=== PATIENT | male | born 1950 | race Caucasian/White ===

== ENCOUNTER → 2017-11-30 | Outpatient (CLI) | payer OTHER | LOC: M RAD 14:20 | DX: K85.90 Acute pancreatitis without necrosis or infection, unspecified (principal) | CPT/HCPCS: 74181 ==

== ENCOUNTER 2018-08-24 11:29 | Day surgery (SDC) | payer OTHER, MEDICARE ==
[~2018-08-24] VITALS: Ht 180.3 cm; Wt 105.7 kg
[~2018-08-24 11:29] MED LIST: AMLO10TA5 PO; AMRI15CA17 PO; ASPI81TA85 PO; ATOR40TA75 PO; COMBAER6 INH; CVS500CA5 PO; FENO145T13 PO; FISH1000 PO; FLOM0.4C39 PO; GNP1000C11 PO; HYDR-3713 PO; LANS15CA PO; LIDOCAINE 2% INJ 100 MG/5 ML SDV (FOR ANES.) As Ordered ONE; LISI40TA PO; MAGO400T2 PO; METO1TAB32 PO; MULTCAP PO; NS 1,000 ML IV ONE; RANI150T PO; SM S160C PO; SYMB80INH INH; VITAD1000T PO
[2018-08-24] MEDS ORDERED: PROPOFOL 200 MG/20 ML VIAL As Ordered ONE ×2 (11:51→12:39)
[2018-08-24] MEDS ORDERED: fentaNYL 100 MCG/2 ML INJECTION (J3010) As Ordered ONE (11:52)
--- NOTE | 2018-08-24 12:44 | ROOR ---
Patient Name: Melissa Cee Procedure Date: 08/24/2018 12:17 PM Date of : 1950 Age: 67 Room: [facility] Gender: Male Note Status: Finalized Procedure: Colonoscopy Indications: High risk colon cancer surveillance: Personal history of colonic polyps Providers: DO Josiane Hinojosa MD: [facility], Admin. Requesting Provider: Medicines: Propofol per Anesthesia Complications: No immediate complications. Procedure: Pre-Anesthesia Assessment: - Prior to the procedure, a History and Physical was performed, and patient medications and allergies were reviewed. The patient is competent. The risks and benefits of the procedure and the sedation options and risks were discussed with the patient. All questions were answered and informed consent was obtained. Patient identification and proposed procedure were verified by the physician, the nurse, the anesthesiologist and the meter/relay technician in the endoscopy suite. Mental Status Examination: alert and oriented. Airway Examination: normal oropharyngeal airway and neck mobility. Respiratory Examination: clear to auscultation. CV Examination: normal. Prophylactic Antibiotics: The patient does not require prophylactic antibiotics. Prior Anticoagulants: The patient has taken no previous anticoagulant or antiplatelet agents. ASA Grade Assessment: II - A patient with mild systemic disease. After reviewing the risks and benefits, the patient was deemed in satisfactory condition to undergo the procedure. The anesthesia plan was to use monitored anesthesia care (MAC). Immediately prior to administration of medications, the patient was re-assessed for adequacy to receive sedatives. The heart rate, respiratory rate, oxygen saturations, blood pressure, adequacy of pulmonary ventilation, and response to care were monitored throughout the procedure. The physical status of the patient was re-assessed after the procedure. The Colonoscope was introduced through the anus and advanced to the cecum, identified by the appendiceal orifice, ileocecal valve and palpation. The colonoscopy was performed without difficulty. The patient tolerated the procedure well. Findings: A single medium-mouthed diverticulum was found in the ascending colon. Three hyperplastic polyps were found in the sigmoid colon and transverse colon. The polyps were 3 to 8 mm in size. These polyps were removed with a hot snare. Resection and retrieval were complete. Estimated blood loss was minimal. The exam was otherwise without abnormality on direct and retroflexion views. Impression: - Diverticulosis in the ascending colon. - Three 3 to 8 mm polyps in the sigmoid colon and in the transverse colon, removed with a hot snare. Resected and retrieved. - The examination was otherwise normal on direct and retroflexion views. Recommendation: - Patient has a contact number available for emergencies. The signs and symptoms of potential delayed complications were discussed with the patient. Return to normal activities tomorrow. Written discharge instructions were provided to the patient. - Repeat colonoscopy in 5-10 years for surveillance based on pathology results. - Return to my office as previously scheduled. Ernie Mao DO 08/24/2018 12:44:42 PM Electronically signed by Ernie Mao DO Number of Addenda: 0 Note Initiated On: 08/24/2018 12:17 PM Estimated Blood Loss: Estimated blood loss was minimal.
[2018-08-24 13:05] VITALS: BP 142/79
== END 2018-08-24 13:15 | disposition home or self-care (01) ==
LOC: M OPP 11:29
PROVIDERS: ATTEND Surgery
DX: Z86.010 Personal history of colon polyps (principal); Z80.0 Family history of malignant neoplasm of digestive organs; D12.5 Benign neoplasm of sigmoid colon; D12.3 Benign neoplasm of transverse colon; K57.30 Diverticulosis of large intestine without perforation or abscess without bleeding
CPT/HCPCS: 45385; 88305; J3010

== ENCOUNTER 2020-03-26 10:49 | Inpatient (IN) | payer OTHER, MEDICARE ==
[~2020-03-26] VITALS: Ht 180.3 cm; Wt 95.0 kg
[~2020-03-26 10:49] MED LIST changes: -ASPI81TA26 PO; -D31000TA2 PO; -DOXY100C PO; -GABA-282 PO; +NICOTINE 21MG/24HR 1 EA TRANSDERMAL TD SCH; -PRED20TA PO; -SAW1CAPS2 PO
--- OUTSIDE RECORDS SUMMARY | 2020-03-26 10:57 | CCD | Continuity of Care Document ---
Author Author [facility] Address [address] [place] [address] Phone Support Name Relationship Address Phone [place] [address] [place] [address] Allergies, Adverse Reactions, Alerts No known allergies. Medications Medication Status Dose Units Route Directions Qty Days Start Date End Date Instructions Flaxseed Active 1000 MG PO 2 Times Per Day August 09, 2018 9:53am Flucelvax Quad [id number] (PF) (flu vac q s 2018(4 yr up)CD(PF)) 60 mcg (15 mcg x Discontinued 0.5 ML IM 1 Time/Once 0.5 February 06, 2019 11:27am February 06, 2019 12:01pm Gabapentin Active 300 MG PO 2 Times Per Day 180 July 28, 2019 12:25pm Acetaminophen-Codeine (Tylenol-Codeine #3) 300-30 mg t ablet Discontinued 1 - 2 TAB PO Four Times a Day 150 July 01, 2010 10:19am July 01, 2010 10:20am Acetaminophen-Codeine (Tylenol-Codeine #3) 300-30 mg t ablet Discontinued 1 - 2 TAB PO Four Times a Day 150 July 01, 2010 10:20am July 28, 011 10:19am Acetaminophen-Codeine (Tylenol-Codeine #3) 300-30 mg t ablet Discontinued 1 - 2 TAB PO Four Times a Day 150 July 28, 2010 10:19am August 27 11 6:52am Acetaminophen-Codeine (Tylenol-Codeine #3) 300-30 mg t ablet Discontinued 1 - 2 TAB PO Four Times a Day 150 August 27, 2010 6:52am September 22 11 3:10pm Cyclobenzaprine (Amrix) 15 mg capsule,extended release 24hr Discontinued 15 MG PO Once Per Day 30 September 18, 2010 5:53pm August 23 2 11:48am Acetaminophen-Codeine (Tylenol-Codeine #3) 300-30 mg t ablet Discontinued 1 - 2 TAB PO Four Times a Day 150 September 22, 2010 3:10pm October 23, 2010 2:28pm Lansoprazole (Prevacid) 15 mg capsule,delayed release( DR/EC) Discontinued 30 MG PO Once Per Day 60 October 13, 2010 4:33pm March 10:15am Acetaminophen-Codeine (Tylenol-Codeine #3) 300-30 mg t ablet Discontinued 1 - 2 TAB PO Four Times a Day 150 October 23, 2010 2:28pm November 202010 12:34pm Acetaminophen-Codeine (Tylenol-Codeine #3) 300-30 mg t ablet Discontinued 1 - 2 TAB PO Four Times a Day 150 November 20, 2010 12:34pm December 18, 2010 11:23am Acetaminophen-Codeine (Tylenol-Codeine #3) 300-30 mg t ablet Discontinued 1 - 2 TAB PO Four Times a Day 150 December 18, 2010 11:23am January 192010 8:39am Acetaminophen-Codeine (Tylenol-Codeine #3) 300-30 mg t ablet Discontinued 1 - 2 TAB PO Four Times a Day 150 January 19, 2011 8:39am February 162010 10:32am Atenolol Discontinued 25 MG PO Once Per Day 0 February 02, 2011 10:12am May 04, 2016 11:09am Vitamin B Complex Discontinued 1 CAP PO Once Per Day 0 February 02, 2011 10:14am May 19, 2016 9:17am Fenofibrate Nanocrystallized (Tricor) 145 mg tablet Active 1 TAB PO Once Per Day 0 February 02, 2011 10:15am Flaxseed Oil Discontinued 1000 MG PO 2 Times Per Day 0 February 02, 2011 10:15am October 06, 2013 9:47am Multivitamin Active 1 TAB PO Once Per Day 0 February 02, 2011 10:16am Lisinopril Discontinued 20 MG PO Once Per Day 0 February 02, 2011 10:16am April 23, 2016 10:38am Garlic Discontinued 1 CAP PO Once Per Day 0 February 02, 2011 10:16am October 06, 2013 9:47am Pravastatin Discontinued 0.5 TAB PO Once Per Day 0 February 02, 2011 10:17am September 21, 2013 7:43am Saw Totz Active 160 MG PO Once Per Day 0 February 02, 2011 10:18am Terazosin Discontinued 2 MG PO Once Per Day 0 February 02, 2011 10:19am December 26, 2015 11:42am CYCLOBENZAPRINE HCL Discontinued 1 TAB PO At Bedtime 0 February 03, 2011 10:38am March 17, 2011 10:03am Acetaminophen-Codeine (Tylenol-Codeine #3) 300-30 mg t ablet Discontinued 1 - 2 TAB PO Four Times a Day 150 February 16, 2011 10:32am March 172011 10:03am Acetaminophen-Codeine (Tylenol-Codeine #3) 300-30 mg t ablet Discontinued 1 - 2 TAB PO Four Times a Day 150 March 17, 2011 10:03am April 142011 10:13am Acetaminophen-Codeine (Tylenol-Codeine #3) 300-30 mg t ablet Discontinued 1 - 2 TAB PO Four Times a Day 150 April 14, 2011 10:13am May 12, 2011 10:34am Lansoprazole (Prevacid) 15 mg capsule,delayed release( DR/EC) Discontinued 30 MG PO Once Per Day 60 April 14, 2011 10:15am September 7:05am Ranitidine Hcl Active 150 MG PO Once Per Day 0 May 12, 2011 10:32am [place] 3-Laj-Vbc-Fish Oil (Fish Oil) 300- 1,000 mg capsule,delayed release(DR/EC) Active 1 CAP PO 2 Times Per Day 0 May 12, 2011 10:33am Acetaminophen-Codeine (Tylenol-Codeine #3) 300-30 mg t ablet Discontinued 1 - 2 TAB PO Four Times a Day 150 May 12, 2011 10:34am May 12, 2011 11:04am Gabapentin Discontinued 600 MG PO At Bedtime 120 May 12, 2011 10:58am September 08, 2011 9:20am Acetaminophen-Codeine (Tylenol-Codeine #3) 300-30 mg t ablet Discontinued 1 - 2 TAB PO Four Times a Day 165 May 12, 2011 11:04am June 072011 8:02am Acetaminophen-Codeine (Tylenol-Codeine #3) 300-30 mg t ablet Discontinued 1 - 2 TAB PO Four Times a Day June 08, 2011 8:02am July 06, 2011 1:39pm Acetaminophen-Codeine (Tylenol-Codeine #3) 300-30 mg t ablet Discontinued 1 - 2 TAB PO Four Times a Day July 06, 2011 1:39pm August 02 11:06am Acetaminophen-Codeine (Tylenol-Codeine #3) 300-30 mg t ablet Discontinued 1 - 2 TAB PO Four Times a Day August 03, 2011 11:06am August 30 2:57pm Cyclobenzaprine (Amrix) 15 mg capsule,extended release 24hr Discontinued 15 MG PO Once Per Day August 24, 2011 11:48am February 4:13pm Acetaminophen-Codeine (Tylenol-Codeine #3) 300-30 mg t ablet Discontinued 1 - 2 TAB PO Four Times a Day August 31, 2011 2:57pm September 27 3:07pm Acetaminophen-Codeine (Tylenol-Codeine #3) 300-30 mg t ablet Discontinued 1 - 2 TAB PO Four Times a Day September 28, 2011 3:07pm October 26, 2011 9:52am Lansoprazole (Prevacid) 15 mg capsule,delayed release( DR/EC) Discontinued 30 MG PO Once Per Day 30 October 08, 2011 7:05am October 07 2:31pm Lansoprazole (Prevacid) 15 mg capsule,delayed release( DR/EC) Discontinued 30 MG PO Once Per Day 60 October 08, 2011 2:31pm September 29 13 9:00am Acetaminophen-Codeine (Tylenol-Codeine #3) 300-30 mg t ablet Discontinued 1 - 2 TAB PO Four Times a Day October 26, 2011 9:52am November 132011 12:16pm Flu Vaccine (4 Yr+)(Pf) (Fluvirin [id number] (Pf)) 45 mcg (15 mcg x 3)/0.5 mL syringe Discontinued 0.5 MILLILITRE IM ONE TIME December 10, 2011 3:34pm December 10, 2011 3:45pm Hydrocodone-Acetaminophen (Jarreau) 5-325 mg tablet Discontinued 1 - 2 TAB PO Q6HRS 165 December 22, 2011 4:19pm January 19, 2012 1:36pm Hydrocodone-Acetaminophen (Jarreau) 5-325 mg tablet Discontinued 1 - 2 TAB PO Q6HRS 165 January 19, 2012 1:36pm February 22, 2012 4:13pm Hydrocodone-Acetaminophen (Jarreau) 5-325 mg tablet Discontinued 1 - 2 TAB PO Q6HRS 165 February 22, 2012 4:13pm March 17, 2012 10:21am Cyclobenzaprine (Amrix) 15 mg capsule,extended release 24hr Discontinued 15 MG PO Once Per Day February 22, 2012 4:13pm August 3:57pm Hydrocodone-Acetaminophen (Jarreau) 5-325 mg tablet Discontinued 1 - 2 TAB PO Q6HRS 165 March 17, 2012 10:21am April 18, 2012 4:52pm Hydrocodone-Acetaminophen (Jarreau) 5-325 mg tablet Discontinued 1 - 2 TAB PO Q6HRS 165 April 18, 2012 4:52pm May 16, 2012 9:34am Hydrocodone-Acetaminophen (Jarreau) 5-325 mg tablet Discontinued 1 - 2 TAB PO Q6HRS 165 May 16, 2012 9:34am June 14, 2012 2:38pm Hydrocodone-Acetaminophen (Jarreau) 5-325 mg tablet Discontinued 1 - 2 TAB PO Q6HRS 165 June 14, 2012 2:38pm July 14, 2012 8:39am Hydrocodone-Acetaminophen (Jarreau) 5-325 mg tablet Discontinued 1 - 2 TAB PO Q6HRS 165 July 14, 2012 8:39am August 11, 2012 10:41am Hydrocodone-Acetaminophen (Jarreau) 5-325 mg tablet Discontinued 1 - 2 TAB PO Q6HRS 165 August 11, 2012 10:41am September 07, 2012 9:06am Cyclobenzaprine (Amrix) 15 mg capsule,extended release 24hr Discontinued 15 MG PO Once Per Day August 22, 2012 3:57pm February 10:42am Hydrocodone-Acetaminophen (Jarreau) 5-325 mg tablet Discontinued 1 - 2 TAB PO Q6HRS 40 September 07, 2012 9:06am September 12, 2012 1:58pm Hydrocodone-Acetaminophen (Jarreau) 5-325 mg tablet Discontinued 1 - 2 TAB PO Q6HRS 165 September 12, 2012 1:58pm October 11, 2012 8:11am Lansoprazole (Prevacid) 15 mg capsule,delayed release( DR/EC) Discontinued 30 MG PO Once Per Day 60 September 29, 2012 9:00am March 31, 2013 2:55pm Hydrocodone-Acetaminophen (Jarreau) 5-325 mg tablet Discontinued 1 - 2 TAB PO Q6HRS 180 October 11, 2012 8:11am November 07, 2012 5:42pm Hydrocodone-Acetaminophen (Jarreau) 5-325 mg tablet Discontinued 1 - 2 TAB PO Q6HRS 180 November 07, 2012 5:42pm December 05, 2012 10:36am Hydrocodone-Acetaminophen (Jarreau) 5-325 mg tablet Discontinued 1 - 2 TAB PO Q6HRS 180 December 05, 2012 10:36am January 03, 2013 11:28am Hydrocodone-Acetaminophen (Jarreau) 5-325 mg tablet Discontinued 1 - 2 TAB PO Q6HRS 180 January 03, 2013 11:28am February 02, 2013 10:09am Testosterone (Androgel) 12.5 mg/ 1.25 gr am (1 %) gel in metered-dose pump Discontinued 2 EACH TP Once Per Day 1 January 03, 2013 11:30am May 9:17am Aspirin Active 81 MG PO Once Per Day 0 January 17, 2013 3:50pm Hydrocodone-Acetaminophen (Jarreau) 5-325 mg tablet Discontinued 1 - 2 TAB PO Q6HRS 180 February 02, 2013 10:09am March 02, 2013 9:26am Cyclobenzaprine (Amrix) 15 mg capsule,extended release 24hr Discontinued 15 MG PO Once Per Day 30 February 23, 2013 10:42am August 8:18am Hydrocodone-Acetaminophen (Jarreau) 5-325 mg tablet Discontinued 1 - 2 TAB PO Q6HRS 180 March 02, 2013 9:26am March 30, 2013 8:18am Hydrocodone-Acetaminophen (Jarreau) 5-325 mg tablet Discontinued 1 - 2 TAB PO Q6HRS 180 March 30, 2013 8:18am April 27, 2013 6:07pm Lansoprazole (Prevacid) 15 mg capsule,delayed release( DR/EC) Discontinued 30 MG PO Once Per Day 60 March 31, 2013 2:55pm September 22, 2013 2:21pm Hydrocodone-Acetaminophen (Jarreau) 5-325 mg tablet Discontinued 1 - 2 TAB PO Q6HRS 180 April 27, 2013 6:07pm May 25, 2013 8:27am Hydrocodone-Acetaminophen (Jarreau 5-325 Tablet) 1 EACH tablet Discontinued 1 - 2 TAB PO Q6HRS 180 May 25, 2013 8:27am June 22, 2013 6:55am REFERENCE #[id number] Hydrocodone-Acetaminophen (Jarreau 5-325 Tablet) 1 EACH tablet Discontinued 1 - 2 TAB PO Q6HRS 180 June 22, 2013 6:55am July 20 1:45pm REFERENCE #[id number] Hydrocodone-Acetaminophen (Jarreau 5-325 Tablet) 1 EACH tablet Discontinued 1 - 2 TAB PO Q6HRS 180 July 20, 2013 1:45pm August 18, 2013 7:42am REFERENCE #[id number] Hydrocodone-Acetaminophen (Jarreau 5-325 Tablet) 1 EACH tablet Discontinued 1 - 2 TAB PO Q6HRS 180 August 18, 2013 7:42am September 14, 2013 9:20am REFERENCE #[id number] Cyclobenzaprine (Amrix) 15 MG capsule,extended release 24hr Discontinued 15 MG PO Once Per Day 30 August 25, 2013 8:18am February 9:31am Hydrocodone-Acetaminophen (Jarreau 5-325 Tablet) 1 EACH tablet Discontinued 1 - 2 TAB PO Q6HRS 180 September 14, 2013 9:20am October 13 6:16am REFERENCE #[id number] Pravastatin Discontinued 0.5 TAB PO Once Per Day 15 September 21, 2013 7:43am May 04, 2016 11:09am Lansoprazole (Prevacid) 15 MG capsule,delayed release( DR/EC) Discontinued 30 MG PO Once Per Day 60 September 22, 2013 2:21pm March 26, 2014 9:27am Garlic Discontinued 1 EACH PO Once Per Day October 06, 2013 9:47am May 19, 2016 9:17am Flaxseed Discontinued 10 00 MG PO 2 Times Per Day October 06, 2013 9:47am August 09, 2018 9:53am Hydrocodone-Acetaminophen (Jarreau 5-325 Tablet) 1 EACH tablet Discontinued 1 - 2 TAB PO Q6HRS 180 October 13, 2013 6:16am November 09, 2013 7:09am REFERENCE #[id number] Hydrocodone-Acetaminophen (Jarreau 5-325 Tablet) 1 EACH tablet Discontinued 1 - 2 TAB PO Q6HRS 180 November 09, 2013 7:09am November 142013 4:26pm REFERENCE #[id number] Hydrocodone-Acetaminophen (Jarreau 5-325 Tablet) 1 EACH tablet Discontinued 1 - 2 TAB PO Q6HRS 180 2013 4:26pm January 01, 2014 4:31pm REFERENCE #[id number] Hydrocodone-Acetaminophen (Jarreau 5-325 Tablet) 1 EACH tablet Discontinued 1 - 2 TAB PO Q6HRS 180 January 01, 2014 4:31pm January 142013 8:08am REFERENCE #[id number] Magnesium Oxide Discontinued 400 MG PO Once Per Day January 08, 2014 10:21am March 02, 2014 9:07am AFLURIA Discontinued 45 MCG IM ONE TIME January 08, 2014 1:55pm January 08, 2014 6:41pm Hydrocodone-Acetaminophen (Jarreau 5-325 Tablet) 1 EACH tablet Discontinued 1 - 2 TAB PO Q6HRS 180 February 02, 2014 8:08am March 02, 2014 2:36pm REFERENCE #[id number] Cyclobenzaprine (Amrix) 15 MG capsule,extended release 24hr Discontinued 15 MG PO Once Per Day February 23, 2014 9:31am August 13, 2014 10:58am Magnesium Oxide Discontinued 400 MG PO Once Per Day March 02, 2014 9:07am August 13, 2014 10:58am Hydrocodone-Acetaminophen (Jarreau 5-325 Tablet) 1 EACH tablet Discontinued 1 - 2 TAB PO Q6HRS 180 March 02, 2014 2:36pm March 152014 8:20am REFERENCE #[id number] Lansoprazole (Prevacid) 15 MG capsule,delayed release( DR/EC) Discontinued 30 MG PO Once Per Day 60 March 26, 2014 9:27am August 13, 2014 10:58am Hydrocodone-Acetaminophen (Jarreau 5-325 Tablet) 1 EACH tablet Discontinued 1 - 2 TAB PO Q6HRS 180 March 30, 2014 8:20am April 152014 8:12am REFERENCE #[id number] Hydrocodone-Acetaminophen (Jarreau 5-325 Tablet) 1 EACH tablet Discontinued 1 - 2 TAB PO Q6HRS 180 April 27, 2014 8:12may 9:06am REFERENCE #[id number] Hydrocodone-Acetaminophen (Jarreau 5-325 Tablet) 1 EACH tablet Discontinued 1 - 2 TAB PO Q6HRS 180 May 25, 2014 9:06am June 19, 2 015 12:24pm REFERENCE #[id number] Hydrocodone-Acetaminophen (Jarreau 5-325 Tablet) 1 EACH tablet Discontinued 1 - 2 TAB PO Q6HRS 60 June 19, 2014 12:24pm June 29, 2014 7:25am REFERENCE #[id number] Hydrocodone-Acetaminophen (Jarreau 5-325 Tablet) 1 EACH tablet Discontinued 1 - 2 TAB PO Q6HRS 180 July 02, 2014 10:00am July 31, 2 015 7:13am REFERENCE #[id number] Hydrocodone-Acetaminophen (Jarreau 5-325 Tablet) 1 EACH tablet Discontinued 1 - 2 TAB PO Q6HRS 180 July 31, 2014 7:13am August 27, 5 4:23pm OLIVE GRADER#[id number] Magnesium Oxide Discontinued 400 MG PO Once Per Day August 13, 2014 10:58am March 19, 2015 10:33am Lansoprazole (Prevacid) 15 MG capsule,delayed release( DR/EC) Discontinued 30 MG PO Once Per Day 60 August 13, 2014 10:58am February 18, 2015 12:26pm Cyclobenzaprine (Amrix) 15 MG capsule,extended release 24hr Discontinued 15 MG PO Once Per Day August 13, 2014 10:58am February 18, 2015 12:26pm Hydrocodone-Acetaminophen (Jarreau 5-325 Tablet) 1 EACH tablet Discontinued 1 - 2 TAB PO Q6HRS 180 August 27, 2014 4:23pm September 25 7:21am OLIVE GRADER #[id number] Hydrocodone-Acetaminophen (Jarreau 5-325 Tablet) 1 EACH tablet Discontinued 1 - 2 TAB PO Q6HRS 180 September 25, 2014 7:21am October 22, 2014 9:08am OLIVE GRADER #[id number] Hydrocodone-Acetaminophen (Jarreau 5-325 Tablet) 1 EACH tablet Discontinued 1 - 2 TAB PO Q6HRS 180 October 22, 2014 9:08am November 202014 8:48am OLIVE GRADER #[id number] Hydrocodone-Acetaminophen (Jarreau 5-325 Tablet) 1 EACH tablet Discontinued 1 - 2 TAB PO Q6HRS 180 November 20, 2014 8:48am December 182014 10:07am OLIVE GRADER #[id number] Hydrocodone-Acetaminophen (Jarreau 5-325 Tablet) 1 EACH tablet Discontinued 1 - 2 TAB PO Q6HRS 180 December 18, 2014 10:07am January 172014 10:10am OLIVE GRADER #[id number] Hydrocodone-Acetaminophen (Jarreau 5-325 Tablet) 1 EACH tablet Discontinued 1 - 2 TAB PO Q6HRS 180 January 17, 2015 10:10am February 18, 2015 10:57am OLIVE GRADER #[id number] Hydrocodone-Acetaminophen (Jarreau 5-325 Tablet) 1 EACH tablet Discontinued 1 - 2 TAB PO Q6HRS 180 February 18, 2015 10:57am March 182015 1:41pm OLIVE GRADER #[id number] Lansoprazole (Prevacid) 15 MG capsule,delayed release( DR/EC) Discontinued 30 MG PO Once Per Day February 18, 2015 12:26pm August 15, 2015 9:43am Cyclobenzaprine (Amrix) 15 MG capsule,extended release 24hr Discontinued 15 MG PO Once Per Day February 18, 2015 12:26pm August 15, 2015 9:43am Hydrocodone-Acetaminophen (Jarreau 5-325 Tablet) 1 EACH tablet Discontinued 1 - 2 TAB PO Q6HRS 180 March 18, 2015 1:41pm April 10:10am OLIVE GRADER # [id number] Magnesium Oxide Discontinued 400 MG PO Once Per Day March 19, 2015 10:33am March 26, 2016 5:49pm Fluocinonide Discontinued 1 SM.AMT TP 2 Times Per Da y March 19, 2015 11 :04am May 19, 2016 9:17am Hydrocodone-Acetaminophen (Jarreau 5-325 Tablet) 1 EACH tablet Discontinued 1 - 2 TAB PO Q6HRS 180 April 15, 2015 10:10am May 13, 2015 10:06am OLIVE GRADER # [id number] Hydrocodone-Acetaminophen (Jarreau 5-325 Tablet) 1 EACH tablet Discontinued 1 - 2 TAB PO Q6HRS 180 May 13, 2015 10:06am June 092015 5:53pm OLIVE GRADER # [id number] Hydrocodone-Acetaminophen (Jarreau 5-325 Tablet) 1 EACH tablet Discontinued 1 - 2 TAB PO Q6HRS 180 June 10, 2015 5:54pm July 09, 2015 11:18am MDD-8 Hydrocodone-Acetaminophen (Jarreau 5-325 Tablet) 1 EACH tablet Discontinued 1 - 2 TAB PO Q6HRS 180 July 09, 2015 11:18am August 05, 016 6:11pm MDD-8 ...OLIVE GRADER #[id number] Hydrocodone-Acetaminophen (Jarreau 5-325 Tablet) 1 EACH tablet Discontinued 1 - 2 TAB PO Q6HRS 180 August 06, 2015 6:12pm September 04 5:49pm OLIVE GRADER #[id number] Lansoprazole (Prevacid) 15 MG capsule,delayed release( DR/EC) Discontinued 30 MG PO Once Per Day August 15, 2015 9:43am February 18, 2016 10:43am Cyclobenzaprine (Amrix) 15 MG capsule,extended release 24hr Discontinued 15 MG PO Once Per Day August 15, 2015 9:43am February 24, 2016 9:54am Hydrocodone-Acetaminophen (Jarreau 5-325 Tablet) 1 EACH tablet Discontinued 1 - 2 TAB PO Q6HRS 180 September 05, 2015 5:50pm October 02 5:35pm OLIVE GRADER #[id number] Hydrocodone-Acetaminophen (Jarreau 5-325 Tablet) 1 EACH tablet Discontinued 1 - 2 TAB PO Q6HRS 180 October 03, 2015 5:35pm November 01, 2015 6:48pm OLIVE GRADER #[id number] Hydrocodone-Acetaminophen (Jarreau 5-325 Tablet) 1 EACH tablet Discontinued 1 - 2 TAB PO Q6HRS 180 November 01, 2015 6:49pm November 132015 12:48pm OLIVE GRADER #[id number] Hydrocodone-Acetaminophen (Jarreau 5-325 Tablet) 1 EACH tablet Discontinued 1 - 2 TAB PO Q6HRS 180 November 28, 2015 12:48pm December 27, 2015 3:19pm OLIVE GRADER #[id number] Flu Vaccine [id number](5yrup)Pf (Afluria [id number] Syringe) 45 MCG/0.5 ML syringe Discontinued 45 MCG IM ONE TIME December 26, 2015 10:43am December 132015 11:52am Tamsulosin (Flomax) 0.4 MG capsule D iscontinued 0.4 MG PO Once Per Day December 26, 2015 11:42am December 24, 2016 2:20pm Hydrocodone-Acetaminophen (Jarreau 5-325 Tablet) 1 EACH tablet Discontinued 1 - 2 TAB PO Q6HRS 180 December 27, 2015 3:21pm January 132015 7:20pm OLIVE GRADER #[id number] Hydrocodone-Acetaminophen (Jarreau 5-325 Tablet) 1 EACH tablet Discontinued 1 - 2 TAB PO Q6HRS 180 January 28, 2016 7:20pm February 28, 2016 9:59am OLIVE GRADER #[id number] Lansoprazole (Prevacid) 15 MG capsule,delayed release( DR/EC) Discontinued 30 MG PO Once Per Day 60 February 18, 2016 10:43am February 19, 2016 6:04pm Lansoprazole (Prevacid) 15 MG capsule,delayed release( DR/EC) Discontinued 30 MG PO Once Per Day 60 February 19, 2016 6:04pm September 11, 2016 1:22pm Cyclobenzaprine (Amrix) 15 MG capsule,extended release 24hr Discontinued 15 MG PO Once Per Day February 24, 2016 9:54am February 24, 2016 6:21pm Cyclobenzaprine (Amrix) 15 MG capsule,extended release 24hr Discontinued 15 MG PO Once Per Day February 24, 2016 6:21pm August 10:57am Hydrocodone-Acetaminophen (Jarreau 5-325 Tablet) 1 EACH tablet Discontinued 1 - 2 TAB PO Q6HRS 45 February 28, 2016 9:59am March 06, 2016 5:09pm OLIVE GRADER #[id number] Hydrocodone-Acetaminophen (Jarreau 5-325 Tablet) 1 EACH tablet Discontinued 1 - 2 TAB PO Q6HRS 180 March 06, 2016 5:10pm March 152016 1:26pm OLIVE GRADER #[id number] Budesonide-Formoterol (Symbicort 80-4.5 Mcg Inhaler) 10.2 GM HFA aerosol inhaler Discontinued 2 PUFFS IH 2 Times Per Day March 26, 2016 11:02am July 25, 2018 9:47am Ipratropium-Albuterol (Combivent Respima t Inhal Pyote*) 4 GM mist Discontinued 1 PUFFS IH Four Times a Day March 26, 2016 11:02am July 25, 2018 9:47am Magnesium Oxide Discontinued 400 MG PO Once Per Day March 26, 2016 5:49pm March 25, 2017 8:46am Hydrocodone-Acetaminophen (Jarreau 5-325 Tablet) 1 EACH tablet Discontinued 1 - 2 TAB PO Q6HRS 180 April 02, 2016 1:27pm April 162016 3:55pm OLIVE GRADER #[id number] Lisinopril Discontinued 40 MG PO Once Per Day April 23, 2016 10:38am May 04, 2016 11:09am Atenolol Discontinued 25 MG PO Once Per Day May 04, 2016 11:09am November 19, 2016 12:18pm Pravastatin Discontinued 20 MG PO Once Per Day May 04, 2016 11:09am July 16, 2016 1:18pm Lisinopril Discontinued 40 MG PO Once Per Day May 04, 2016 11:09am May 24, 2017 12:56pm Hydrocodone-Acetaminophen (Jarreau 5-325 Tablet) 1 EACH tablet Discontinued 1 - 2 TAB PO Q6HRS 180 May 04, 2016 3:55pm May 7:16am Cholecalciferol (Vitamin D3) Discontinued 2000 UNIT PO Once Per Day May 19, 2016 9:17 am July 25, 2018 9:47am Hydrocodone-Acetaminophen (Jarreau 5-325 Tablet) 1 EACH tablet Discontinued 1 - 2 TAB PO Q6HRS June 05, 2016 7:18am June 12, 2016 5:08pm OLIVE GRADER# [id number] Hydrocodone-Acetaminophen (Jarreau 5-325 Tablet) 1 EACH tablet Discontinued 1 - 2 TAB PO Q6HRS 180 June 12, 2016 5:08pm July 10, 2016 5:38pm Hydrocodone-Acetaminophen (Jarreau 5-325 Tablet) 1 EACH tablet Discontinued 1 - 2 TAB PO Q6HRS 180 July 10, 2016 5:39pm August 06 11:57am Amlodipine Discontinued 10 MG PO Once Per Day July 16, 2016 12:13pm July 29, 2017 11:32am Atorvastatin Discontinued 40 MG PO At Bedtime July 16, 2016 1:18pm O ct2016 12:58pm Hydrocodone-Acetaminophen (Jarreau 5-325 Tablet) 1 EACH tablet Discontinued 1 - 2 TAB PO Q6HRS August 06, 2016 11:57am August 17 7 12:22pm OLIVE GRADER [id number] Hydrocodone-Acetaminophen (Jarreau 5-325 Tablet) 1 EACH tablet Discontinued 1 - 2 TAB PO Q6HRS 180 August 17, 2016 12:22pm Sapna 3rd, 201 7 12:45pm OLIVE GRADER [id number] Cyclobenzaprine (Amrix) 15 MG capsule,extended release 24hr Discontinued 15 MG PO Once Per Day September 03, 2016 10:57am February 5:05pm Lansoprazole (Prevacid) 15 MG capsule,delayed release( DR/EC) Discontinued 30 MG PO Once Per Day September 11, 2016 1:22pm March 19, 2017 5:29pm Hydrocodone-Acetaminophen (Jarreau 5-325 Tablet) 1 EACH tablet Discontinued 1 - 2 TAB PO Q6HRS September 14, 2016 12:47pm October 15 11:58am OLIVE GRADER [id number] Hydrocodone-Acetaminophen (Jarreau 5-325 Tablet) 1 EACH tablet Discontinued 1 - 2 TAB PO Q6HRS October 15, 2016 11:58am October 5:28pm OLIVE GRADER [id number] Hydrocodone-Acetaminophen (Jarreau 5-325 Tablet) 1 EACH tablet Discontinued 1 - 2 TAB PO Q6HRS November 12, 2016 5:28pm November 142016 1:21pm OLIVE GRADER [id number] Metoprolol Succinate Discontinued 1 TAB PO Once Per Day November 20, 2016 5:06pm October 25, 2017 2:29pm Hydrocodone-Acetaminophen (Jarreau 5-325 Tablet) 1 EACH tablet Discontinued 1 - 2 TAB PO Q6HRS December 10, 2016 1:22pm January 12, 2017 1:16pm OLIVE GRADER [id number] Tamsulosin (Flomax) 0.4 MG capsule D iscontinued 0.4 MG PO Once Per Day December 24, 2016 2:20pm December 28, 2016 7:01pm Tamsulosin (Flomax) 0.4 MG capsule D iscontinued 0.4 MG PO Once Per Day December 28, 2016 7:01pm March 16, 2018 7:52am Atorvastatin Discontinued 40 MG PO At Bedtime January 12, 2017 12:58pm December 30, 2017 12:12pm Hydrocodone-Acetaminophen (Jarreau 5-325 Tablet) 1 EACH tablet Discontinued 1 - 2 TAB PO Q6HRS January 12, 2017 1:17pm January 142016 6:06pm OLIVE GRADER [id number] Hydrocodone-Acetaminophen (Jarreau 5-325 Tablet) 1 EACH tablet Discontinued 1 - 2 TAB PO Q6HRS 180 February 09, 2017 6:07pm March 12, 2017 8:02am Cyclobenzaprine (Amrix) 15 MG capsule,extended release 24hr Discontinued 15 MG PO Once Per Day February 23, 2017 5:05pm August 3:50pm Hydrocodone-Acetaminophen (Jarreau 5-325 Tablet) 1 EACH tablet Discontinued 1 - 2 TAB PO Q6HRS 180 March 12, 2017 8:03am March 162017 6:30pm Lansoprazole (Prevacid) 15 MG capsule,delayed release( DR/EC) Discontinued 30 MG PO Once Per Day 60 March 19, 2017 5:29pm September 09, 2017 8:21am Magnesium Oxide Discontinued 400 MG PO Once Per Day March 25, 2017 8:46am March 16, 2018 7:52am Hydrocodone-Acetaminophen (Jarreau 5-325 Tablet) 1 EACH tablet Discontinued 1 - 2 TAB PO Q6HRS 180 April 08, 2017 6:30pm April 162017 6:43pm Hydrocodone-Acetaminophen (Jarreau 5-325 Tablet) 1 EACH tablet Discontinued 1 - 2 TAB PO Q6HRS 180 May 10, 2017 6:43pm May 4:47pm Lisinopril Discontinued 40 MG PO Once Per Day May 24, 2017 12:56pm November 19, 2017 5:11pm Hydrocodone-Acetaminophen (Jarreau 5-325 Tablet) 1 EACH tablet Discontinued 1 - 2 TAB PO Q6HRS 180 June 04, 2017 4:48pm July 06, 2017 5:35pm OLIVE GRADER [id number] Cranberry Extract Discontinued 200 MG PO Once Per Day June 14, 2017 1:19 pm July 25, 2018 9:47am Hydrocodone-Acetaminophen (Jarreau 5-325 Tablet) 1 EACH tablet Discontinued 1 - 2 TAB PO Q6HRS 180 July 06, 2017 5:35pm August 05 7:12am Amlodipine Discontinued 10 MG PO Once Per Day July 29, 2017 11:32am July 13, 2018 6:48am Amlodipine Discontinued 10 MG PO Once Per Day July 29, 2017 11:32am July 25, 2018 9:47am Hydrocodone-Acetaminophen (Jarreau 5-325 Tablet) 1 EACH tablet Discontinued 1 - 2 TAB PO Q6HRS 180 August 05, 2017 7:12am September 03 3:46pm [employer] #[id number] Hydrocodone-Acetaminophen (Jarreau 5-325 Tablet) 1 EACH tablet Discontinued 1 - 2 TAB PO Q6HRS 180 September 03, 2017 3:47pm October 04 4:07pm [employer] #[id number] Cyclobenzaprine (Amrix) 15 MG capsule,extended release 24hr Discontinued 15 MG PO Once Per Day 30 September 03, 2017 3:50pm February 8:17am Lansoprazole (Prevacid) 15 MG capsule,delayed release( DR/EC) Discontinued 30 MG PO Once Per Day 60 September 09, 2017 8:21am February 2:11pm Hydrocodone-Acetaminophen (Jarreau 5-325 Tablet) 1 EACH tablet Discontinued 1 - 2 TAB PO Q6HRS 180 October 04, 2017 4:08pm November 01, 2017 9:33am [employer] #[id number] Metoprolol Succinate Discontinued 1 TAB PO Once Per Day October 25, 2017 2 :29pm July 13, 2018 7:25am Metoprolol Succinate Discontinued 1 TAB PO Once Per Day October 25, 2017 2 :29pm July 22, 2018 2:39pm Hydrocodone-Acetaminophen (Jarreau 5-325 Tablet) 1 EACH tablet Discontinued 1 - 2 TAB PO Q6HRS 180 November 01, 2017 9:33am November 142017 12:15pm [employer] #[id number] Lisinopril Discontinued 40 MG PO Once Per Day November 19, 2017 5:11pm May 17, 2018 6:04pm Hydrocodone-Acetaminophen (Jarreau 5-325 Tablet) 1 EACH tablet Discontinued 1 - 2 TAB PO Q6HRS 180 December 02, 2017 12:15pm December 30, 2017 4:26pm [employer] #[id number] Atorvastatin Discontinued 40 MG PO At Bedtime December 30, 2017 12:12pm July 13, 2018 7:59am Atorvastatin Discontinued 40 MG PO At Bedtime December 30, 2017 12:12pm October 21, 2018 5:16pm Hydrocodone-Acetaminophen (Jarreau 5-325 Tablet) 1 EACH tablet Discontinued 1 - 2 TAB PO Q6HRS 180 December 30, 2017 4:26pm January 132017 12:36pm [employer] #[id number] Hydrocodone-Acetaminophen (Jarreau 5-325 Tablet) 1 EACH tablet Discontinued 1 - 2 TAB PO Q6HRS 180 January 27, 2018 12:36pm February 28, 2018 6:25pm [employer] #[id number] Cyclobenzaprine (Amrix) 15 MG capsule,extended release 24hr Discontinued 15 MG PO Once Per Day February 21, 2018 8:17am July 13, 2018 8:32am Cyclobenzaprine (Amrix) 15 MG capsule,extended release 24hr Discontinued 15 MG PO Once Per Day 30 February 21, 2018 8:17am August 5:36am Lansoprazole (Prevacid) 15 MG capsule,delayed release( DR/EC) Discontinued 30 MG PO Once Per Day 60 February 24, 2018 2:11pm July 13, 2018 8:36am Lansoprazole (Prevacid) 15 MG capsule,delayed release( DR/EC) Discontinued 30 MG PO Once Per Day 60 February 24, 2018 2:11pm August 7:32am Hydrocodone/Acetaminophen (Jarreau 5-325 Tablet) 1 EACH tablet Discontinued 1 - 2 TAB PO Q6HRS 180 February 28, 2018 6:25pm March 152018 12:54pm [employer] #[id number] Magnesium Oxide Discontinued 400 MG PO Once Per Day March 16, 2018 7:52am July 13, 2018 8:48am Magnesium Oxide Active 4 00 MG PO Once Per Day March 16, 2018 7:52am Tamsulosin (Flomax) 0.4 MG capsule D iscontinued 0.4 MG PO Once Per Day March 16, 2018 7:52am July 13, 2018 8:48am Tamsulosin (Flomax) 0.4 MG capsule D iscontinued 0.4 MG PO Once Per Day March 16, 2018 7:52am January 17, 2019 8:45am Hydrocodone/Acetaminophen (Jarreau 5-325 Tablet) 1 EACH tablet Discontinued 1 - 2 TAB PO Q6HRS 180 March 28, 2018 12:55pm May 02, 2018 12:54pm [employer] #[id number] Hydrocodone/Acetaminophen (Jarreau 5-325 Tablet) 1 EACH tablet Discontinued 1 - 2 TAB PO Q6HRS 56 May 02, 2018 12:54pm May 09, 2018 1:29pm [employer] #[id number] Hydrocodone/Acetaminophen (Jarreau 5-325 Tablet) 1 EACH tablet Discontinued 1 - 2 TAB PO Q6HRS 180 May 09, 2018 1:30pm May 6:34pm [employer] #[id number] Lisinopril Discontinued 40 MG PO Once Per Day May 17, 2018 6:04pm July 13, 2018 9:59am Lisinopril Discontinued 40 MG PO Once Per Day May 17, 2018 6:04pm November 11, 2018 9:16am Hydrocodone/Acetaminophen (Jarreau 5-325 Tablet) 1 EACH tablet Discontinued 1 - 2 TAB PO Q6HRS 180 June 06, 2018 6:35pm July 05, 2018 3:59pm [employer] #[id number] Hydrocodone/Acetaminophen (Jarreau 5-325 Tablet) 1 EACH tablet Discontinued 1 - 2 TAB PO Q6HRS 180 July 05, 2018 3:59pm August 04 12:02pm [employer] #[id number] Metoprolol Succinate Discontinued 25 MG PO daily July 22, 2018 2:39pm July 25, 2018 9:47am Amlodipine Discontinued 10 MG PO Once Per Day July 25, 2018 9:46am April 14, 2019 8:43am Metoprolol Succinate Discontinued 25 MG PO daily July 25, 2018 9:46am October 21, 2018 5:19pm Ipratropium-Albuterol (Combivent Respima t) 20-100 mcg/actuation mist Active 1 PUFFS IH Four Times a Day July 25, 2018 9:46am Budesonide-Formoterol (Symbicort) 80-4.5 mcg/actuation HFA aerosol inhaler Active 2 PUFFS IH 2 Times Per Day July 25, 2018 9:46am Cholecalciferol (Vitamin D3) Active 2000 UNIT PO Once Per Day July 25, 2018 9:46a m Cranberry Extract Active 200 MG PO Once Per Day July 25, 2018 9:46am Hydrocodone-Acetaminophen Discontinued 1 - 2 TAB PO Q6H 180 August 04, 2018 12: 02pm August 31, 2018 5:00pm [employer] #[id number] Lansoprazole Discontinued 30 MG PO daily 180 August 22, 2018 7:32am July 14, 2019 12:22pm Hydrocodone-Acetaminophen Discontinued 1 - 2 TAB PO Q6H August 31, 2018 4:5 9pm September 08, 2018 5:40pm [employer] #[id number] Cyclobenzaprine (Amrix) 15 mg capsule,extended release 24hr Discontinued 15 MG PO Once Per Day September 06, 2018 5:35am July 27 0 12:25pm Hydrocodone-Acetaminophen Discontinued 1 - 2 TAB PO Q6H 180 September 08, 2018 5: 39pm October 07, 2018 4:39pm [employer] #[id number] Hydrocodone-Acetaminophen Discontinued 1 - 2 TAB PO Q6H 180 October 07, 2018 4: 38pm November 03, 2018 11:13am [employer] #[id number] Atorvastatin Discontinued 40 MG PO At Bedtime October 21, 2018 5:15pm October 21, 2018 5:19pm Lisinopril Discontinued 40 MG PO daily October 21, 2018 5:18pm April 14, 2019 8:43am Metoprolol Succinate Discontinued 25 MG PO daily October 21, 2018 5:18pm October 09, 2019 10:13am Hydrocodone-Acetaminophen Discontinued 1 - 2 TAB PO Q6H 180 November 03, 2018 11:12am November 03, 2018 3:36pm [employer] #[id number] Hydrocodone-Acetaminophen Discontinued 1 - 2 TAB PO Q6H 180 November 03, 2018 3:36pm December 05, 2018 11:36am [employer] #[id number] Hydrocodone-Acetaminophen Discontinued 1 - 2 TAB PO Q6H 180 December 05 11:36am December 05, 2018 3:24pm [employer] #[id number] Hydrocodone-Acetaminophen Discontinued 1 - 2 TAB PO Q6H 180 December 05 3:24pm January 03, 2019 5:51am [employer] #[id number] Hydrocodone-Acetaminophen Discontinued 1 - 2 TAB PO Q6H 180 January 03, 2019 5:51am January 03, 2019 5:39pm [employer] #[id number] Atorvastatin Discontinued 40 MG PO daily January 03, 2019 5:55am October 09, 2019 10:15am Hydrocodone-Acetaminophen Discontinued 1 - 2 TAB PO Q6H 180 January 03, 2019 5:39pm February 02, 2019 6:08pm [employer] #[id number] Tamsulosin Discontinued 0.4 MG PO daily January 17, 2019 8:45am January 02, 2020 12:53pm Hydrocodone-Acetaminophen Discontinued 1 - 2 TAB PO Q6H 180 February 02 9 6:07pm February 02, 2019 6:15pm [employer] #[id number] Hydrocodone-Acetaminophen Discontinued 1 - 2 TAB PO Q6H 180 February 02 9 6:15pm March 02, 2019 12:55pm [employer] #[id number] Hydrocodone-Acetaminophen Discontinued 1 - 2 TAB PO Q6H 180 March 02 9 12:54pm March 06, 2019 10:34am [employer] #[id number] Hydrocodone-Acetaminophen Discontinued 1 - 2 TAB PO Q6H 180 March 06 9 10:33am April 04, 2019 9:03am [employer] #[id number] Hydrocodone-Acetaminophen Discontinued 1 - 2 TAB PO Q6H 180 April 04, 2019 9:02am May 02, 2019 10:53am [employer] #[id number] Lisinopril Active 40 MG PO daily April 14, 2019 8:43am Amlodipine Active 10 MG PO daily April 14, 2019 8:43am Hydrocodone-Acetaminophen Discontinued 1 - 2 TAB PO Q6H 180 May 02 0 10:52am May 02, 2019 4:30pm [employer] #[id number] Hydrocodone-Acetaminophen Discontinued 1 - 2 TAB PO Q6H 180 May 02 0 4:30pm May 02, 2019 4:37pm [employer]ER #[id number] Hydrocodone-Acetaminophen Discontinued 1 - 2 TAB PO Q6H 180 May 02 0 4:37pm May 30, 2019 5:50pm [employer] #[id number] Hydrocodone-Acetaminophen Discontinued 1 - 2 TAB PO Q6H 180 May 30, 2019 5 :49pm June 28, 2019 3:36pm [employer]ER #[id number] Hydrocodone-Acetaminophen Discontinued 1 - 2 TAB PO Q6H 180 June 28, 2019 3 :36pm July 27, 2019 10:55am [employer] #[id number] Lansoprazole Active 30 MG PO daily July 14, 2019 12:22pm Hydrocodone-Acetaminophen Discontinued 1 - 2 TAB PO Q6H 180 July 27, 2019 10: 55am August 28, 2019 3:32pm [employer] #[id number] Hydrocodone-Acetaminophen Discontinued 1 - 2 TAB PO Q6H 180 August 28, 2019 3: 31pm September 26, 2019 2:49pm [employer] #[id number] Hydrocodone-Acetaminophen Discontinued 1 - 2 TAB PO Q6H 180 September 26, 2019 2: 48pm September 26, 2019 5:37pm [employer]ER #[id number] Hydrocodone-Acetaminophen Discontinued 1 - 2 TAB PO Q6H 180 September 26, 2019 5: 37pm October 26, 2019 12:41pm [employer] #[id number] Metoprolol Succinate Discontinued 0 .ROUTE .COMPLEX October 09, 2019 10: 13am October 09, 2019 10:15am TAKE ONE TAB LET BY MOUTH EVERY DAY Atorvastatin Active 40 MG PO daily October 09, 2019 10:14am Metoprolol Succinate Active 0 .ROUTE .COMPLEX October 09, 2019 10:15am TAKE ONE TABLET BY MOUTH EVERY DAY Hydrocodone-Acetaminophen Discontinued 1 - 2 TAB PO Q6H 180 October 26, 2019 12:40pm October 26, 2019 5:52pm [employer] #[id number] Hydrocodone-Acetaminophen Discontinued 1 - 2 TAB PO Q6H 180 October 26, 2019 5:52pm November 23, 2019 8:46am [employer]ER #[id number] Hydrocodone-Acetaminophen Discontinued 1 - 2 TAB PO Q6H 180 November 22 8:45am November 23, 2019 6:46pm [employer]ADER #[id number] Hydrocodone-Acetaminophen Discontinued 1 - 2 TAB PO Q6H 180 November 22 6:46pm December 25, 2019 8:00am [employer] #[id number] Hydrocodone-Acetaminophen Active 1 - 2 TAB PO Q6H 180 December 25, 2019 7:59am [employer]ER #[id number] Tamsulosin Active 0 .ROUTE .COMPLEX January 02, 2020 12:53pm TAKE ONE CAPSULE BY MOUTH EVERY DAY Problems Active Problems Medical Problem Onset Date Status (l) carotid artery stenosis Active Hearing Deficit Active Increased LFT's Active squamous cell carcinoma of skin Active Benign prostatic hyperplasia Active History of acute pancreatitis Active Chronic low back pain Active Essential (primary) hypertension Active Chronic kidney disease, stage III (moderate) Active History of pancreatitis Active Low testosterone Activ e Arthritis Active Depression Active Pure hypercholesterolemia Active Hyperlipidemia Active Peripheral vascular disease Active Prediabetes Active Tobacco use disorder, continuous Active History of CEA (carotid endarterectomy) Active Paroxysmal atrial fibrillation Active Gastroesophageal reflux disease Active Barretts esophagus Act alon Hypertension Active Vitamin D deficiency A ctive Obesity Active Inactive/Resolved Problems Medical Problem Onset Date Status Kidney disease May 21, 2011 Resolved Procedures No procedure information available. Relevant Diagnostic Tests and/or Laboratory Data No known relevant diagnostic tests and/or laboratory data. Health Concerns Health Concerns may be documented in an alternate section. Advance Directives Advance Directive Response Recorded Date/Time Advanced Directive ukn F ebruary 2019 10:38am Does Patient have a DNR? No October 30, 2019 10:55am Healthcare Proxy No Augu 2019 10:55am Living Will No October 292019 10:55am Chief Complaint and Reason for Visit Chief Complaint Workman's Compensati on Flu shot Workman's Compensation Workman's Compensation Workman's Compensation Workman's Compensation Encounters Encounter Location(s) Ar rival/Admit Date Discharge/Depart Date Provider(s) Departed Physician/Provider Office Visit [facility] February 06, 2019 10:18am February 06, 2019 11:02am Cuco Caldwell DO Departed Physician/Provider Office Visit [facility] February 06, 2019 11:27am February 06, 2019 11:28am Cuco Caldwell DO Departed Physician/Provider Office Visit [facility] May 04, 2019 10:38am May 04, 2019 11:56am Cuco Caldwell DO Departed Physician/Provider Office Visit [facility] July 28, 2019 11:44am July 28, 2019 12:40pm Cuco Caldwell DO Registered Referred [facility] July 28, 2019 12:00pm Cuco Caldwell DO Departed Physician/Provider Office Visit [facility] October 30, 2019 10:20am October 30, 2019 11:20am Cuco zapata DO Departed Physician/Provider Office Visit [facility] January 15, 2020 10:33am January 15, 2020 11:02am Cuco temple DO Assessments No Assessments Information Available Family History Relationship Condition A ge at Onset Recorded Date/Time Not Specified Diabetes mellitus Unknown Dementia Unknown Functional Status No Functional Status information available Goals Goals may be documented in an alternate section. Immunizations Immunization Event Date Not Given Reason Dose Number Personnel Representative Lot Number Vaccine Information Statement (VIS) [place]eta [place] influenza vaccine, inactivated Novem 2018 [id number] influenza vaccine, inactivated Octob er 2019 Mental Status No Mental Status Information Available Medical Equipment No Medical Equipment Information available Insurance Providers Guarantor SVITLANA Olivares MONO Address [address] [address] Contact Info. Home Phone: Payer Policy Id Coverage Id Subscriber's Name Subscriber Id Effective Date Expiration Date [employer] [place] ([employer]AY OP [id number] GALE H MONO [id number] [address] [facility] [id number] GALE H MONO [id number] [employer] [id number] GALE H MONO [id number] TRAVELERS [id number] GALE H MONO [id number] TRAVELERS [id number] GALE H MONO [id number] [employer] MEDICARE [id number] GALE H MONO [id number] MEDICARE [id number] GALE H MONO [id number] Self Pay Self N/A WELLCARE [id number] GALE H MONO [id number] Plan of Treatment comp LBP stable. He thinks he would benefit from Gabapentin 300mg BID to TID so I will increase. f/u 3 months. #1 In my opinion, the injury of the patient at the work sight is the direct caus e of the symptoms involved. #2 The patient's complaints are consistent with the injury. #3 The history of the patient's injury is consistent with the objective findings : physical exam, radiological studies. #4 100% impairment. #5 The patient is not working. COMP LBP much improved on Gabapentin. His quality of life much improvd. He is working in workshop now and cleaned all 3 area up. He replaced his front doorway. It took him a fe w weeks due to the pain but he was able to do it. COMP LBP stable. Urine medwatch today. Discontinue Cyclobenzaprine and start G abapentin 300mg BID. F/u 3 months. COMP LBP stable. He has been on Vicodin 5/325, 6 tabs per day for years. He de clined trying to reduce his dose. He states 1 tab at a time just does not work. F/u 3 months. Future Tests Future scheduled test information is unavailable Pending Tests Pending diagnostic test information is unavailable Future Visits Future appointment information is unavailable Referrals to Other Providers Referral information is unavailable Future Procedures Future procedure information is unavailable Future Medications Future medication information is unavailable Patient Instructions Patient instructions are unavailable Social History Smoking Status Status Date of Observation Current every day smoker October 11:55am Observation Status Observation Response Tenzin e of Response Smoking Status Current every day smoker October 30, 2019 10:55am When did patient quit smoking? [id number] August 17, 2016 9:54am Assigned Sex Male Vital Signs Vital Reading Result Ref erence Range Collection Date/Time Height 71 [in_i] February 06, 2019 10:24am Weight 233.50 [lb_av] February 06, 2019 10:24am Body Temperature 97.7 [degF] 97.6-99.5 February 06, 2019 10:24am Heart Rate 78 /min 60-100 February 06, 2019 10:24am Respiratory rate 18 /min 12-24 February 06, 2019 10:24am Oxygen saturation by Pulse oximetry 97 % 95- 100 February 06, 2019 10:24am BP Systolic 122 mm[Hg] February 06, 2019 10:24am BP Diastolic 64 mm[Hg] February 06, 2019 10:24am BMI (Body Mass Index) 32.5 kg/m2 February 06, 2019 10:24am Height 71 [in_i] May 04, 2019 11:01am Weight 234.12 [lb_av] May 04, 2019 11:01am Body Temperature 97.8 [degF] 97.6-99.5 May 04, 2019 11:01am Heart Rate 60 /min 60-100 May 04, 2019 11:01am Respiratory rate 18 /min 12-24 May 04, 2019 11:01am Oxygen saturation by Pulse oximetry 96 % 95- 100 May 04, 2019 11:01am BP Systolic 118 mm[Hg] May 04, 2019 11:01am BP Diastolic 64 mm[Hg] May 04, 2019 11:01am BMI (Body Mass Index) 32.6 kg/m2 May 04, 2019 11:01am Height 71 [in_i] July 28, 2019 12:55pm Weight 231.00 [lb_av] July 28, 2019 12:55pm Body Temperature 98.0 [degF] 97.6-99.5 July 28, 2019 12:55pm Heart Rate 64 /min 60-100 July 28, 2019 12:55pm Respiratory rate 18 /min -July 28, 2019 12:55pm Oxygen saturation by Pulse oximetry 94 % 95- 100 July 28, 2019 12:55pm BP Systolic 108 mm[Hg] July 28, 2019 12:55pm BP Diastolic 56 mm[Hg] July 28, 2019 12:55pm BMI (Body Mass Index) 32.2 kg/m2 July 28, 2019 12:55pm Height 71 [in_i] October 30, 2019 11:53am Weight 217.12 [lb_av] October 30, 2019 11:53am Body Temperature 97.7 [degF] 97.6-99.5 October 30, 2019 11:53am Heart Rate 54 /min 60-100 October 30, 2019 11:53am Respiratory rate 18 /min -October 30, 2019 11:53am Oxygen saturation by Pulse oximetry 96 % 95- 100 October 30, 2019 11:53am BP Systolic 128 mm[Hg] October 30, 2019 11:53am BP Diastolic 62 mm[Hg] October 30, 2019 11:53am BMI (Body Mass Index) 30.2 kg/m2 October 30, 2019 11:53am Height 71 [in_i] January 15, 2020 10:38am Weight 214.25 [lb_av] January 15, 2020 10:38am Body Temperature 97.4 [degF] 97.6-99.5 January 15, 2020 10:38am Heart Rate 63 /min 60-100 January 15, 2020 10:38am Respiratory rate 21 /min -January 15, 2020 10:38am Oxygen saturation by Pulse oximetry 98 % 95- 100 January 15, 2020 10:38am BP Systolic 110 mm[Hg] January 15, 2020 10:38am BP Diastolic 62 mm[Hg] January 15, 2020 10:38am BMI (Body Mass Index) 29.9 kg/m2 January 15, 2020 10:38am
--- OUTSIDE RECORDS SUMMARY | 2020-03-26 10:57 | CCD ---
Author Author [facility] Organization [facility] Address Unknown Phone Unavailable Care Team Providers Care Technical Sales Representatives Name Role Phone Paulette, P Cuco DO Unavailable Unavailable Paulette, P Cuco DO Unavailable Unavailable Paulette, P Cuco DO Unavailable Unavailable Paulette, P Cuco DO Unavailable Unavailable Paulette, P Cuco DO Unavailable Unavailable Paulette, P Cuco DO Unavailable Unavailable Paulette, P Cuco DO Unavailable Unavailable Paulette, P Cuco DO Unavailable Unavailable Paulette, P Cuco DO Unavailable Unavailable Paulette, P Cuco DO Unavailable Unavailable Paulette, P Cuco DO Unavailable Unavailable Paulette, P Cuco DO Unavailable Unavailable Paulette, P Cuco DO Unavailable Unavailable Paulette, P Cuco DO Unavailable Unavailable Paulette, P Cuco DO Unavailable Unavailable Paulette, P Cuco DO Unavailable Unavailable Paulette, P Cuco DO Unavailable Unavailable Paulette, P Cuco DO Unavailable Unavailable Paulette, P Cuco DO Unavailable Unavailable Paulette, P Cuco DO Unavailable Unavailable Paulette, P Cuco DO Unavailable Unavailable Paulette, P Cuco DO Unavailable Unavailable Paulette, P Cuco DO Unavailable Unavailable Paulette, P Cuco DO Unavailable Unavailable Paulette, P Cuco DO Unavailable Unavailable Paulette, P Cuco DO Unavailable Unavailable Paulette, P Cuco DO Unavailable Unavailable Paulette, P Cuco DO Unavailable Unavailable Paulette, P Cuco DO Unavailable Unavailable Paulette, P Cuco DO Unavailable Unavailable Paulette, P Cuco DO Unavailable Unavailable Paulette, P Cuco DO Unavailable Unavailable Paulette, P Cuco DO Unavailable Unavailable Paulette, P Cuco DO Unavailable Unavailable Paulette, P Cuco DO Unavailable Unavailable Paulette, P Cuco DO Unavailable Unavailable Paulette, P Cuco DO Unavailable Unavailable Paulette, P Cuco DO Unavailable Unavailable Paulette, P Cuco DO Unavailable Unavailable Paulette, P Cuco DO Unavailable Unavailable Paulette, P Cuco DO Unavailable Unavailable Paulette, P Cuco DO Unavailable Unavailable Paulette, P Cuco DO Unavailable Unavailable Paulette, P Cuco DO Unavailable Unavailable Paulette, P Cuco DO Unavailable Unavailable Paulette, P Cuco DO Unavailable Unavailable Paulette, P Cuco DO Unavailable Unavailable Paulette, P Cuco DO Unavailable Unavailable Paulette, P Cuco DO Unavailable Unavailable Paulette, P Cuco DO Unavailable Unavailable Paulette, P Cuco DO Unavailable Unavailable Paulette, P Cuco DO Unavailable Unavailable Paulette, P Cuco DO Unavailable Unavailable Paulette, P Cuco DO Unavailable Unavailable Paulette, P Cuco DO Unavailable Unavailable Paulette, P Cuco DO Unavailable Unavailable Paulette, P Cuco DO Unavailable Unavailable Paulette, P Cuco DO Unavailable Unavailable Paulette, P Cuco DO Unavailable Unavailable Paulette, P Cuco DO Unavailable Unavailable Paulette, P Cuco DO Unavailable Unavailable Paulette, P Cuco DO Unavailable Unavailable Paulette, P Cuco DO Unavailable Unavailable Paulette, P Cuco DO Unavailable Unavailable Paulette, P Cuco DO Unavailable Unavailable Paulette, P Cuco DO Unavailable Unavailable Paulette, P Cuco DO Unavailable Unavailable Re-disclosure Warning The records that you are about to access may contain information from federally-assisted alcohol or drug abuse programs. If such information is present, then the following federally mandated warning applies: This information has been disclosed to you from records protected by federal confidentiality rules (42 CFR part 2). The federal rules prohibit you from making any further disclosure of this information unless further disclosure is expressly permitted by the written consent of the person to whom it pertains or as otherwise permitted by 42 CFR part 2. A general authorization for the release of medical or other information is NOT sufficient for this purpose. The Federal rules restrict any use of the information to criminally investigate or prosecute any alcohol or drug abuse patient.The records that you are about to access may contain highly sensitive health information, the redisclosure of which is protected by Article 27-F of the [facility] Public Health law. If you continue you may have access to information: Regarding HIV / AIDS; Provided by facilities licensed or operated by the [facility] Office of Mental Health; or Provided by the [facility] Office for People With Developmental Disabilities. If such information is present, then the following [facility] mandated warning applies: This information has been disclosed to you from confidential records which are protected by state law. State law prohibits you from making any further disclosure of this information without the specific written consent of the person to whom it pertains, or as otherwise permitted by law. Any unauthorized further disclosure in violation of state law may result in a fine or senior care sentence or both. A general authorization for the release of medical or other information is NOT sufficient authorization for further disc losure. Family History Family Member Name Family Member Gender Family Member Status Date o f Status Description Data Source(s) Unknown Condition [facility] Unknown Condition [facility] Unknown Condition [facility] Unknown Condition [facility] Unknown Condition [facility] Unknown Condition [facility] Unknown Condition [facility] Unknown Condition [facility] Unknown Condition [facility] Unknown Condition [facility] Unknown Male Problem [facility] ([facility]) Encounters Encounter Providers Location Date Indications Data Source(s ) Outpatient Attender: Cuco Young: Cuco Caldwell DO 01/15/2020 10:33:00 AM EST - 01/15/2020 11:02:00 AM EST [facility] Outpatient Attender: Cuco Young: Cuco Caldwell [facility] 07/28/2019 01:00:00 PM [facility] Outpatient Attender: Cuco Young: Cuco Caldwell DO [facility] C[facility]o Young: Cuco Caldwell DO 05/04/2019 10:38:00 AM EST - 05/04/2019 11:56:00 AM EST [facility] Outpatient Attender: Cuco Caldwell DO 019 11:27:00 AM EST - 02/06/2019 11:28:00 AM EST [facility] Outpatient Attender: Cuco Caldwell DO 019 10:18:00 AM EST - 02/06/2019 11:02:00 AM EST [facility] Immunizations Vaccine Date Status Description Data Source(s) INFLUENZA VIRUS VACCINE QUADRIVAL SPLIT 2019-21(65 YR UP)/PF 01/11/2020 12:00:00 AM EDT completed [facility] IIV3. This is one of two codes replacing CVX 15, which is being retired. 01/09/2020 12:00:00 AM EDT completed influenza vaccine, inactivated [facility] IIV3. This is one of two codes replacing CVX 15, which is being retired. 02/06/2019 12:00:00 AM EST completed influenza vaccine, inactivated [facility] IIV3. This is one of two codes replacing CVX 15, which is being retired. 02/06/2019 12:00:00 AM EST completed influenza vaccine, inactivated [facility] IIV3. This is one of two codes replacing CVX 15, which is being retired. 02/06/2019 12:00:00 AM EST completed influenza vaccine, inactivated [facility] IIV3. This is one of two codes replacing CVX 15, which is being retired. 02/06/2019 12:00:00 AM EST completed influenza vaccine, inactivated [facility] Medications Medication Brand Name Start Date Product Form Dose Route Admi nistrative Instructions Pharmacy Instructions Status Indications Reaction Description Data Source(s) 5-325 mg 03/23/2020 12:00:00 AM EST tablet 180 TAKE 1-2 TABLETS BY MOUTH EVERY 6 HOURS NEEDED FOR PAIN MAXIMUM DAILY DOSE = 6 TAKE 1-2 TABLETS BY MOUTH EVERY 6 HOURS NEEDED FOR PAIN MAXIMUM DAILY DOSE = 6 SOLD: 03/23/2020 [facility] doxycycline hyclate 100 MG Oral Capsule DOXYCYCLINE HYCLATE 03/22/2020 12:00:00 AM EST capsule 20 TAKE ONE CAPSULE BY MOUTH TW ICE A DAY FOR 10 DAYS TAKE ONE CAPSULE BY MOUTH TWICE A DAY FOR 10 DAYS SOLD: 03/23/2020 [facility] 20 mg 03/22/2020 12:00:00 AM EST tablet 24 TAKE 3 TABLETS BY MOUTH ONCE DAILY FOR 4 DAYS, THEN TAKE 2 TABLETS BY MOUTH FOR 4 DAYS, THEN TAKE 1 TABLET BY MOUTH FOR 4 DAYS, THEN STOP TAKE 3 TABLETS BY MOUTH ONCE DAILY FOR 4 DAYS, THEN TAKE 2 TABLETS BY MOUTH FOR 4 DAYS, THEN TAKE 1 TABLET BY MOUTH FOR 4 DAYS, THEN STOP SOLD: 03/23/2020 [facility] 5-325 mg 02/23/2020 12:00:00 AM EST tablet 180 TAKE 1-2 TABLETS BY MOUTH EVERY 6 HOURS NEEDED FOR PAIN MAXIMUM DAILY DOSE = 6 TAKE 1-2 TABLETS BY MOUTH EVERY 6 HOURS NEEDED FOR PAIN MAXIMUM DAILY DOSE = 6 SOLD: 02/23/2020 [facility] 5-325 mg 01/24/2020 12:00:00 AM EST tablet 180 TAKE 1-2 TABLETS BY MOUTH EVERY 6 HOURS NEEDED FOR PAIN MAXIMUM DAILY DOSE = 6 TAKE 1-2 TABLETS BY MOUTH EVERY 6 HOURS NEEDED FOR PAIN MAXIMUM DAILY DOSE = 6 SOLD: 01/25/2020 [facility] 0.4 mg 01/03/2020 12:00:00 AM EDT capsule 90 TAKE ONE CAPSULE BY MOUTH EVERY DAY TAKE ONE CAPSULE BY MOUTH EVERY DAY SOLD: 01/08/2020 [facility] Tamsulosin hydrochloride 0.4 MG Oral Capsule Tamsulosin 01/02/2020 01:53:35 PM EDT [address] [facility] 5-325 mg 12/26/2019 12:00:00 AM EDT tablet 180 TAKE 1-2 TABLETS BY MOUTH EVERY 6 HOURS NEEDED FOR PAIN MAXIMUM DAILY DOSE = 6 TAKE 1-2 TABLETS BY MOUTH EVERY 6 HOURS NEEDED FOR PAIN MAXIMUM DAILY DOSE = 6 SOLD: 12/26/2019 [facility] Acetaminophen 325 MG / Hydrocodone Aryan trate 5 MG Oral Tablet Hydrocodone-Acetaminophen Hydrocodone-Acetaminophen 12/25/2019 08:59:59 AM EDT TAB active [facility] 5-325 mg 11/26/2019 12:00:00 AM EDT tablet 180 TAKE ONE TO TWO TABLETS BY MOUTH EVERY 6 HOURS NEEDED FOR PAIN MAXIMUM DAILY DOSE = 6 TABLETS TAKE ONE TO TWO TABLETS BY MOUTH EVERY 6 HOURS NEEDED FOR PAIN MAXIMUM DAILY DOSE = 6 TABLETS SOLD: 11/27/2019 [facility] Acetaminophen 325 MG / Hydrocodone Aryan trate 5 MG Oral Tablet Hydrocodone-Acetaminophen Hydrocodone-Acetaminophen 11/23/2019 07:46:14 PM EDT TAB completed [facility] Acetaminophen 325 MG / Hydrocodone Aryan trate 5 MG Oral Tablet Hydrocodone-Acetaminophen Hydrocodone-Acetaminophen 11/23/2019 09:45:47 AM EDT TAB completed [facility] 5-325 mg 10/28/2019 12:00:00 AM EDT tablet 180 TAKE ONE TO TWO TABLETS BY MOUTH EVERY 6 HOURS NEEDED FOR PAIN MAXIMUM DAILY DOSE = 6 TAKE ONE TO TWO TABLETS BY MOUTH EVERY 6 HOURS NEEDED FOR PAIN MAXIMUM DAILY DOSE = 6 SOLD: 10/29/2019 [facility] Acetaminophen 325 MG / Hydrocodone Aryan trate 5 MG Oral Tablet Hydrocodone-Acetaminophen Hydrocodone-Acetaminophen 10/26/2019 06:52:48 PM EDT TAB completed [facility] Acetaminophen 325 MG / Hydrocodone Aryan trate 5 MG Oral Tablet Hydrocodone-Acetaminophen Hydrocodone-Acetaminophen 10/26/2019 06:52:48 PM EDT TAB active [facility] Acetaminophen 325 MG / Hydrocodone Aryan trate 5 MG Oral Tablet Hydrocodone-Acetaminophen Hydrocodone-Acetaminophen 10/26/2019 01:40:22 PM EDT TAB completed [facility] Acetaminophen 325 MG / Hydrocodone Aryan trate 5 MG Oral Tablet Hydrocodone-Acetaminophen Hydrocodone-Acetaminophen 10/26/2019 01:40:22 PM EDT TAB completed [facility] 25 mg 10/10/2019 12:00:00 AM EDT tablet extended release 24 hr 90 TAKE ONE TABLET BY MOUTH EVERY DAY TAKE ONE TABLET BY MOUTH EVERY DAY SOLD: 01/08/2020 [facility] 25 mg 10/10/2019 12:00:00 AM EDT tablet extended release 24 hr 90 TAKE ONE TABLET BY MOUTH EVERY DAY TAKE ONE TABLET BY MOUTH EVERY DAY SOLD: 10/12/2019 [facility] 24 HR metoprolol succinate 25 MG Extende d Release Oral Tablet Metoprolol Succinate Metoprolol Succinate 10/09/2019 11:15:00 AM EDT [address] [facility] 24 HR metoprolol succinate 25 MG Extende d Release Oral Tablet Metoprolol Succinate Metoprolol Succinate 10/09/2019 11:15:00 AM EDT [address] [facility] atorvastatin 40 MG Oral Tablet Atorvastatin Atorvastatin 10/09/2019 11:14:47 AM EDT 40 MG active [facility] atorvastatin 40 MG Oral Tablet Atorvastatin Atorvastatin 10/09/2019 11:14:47 AM EDT 40 MG active [facility] 24 HR metoprolol succinate 25 MG Extende d Release Oral Tablet Metoprolol Succinate Metoprolol Succinate 10/09/2019 11:13:24 AM EDT 0 completed [facility] 24 HR metoprolol succinate 25 MG Extende d Release Oral Tablet Metoprolol Succinate Metoprolol Succinate 10/09/2019 11:13:24 AM EDT 0 completed [facility] 40 mg 10/09/2019 12:00:00 AM EDT tablet 90 TAKE ONE TABLET BY MOUTH EVERY DAY TAKE ONE TABLET BY MOUTH EVERY DAY SOLD: 10/12/2019 [facility] atorvastatin 40 MG Oral Tablet ATORVASTATIN CALCIUM 10/09/2019 1 2:00:00 AM EDT tablet 90 TAKE ONE TABLET BY MOUTH EVERY D AY TAKE ONE TABLET BY MOUTH EVERY DAY SOLD: 01/08/2020 [facility] 5-325 mg 09/29/2019 12:00:00 AM EDT tablet 180 TAKE ONE TO TWO TABLETS BY MOUTH EVERY 6 HOURS NEEDED FOR PAIN, MAXIMUM DAILY DOSE = SIX TABLETS TAKE ONE TO TWO TABLETS BY MOUTH EVERY 6 HOURS NEEDED FOR PAIN, MAXIMUM DAILY DOSE = SIX TABLETS SOLD: 09/29/2019 [facility] Acetaminophen 325 MG / Hydrocodone Aryan trate 5 MG Oral Tablet Hydrocodone-Acetaminophen Hydrocodone-Acetaminophen 09/26/2019 06:37:12 PM EDT TAB completed [facility] Acetaminophen 325 MG / Hydrocodone Aryan trate 5 MG Oral Tablet Hydrocodone-Acetaminophen Hydrocodone-Acetaminophen 09/26/2019 06:37:12 PM EDT TAB completed [facility] Acetaminophen 325 MG / Hydrocodone Aryan trate 5 MG Oral Tablet Hydrocodone-Acetaminophen Hydrocodone-Acetaminophen 09/26/2019 03:48:47 PM EDT TAB completed [facility] Acetaminophen 325 MG / Hydrocodone Aryan trate 5 MG Oral Tablet Hydrocodone-Acetaminophen Hydrocodone-Acetaminophen 09/26/2019 03:48:47 PM EDT TAB completed [facility] 5-325 mg 08/30/2019 12:00:00 AM EDT tablet 180 TAKE ONE TO TWO TABLETS BY MOUTH EVERY 8 HOURS NEEDED FOR PAIN MAXIMUM DAILY DOSE = 6 TABLETS TAKE ONE TO TWO TABLETS BY MOUTH EVERY 8 HOURS NEEDED FOR PAIN MAXIMUM DAILY DOSE = 6 TABLETS SOLD: 08/30/2019 [facility] Acetaminophen 325 MG / Hydrocodone Aryan trate 5 MG Oral Tablet Hydrocodone-Acetaminophen Hydrocodone-Acetaminophen 08/28/2019 04:31:54 PM EDT TAB completed [facility] Acetaminophen 325 MG / Hydrocodone Aryan trate 5 MG Oral Tablet Hydrocodone-Acetaminophen Hydrocodone-Acetaminophen 08/28/2019 04:31:54 PM EDT TAB completed [facility] 5-325 mg 07/31/2019 12:00:00 AM EDT tablet 180 TAKE ONE TO TWO TABLETS BY MOUTH EVERY 6 HOURS NEEDED FOR PAIN, MAXIMUM DAILY DOSE = 6 TAKE ONE TO TWO TABLETS BY MOUTH EVERY 6 HOURS NEEDED FOR PAIN, MAXIMUM DAILY DOSE = 6 SOLD: 07/31/2019 [facility] 300 mg 07/30/2019 12:00:00 AM EDT capsule 180 TAKE ONE CAPSULE BY MOUTH TWICE A DAY TAKE ONE CAPSULE BY MOUTH TWICE A DAY SOLD: 07/31/2019 [facility] 300 mg 07/30/2019 12:00:00 AM EDT capsule 180 TAKE ONE CAPSULE BY MOUTH TWICE A DAY TAKE ONE CAPSULE BY MOUTH TWICE A DAY SOLD: 01/15/2020 [facility] 300 mg 07/30/2019 12:00:00 AM EDT capsule 180 TAKE ONE CAPSULE BY MOUTH TWICE A DAY TAKE ONE CAPSULE BY MOUTH TWICE A DAY SOLD: 10/18/2019 [facility] gabapentin 300 MG Oral Capsule Gabapentin Gabapentin 2019 01:25:25 PM EDT 300 MG active [facility] gabapentin 300 MG Oral Capsule Gabapentin Gabapentin 2019 01:25:25 PM EDT 300 MG active [facility] gabapentin 300 MG Oral Capsule Gabapentin Gabapentin 2019 01:25:25 PM EDT 300 MG active [facility] Acetaminophen 325 MG / Hydrocodone Aryan trate 5 MG Oral Tablet Hydrocodone-Acetaminophen Hydrocodone-Acetaminophen 07/27/2019 11:55:01 AM EDT TAB completed [facility] Acetaminophen 325 MG / Hydrocodone Aryan trate 5 MG Oral Tablet Hydrocodone-Acetaminophen Hydrocodone-Acetaminophen 07/27/2019 11:55:01 AM EDT TAB [facility] Acetaminophen 325 MG / Hydrocodone Aryan trate 5 MG Oral Tablet Hydrocodone-Acetaminophen Hydrocodone-Acetaminophen 07/27/2019 11:55:01 AM EDT TAB completed [facility] 15 mg 07/16/2019 12:00:00 AM EDT capsule,delayed release (DR/EC) 180 TAKE TWO CAPSULES BY MOUTH EVERY DAY TAKE TWO CAPSULES BY MOUTH EVERY DAY SOLD: 10/12/2019 [facility] 15 mg 07/16/2019 12:00:00 AM EDT capsule,delayed release (DR/EC) 180 TAKE TWO CAPSULES BY MOUTH EVERY DAY TAKE TWO CAPSULES BY MOUTH EVERY DAY SOLD: 07/17/2019 [facility] 15 mg 07/16/2019 12:00:00 AM EDT capsule,delayed release (DR/EC) 180 TAKE TWO CAPSULES BY MOUTH EVERY DAY TAKE TWO CAPSULES BY MOUTH EVERY DAY SOLD: 01/10/2020 [facility] lansoprazole 15 MG Delayed Release Oral Capsule Lansoprazole Lansoprazole 07/14/2019 01:22:40 PM EDT [address] [facility] lansoprazole 15 MG Delayed Release Oral Capsule Lansoprazole Lansoprazole 07/14/2019 01:22:40 PM EDT [address] [facility] lansoprazole 15 MG Delayed Release Oral Capsule Lansoprazole Lansoprazole 07/14/2019 01:22:40 PM EDT [address] [facility] 5-325 mg 07/01/2019 12:00:00 AM EDT tablet 180 TAKE ONE TO TWO TABLETS BY MOUTH EVERY 6 HOURS NEEDED FOR PAIN MAXIMUM DAILY DOSE = 6 TAKE ONE TO TWO TABLETS BY MOUTH EVERY 6 HOURS NEEDED FOR PAIN MAXIMUM DAILY DOSE = 6 SOLD: 07/02/2019 [facility] Acetaminophen 325 MG / Hydrocodone Aryan trate 5 MG Oral Tablet Hydrocodone-Acetaminophen Hydrocodone-Acetaminophen 06/28/2019 04:36:14 PM EDT TAB completed [facility] Acetaminophen 325 MG / Hydrocodone Aryan trate 5 MG Oral Tablet Hydrocodone-Acetaminophen Hydrocodone-Acetaminophen 06/28/2019 04:36:14 PM EDT TAB completed [facility] Acetaminophen 325 MG / Hydrocodone Aryan trate 5 MG Oral Tablet Hydrocodone-Acetaminophen Hydrocodone-Acetaminophen 06/28/2019 04:36:14 PM EDT TAB completed [facility] 5-325 mg 06/02/2019 12:00:00 AM EDT tablet 180 TAKE 1-2 TABLETS BY MOUTH EVERY 6 HOURS NEEDED FOR PAIN MAXIMUM DAILY DOSE = 6 TAKE 1-2 TABLETS BY MOUTH EVERY 6 HOURS NEEDED FOR PAIN MAXIMUM DAILY DOSE = 6 SOLD: 06/02/2019 [facility] Acetaminophen 325 MG / Hydrocodone Aryan trate 5 MG Oral Tablet Hydrocodone-Acetaminophen Hydrocodone-Acetaminophen 05/30/2019 06:49:54 PM EDT TAB completed [facility] Acetaminophen 325 MG / Hydrocodone Aryan trate 5 MG Oral Tablet Hydrocodone-Acetaminophen Hydrocodone-Acetaminophen 05/30/2019 06:49:54 PM EDT TAB completed [facility] Acetaminophen 325 MG / Hydrocodone Aryan trate 5 MG Oral Tablet Hydrocodone-Acetaminophen Hydrocodone-Acetaminophen 05/30/2019 06:49:54 PM EDT TAB completed [facility] 5-325 mg 05/04/2019 12:00:00 AM EST tablet 180 TAKE ONE TO TWO TABLETS BY MOUTH EVERY 6 HOURS NEEDED FOR PAIN - MAXIMUM DAILY DOSE = 6 TAKE ONE TO TWO TABLETS BY MOUTH EVERY 6 HOURS NEEDED FOR PAIN - MAXIMUM DAILY DOSE = 6 SOLD: 05/04/2019 [facility] Acetaminophen 325 MG / Hydrocodone Aryan trate 5 MG Oral Tablet Hydrocodone-Acetaminophen Hydrocodone-Acetaminophen 05/02/2019 04:37:20 PM EST TAB completed [facility] Acetaminophen 325 MG / Hydrocodone Aryan trate 5 MG Oral Tablet Hydrocodone-Acetaminophen Hydrocodone-Acetaminophen 05/02/2019 04:37:20 PM EST TAB completed [facility] Acetaminophen 325 MG / Hydrocodone Aryan trate 5 MG Oral Tablet Hydrocodone-Acetaminophen Hydrocodone-Acetaminophen 05/02/2019 04:37:20 PM EST TAB completed [facility] Acetaminophen 325 MG / Hydrocodone Aryan trate 5 MG Oral Tablet Hydrocodone-Acetaminophen Hydrocodone-Acetaminophen 05/02/2019 04:37:20 PM EST TAB active [facility] Acetaminophen 325 MG / Hydrocodone Aryan trate 5 MG Oral Tablet Hydrocodone-Acetaminophen Hydrocodone-Acetaminophen 05/02/2019 04:30:08 PM EST TAB completed [facility] Acetaminophen 325 MG / Hydrocodone Aryan trate 5 MG Oral Tablet Hydrocodone-Acetaminophen Hydrocodone-Acetaminophen 05/02/2019 04:30:08 PM EST TAB completed [facility] Acetaminophen 325 MG / Hydrocodone Aryan trate 5 MG Oral Tablet Hydrocodone-Acetaminophen Hydrocodone-Acetaminophen 05/02/2019 04:30:08 PM EST TAB completed [facility] Acetaminophen 325 MG / Hydrocodone Aryan trate 5 MG Oral Tablet Hydrocodone-Acetaminophen Hydrocodone-Acetaminophen 05/02/2019 04:30:08 PM EST TAB completed [facility] Acetaminophen 325 MG / Hydrocodone Aryan trate 5 MG Oral Tablet Hydrocodone-Acetaminophen Hydrocodone-Acetaminophen 05/02/2019 10:52:59 AM EST TAB completed [facility] Acetaminophen 325 MG / Hydrocodone Aryan trate 5 MG Oral Tablet Hydrocodone-Acetaminophen Hydrocodone-Acetaminophen 05/02/2019 10:52:59 AM EST TAB completed [facility] Acetaminophen 325 MG / Hydrocodone Aryan trate 5 MG Oral Tablet Hydrocodone-Acetaminophen Hydrocodone-Acetaminophen 05/02/2019 10:52:59 AM EST TAB completed [facility] Acetaminophen 325 MG / Hydrocodone Aryan trate 5 MG Oral Tablet Hydrocodone-Acetaminophen Hydrocodone-Acetaminophen 05/02/2019 10:52:59 AM EST TAB completed [facility] Amlodipine 10 MG Oral Tablet Amlodipine 04/14/2019 08:43:39 AM EST 10 MG active [facility] Amlodipine 10 MG Oral Tablet Amlodipine 04/14/2019 08:43:39 AM EST 10 MG active [facility] Amlodipine 10 MG Oral Tablet Amlodipine 04/14/2019 08:43:39 AM EST 10 MG active [facility] Amlodipine 10 MG Oral Tablet Amlodipine 04/14/2019 08:43:39 AM EST 10 MG active [facility] Lisinopril 40 MG Oral Tablet Lisinopril 04/14/2019 08:43:09 AM EST 40 MG active [facility] Lisinopril 40 MG Oral Tablet Lisinopril 04/14/2019 08:43:09 AM EST 40 MG active [facility] Lisinopril 40 MG Oral Tablet Lisinopril 04/14/2019 08:43:09 AM EST 40 MG active [facility] Lisinopril 40 MG Oral Tablet Lisinopril 04/14/2019 08:43:09 AM EST 40 MG active [facility] 10 mg 04/14/2019 12:00:00 AM EST tablet 90 TAKE ONE TABLET BY MOUTH EVERY DAY TAKE ONE TABLET BY MOUTH EVERY DAY SOLD: 01/08/2020 [facility] 40 mg 04/14/2019 12:00:00 AM EST tablet 90 TAKE ONE TABLET BY MOUTH EVERY DAY TAKE ONE TABLET BY MOUTH EVERY DAY SOLD: 01/08/2020 [facility] 10 mg 04/14/2019 12:00:00 AM EST tablet 90 TAKE ONE TABLET BY MOUTH EVERY DAY TAKE ONE TABLET BY MOUTH EVERY DAY SOLD: 07/17/2019 [facility] 10 mg 04/14/2019 12:00:00 AM EST tablet 90 TAKE ONE TABLET BY MOUTH EVERY DAY TAKE ONE TABLET BY MOUTH EVERY DAY SOLD: 04/21/2019 [facility] 40 mg 04/14/2019 12:00:00 AM EST tablet 90 TAKE ONE TABLET BY MOUTH EVERY DAY TAKE ONE TABLET BY MOUTH EVERY DAY SOLD: 10/12/2019 [facility] 40 mg 04/14/2019 12:00:00 AM EST tablet 90 TAKE ONE TABLET BY MOUTH EVERY DAY TAKE ONE TABLET BY MOUTH EVERY DAY SOLD: 04/21/2019 [facility] 10 mg 04/14/2019 12:00:00 AM EST tablet 90 TAKE ONE TABLET BY MOUTH EVERY DAY TAKE ONE TABLET BY MOUTH EVERY DAY SOLD: 10/12/2019 [facility] 40 mg 04/14/2019 12:00:00 AM EST tablet 90 TAKE ONE TABLET BY MOUTH EVERY DAY TAKE ONE TABLET BY MOUTH EVERY DAY SOLD: 07/17/2019 [facility] Acetaminophen 325 MG / Hydrocodone Aryan trate 5 MG Oral Tablet Hydrocodone-Acetaminophen Hydrocodone-Acetaminophen 04/04/2019 09:02:51 AM EST TAB completed [facility] Acetaminophen 325 MG / Hydrocodone Aryan trate 5 MG Oral Tablet Hydrocodone-Acetaminophen Hydrocodone-Acetaminophen 04/04/2019 09:02:51 AM EST TAB completed [facility] Acetaminophen 325 MG / Hydrocodone Aryan trate 5 MG Oral Tablet Hydrocodone-Acetaminophen Hydrocodone-Acetaminophen 04/04/2019 09:02:51 AM EST TAB completed [facility] Acetaminophen 325 MG / Hydrocodone Aryan trate 5 MG Oral Tablet Hydrocodone-Acetaminophen Hydrocodone-Acetaminophen 04/04/2019 09:02:51 AM EST TAB completed [facility] 5-325 mg 04/04/2019 12:00:00 AM EST tablet 180 TAKE ONE TO TWO TABLETS BY MOUTH EVERY 6 HOURS NEEDED FOR PAIN, MAXIMUM DAILY DOSE = 6 TAKE ONE TO TWO TABLETS BY MOUTH EVERY 6 HOURS NEEDED FOR PAIN, MAXIMUM DAILY DOSE = 6 SOLD: 04/05/2019 [facility] Acetaminophen 325 MG / Hydrocodone Aryan trate 5 MG Oral Tablet Hydrocodone-Acetaminophen Hydrocodone-Acetaminophen 03/06/2019 10:33:54 AM EST TAB completed [facility] Acetaminophen 325 MG / Hydrocodone Aryan trate 5 MG Oral Tablet Hydrocodone-Acetaminophen Hydrocodone-Acetaminophen 03/06/2019 10:33:54 AM EST TAB completed [facility] Acetaminophen 325 MG / Hydrocodone Aryan trate 5 MG Oral Tablet Hydrocodone-Acetaminophen Hydrocodone-Acetaminophen 03/06/2019 10:33:54 AM EST TAB completed [facility] Acetaminophen 325 MG / Hydrocodone Aryan trate 5 MG Oral Tablet Hydrocodone-Acetaminophen Hydrocodone-Acetaminophen 03/06/2019 10:33:54 AM EST TAB completed [facility] 5-325 mg 03/06/2019 12:00:00 AM EST tablet 180 TAKE 1-2 TABLETS BY MOUTH EVERY 6 HOURS NEEDED FOR PAIN MAXIMUM DAILY DOSE = 6 TAKE 1-2 TABLETS BY MOUTH EVERY 6 HOURS NEEDED FOR PAIN MAXIMUM DAILY DOSE = 6 SOLD: 03/06/2019 [facility] Acetaminophen 325 MG / Hydrocodone Aryan trate 5 MG Oral Tablet Hydrocodone-Acetaminophen Hydrocodone-Acetaminophen 03/02/2019 12:54:58 PM EST TAB completed [facility] Acetaminophen 325 MG / Hydrocodone Aryan trate 5 MG Oral Tablet Hydrocodone-Acetaminophen Hydrocodone-Acetaminophen 03/02/2019 12:54:58 PM EST TAB completed [facility] Acetaminophen 325 MG / Hydrocodone Aryan trate 5 MG Oral Tablet Hydrocodone-Acetaminophen Hydrocodone-Acetaminophen 03/02/2019 12:54:58 PM EST TAB completed [facility] Acetaminophen 325 MG / Hydrocodone Aryan trate 5 MG Oral Tablet Hydrocodone-Acetaminophen Hydrocodone-Acetaminophen 03/02/2019 12:54:58 PM EST TAB completed [facility] [id number] 02/06/2019 11:27:25 AM EST 0.[address] [facility] [id number] 02/06/2019 11:27:25 AM EST 0.[address] [facility] [id number] 02/06/2019 11:27:25 AM EST 0.[address] [facility] Flucelvax Quad [id number] (PF) (flu vac qs 2018(4 yr up )CD(PF)) 60 mcg (15 mcg x 02/06/2019 11:27:25 AM EST 0.[address] [facility] 5-325 mg 02/03/2019 12:00:00 AM EST tablet 180 TAKE ONE TO TWO TABLETS BY MOUTH EVERY 6 HOURS NEEDED FOR PAIN, MAXIMUM DAILY DOSE = 6 TABLETS TAKE ONE TO TWO TABLETS BY MOUTH EVERY 6 HOURS NEEDED FOR PAIN, MAXIMUM DAILY DOSE = 6 TABLETS SOLD: 02/03/2019 [facility] Acetaminophen 325 MG / Hydrocodone Aryan trate 5 MG Oral Tablet Hydrocodone-Acetaminophen Hydrocodone-Acetaminophen 02/02/2019 06:15:37 PM EST TAB completed [facility] Acetaminophen 325 MG / Hydrocodone Aryan trate 5 MG Oral Tablet Hydrocodone-Acetaminophen Hydrocodone-Acetaminophen 02/02/2019 06:15:37 PM EST TAB completed [facility] Acetaminophen 325 MG / Hydrocodone Aryan trate 5 MG Oral Tablet Hydrocodone-Acetaminophen Hydrocodone-Acetaminophen 02/02/2019 06:15:37 PM EST TAB completed [facility] Acetaminophen 325 MG / Hydrocodone Aryan trate 5 MG Oral Tablet Hydrocodone-Acetaminophen Hydrocodone-Acetaminophen 02/02/2019 06:15:37 PM EST TAB completed [facility] Acetaminophen 325 MG / Hydrocodone Aryan trate 5 MG Oral Tablet Hydrocodone-Acetaminophen Hydrocodone-Acetaminophen 02/02/2019 06:07:46 PM EST TAB completed [facility] Acetaminophen 325 MG / Hydrocodone Aryan trate 5 MG Oral Tablet Hydrocodone-Acetaminophen Hydrocodone-Acetaminophen 02/02/2019 06:07:46 PM EST TAB completed [facility] Acetaminophen 325 MG / Hydrocodone Aryan trate 5 MG Oral Tablet Hydrocodone-Acetaminophen Hydrocodone-Acetaminophen 02/02/2019 06:07:46 PM EST TAB completed [facility] Acetaminophen 325 MG / Hydrocodone Aryan trate 5 MG Oral Tablet Hydrocodone-Acetaminophen Hydrocodone-Acetaminophen 02/02/2019 06:07:46 PM EST TAB completed [facility] Tamsulosin hydrochloride 0.4 MG Oral Capsule Tamsulosin 01/17/2019 08:45:27 AM EST 0.4 MG completed [facility] 0.4 mg 01/17/2019 12:00:00 AM EST capsule 90 TAKE ONE CAPSULE BY MOUTH EVERY DAY TAKE ONE CAPSULE BY MOUTH EVERY DAY SOLD: 07/17/2019 [facility] 0.4 mg 01/17/2019 12:00:00 AM EST capsule 90 TAKE ONE CAPSULE BY MOUTH EVERY DAY TAKE ONE CAPSULE BY MOUTH EVERY DAY SOLD: 04/21/2019 [facility] 0.4 mg 01/17/2019 12:00:00 AM EST capsule 90 TAKE ONE CAPSULE BY MOUTH EVERY DAY TAKE ONE CAPSULE BY MOUTH EVERY DAY SOLD: 10/12/2019 [facility] Acetaminophen 325 MG / Hydrocodone Aryan trate 5 MG Oral Tablet Hydrocodone-Acetaminophen Hydrocodone-Acetaminophen 01/03/2019 06:39:33 PM EDT TAB completed [facility] Acetaminophen 325 MG / Hydrocodone Aryan trate 5 MG Oral Tablet Hydrocodone-Acetaminophen Hydrocodone-Acetaminophen 01/03/2019 06:39:33 PM EDT TAB completed [facility] Acetaminophen 325 MG / Hydrocodone Aryan trate 5 MG Oral Tablet Hydrocodone-Acetaminophen Hydrocodone-Acetaminophen 01/03/2019 06:39:33 PM EDT TAB completed [facility] Acetaminophen 325 MG / Hydrocodone Aryan trate 5 MG Oral Tablet Hydrocodone-Acetaminophen Hydrocodone-Acetaminophen 01/03/2019 06:39:33 PM EDT TAB completed [facility] atorvastatin 40 MG Oral Tablet Atorvastatin Atorvastatin 01/03/2019 06:55:42 AM EDT 40 MG completed [facility] atorvastatin 40 MG Oral Tablet Atorvastatin Atorvastatin 01/03/2019 06:55:42 AM EDT 40 MG completed [facility] 40 mg 01/03/2019 12:00:00 AM EDT tablet 12 TAKE ONE TABLET BY MOUTH EVERY DAY TAKE ONE TABLET BY MOUTH EVERY DAY SOLD: 07/03/2019 [facility] 40 mg 01/03/2019 12:00:00 AM EDT tablet 90 TAKE ONE TABLET BY MOUTH EVERY DAY TAKE ONE TABLET BY MOUTH EVERY DAY SOLD: 04/05/2019 [facility] 40 mg 01/03/2019 12:00:00 AM EDT tablet 90 TAKE ONE TABLET BY MOUTH EVERY DAY TAKE ONE TABLET BY MOUTH EVERY DAY SOLD: 07/17/2019 [facility] 25 mg 10/23/2018 12:00:00 AM EDT tablet extended release 24 hr 90 TAKE ONE TABLET BY MOUTH EVERY DAY TAKE ONE TABLET BY MOUTH EVERY DAY SOLD: 07/17/2019 [facility] 25 mg 10/23/2018 12:00:00 AM EDT tablet extended release 24 hr 90 TAKE ONE TABLET BY MOUTH EVERY DAY TAKE ONE TABLET BY MOUTH EVERY DAY SOLD: 04/21/2019 [facility] 24 HR metoprolol succinate 25 MG Extende d Release Oral Tablet Metoprolol Succinate Metoprolol Succinate 10/21/2018 06:18:40 PM EDT 25 MG completed [facility] 24 HR metoprolol succinate 25 MG Extende d Release Oral Tablet Metoprolol Succinate Metoprolol Succinate 10/21/2018 06:18:40 PM EDT 25 MG completed [facility] Lisinopril 40 MG Oral Tablet Lisinopril 10/21/2018 06:18:14 PM EDT 40 MG completed [facility] Lisinopril 40 MG Oral Tablet Lisinopril 10/21/2018 06:18:14 PM EDT 40 MG completed [facility] Lisinopril 40 MG Oral Tablet Lisinopril 10/21/2018 06:18:14 PM EDT 40 MG completed [facility] Lisinopril 40 MG Oral Tablet Lisinopril 10/21/2018 06:18:14 PM EDT 40 MG [facility] 15 mg 09/07/2018 12:00:00 AM EDT capsule,extended releas e 24hr 90 TAKE ONE CAPSULE BY MOUTH EVERY DAY TAKE ONE CAPSULE BY MOUTH EVERY DAY SOLD: 03/10/2019 [facility] 15 mg 09/07/2018 12:00:00 AM EDT capsule,extended releas e 24hr 90 TAKE ONE CAPSULE BY MOUTH EVERY DAY TAKE ONE CAPSULE BY MOUTH EVERY DAY SOLD: 06/02/2019 [facility] Cyclobenzaprine (Amrix) 15 mg capsule,extended release 24hr 09/06/2018 06:35:58 AM EDT 15 MG [facility] Cyclobenzaprine (Amrix) 15 mg capsule,extended release 24hr 09/06/2018 06:35:58 AM EDT 15 MG [facility] Cyclobenzaprine 09/06/2018 06:35:58 AM EDT [address] [facility] lansoprazole 15 MG Delayed Release Oral Capsule Lansoprazole Lansoprazole 08/22/2018 08:32:03 AM EDT [address] [facility] lansoprazole 15 MG Delayed Release Oral Capsule Lansoprazole Lansoprazole 08/22/2018 08:32:03 AM EDT 30 MG [facility] lansoprazole 15 MG Delayed Release Oral Capsule Lansoprazole Lansoprazole 08/22/2018 08:32:03 AM EDT [address] [facility] 15 mg 08/22/2018 12:00:00 AM EDT capsule,delayed release (DR/EC) 180 TAKE TWO CAPSULES BY MOUTH EVERY DAY TAKE TWO CAPSULES BY MOUTH EVERY DAY SOLD: 04/21/2019 [facility] Amlodipine 10 MG Oral Tablet Amlodipine 07/25/2018 10:46:03 AM EDT 10 MG completed [facility] Amlodipine 10 MG Oral Tablet Amlodipine 07/25/2018 10:46:03 AM EDT 10 MG completed [facility] Amlodipine 10 MG Oral Tablet Amlodipine 07/25/2018 10:46:03 AM EDT 10 MG completed [facility] Amlodipine 10 MG Oral Tablet Amlodipine 07/25/2018 10:46:03 AM EDT 10 MG [facility] Insurance Providers Payer name Policy type / Coverage type Policy ID Covered constitution party ID Covered constitution party's relationship to bang Policy Bang Plan Information [employer] [id number] SP [id number] 'S ADMINISTRATION [id number] SP [id number] TODAYS OPTIONS [id number] SP [id number] TODAYS OPTIONS [id number] SP [id number] 'S ADMINISTRATION [id number] SP [id number] Medicare [place] Medicare Primary [id number] Self [id number] Excell[employer] BS Medicare Medigap Part B [id number] Self [id number] [facility] Commercial [id number] Self [id number] [facility] MEDICARE -O/P [id number] 18 [id number] [employer] MEDICARE CHOICE [id number] PT [id number] [employer] MEDICARE CHOICE [id number] PT [id number] [employer] MEDICARE CHOICE [id number] PT [id number] [employer] MEDICARE CHOICE [id number] PT [id number] Results ID Date Data Source [id number] 01/15/2020 10:35:00 AM [facility] Patient Name: SVITLANA BURNHAM : 0 1950 Sex: M Pt Unit #: [id number] Location:[facility] Provider: Visit Date/Time: 01/15/20 Primary Insurance: [employer] MEDICARE Secondary Insurance: Self Pay Intake Vital Signs 01/15/20 10:38 Current Height 5 ft 11 in Current Weight 214 lb 4 oz Weight Measurement Method Standing Scale BMI 29.9 BP 110/62 Blood Pressure Location Lt brachial Position Sitting Respiration 21 Pulse 63 Pulse Strength Normal Pulse Source Pulse Oximeter Temp 97.4 F L Temp Source Tympanic Pulse Oximetry (%) 98 Oxygen Delivery Method room air Intake Visit Reasons: Workman's Compensation Nurse Note: 69 year old male presents today for a workers compensation follow up visit. Patient offers no concerns today. Nursing Informatics Specialist Required: No Accompanied by: self Is patient in pain?: Yes (Lower Back, Right leg pain) Pain scale (1-10): 6 Allergies No Known Drug Allergies Allergy (Unverified 07/04/13 11:03) Medications amlodipine 10 mg PO QDAY aspirin 81 mg PO DAILY atorvastatin 40 mg PO QDAY budesonide-formoterol 80-4.5 mcg/actuation (Symbicort) 2 puffs inha lation BID cholecalciferol (vitamin D3) 2,000 units PO DAILY cranberry extract 200 mg PO DAILY fenofibrate nanocrystallized (Tricor) 1 tab PO DAILY flaxseed 1,000 mg PO BID gabapentin 300 mg PO BID hydrocodone-acetaminophen 5-325 mg 1 - 2 tabs PO Q6H PRN MDD 6 ipratropium-albuterol 20-100 mcg/actuation (Combivent Respimat) 1 puff inhalation QID lansoprazole 30 mg (2 x 15 mg) PO QDAY lisinopril 40 mg PO QDAY magnesium oxide 400 mg PO DAILY metoprolol succinate ER TAKE ONE TABLET BY MOUTH EVERY DAY multivitamin 1 tab PO DAILY omega [id number]-fish oil 300-1,000 mg (Fish Oil) 1 cap PO BID ranitidine HCl 150 mg PO DAILY saw palmetto 160 mg PO DAILY tamsulosin TAKE ONE CAPSULE BY MOUTH EVERY DAY Fall Risk History of falls: No Ambulatory Aid:: None Medications:: Sedatives and Antihypertensives HIV Testing Offer - ages 13-64 HIV testing Offer: No Requirement for HIV testing offer been met?: Not in age range Hep C Testing Offered: Yes Hep C Requirement met: Refuses today SBIRT Annual Questionnaire Are you currently in recovery for alcohol or substance use?: No How many times in the past year have you had 5 or more drinks in a day?: None How many times in the past year have you used a recreational drug or used a prescription medication for nonmedical reasons?: None Do you need a note to return Do you need a note to return to daycare/school/sports/work: No Coronavirus Screening Screening Have you traveled outside of [facility] or [facility] in the last 14 days.: No Has patient experienced coronavirus symptoms: No PFSH Surgical History Angioplasty of vein Carotid endarterectomy (01/10/13) History of - surgery History of - surgery Family History Mother Diabetes Dementia Father No problems noted. Social History (Updated 10/30/19 @ 11:55 by Diane De Dios) Does the Patient have a Healthcare Proxy: No Does Patient have a DNR?: No Does Patient have a Living Will?: No alcohol intake: current alcohol intake frequency: holidays/special occasions only substance use type: painkillers HPI Additional HPI HPI Details: 69 YO male with PMH listed is here for comp LBP. Last seen 10/30/19 and much improved functionality on Gabapentin. Review of Systems Const Denies weight gain and Denies weight loss Card Denies chest pain, Denies irregular heart rhythm and Denies dyspnea on exertion Resp Denies cough and Denies dyspnea on exertion Exam Const General: cooperative, healthy appearing and comfortable Neck Thyroid: abnormal thyroid Carotids: no bruits Lymphatic: lymphadenopathy noted Chest Chest: normal inspection of the chest Resp Auscultation: clear to auscultation bilaterally, no rales, no rhonchi and no wheezes Cardio Rhythm: regular rhythm Heart Sounds: S1 normal, S2 normal, no gallops, no murmurs and no rubs Extrem General: normal to inspection and no edema Assessment Plan Assessment Plan (1) Work related injury: Code(s): Y99.0 - Civilian activity done for income or pay Plan - Cuco Caldwell, DO: comp LBP stable. He thinks he would benefit from Gabapentin 300mg BID to TID so I will increase. f/u 3 months. #1 In my opinion, the injury of the patient at the work sight is the direct cause of the symptoms involved. #2 The patient's complaints are consistent with the injury. #3 The history of the patient's injury is consistent with the objective findings: physical exam, radiological studies. #4 100% impairment. #5 The patient is not working. <Electronically signed by Cuco Caldwell DO> 01/15/20 1101 Name Value Range Interpretation Code Description Data Mirna rce(s) Supporting Document(s) ID Date Data Source [id number] 10/30/2019 11:53:[address] [facility] Patient Name: SVITLANA BURNHAM : 1950 Sex: M Pt Unit #: [id number] Location:[facility] Provider: Visit Date/Time: 10/30/19 Primary Insurance: [employer] MEDICARE Secondary Insurance: Self Pay Intake Vital Signs 10/30/19 11:53 Current Height 5 ft 11 in Current Weight 217 lb 2 oz Weight Measurement Method Standing Scale BMI 30.2 BP 128/62 Position Sitting Respiration 18 Pulse 54 L Temp 97.7 F Temp Source Oral Pulse Oximetry (%) 96 Oxygen Delivery Method room air Intake Visit Reasons: Workman's Compensation Is patient in pain?: Yes (back) Pain scale (1-10): 6 Allergies No Known Drug Allergies Allergy (Unverified 07/04/13 11:03) HIV Testing Offer - ages 13-64 Requirement for HIV testing offer been met?: Not in age range Coronavirus Screening Screening Have you traveled outside of [facility] or [facility] in the last 14 days.: No Has patient experienced coronavirus symptoms: No [facility] Surgical History Angioplasty of vein Carotid endarterectomy (01/10/13) History of - surgery History of - surgery Family History Mother Diabetes Dementia Father No problems noted. Social History (Updated 10/30/19 @ 11:55 by Diane De Dios) Does the Patient have a Healthcare Proxy: No Does Patient have a DNR?: No Does Patient have a Living Will?: No Smoking Status: Current every day smoker tobacco type: cigarettes Smoking packs per day: 1.5 alcohol intake: current alcohol intake frequency: holidays/special occasions only substance use type: painkillers HPI Additional HPI HPI Details: 68 YO male is here for f/u COMP LBP. Last visit 07/28/19 cyclobenzaprine was discontinued and he was started on Gabapentin 300mg BID to compliment his hydrocodone. Last visit 231lbs and [id number]. He states the Gabapentin did help. It helped his shooting pains. He can do more. Avg pain 5/10, worst since the Gabapentin 7.5/10, 4/10 is the best. He is using 2 tabs hydrocodone TID. Exam Resp Auscultation: clear to auscultation bilaterally, no rales, no rhonchi and no wheezes Cardio Rate: regular rate Rhythm: regular rhythm Heart Sounds: S1 normal, S2 normal, no gallops, no murmurs and no rubs Assessment Plan Assessment Plan (1) Work related injury: Code(s): Y99.0 - Civilian activity done for income or pay Plan - Cuco Caldwell, DO: COMP LBP much improved on Gabapentin. His quality of life much improvd. He is working in workshop now and cleaned all 3 area up. He replaced his front doorway. It took him a few weeks due to the pain but he was able to do it. Electronically Signed By: <Electronically signed by Cuco Caldwell DO> Date/Time Signed: 10/30/19 1218 Name Value Range Interpretation Code Description Data Mirna rce(s) Supporting Document(s) ID Date Data Source [id number] 07/28/2019 12:54:[address] [facility] Patient Name: SVITLANA BURNHAM : 1950 Sex: M Pt Unit #: [id number] Location:[facility] Provider: Visit Date/Time: 07/28/19 Primary Insurance: [email or web address] MEDIC[employer] Secondary Insurance: Self Pay Intake Vital Signs 07/28/19 12:55 Current Height 5 ft 11 in Current Weight 231 lb Weight Measurement Method Standing Scale BMI 32.2 BP 108/56 Blood Pressure Location Lt brachial Position Sitting Respiration 18 Pulse 64 Temp 98.0 F Temp Source Oral Pulse Oximetry (%) 94 L Oxygen Delivery Method room air Intake Visit Reasons: Workman's Compensation Is patient in pain?: Yes (lower back) Pain scale (1-10): 7 Allergies No Known Drug Allergies Allergy (Unverified 07/04/13 11:03) HIV Testing Offer - ages 13-64 Requirement for HIV testing offer been met?: Not in age range Coronavirus Scr eening Screening Have you traveled outside of [facility] or [facility] in the last 14 days.: No Has patient experienced coronavirus symptoms: No PFSH Social History (Updated 07/28/19 @ 12:56 by Diane De Dios) Does the Patient have a Healthcare Proxy: No Does Patient have a DNR?: No Does Patient have a Living Will?: No alcohol intake: current alcohol intake frequency: holidays/special occasions only substance use type: painkillers HPI Additional HPI HPI Details: 68 YO male with PMH listed ishere for COMP LBP. He uses six 5/325 Vicodin per day for LBP. Last seen 05/04/19. He [facility] his labs at the [facility]. Exam Const General: cooperative, healthy appearing, comfortable and no acute distress Resp Effort Inspection: normal respiratory effort Auscultation: clear to auscultation bilaterally, no rales, no rhonchi and no wheezes Cardio Rate: regular rate Rhythm: regular rhythm Heart Sounds: S1 normal, S2 normal, no gallops, no murmurs and no rubs Assessment Plan Assessment Plan (1) Work related injury: Code(s): Y99.0 - Civilian activity done for income or pay Plan - Cuco Caldwell, DO: COMP LBP stable. Urine medwatch today. Discontinue Cyclobenzaprine and start Gabapentin 300mg BID. F/u 3 months. Orders Other Orders: Orders: 2 [facility] - Drug Compliance pnl Today F11.90 Electronically Signed By: <Electronically signed by Cuco Caldwell DO> Date/Time Signed: 07/28/19 1325 Name Value Range Interpretation Code Description Data Mirna rce(s) Supporting Document(s) ID Date Data Source [id number] 05/04/2019 11:00:00 AM [facility] Patient Name: SVITLANA BURNHAM : 1950 Sex: M Pt Unit #: [id number] Location:[facility] Provider: Visit Date/Time: 05/04/19 Primary Insurance: [employer] MEDICARE Secondary Insurance: Self Pay Intake Vital Signs 05/04/19 11:01 Current Height 5 ft 11 in Current Weight 234 lb 2 oz Weight Measurement Method Standing Scale BMI 32.6 BP 118/64 Blood Pressure Location Lt brachial Position Sitting Respiration 18 Pulse 60 Pulse Source Pulse Oximeter Temp 97.8 F Temp Source Oral Pulse Oximetry (%) 96 Oxygen Delivery Method room air Intake Visit Reasons: Workman's Compensation Is patient in pain?: Yes (lower back,(R) leg) Pain scale (1-10): 5 Allergies No Known Drug Allergies Allergy (Unverified 07/04/13 11:03) HIV Testing Offer - ages 13-64 Requirement for HIV testing offer been met?: Not in age range [facility] Social History (Updated 05/04/19 @ 11:03 by Diane De Dios) Does the Patient have a Healthcare Proxy: No Does Patient have a DNR?: No Does Patient have a Living Will?: No alcohol intake: current alcohol intake frequency: holidays/special occasions only substance use type: painkillers HPI Additional HPI HPI Details: 68 YO male is here for COMP LBP. He has been using 6 tabs Vicodin 5/325 for years. Average Pain 5-6/10, worst pain 7-8/10, best pain 4-5/10. He is not interested in decreasing pain meds. He has tried in the past. Review of Systems Const Denies weight gain and Denies weight loss Card Denies chest pain, Denies irregular heart rhythm and Denies dyspnea on exertion Resp Denies cough and Denies dyspnea on exertion Exam Const General: cooperative, healthy appearing and comfortable Neck Thyroid: abnormal thyroid Carotids: no bruits Lymphatic: lymphadenopathy noted Chest Chest: normal inspection of the chest Resp Auscultation: clear to auscultation bilaterally, no rales, no rhonchi and no wheezes Cardio Rhythm: regular rhythm Heart Sounds: S1 normal, S2 normal, no gallops, no murmurs and no rubs Extrem General: normal to inspection and no edema Assessment Plan Assessment Plan (1) Work related injury: Code(s): Y99.0 - Civilian activity done for income or pay Additional Comments Additional Comments: COMP LBP stable. F/u 3 months. Electronically Signed By: <Electronically signed by Cuco Caldwell DO> Date/Time Signed: 05/04/19 1157 Name Value Range Interpretation Code Description Data Mirna rce(s) Supporting Document(s) ID Date Data Source [id number] 02/06/2019 12:00:00 PM [facility] Patient Name: SVITLANA BURNHAM : 1950 Sex: M Pt Unit #: [id number] Location:[facility] Provider: Visit Date/Time: 02/06/19 Primary Insurance: [employer]ICARE Secondary Insurance: Self Pay Documented by User: Diane De Dios 02/06/19 12:01 Intake Nurse Note Intake Visit Reasons: Flu shot Nurse Note: Here for Flu injection Immunizations Flucelvax Quad (PF) Performing Provider: Cuco Caldwell DO Administered by: Diane De Dios on 02/06/19 12:01 Dose Route Admin Location Lot Number Expiration Date NDC Manufactu rer 0.5 mL IM Right deltoid [id number] 09/12/19 97497-619-62 Seqirus VIS Given Date VIS Provided VIS Publication Date 02/06/19 Single Vaccine 18 Eligibility Eligibility Date Funding Source Not VFC Eligible 02/06/19 Private Assessment Plan Orders Other Orders: Orders: INJ - Influenza Vaccine 02/06/19 Z23 Documented by User: Cuco Caldwell DO 02/07/19 17:24 Intake Nurse Note Intake Visit Reasons: Flu shot Immunizations Flucelvax Quad (PF) Performing Provider: Cuco Caldwell DO Administered by: Diane De Dios on 02/06/19 12:01 Dose Route Admin Location Lot Number Expiration Date NDC Manufactu rer 0.5 mL IM Right deltoid [id number] 09/12/19 62377-335-30 Seqirus VIS Given Date VIS Provided VIS Publication Date 02/06/19 Single Vaccine 18 Eligibility Eligibility Date Funding Source Not VFC Eligible 02/06/19 Private Assessment Plan Orders Other Orders: Orders: INJ - Influenza Vaccine 02/06/19 Z23 Electronically Signed By: <Electronically signed by Cuco Caldwell DO> Date/Time Signed: 02/07/19 172 Name Value Range Interpretation Code Description Data Mirna rce(s) Supporting Document(s) ID Date Data Source [id number] 02/06/2019 10:24:00 AM [facility] Patient Name: SVITLANA BURNHAM : 1950 Sex: M Pt Unit #: [id number] Location:[facility] Provider: Visit Date/Time: 02/06/19 Primary Insurance: [employer] Secondary Insurance: Self Pay Intake Vital Signs 02/06/19 10:24 Current Height 5 ft 11 in Current Weight 233 lb 8 oz BMI 32.5 BP 122/64 Blood Pressure Location Lt brachial Position Sitting Respiration 18 Pulse 78 Pulse Source Pulse Oximeter Temp 97.7 F Temp Source Oral Pulse Oximetry (%) 97 Oxygen Delivery Method room air Intake Visit Reasons: Workman's Compensation Is patient in pain?: Yes (back) Pain scale (1-10): 6 Allergies No Known Drug Allergies Allergy (Unverified 07/04/13 11:03) HIV Testing Offer - ages 13-64 Requirement for HIV testing offer been met?: Not in age range [facility] Social History (Updated 02/06/19 @ 10:25 by Diane De Dios) Smoking Status: Current every day smoker tobacco type: cigarettes Smoking packs per day: 1.5 alcohol intake: current alcohol intake frequency: holidays/special occasions only substance use type: painkillers HPI Additional HPI HPI Details: 68 YO male with PMH listed is here for f/u COMP LBP. Review of Systems Const Denies weight gain and Denies weight loss Card Denies chest pain, Denies irregular heart rhythm and Denies dyspnea on exertion Resp Denies cough and Denies dyspnea on exertion Exam Const General: cooperative, healthy appearing and comfortable Neck Thyroid: abnormal thyroid Carotids: no bruits Lymphatic: lymphadenopathy noted Chest Chest: normal inspection of the chest Resp Auscultation: clear to auscultation bilaterally, no rales, no rhonchi and no wheezes Cardio Rhythm: regular rhythm Heart Sounds: S1 normal, S2 normal, no gallops, no murmurs and no rubs Musc Other: scars lower spine Extrem General: normal to inspection and no edema Assessment Plan Assessment Plan (1) Work related injury: Code(s): Y99.0 - Civilian activity done for income or pay Plan - Cuco Caldwell, DO: COMP LBP stable. He has been on Vicodin 5/325, 6 tabs per day for years. He declined trying to reduce his dose. He states 1 tab at a time just does not work. F/u 3 months. Electronically Signed By: <Electronically signed by Cuco Caldwell DO> Date/Time Signed: 02/06/19 1107 Name Value Range Interpretation Code Description Data Mirna rce(s) Supporting Document(s) Procedure Social History Code Duration Value Status Description Data Source(s ) Smoking 10/30/2019 12:55:00 PM EDT Current every day smoker co mpleted Current every day smoker [facility] 10/30/2019 11:55:24 AM EDT Current every day smoker co mpleted Current every day smoker [facility] 10/30/2019 11:55:24 AM EDT Current every day smoker co mpleted Current every day smoker [facility] Smoking 10/30/2019 11:55:00 AM EDT Current every day smoker co mpleted Current every day smoker [facility] 07/28/2019 12:56:21 PM EDT Current every day smoker co mpleted Current every day smoker [facility] 07/28/2019 12:56:21 PM EDT Current every day smoker co mpleted Current every day smoker [facility] Smoking 07/28/2019 12:56:00 PM EDT Current every day smoker co mpleted Current every day smoker [facility] 05/04/2019 11:03:01 AM EST Current every day smoker co mpleted Current every day smoker [facility] 05/04/2019 11:03:01 AM EST Current every day smoker co mpleted Current every day smoker [facility] 05/04/2019 11:03:01 AM EST Current every day smoker co mpleted Current every day smoker [facility] Smoking 05/04/2019 11:03:00 AM EST Current every day smoker co mpleted Current every day smoker [facility] 02/06/2019 10:25:13 AM EST Current every day smoker co mpleted Current every day smoker [facility] 02/06/2019 10:25:13 AM EST Current every day smoker co mpleted Current every day smoker [facility] 02/06/2019 10:25:13 AM EST Current every day smoker co mpleted Current every day smoker [facility] 02/06/2019 10:25:00 AM EST Current every day smoker co mpleted Current every day smoker [facility] Smoking 02/06/2019 10:25:00 AM EST Current every day smoker co mpleted Current every day smoker [facility]
[2020-03-26] MEDS ORDERED: DOXY100C PO (11:33)
[2020-03-26] MEDS ORDERED: PRED20TA PO (11:33)
[2020-03-26] MEDS ORDERED: NICOTINE 21MG/24HR 1 EA TRANSDERMAL TD ONE (11:45)
[2020-03-26] MEDS ORDERED: MIDAZOLAM INJ 2MG/2ML VIAL (J2250 PER 1MG) As Ordered ONE ×2 (11:54→11:55)
[2020-03-26] MEDS ORDERED: LIDOCAINE 1% MDV 20ML VIAL As Ordered ONE (11:54)
[2020-03-26 12:01] LABS: BASO % 0.1 % (0.0-1.0); HEMATOCRIT 37.9 % (42.0-52.0); HEMOGLOBIN 12.9 g/dl (13.5-17.5); LYMPH # 0.9 10^3/uL (1.5-5.0); LYMPH % 7.4 % (24.0-44.0); MEAN CORPUSCULAR HEMOGLOBIN 29.3 pg (27.0-33.0); MEAN CORPUSCULAR VOLUME 85.9 fl (80.0-96.0); MONO # 0.1 10^3/uL (0.0-0.8); MONO % 0.8 % (0.0-5.0); NEUTROPHILS # 10.8 10^3/uL (1.5-8.5); NEUTROPHILS % 91.4 % (36.0-66.0); PLATELET COUNT, AUTOMATED 336 10^3/uL (150-450); RED BLOOD COUNT 4.41 10^6/uL (4.30-6.10); WHITE BLOOD COUNT 11.8 10^3/uL (4.0-10.0)
[2020-03-26 12:21] LABS: INR 1.05; PROTHROMBIN TIME 13.9 SECONDS (12.5-14.3)
[2020-03-26 12:22] LABS: PARTIAL THROMBOPLASTIN TIME 28.8 SECONDS (24.2-38.5)
[2020-03-26] MEDS ORDERED: KCL 20MEQ IN D5/NS 1000ML 1,000 ML IV SCH (12:27)
[2020-03-26] MEDS ORDERED: ACETAMINOPHEN TAB 650MG DOSE (2X325MG) PO PRN (12:30)
[2020-03-26] MEDS ORDERED: ONDANSETRON 4MG/2ML VIAL IV PRN (12:30)
[2020-03-26] MEDS ORDERED: PERCOCET 5MG/325MG TAB PO PRN ×2 (12:30)
[2020-03-26] MEDS ORDERED: KETOROLAC 30 MG/ML 1ML VIAL IV SCH (12:30)
[2020-03-26] MEDS ORDERED: NORCO, ANEXSIA 5/325MG TABLET (HYDROcodone/ACETAMINOPHEN) PO PRN (12:30)
[2020-03-26] MEDS ORDERED: BISACODYL 10 MG SUPP PR PRN (12:30)
[2020-03-26] MEDS ORDERED: LEVALBUTEROL 1.25 MG/0.5 ML CONCENTRATE NEB NEB PRN (12:30)
--- NOTE | 2020-03-26 12:30 | REP ---
INDICATION: pneumothorax. COMPARISON: Chest radiograph 03/26/2020. TECHNIQUE: SINGLE PORTABLE AP VIEW OF THE CHEST WAS PERFORMED. FINDINGS: There has been placement of right chest tube. The previously noted right pneumothorax has resolved. There are diffuse interstitial fibrotic changes symmetrically bilaterally. Superimposed infiltrate or atelectasis in the lung bases would be difficult to exclude. The heart does not appear to be significantly enlarged. There is mild calcification of the thoracic aorta. The mediastinal silhouette is unchanged. IMPRESSION: Placement of right chest tube. Right pneumothorax has resolved. <Electronically signed by Ernie Cai > 03/26/20 9306
[2020-03-26] MEDS ORDERED: MIDAZOLAM INJ 2MG/2ML VIAL (J2250 PER 1MG) IV STA (12:31)
[2020-03-26] MEDS ORDERED: GABA-282 PO ×2 (12:34)
[2020-03-26] MEDS ORDERED: SAW1CAPS2 PO (12:34)
[2020-03-26] MEDS ORDERED: D31000TA2 PO (12:34)
[2020-03-26] MEDS ORDERED: ASPI81TA26 PO (12:34)
[2020-03-26] MEDS ORDERED: LIDOCAINE 1% SDV 30ML VIAL SC SCH (12:45)
--- OUTSIDE RECORDS SUMMARY | 2020-03-26 12:48 | CCD ---
Author Author [facility] Organization [facility] Address Unknown Phone Unavailable Care Team Providers Care Iso Coordinator Name Role Phone Paulette, P Cuco DO [...] P Cuco DO Unavailable Unavailable Paulette, P Cuoc DO Unavailable Unavailable Paulette, P Cuco DO [...] is protected by Article 27-F of the [facility] Public Health law. If you continue you may have access to information: Regarding HIV / AIDS; Provided by facilities licensed or operated by the [facility] Office of Mental Health; or Provided by the [facility] Office for People With Developmental Disabilities. If such information is present, then the following [facility] mandated warning applies: This information has been [...] law may result in a fine or long-term sentence or both. A general authorization for the release of medical or other information is NOT sufficient authorization for further disc losure. Family History Family Member Name Family Member Gender Family Member Status Date o f Status Description Data Source(s) Unknown Condition [facility] Unknown Condition [facility] Unknown Condition [facility] Unknown Condition [facility] Unknown Condition [facility] Unknown Condition [facility] Unknown Condition [facility] Unknown Condition [facility] Unknown Condition [facility] Unknown Condition [facility] Unknown Male Problem [facility] ([facility]) Encounters Encounter Providers Location Date Indications Data Source(s ) Outpatient Attender: Cuco Young: Cuco Caldwell DO 01/15/2020 10:33:00 AM EST - 01/15/2020 11:02:00 AM EST [facility] Outpatient Attender: Cuco Young: Cuco Caldwell DO [facility] [place] [facility]: Cuco Caldwell DO 07/28/2019 01:00:00 PM [facility] Outpatient Attender: Cuco Young: Cuco Caldwell DO 07/28/2019 [facility] [place] [facility]: Cuco Young: Cuco Caldwell DO 05/04/2019 10:38:00 AM EST - 05/04/2019 11:56:00 AM EST [facility] Outpatient Attender: Cuco Caldwell DO 019 11:27:00 AM EST - 02/06/2019 11:28:00 AM EST [facility] Outpatient Attender: Cuco Caldwell DO 019 10:18:00 AM EST - 02/06/2019 11:02:00 AM EST [facility] Immunizations Vaccine Date Status Description Data Source(s) INFLUENZA VIRUS VACCINE QUADRIVAL SPLIT 2019-21(65 YR UP)/PF 01/11/2020 12:00:00 AM EDT completed [facility] IIV3. This is one of two codes replacing CVX 15, which is being retired. 01/09/2020 12:00:00 AM EDT completed influenza vaccine, inactivated [facility] IIV3. This is one of two codes replacing CVX 15, which is being retired. 02/06/2019 12:00:00 AM EST completed influenza vaccine, inactivated [facility] IIV3. This is one of two codes replacing CVX 15, which is being retired. 02/06/2019 12:00:00 AM EST completed influenza vaccine, inactivated [facility] IIV3. This is one of two codes replacing CVX 15, which is being retired. 02/06/2019 12:00:00 AM EST completed influenza vaccine, inactivated [facility] IIV3. This is one of two codes replacing CVX 15, which is being retired. 02/06/2019 12:00:00 AM EST completed influenza vaccine, inactivated [facility] Medications Medication Brand Name Start Date [...] 01/02/2020 01:53:35 PM EDT 0 active [facility] 5-325 mg 12/26/2019 12:00:00 AM EDT tablet [...] 12/25/2019 08:59:59 AM EDT TAB active [facility] 5-325 mg 11/26/2019 12:00:00 AM EDT [...] Hydrocodone-Acetaminophen 11/23/2019 07:46:14 PM EDT TAB completed [facility] Acetaminophen 325 MG / Hydrocodone Aryan trate 5 MG Oral Tablet Hydrocodone-Acetaminophen Hydrocodone-Acetaminophen 11/23/2019 09:45:47 AM EDT TAB completed [facility] 5-325 mg 10/28/2019 12:00:00 AM EDT tablet 180 TAKE ONE TO TWO TABLETS BY MOUTH EVERY 6 HOURS NEEDED FOR PAIN MAXIMUM DAILY DOSE = 6 TAKE ONE TO TWO TABLETS BY MOUTH EVERY 6 HOURS NEEDED FOR PAIN MAXIMUM DAILY DOSE = 6 SOLD: 10/29/2019 [facility] Acetaminophen 325 MG / Hydrocodone Aryan trate 5 MG Oral Tablet Hydrocodone-Acetaminophen Hydrocodone-Acetaminophen 10/26/2019 06:52:48 PM EDT TAB completed [facility] Acetaminophen 325 MG / Hydrocodone Aryan trate 5 MG Oral Tablet Hydrocodone-Acetaminophen Hydrocodone-Acetaminophen 10/26/2019 06:52:48 PM EDT TAB active [facility] Acetaminophen 325 MG / Hydrocodone Aryan trate 5 MG Oral Tablet Hydrocodone-Acetaminophen Hydrocodone-Acetaminophen 10/26/2019 01:40:22 PM EDT TAB completed [facility] Acetaminophen 325 MG / Hydrocodone Aryan trate 5 MG Oral Tablet Hydrocodone-Acetaminophen Hydrocodone-Acetaminophen 10/26/2019 01:40:22 PM EDT TAB completed [facility] 25 mg 10/10/2019 12:00:00 AM EDT tablet [...] Succinate 10/09/2019 11:15:00 AM EDT 0 active [facility] 24 HR metoprolol succinate 25 MG Extende d Release Oral Tablet Metoprolol Succinate Metoprolol Succinate 10/09/2019 11:15:00 AM EDT 0 active [facility] atorvastatin 40 MG Oral Tablet Atorvastatin Atorvastatin 10/09/2019 11:14:47 AM EDT 40 MG active [facility] atorvastatin 40 MG Oral Tablet Atorvastatin Atorvastatin 10/09/2019 11:14:47 AM EDT 40 MG active [facility] 24 HR metoprolol succinate 25 MG Extende d Release Oral Tablet Metoprolol Succinate Metoprolol Succinate 10/09/2019 11:13:24 AM EDT 0 completed [facility] 24 HR metoprolol succinate 25 MG Extende d Release Oral Tablet Metoprolol Succinate Metoprolol Succinate 10/09/2019 11:13:24 AM EDT 0 completed [facility] 40 mg 10/09/2019 12:00:00 AM EDT [...] Hydrocodone-Acetaminophen 09/26/2019 06:37:12 PM EDT TAB completed [facility] Acetaminophen 325 MG / Hydrocodone Aryan trate 5 MG Oral Tablet Hydrocodone-Acetaminophen Hydrocodone-Acetaminophen 09/26/2019 06:37:12 PM EDT TAB completed [facility] Acetaminophen 325 MG / Hydrocodone Aryan trate 5 MG Oral Tablet Hydrocodone-Acetaminophen Hydrocodone-Acetaminophen 09/26/2019 03:48:47 PM EDT TAB completed [facility] Acetaminophen 325 MG / Hydrocodone Aryan trate 5 MG Oral Tablet Hydrocodone-Acetaminophen Hydrocodone-Acetaminophen 09/26/2019 03:48:47 PM EDT TAB completed [facility] 5-325 mg 08/30/2019 12:00:00 AM EDT tablet [...] Hydrocodone-Acetaminophen 08/28/2019 04:31:54 PM EDT TAB completed [facility] Acetaminophen 325 MG / Hydrocodone Aryan trate 5 MG Oral Tablet Hydrocodone-Acetaminophen Hydrocodone-Acetaminophen 08/28/2019 04:31:54 PM EDT TAB completed [facility] 5-325 mg 07/31/2019 12:00:00 AM EDT tablet [...] 2019 01:25:25 PM EDT 300 MG active [facility] gabapentin 300 MG Oral Capsule Gabapentin Gabapentin 2019 01:25:25 PM EDT 300 MG active [facility] gabapentin 300 MG Oral Capsule Gabapentin Gabapentin 2019 01:25:25 PM EDT 300 MG active [facility] Acetaminophen 325 MG / Hydrocodone Aryan trate 5 MG Oral Tablet Hydrocodone-Acetaminophen Hydrocodone-Acetaminophen 07/27/2019 11:55:01 AM EDT TAB completed [facility] Acetaminophen 325 MG / Hydrocodone Aryan trate 5 MG Oral Tablet Hydrocodone-Acetaminophen Hydrocodone-Acetaminophen 07/27/2019 11:55:01 AM EDT TAB [facility] Acetaminophen 325 MG / Hydrocodone Aryan trate 5 MG Oral Tablet Hydrocodone-Acetaminophen Hydrocodone-Acetaminophen 07/27/2019 11:55:01 AM EDT TAB completed [facility] 15 mg 07/16/2019 12:00:00 AM EDT capsule,delayed [...] 07/14/2019 01:22:40 PM EDT 30 MG active [facility] lansoprazole 15 MG Delayed Release Oral Capsule Lansoprazole Lansoprazole 07/14/2019 01:22:40 PM EDT 30 MG active [facility] lansoprazole 15 MG Delayed Release Oral Capsule Lansoprazole Lansoprazole 07/14/2019 01:22:40 PM EDT 30 MG active [facility] 5-325 mg 07/01/2019 12:00:00 AM EDT tablet 180 TAKE ONE TO TWO TABLETS BY MOUTH EVERY 6 HOURS NEEDED FOR PAIN MAXIMUM DAILY DOSE = 6 TAKE ONE TO TWO TABLETS BY MOUTH EVERY 6 HOURS NEEDED FOR PAIN MAXIMUM DAILY DOSE = 6 SOLD: 07/02/2019 [facility] Acetaminophen 325 MG / Hydrocodone Aryan trate 5 MG Oral Tablet Hydrocodone-Acetaminophen Hydrocodone-Acetaminophen 06/28/2019 04:36:14 PM EDT TAB completed [facility] Acetaminophen 325 MG / Hydrocodone Aryan trate 5 MG Oral Tablet Hydrocodone-Acetaminophen Hydrocodone-Acetaminophen 06/28/2019 04:36:14 PM EDT TAB completed [facility] Acetaminophen 325 MG / Hydrocodone Aryan trate 5 MG Oral Tablet Hydrocodone-Acetaminophen Hydrocodone-Acetaminophen 06/28/2019 04:36:14 PM EDT TAB completed [facility] 5-325 mg 06/02/2019 12:00:00 AM EDT tablet 180 TAKE 1-2 TABLETS BY MOUTH EVERY 6 HOURS NEEDED FOR PAIN MAXIMUM DAILY DOSE = 6 TAKE 1-2 TABLETS BY MOUTH EVERY 6 HOURS NEEDED FOR PAIN MAXIMUM DAILY DOSE = 6 SOLD: 06/02/2019 [facility] Acetaminophen 325 MG / Hydrocodone Aryan trate 5 MG Oral Tablet Hydrocodone-Acetaminophen Hydrocodone-Acetaminophen 05/30/2019 06:49:54 PM EDT TAB completed [facility] Acetaminophen 325 MG / Hydrocodone Aryan trate 5 MG Oral Tablet Hydrocodone-Acetaminophen Hydrocodone-Acetaminophen 05/30/2019 06:49:54 PM EDT TAB completed [facility] Acetaminophen 325 MG / Hydrocodone Aryan trate 5 MG Oral Tablet Hydrocodone-Acetaminophen Hydrocodone-Acetaminophen 05/30/2019 06:49:54 PM EDT TAB completed [facility] 5-325 mg 05/04/2019 12:00:00 AM EST tablet 180 TAKE ONE TO TWO TABLETS BY MOUTH EVERY 6 HOURS NEEDED FOR PAIN - MAXIMUM DAILY DOSE = 6 TAKE ONE TO TWO TABLETS BY MOUTH EVERY 6 HOURS NEEDED FOR PAIN - MAXIMUM DAILY DOSE = 6 SOLD: 05/04/2019 [facility] Acetaminophen 325 MG / Hydrocodone Aryan trate 5 MG Oral Tablet Hydrocodone-Acetaminophen Hydrocodone-Acetaminophen 05/02/2019 04:37:20 PM EST TAB completed [facility] Acetaminophen 325 MG / Hydrocodone Aryan trate 5 MG Oral Tablet Hydrocodone-Acetaminophen Hydrocodone-Acetaminophen 05/02/2019 04:37:20 PM EST TAB completed [facility] Acetaminophen 325 MG / Hydrocodone Aryan trate 5 MG Oral Tablet Hydrocodone-Acetaminophen Hydrocodone-Acetaminophen 05/02/2019 04:37:20 PM EST TAB completed [facility] Acetaminophen 325 MG / Hydrocodone Aryan trate 5 MG Oral Tablet Hydrocodone-Acetaminophen Hydrocodone-Acetaminophen 05/02/2019 04:37:20 PM EST TAB active [facility] Acetaminophen 325 MG / Hydrocodone Aryan trate 5 MG Oral Tablet Hydrocodone-Acetaminophen Hydrocodone-Acetaminophen 05/02/2019 04:30:08 PM EST TAB completed [facility] Acetaminophen 325 MG / Hydrocodone Aryan trate 5 MG Oral Tablet Hydrocodone-Acetaminophen Hydrocodone-Acetaminophen 05/02/2019 04:30:08 PM EST TAB completed [facility] Acetaminophen 325 MG / Hydrocodone Aryan trate 5 MG Oral Tablet Hydrocodone-Acetaminophen Hydrocodone-Acetaminophen 05/02/2019 04:30:08 PM EST TAB completed [facility] Acetaminophen 325 MG / Hydrocodone Aryan trate 5 MG Oral Tablet Hydrocodone-Acetaminophen Hydrocodone-Acetaminophen 05/02/2019 04:30:08 PM EST TAB completed [facility] Acetaminophen 325 MG / Hydrocodone Aryan trate 5 MG Oral Tablet Hydrocodone-Acetaminophen Hydrocodone-Acetaminophen 05/02/2019 10:52:59 AM EST TAB completed [facility] Acetaminophen 325 MG / Hydrocodone Aryan trate 5 MG Oral Tablet Hydrocodone-Acetaminophen Hydrocodone-Acetaminophen 05/02/2019 10:52:59 AM EST TAB completed [facility] Acetaminophen 325 MG / Hydrocodone Aryan trate 5 MG Oral Tablet Hydrocodone-Acetaminophen Hydrocodone-Acetaminophen 05/02/2019 10:52:59 AM EST TAB completed [facility] Acetaminophen 325 MG / Hydrocodone Aryan trate 5 MG Oral Tablet Hydrocodone-Acetaminophen Hydrocodone-Acetaminophen 05/02/2019 10:52:59 AM EST TAB completed [facility] Amlodipine 10 MG Oral Tablet Amlodipine 04/14/2019 08:43:39 AM EST 10 MG active [facility] Amlodipine 10 MG Oral Tablet Amlodipine 04/14/2019 08:43:39 AM EST 10 MG active [facility] Amlodipine 10 MG Oral Tablet Amlodipine 04/14/2019 08:43:39 AM EST 10 MG active [facility] Amlodipine 10 MG Oral Tablet Amlodipine 04/14/2019 08:43:39 AM EST 10 MG active [facility] Lisinopril 40 MG Oral Tablet Lisinopril 04/14/2019 08:43:09 AM EST 40 MG active [facility] Lisinopril 40 MG Oral Tablet Lisinopril 04/14/2019 08:43:09 AM EST 40 MG active [facility] Lisinopril 40 MG Oral Tablet Lisinopril 04/14/2019 08:43:09 AM EST 40 MG active [facility] Lisinopril 40 MG Oral Tablet Lisinopril 04/14/2019 08:43:09 AM EST 40 MG active [facility] 10 mg 04/14/2019 12:00:00 AM EST [...] Hydrocodone-Acetaminophen 04/04/2019 09:02:51 AM EST TAB completed [facility] Acetaminophen 325 MG / Hydrocodone Aryan trate 5 MG Oral Tablet Hydrocodone-Acetaminophen Hydrocodone-Acetaminophen 04/04/2019 09:02:51 AM EST TAB completed [facility] Acetaminophen 325 MG / Hydrocodone Aryan trate 5 MG Oral Tablet Hydrocodone-Acetaminophen Hydrocodone-Acetaminophen 04/04/2019 09:02:51 AM EST TAB completed [facility] Acetaminophen 325 MG / Hydrocodone Aryan trate 5 MG Oral Tablet Hydrocodone-Acetaminophen Hydrocodone-Acetaminophen 04/04/2019 09:02:51 AM EST TAB completed [facility] 5-325 mg 04/04/2019 12:00:00 AM EST tablet [...] Hydrocodone-Acetaminophen 03/06/2019 10:33:54 AM EST TAB completed [facility] Acetaminophen 325 MG / Hydrocodone Aryan trate 5 MG Oral Tablet Hydrocodone-Acetaminophen Hydrocodone-Acetaminophen 03/06/2019 10:33:54 AM EST TAB completed [facility] Acetaminophen 325 MG / Hydrocodone Aryan trate 5 MG Oral Tablet Hydrocodone-Acetaminophen Hydrocodone-Acetaminophen 03/06/2019 10:33:54 AM EST TAB completed [facility] Acetaminophen 325 MG / Hydrocodone Aryan trate 5 MG Oral Tablet Hydrocodone-Acetaminophen Hydrocodone-Acetaminophen 03/06/2019 10:33:54 AM EST TAB completed [facility] 5-325 mg 03/06/2019 12:00:00 AM EST tablet 180 TAKE 1-2 TABLETS BY MOUTH EVERY 6 HOURS NEEDED FOR PAIN MAXIMUM DAILY DOSE = 6 TAKE 1-2 TABLETS BY MOUTH EVERY 6 HOURS NEEDED FOR PAIN MAXIMUM DAILY DOSE = 6 SOLD: 03/06/2019 [facility] Acetaminophen 325 MG / Hydrocodone Aryan trate 5 MG Oral Tablet Hydrocodone-Acetaminophen Hydrocodone-Acetaminophen 03/02/2019 12:54:58 PM EST TAB completed [facility] Acetaminophen 325 MG / Hydrocodone Aryan trate 5 MG Oral Tablet Hydrocodone-Acetaminophen Hydrocodone-Acetaminophen 03/02/2019 12:54:58 PM EST TAB completed [facility] Acetaminophen 325 MG / Hydrocodone Aryan trate 5 MG Oral Tablet Hydrocodone-Acetaminophen Hydrocodone-Acetaminophen 03/02/2019 12:54:58 PM EST TAB completed [facility] Acetaminophen 325 MG / Hydrocodone Aryan trate 5 MG Oral Tablet Hydrocodone-Acetaminophen Hydrocodone-Acetaminophen 03/02/2019 12:54:58 PM EST TAB completed [facility] [id number] 02/06/2019 11:27:25 AM EST 0.5 ML complete d [facility] [id number] 02/06/2019 11:27:25 AM EST 0.5 ML complete d [facility] [id number] 02/06/2019 11:27:25 AM EST 0.5 ML complete d [facility] Flucelvax Quad [id number] (PF) (flu vac qs 2018(4 yr up )CD(PF)) 60 mcg (15 mcg x 02/06/2019 11:27:25 AM EST 0.5 ML completed [facility] 5-325 mg 02/03/2019 12:00:00 AM EST tablet [...] Hydrocodone-Acetaminophen 02/02/2019 06:15:37 PM EST TAB completed [facility] Acetaminophen 325 MG / Hydrocodone Aryan trate 5 MG Oral Tablet Hydrocodone-Acetaminophen Hydrocodone-Acetaminophen 02/02/2019 06:15:37 PM EST TAB completed [facility] Acetaminophen 325 MG / Hydrocodone Aryan trate 5 MG Oral Tablet Hydrocodone-Acetaminophen Hydrocodone-Acetaminophen 02/02/2019 06:15:37 PM EST TAB completed [facility] Acetaminophen 325 MG / Hydrocodone Aryan trate 5 MG Oral Tablet Hydrocodone-Acetaminophen Hydrocodone-Acetaminophen 02/02/2019 06:15:37 PM EST TAB completed [facility] Acetaminophen 325 MG / Hydrocodone Aryan trate 5 MG Oral Tablet Hydrocodone-Acetaminophen Hydrocodone-Acetaminophen 02/02/2019 06:07:46 PM EST TAB completed [facility] Acetaminophen 325 MG / Hydrocodone Aryan trate 5 MG Oral Tablet Hydrocodone-Acetaminophen Hydrocodone-Acetaminophen 02/02/2019 06:07:46 PM EST TAB completed [facility] Acetaminophen 325 MG / Hydrocodone Aryan trate 5 MG Oral Tablet Hydrocodone-Acetaminophen Hydrocodone-Acetaminophen 02/02/2019 06:07:46 PM EST TAB completed [facility] Acetaminophen 325 MG / Hydrocodone Aryan trate 5 MG Oral Tablet Hydrocodone-Acetaminophen Hydrocodone-Acetaminophen 02/02/2019 06:07:46 PM EST TAB completed [facility] Tamsulosin hydrochloride 0.4 MG Oral Capsule Tamsulosin 01/17/2019 08:45:27 AM EST 0.4 MG completed [facility] 0.4 mg 01/17/2019 12:00:00 AM EST [...] Hydrocodone-Acetaminophen 01/03/2019 06:39:33 PM EDT TAB completed [facility] Acetaminophen 325 MG / Hydrocodone Aryan trate 5 MG Oral Tablet Hydrocodone-Acetaminophen Hydrocodone-Acetaminophen 01/03/2019 06:39:33 PM EDT TAB completed [facility] Acetaminophen 325 MG / Hydrocodone Aryan trate 5 MG Oral Tablet Hydrocodone-Acetaminophen Hydrocodone-Acetaminophen 01/03/2019 06:39:33 PM EDT TAB completed [facility] Acetaminophen 325 MG / Hydrocodone Aryan trate 5 MG Oral Tablet Hydrocodone-Acetaminophen Hydrocodone-Acetaminophen 01/03/2019 06:39:33 PM EDT TAB completed [facility] atorvastatin 40 MG Oral Tablet Atorvastatin Atorvastatin 01/03/2019 06:55:42 AM EDT 40 MG completed [facility] atorvastatin 40 MG Oral Tablet Atorvastatin Atorvastatin 01/03/2019 06:55:42 AM EDT 40 MG completed [facility] 40 mg 01/03/2019 12:00:00 AM EDT [...] 10/21/2018 06:18:40 PM EDT 25 MG completed [facility] 24 HR metoprolol succinate 25 MG Extende d Release Oral Tablet Metoprolol Succinate Metoprolol Succinate 10/21/2018 06:18:40 PM EDT 25 MG completed [facility] Lisinopril 40 MG Oral Tablet Lisinopril 10/21/2018 06:18:14 PM EDT 40 MG completed [facility] Lisinopril 40 MG Oral Tablet Lisinopril 10/21/2018 06:18:14 PM EDT 40 MG completed [facility] Lisinopril 40 MG Oral Tablet Lisinopril 10/21/2018 06:18:14 PM EDT 40 MG completed [facility] Lisinopril 40 MG Oral Tablet Lisinopril 10/21/2018 06:18:14 PM EDT 40 MG [facility] 15 mg 09/07/2018 12:00:00 AM EDT capsule,extended [...] 24hr 09/06/2018 06:35:58 AM EDT 15 MG [facility] Cyclobenzaprine (Amrix) 15 mg capsule,extended release 24hr 09/06/2018 06:35:58 AM EDT 15 MG [facility] Cyclobenzaprine 09/06/2018 06:35:58 AM EDT 15 MG c ompleted [facility] lansoprazole 15 MG Delayed Release Oral Capsule Lansoprazole Lansoprazole 08/22/2018 08:32:03 AM EDT 30 MG completed [facility] lansoprazole 15 MG Delayed Release Oral Capsule Lansoprazole Lansoprazole 08/22/2018 08:32:03 AM EDT 30 MG [facility] lansoprazole 15 MG Delayed Release Oral Capsule Lansoprazole Lansoprazole 08/22/2018 08:32:03 AM EDT 30 MG completed [facility] 15 mg 08/22/2018 12:00:00 AM EDT capsule,delayed release (DR/EC) 180 TAKE TWO CAPSULES BY MOUTH EVERY DAY TAKE TWO CAPSULES BY MOUTH EVERY DAY SOLD: 04/21/2019 [facility] Amlodipine 10 MG Oral Tablet Amlodipine 07/25/2018 10:46:03 AM EDT 10 MG completed [facility] Amlodipine 10 MG Oral Tablet Amlodipine 07/25/2018 10:46:03 AM EDT 10 MG completed [facility] Amlodipine 10 MG Oral Tablet Amlodipine 07/25/2018 10:46:03 AM EDT 10 MG completed [facility] Amlodipine 10 MG Oral Tablet Amlodipine 07/25/2018 10:46:03 AM EDT 10 MG [facility] Insurance Providers Payer name Policy type / Coverage type Policy ID Covered democrat ID Covered democrat's relationship to bang Policy Bang Plan Information [employer]LL[employer] [id number] SP [id number] 'S ADMINISTRATION [id number] SP [id number] TODAYS OPTIONS [id number] SP [id number] TODAYS OPTIONS [id number] SP [id number] 'S ADMINISTRATION [id number] SP [id number] [place] Primary [id number] Self [id number] Excell[employer] BS Medicare Medigap Part B [id number] Self [id number] [facility] [id number] Self [id number] [facility] MEDIC[facility] -O/P [id number] 18 [id number] [employer] MEDICARE CHOICE [id number] PT [id number] [employer] MEDICARE CHOICE [id number] PT [id number] [employer] MEDICARE CHOICE [id number] PT [id number] [employer] MEDICARE CHOICE [id number] PT [id number] Results ID Date Data Source [id number] 01/15/2020 10:35:00 AM [facility] Patient Name: SVITLANA BURNHAM : 0 1950 Sex: M Pt Unit #: [id number] Location:[facility] Provider: Visit Date/Time: 01/15/20 Primary Insurance: WELLCARE [...] up visit. Patient offers no concerns today. 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 Accompanied by: self Is patient [...] DAY multivitamin 1 tab PO DAILY omega 3-cee-shw-fish oil 300-1,000 mg (Fish Oil) 1 cap [...] Screening Screening Have you traveled outside of [facility] or [facility] in the last 14 days.: No Has [...] rce(s) Supporting Document(s) ID Date Data Source [id number] 10/30/2019 11:53:00 AM EDT [facility] Patient Name: SVITLANA BURNHAM : 1950 Sex: M Pt Unit #: [id number] Location:[facility] Provider: Visit Date/Time: 10/30/19 Primary Insurance: WELLCARE [...] Screening Screening Have you traveled outside of [facility] or [facility] in the last 14 days.: No Has patient experienced coronavirus symptoms: No [facility] Surgical History Angioplasty of vein Carotid endarterectomy [...] compliment his hydrocodone. Last visit [id number]. He states the Gabapentin did help. It [...] rce(s) Supporting Document(s) ID Date Data Source [id number] 07/28/2019 12:54:00 PM EDT [facility] Patient Name: SVITLANA BURNHAM : 1950 Sex: M Pt Unit #: [id number] Location:[facility] Provider: Visit Date/Time: 07/28/19 Primary Insurance: [employer] MEDICARE Secondary Insurance: Self Pay Intake Vital [...] eening Screening Have you traveled outside of [facility] or [facility] in the last 14 days.: No Has [...] 05/04/19. [facility] the [place]. Exam Const General: cooperative, healthy appearing, comfortable [...] rce(s) Supporting Document(s) ID Date Data Source [id number] 05/04/2019 11:00:00 AM [facility] Patient Name: SVITLANA BURNHAM : 1950 Sex: M Pt Unit #: [id number] Location:[facility] Provider: Visit Date/Time: 05/04/19 Primary Insurance: [employer] [...] offer been met?: Not in age range [facility] Social History (Updated 05/04/19 @ 11:03 by [...] rce(s) Supporting Document(s) ID Date Data Source [id number] 02/06/2019 12:00:00 PM [facility] Patient Name: SVITLANA BURNHAM : 1950 Sex: M Pt Unit #: [id number] Location:[facility] Provider: Visit Date/Time: 02/06/19 Primary Insurance: WELLCARE [...] Manufactu rer 0.5 mL IM Right deltoid [id number] 09/12/19 08810-723-85 [employer] VIS Given Date VIS Provided VIS [...] Manufactu rer 0.5 mL IM Right deltoid [id number] 09/12/19 00096-112-81 [employer] VIS Given Date VIS Provided VIS Publication Date 02/06/19 Single Vaccine 18 Eligibility Eligibility Date Funding Source Not VFC Eligible 02/06/19 Private Assessment Plan Orders Other Orders: Orders: INJ - Influenza Vaccine 02/06/19 Z23 Electronically Signed By: <Electronically signed by Cuco Caldwell DO> Date/Time Signed: 02/07/19 172 Name Value Range Interpretation Code Description Data Mirna rce(s) Supporting Document(s) ID Date Data Source [id number] 02/06/2019 10:24:00 AM [facility] Patient Name: SVITLANA BURNHAM : 1950 Sex: M Pt Unit #: [id number] Location:[facility] Provider: Visit Date/Time: 02/06/19 Primary Insurance: WELLCARE [...] offer been met?: Not in age range [facility] Social History (Updated 02/06/19 @ 10:25 by [...] months. Electronically Signed By: <Electronically signed by Ccuo Caldwell DO> Date/Time Signed: 02/06/19 1109 Name Value Range Interpretation Code Description Data Mirna rce(s) Supporting Document(s) Procedure Social History Code Duration Value Status Description Data Source(s ) Smoking 10/30/2019 12:55:00 PM EDT Current every day smoker co mpleted Current every day smoker [facility] 10/30/2019 11:55:24 AM EDT Current every day smoker co mpleted Current every day smoker [facility] 10/30/2019 11:55:24 AM EDT Current every day smoker co mpleted Current every day smoker [facility] Smoking 10/30/2019 11:55:00 AM EDT Current every day smoker co mpleted Current every day smoker [facility] 07/28/2019 12:56:21 PM EDT Current every day smoker co mpleted Current every day smoker [facility] 07/28/2019 12:56:21 PM EDT Current every day smoker co mpleted Current every day smoker [facility] Smoking 07/28/2019 12:56:00 PM EDT Current every day smoker co mpleted Current every day smoker [facility] 05/04/2019 11:03:01 AM EST Current every day smoker co mpleted Current every day smoker [facility] 05/04/2019 11:03:01 AM EST Current every day smoker co mpleted Current every day smoker [facility] 05/04/2019 11:03:01 AM EST Current every day smoker co mpleted Current every day smoker [facility] Smoking 05/04/2019 11:03:00 AM EST Current every day smoker co mpleted Current every day smoker [facility] 02/06/2019 10:25:13 AM EST Current every day smoker co mpleted Current every day smoker [facility] 02/06/2019 10:25:13 AM EST Current every day smoker co mpleted Current every day smoker [facility] 02/06/2019 10:25:13 AM EST Current every day smoker co mpleted Current every day smoker [facility] 02/06/2019 10:25:00 AM EST Current every day smoker co mpleted Current every day smoker [facility] Smoking 02/06/2019 10:25:00 AM EST Current every day smoker co mpleted Current every day smoker [facility]
--- OUTSIDE RECORDS SUMMARY | 2020-03-26 12:50 | CCD ---
Author Author [facility] Organization [facility] Address Unknown Phone Unavailable Care Team Providers Care Inside Upholsterer Name Role Phone Paulette, P Cuco DO [...] is protected by Article 27-F of the [facility] Public Health law. If you continue you may have access to information: Regarding HIV / AIDS; Provided by facilities licensed or operated by the [facility] Office of Mental Health; or Provided by the [facility] Office for People With Developmental Disabilities. If such information is present, then the following [facility] mandated warning applies: This information has [...] law may result in a fine or longterm sentence or both. A general authorization for the release of medical or other information is NOT sufficient authorization for further disc losure. Family History Family Member Name Family Member Gender Family Member Status Date o f Status Description Data Source(s) Unknown Condition [facility] Unknown Condition [facility] Unknown Condition [facility] Unknown Male Problem [facility] ([facility]) Encounters Encounter Providers Location Date Indications Data Source(s ) Outpatient Attender: Cuco Young: Cuco Caldwell DO 01/15/2020 10:33:00 AM EST - 01/15/2020 11:02:00 AM EST [facility] Outpatient Attender: Cuco Young: Cuco Caldwell DO [facility]: Cuco Caldwell DO 07/28/2019 01:00:00 PM [facility] Outpatient Attender: Cuco Young: Cuco Calwdell DO [facility] Cuco Young: Cuco Caldwell DO 05/04/2019 10:38:00 AM EST - 05/04/2019 11:56:00 AM EST [facility] Outpatient Attender: Cuco Caldwell DO 019 11:27:00 AM EST - 02/06/2019 11:28:00 AM EST [facility] Outpatient Attender: Cuco Caldwell DO 019 10:18:00 AM EST - 02/06/2019 11:02:00 AM EST [facility] Immunizations Vaccine Date Status Description Data Source(s) INFLUENZA VIRUS VACCINE QUADRIVAL SPLIT 2019-21(65 YR UP)/PF 01/11/2020 12:00:00 AM EDT completed [facility] IIV3. This is one of two codes replacing CVX 15, which is being retired. 01/09/2020 12:00:00 AM EDT completed influenza vaccine, inactivated [facility] IIV3. This is one of two codes replacing CVX 15, which is being retired. 02/06/2019 12:00:00 AM EST completed influenza vaccine, inactivated [facility] IIV3. This is one of two codes replacing CVX 15, which is being retired. 02/06/2019 12:00:00 AM EST completed influenza vaccine, inactivated [facility] IIV3. This is one of two codes replacing CVX 15, which is being retired. 02/06/2019 12:00:00 AM EST completed influenza vaccine, inactivated [facility] IIV3. This is one of two codes replacing CVX 15, which is being retired. 02/06/2019 12:00:00 AM EST completed influenza vaccine, inactivated [facility] Medications Medication Brand Name Start Date Product [...] 01/02/2020 01:53:35 PM EDT 0 active [facility] 5-325 mg 12/26/2019 12:00:00 AM EDT [...] 12/25/2019 08:59:59 AM EDT TAB active [facility] 5-325 mg 11/26/2019 12:00:00 AM EDT [...] Hydrocodone-Acetaminophen 11/23/2019 07:46:14 PM EDT TAB completed [facility] Acetaminophen 325 MG / Hydrocodone Aryan trate 5 MG Oral Tablet Hydrocodone-Acetaminophen Hydrocodone-Acetaminophen 11/23/2019 09:45:47 AM EDT TAB completed [facility] 5-325 mg 10/28/2019 12:00:00 AM EDT tablet 180 TAKE ONE TO TWO TABLETS BY MOUTH EVERY 6 HOURS NEEDED FOR PAIN MAXIMUM DAILY DOSE = 6 TAKE ONE TO TWO TABLETS BY MOUTH EVERY 6 HOURS NEEDED FOR PAIN MAXIMUM DAILY DOSE = 6 SOLD: 10/29/2019 [facility] Acetaminophen 325 MG / Hydrocodone Aryan trate 5 MG Oral Tablet Hydrocodone-Acetaminophen Hydrocodone-Acetaminophen 10/26/2019 06:52:48 PM EDT TAB completed [facility] Acetaminophen 325 MG / Hydrocodone Aryan trate 5 MG Oral Tablet Hydrocodone-Acetaminophen Hydrocodone-Acetaminophen 10/26/2019 06:52:48 PM EDT TAB active [facility] Acetaminophen 325 MG / Hydrocodone Aryan trate 5 MG Oral Tablet Hydrocodone-Acetaminophen Hydrocodone-Acetaminophen 10/26/2019 01:40:22 PM EDT TAB completed [facility] Acetaminophen 325 MG / Hydrocodone Aryan trate 5 MG Oral Tablet Hydrocodone-Acetaminophen Hydrocodone-Acetaminophen 10/26/2019 01:40:22 PM EDT TAB completed [facility] 25 mg 10/10/2019 12:00:00 AM EDT [...] Succinate 10/09/2019 11:15:00 AM EDT 0 active [facility] 24 HR metoprolol succinate 25 MG Extende d Release Oral Tablet Metoprolol Succinate Metoprolol Succinate 10/09/2019 11:15:00 AM EDT 0 active [facility] atorvastatin 40 MG Oral Tablet Atorvastatin Atorvastatin 10/09/2019 11:14:47 AM EDT 40 MG active [facility] atorvastatin 40 MG Oral Tablet Atorvastatin Atorvastatin 10/09/2019 11:14:47 AM EDT 40 MG active [facility] 24 HR metoprolol succinate 25 MG Extende d Release Oral Tablet Metoprolol Succinate Metoprolol Succinate 10/09/2019 11:13:24 AM EDT 0 completed [facility] 24 HR metoprolol succinate 25 MG Extende d Release Oral Tablet Metoprolol Succinate Metoprolol Succinate 10/09/2019 11:13:24 AM EDT 0 completed [facility] 40 mg 10/09/2019 12:00:00 AM EDT [...] Hydrocodone-Acetaminophen 09/26/2019 06:37:12 PM EDT TAB completed [facility] Acetaminophen 325 MG / Hydrocodone Aryan trate 5 MG Oral Tablet Hydrocodone-Acetaminophen Hydrocodone-Acetaminophen 09/26/2019 06:37:12 PM EDT TAB completed [facility] Acetaminophen 325 MG / Hydrocodone Aryan trate 5 MG Oral Tablet Hydrocodone-Acetaminophen Hydrocodone-Acetaminophen 09/26/2019 03:48:47 PM EDT TAB completed [facility] Acetaminophen 325 MG / Hydrocodone Aryan trate 5 MG Oral Tablet Hydrocodone-Acetaminophen Hydrocodone-Acetaminophen 09/26/2019 03:48:47 PM EDT TAB completed [facility] 5-325 mg 08/30/2019 12:00:00 AM EDT [...] Hydrocodone-Acetaminophen 08/28/2019 04:31:54 PM EDT TAB completed [facility] Acetaminophen 325 MG / Hydrocodone Aryan trate 5 MG Oral Tablet Hydrocodone-Acetaminophen Hydrocodone-Acetaminophen 08/28/2019 04:31:54 PM EDT TAB completed [facility] 5-325 mg 07/31/2019 12:00:00 AM EDT [...] 2019 01:25:25 PM EDT 300 MG active [facility] gabapentin 300 MG Oral Capsule Gabapentin Gabapentin 2019 01:25:25 PM EDT 300 MG active [facility] gabapentin 300 MG Oral Capsule Gabapentin Gabapentin 2019 01:25:25 PM EDT 300 MG active [facility] Acetaminophen 325 MG / Hydrocodone Aryan trate 5 MG Oral Tablet Hydrocodone-Acetaminophen Hydrocodone-Acetaminophen 07/27/2019 11:55:01 AM EDT TAB completed [facility] Acetaminophen 325 MG / Hydrocodone Aryan trate 5 MG Oral Tablet Hydrocodone-Acetaminophen Hydrocodone-Acetaminophen 07/27/2019 11:55:01 AM EDT TAB [facility] Acetaminophen 325 MG / Hydrocodone Aryan trate 5 MG Oral Tablet Hydrocodone-Acetaminophen Hydrocodone-Acetaminophen 07/27/2019 11:55:01 AM EDT TAB completed [facility] 15 mg 07/16/2019 12:00:00 AM EDT [...] 07/14/2019 01:22:40 PM EDT 30 MG active [facility] lansoprazole 15 MG Delayed Release Oral Capsule Lansoprazole Lansoprazole 07/14/2019 01:22:40 PM EDT 30 MG active [facility] lansoprazole 15 MG Delayed Release Oral Capsule Lansoprazole Lansoprazole 07/14/2019 01:22:40 PM EDT 30 MG active [facility] 5-325 mg 07/01/2019 12:00:00 AM EDT tablet 180 TAKE ONE TO TWO TABLETS BY MOUTH EVERY 6 HOURS NEEDED FOR PAIN MAXIMUM DAILY DOSE = 6 TAKE ONE TO TWO TABLETS BY MOUTH EVERY 6 HOURS NEEDED FOR PAIN MAXIMUM DAILY DOSE = 6 SOLD: 07/02/2019 [facility] Acetaminophen 325 MG / Hydrocodone Aryan trate 5 MG Oral Tablet Hydrocodone-Acetaminophen Hydrocodone-Acetaminophen 06/28/2019 04:36:14 PM EDT TAB completed [facility] Acetaminophen 325 MG / Hydrocodone Aryan trate 5 MG Oral Tablet Hydrocodone-Acetaminophen Hydrocodone-Acetaminophen 06/28/2019 04:36:14 PM EDT TAB completed [facility] Acetaminophen 325 MG / Hydrocodone Aryan trate 5 MG Oral Tablet Hydrocodone-Acetaminophen Hydrocodone-Acetaminophen 06/28/2019 04:36:14 PM EDT TAB completed [facility] 5-325 mg 06/02/2019 12:00:00 AM EDT tablet 180 TAKE 1-2 TABLETS BY MOUTH EVERY 6 HOURS NEEDED FOR PAIN MAXIMUM DAILY DOSE = 6 TAKE 1-2 TABLETS BY MOUTH EVERY 6 HOURS NEEDED FOR PAIN MAXIMUM DAILY DOSE = 6 SOLD: 06/02/2019 [facility] Acetaminophen 325 MG / Hydrocodone Aryan trate 5 MG Oral Tablet Hydrocodone-Acetaminophen Hydrocodone-Acetaminophen 05/30/2019 06:49:54 PM EDT TAB completed [facility] Acetaminophen 325 MG / Hydrocodone Aryan trate 5 MG Oral Tablet Hydrocodone-Acetaminophen Hydrocodone-Acetaminophen 05/30/2019 06:49:54 PM EDT TAB completed [facility] Acetaminophen 325 MG / Hydrocodone Aryan trate 5 MG Oral Tablet Hydrocodone-Acetaminophen Hydrocodone-Acetaminophen 05/30/2019 06:49:54 PM EDT TAB completed [facility] 5-325 mg 05/04/2019 12:00:00 AM EST tablet 180 TAKE ONE TO TWO TABLETS BY MOUTH EVERY 6 HOURS NEEDED FOR PAIN - MAXIMUM DAILY DOSE = 6 TAKE ONE TO TWO TABLETS BY MOUTH EVERY 6 HOURS NEEDED FOR PAIN - MAXIMUM DAILY DOSE = 6 SOLD: 05/04/2019 [facility] Acetaminophen 325 MG / Hydrocodone Aryan trate 5 MG Oral Tablet Hydrocodone-Acetaminophen Hydrocodone-Acetaminophen 05/02/2019 04:37:20 PM EST TAB completed [facility] Acetaminophen 325 MG / Hydrocodone Aryan trate 5 MG Oral Tablet Hydrocodone-Acetaminophen Hydrocodone-Acetaminophen 05/02/2019 04:37:20 PM EST TAB completed [facility] Acetaminophen 325 MG / Hydrocodone Aryan trate 5 MG Oral Tablet Hydrocodone-Acetaminophen Hydrocodone-Acetaminophen 05/02/2019 04:37:20 PM EST TAB completed [facility] Acetaminophen 325 MG / Hydrocodone Aryan trate 5 MG Oral Tablet Hydrocodone-Acetaminophen Hydrocodone-Acetaminophen 05/02/2019 04:37:20 PM EST TAB active [facility] Acetaminophen 325 MG / Hydrocodone Aryan trate 5 MG Oral Tablet Hydrocodone-Acetaminophen Hydrocodone-Acetaminophen 05/02/2019 04:30:08 PM EST TAB completed [facility] Acetaminophen 325 MG / Hydrocodone Aryan trate 5 MG Oral Tablet Hydrocodone-Acetaminophen Hydrocodone-Acetaminophen 05/02/2019 04:30:08 PM EST TAB completed [facility] Acetaminophen 325 MG / Hydrocodone Aryan trate 5 MG Oral Tablet Hydrocodone-Acetaminophen Hydrocodone-Acetaminophen 05/02/2019 04:30:08 PM EST TAB completed [facility] Acetaminophen 325 MG / Hydrocodone Aryan trate 5 MG Oral Tablet Hydrocodone-Acetaminophen Hydrocodone-Acetaminophen 05/02/2019 04:30:08 PM EST TAB completed [facility] Acetaminophen 325 MG / Hydrocodone Aryan trate 5 MG Oral Tablet Hydrocodone-Acetaminophen Hydrocodone-Acetaminophen 05/02/2019 10:52:59 AM EST TAB completed [facility] Acetaminophen 325 MG / Hydrocodone Aryan trate 5 MG Oral Tablet Hydrocodone-Acetaminophen Hydrocodone-Acetaminophen 05/02/2019 10:52:59 AM EST TAB completed [facility] Acetaminophen 325 MG / Hydrocodone Aryan trate 5 MG Oral Tablet Hydrocodone-Acetaminophen Hydrocodone-Acetaminophen 05/02/2019 10:52:59 AM EST TAB completed [facility] Acetaminophen 325 MG / Hydrocodone Aryan trate 5 MG Oral Tablet Hydrocodone-Acetaminophen Hydrocodone-Acetaminophen 05/02/2019 10:52:59 AM EST TAB completed [facility] Amlodipine 10 MG Oral Tablet Amlodipine 04/14/2019 08:43:39 AM EST 10 MG active [facility] Amlodipine 10 MG Oral Tablet Amlodipine 04/14/2019 08:43:39 AM EST 10 MG active [facility] Amlodipine 10 MG Oral Tablet Amlodipine 04/14/2019 08:43:39 AM EST 10 MG active [facility] Amlodipine 10 MG Oral Tablet Amlodipine 04/14/2019 08:43:39 AM EST 10 MG active [facility] Lisinopril 40 MG Oral Tablet Lisinopril 04/14/2019 08:43:09 AM EST 40 MG active [facility] Lisinopril 40 MG Oral Tablet Lisinopril 04/14/2019 08:43:09 AM EST 40 MG active [facility] Lisinopril 40 MG Oral Tablet Lisinopril 04/14/2019 08:43:09 AM EST 40 MG active [facility] Lisinopril 40 MG Oral Tablet Lisinopril 04/14/2019 08:43:09 AM EST 40 MG active [facility] 10 mg 04/14/2019 12:00:00 AM EST tablet [...] Hydrocodone-Acetaminophen 04/04/2019 09:02:51 AM EST TAB completed [facility] Acetaminophen 325 MG / Hydrocodone Aryan trate 5 MG Oral Tablet Hydrocodone-Acetaminophen Hydrocodone-Acetaminophen 04/04/2019 09:02:51 AM EST TAB completed [facility] Acetaminophen 325 MG / Hydrocodone Aryan trate 5 MG Oral Tablet Hydrocodone-Acetaminophen Hydrocodone-Acetaminophen 04/04/2019 09:02:51 AM EST TAB completed [facility] Acetaminophen 325 MG / Hydrocodone Aryan trate 5 MG Oral Tablet Hydrocodone-Acetaminophen Hydrocodone-Acetaminophen 04/04/2019 09:02:51 AM EST TAB completed [facility] 5-325 mg 04/04/2019 12:00:00 AM EST [...] Hydrocodone-Acetaminophen 03/06/2019 10:33:54 AM EST TAB completed [facility] Acetaminophen 325 MG / Hydrocodone Aryan trate 5 MG Oral Tablet Hydrocodone-Acetaminophen Hydrocodone-Acetaminophen 03/06/2019 10:33:54 AM EST TAB completed [facility] Acetaminophen 325 MG / Hydrocodone Aryan trate 5 MG Oral Tablet Hydrocodone-Acetaminophen Hydrocodone-Acetaminophen 03/06/2019 10:33:54 AM EST TAB completed [facility] Acetaminophen 325 MG / Hydrocodone Aryan trate 5 MG Oral Tablet Hydrocodone-Acetaminophen Hydrocodone-Acetaminophen 03/06/2019 10:33:54 AM EST TAB completed [facility] 5-325 mg 03/06/2019 12:00:00 AM EST [...] Hydrocodone-Acetaminophen 03/02/2019 12:54:58 PM EST TAB completed [facility] Acetaminophen 325 MG / Hydrocodone Aryan trate 5 MG Oral Tablet Hydrocodone-Acetaminophen Hydrocodone-Acetaminophen 03/02/2019 12:54:58 PM EST TAB completed [facility] Acetaminophen 325 MG / Hydrocodone Aryan trate 5 MG Oral Tablet Hydrocodone-Acetaminophen Hydrocodone-Acetaminophen 03/02/2019 12:54:58 PM EST TAB completed [facility] Acetaminophen 325 MG / Hydrocodone Aryan trate 5 MG Oral Tablet Hydrocodone-Acetaminophen Hydrocodone-Acetaminophen 03/02/2019 12:54:58 PM EST TAB completed [facility] [id number] 02/06/2019 11:27:25 AM EST 0.5 ML complete d [facility] [id number] 02/06/2019 11:27:25 AM EST 0.5 ML complete d [facility] [id number] 02/06/2019 11:27:25 AM EST 0.5 ML complete d [facility] Flucelvax Quad [id number] (PF) (flu vac qs 2018(4 yr up )CD(PF)) 60 mcg (15 mcg x 02/06/2019 11:27:25 AM EST 0.5 ML completed [facility] 5-325 mg 02/03/2019 12:00:00 AM EST [...] Hydrocodone-Acetaminophen 02/02/2019 06:15:37 PM EST TAB completed [facility] Acetaminophen 325 MG / Hydrocodone Aryan trate 5 MG Oral Tablet Hydrocodone-Acetaminophen Hydrocodone-Acetaminophen 02/02/2019 06:15:37 PM EST TAB completed [facility] Acetaminophen 325 MG / Hydrocodone Aryan trate 5 MG Oral Tablet Hydrocodone-Acetaminophen Hydrocodone-Acetaminophen 02/02/2019 06:15:37 PM EST TAB completed [facility] Acetaminophen 325 MG / Hydrocodone Aryan trate 5 MG Oral Tablet Hydrocodone-Acetaminophen Hydrocodone-Acetaminophen 02/02/2019 06:15:37 PM EST TAB completed [facility] Acetaminophen 325 MG / Hydrocodone Aryan trate 5 MG Oral Tablet Hydrocodone-Acetaminophen Hydrocodone-Acetaminophen 02/02/2019 06:07:46 PM EST TAB completed [facility] Acetaminophen 325 MG / Hydrocodone Aryan trate 5 MG Oral Tablet Hydrocodone-Acetaminophen Hydrocodone-Acetaminophen 02/02/2019 06:07:46 PM EST TAB completed [facility] Acetaminophen 325 MG / Hydrocodone Aryan trate 5 MG Oral Tablet Hydrocodone-Acetaminophen Hydrocodone-Acetaminophen 02/02/2019 06:07:46 PM EST TAB completed [facility] Acetaminophen 325 MG / Hydrocodone Aryan trate 5 MG Oral Tablet Hydrocodone-Acetaminophen Hydrocodone-Acetaminophen 02/02/2019 06:07:46 PM EST TAB completed [facility] Tamsulosin hydrochloride 0.4 MG Oral Capsule Tamsulosin 01/17/2019 08:45:27 AM EST 0.4 MG completed [facility] 0.4 mg 01/17/2019 12:00:00 AM EST capsule [...] Hydrocodone-Acetaminophen 01/03/2019 06:39:33 PM EDT TAB completed [facility] Acetaminophen 325 MG / Hydrocodone Aryan trate 5 MG Oral Tablet Hydrocodone-Acetaminophen Hydrocodone-Acetaminophen 01/03/2019 06:39:33 PM EDT TAB completed [facility] Acetaminophen 325 MG / Hydrocodone Aryan trate 5 MG Oral Tablet Hydrocodone-Acetaminophen Hydrocodone-Acetaminophen 01/03/2019 06:39:33 PM EDT TAB completed [facility] Acetaminophen 325 MG / Hydrocodone Aryan trate 5 MG Oral Tablet Hydrocodone-Acetaminophen Hydrocodone-Acetaminophen 01/03/2019 06:39:33 PM EDT TAB completed [facility] atorvastatin 40 MG Oral Tablet Atorvastatin Atorvastatin 01/03/2019 06:55:42 AM EDT 40 MG completed [facility] atorvastatin 40 MG Oral Tablet Atorvastatin Atorvastatin 01/03/2019 06:55:42 AM EDT 40 MG completed [facility] 40 mg 01/03/2019 12:00:00 AM EDT tablet [...] 10/21/2018 06:18:40 PM EDT 25 MG completed [facility] 24 HR metoprolol succinate 25 MG Extende d Release Oral Tablet Metoprolol Succinate Metoprolol Succinate 10/21/2018 06:18:40 PM EDT 25 MG completed [facility] Lisinopril 40 MG Oral Tablet Lisinopril 10/21/2018 06:18:14 PM EDT 40 MG completed [facility] Lisinopril 40 MG Oral Tablet Lisinopril 10/21/2018 06:18:14 PM EDT 40 MG completed [facility] Lisinopril 40 MG Oral Tablet Lisinopril 10/21/2018 06:18:14 PM EDT 40 MG completed [facility] Lisinopril 40 MG Oral Tablet Lisinopril 10/21/2018 06:18:14 PM EDT [address] [facility] 15 mg 09/07/2018 12:00:00 AM EDT capsule,extended [...] 24hr 09/06/2018 06:35:58 AM EDT 15 MG [facility] Cyclobenzaprine (Amrix) 15 mg capsule,extended release 24hr 09/06/2018 06:35:58 AM EDT 15 MG [facility] Cyclobenzaprine 09/06/2018 06:35:58 AM EDT 15 MG c ompleted [facility] lansoprazole 15 MG Delayed Release Oral Capsule Lansoprazole Lansoprazole 08/22/2018 08:32:03 AM EDT 30 MG completed [facility] lansoprazole 15 MG Delayed Release Oral Capsule Lansoprazole Lansoprazole 08/22/2018 08:32:03 AM EDT 30 MG [facility] lansoprazole 15 MG Delayed Release Oral Capsule Lansoprazole Lansoprazole 08/22/2018 08:32:03 AM EDT 30 MG completed [facility] 15 mg 08/22/2018 12:00:00 AM EDT capsule,delayed release (DR/EC) 180 TAKE TWO CAPSULES BY MOUTH EVERY DAY TAKE TWO CAPSULES BY MOUTH EVERY DAY SOLD: 04/21/2019 [facility] Amlodipine 10 MG Oral Tablet Amlodipine 07/25/2018 10:46:03 AM EDT 10 MG completed [facility] Amlodipine 10 MG Oral Tablet Amlodipine 07/25/2018 10:46:03 AM EDT 10 MG completed [facility] Amlodipine 10 MG Oral Tablet Amlodipine 07/25/2018 10:46:03 AM EDT 10 MG completed [facility] Amlodipine 10 MG Oral Tablet Amlodipine 07/25/2018 10:46:03 AM EDT [address] [facility] Insurance Providers Payer name Policy type / Coverage type Policy ID Covered republican ID Covered republican's relationship to bang Policy Bang Plan Information [employer] [id number] SP [id number] 'S ADMINISTRATION [id number] SP [id number] TODAYS OPTIONS [id number] SP [id number] TODAYS OPTIONS [id number] SP [id number] 'S ADMINISTRATION [id number] SP [id number] [place] [id number] Self [id number] Excell[employer] BS Medicare Medigap Part B [id number] Self [id number] [facility] [id number] Self [id number] [facility] MEDICARE -O/P [id number] 18 [id number] [employer] MEDICARE CHOICE [id number] PT [id number] [employer] MEDICARE CHOICE [id number] PT [id number] [employer] MEDICARE CHOICE [id number] PT [id number] [employer] CHOICE [id number] PT [id number] Results ID Date Data Source [id number] 01/15/2020 10:35:00 AM [facility] Patient Name: SVITLANA BURNHAM : 0 1950 Sex: M Pt Unit #: [id number] Location:[facility] Provider: Visit Date/Time: 01/15/20 Primary Insurance: WELLCARE [...] up visit. Patient offers no concerns today. 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 Accompanied by: self Is patient [...] DAY multivitamin 1 tab PO DAILY omega [id number] oil 300-1,000 mg (Fish Oil) 1 cap [...] Screening Screening Have you traveled outside of [facility] or [facility] in the last 14 days.: No [...] rce(s) Supporting Document(s) ID Date Data Source [id number] 10/30/2019 11:53:00 AM EDT [facility] Patient Name: SVITLANA BURNHAM : 1950 Sex: M Pt Unit #: [id number] Location:[facility] Provider: Visit Date/Time: 10/30/19 Primary Insurance: WELLCARE [...] Screening Screening Have you traveled outside of [facility] or [facility] in the last 14 days.: No Has patient experienced coronavirus symptoms: No [facility] Surgical History Angioplasty of vein Carotid endarterectomy [...] compliment his hydrocodone. Last visit [id number]. He states the Gabapentin did help. It [...] rce(s) Supporting Document(s) ID Date Data Source [id number] 07/28/2019 12:54:00 PM EDT [facility] Patient Name: SVITLANA BURNHAM : 1950 Sex: M Pt Unit #: [id number] Location:[facility] Provider: Visit Date/Time: 07/28/19 Primary Insurance: [employer] MEDICARE Secondary Insurance: Self Pay Intake Vital [...] eening Screening Have you traveled outside of [facility] or [facility] in the last 14 days.: No [...] 05/04/19. He does his labs at the ID. Exam Const General: cooperative, healthy appearing, comfortable [...] rce(s) Supporting Document(s) ID Date Data Source [id number] 05/04/2019 11:00:00 AM [facility] Patient Name: SVITLANA BURNHAM : 1950 Sex: M Pt Unit #: [id number] Location:[facility] Provider: Visit Date/Time: 05/04/19 Primary Insurance: WELLCARE [...] offer been met?: Not in age range [facility] Social History (Updated 05/04/19 @ 11:03 by [...] rce(s) Supporting Document(s) ID Date Data Source [id number] 02/06/2019 12:00:00 PM [facility] Patient Name: SVITLANA BURNHAM : 1950 Sex: M Pt Unit #: [id number] Location:[facility] Provider: Visit Date/Time: 02/06/19 Primary Insurance: WELLCARE [...] Manufactu rer 0.5 mL IM Right deltoid [id number] 09/12/19 [id number] [employer] VIS Given Date VIS Provided VIS [...] Manufactu rer 0.5 mL IM Right deltoid [id number] 09/12/19 [id number] [employer] VIS Given Date VIS Provided VIS Publication Date 02/06/19 Single Vaccine 18 Eligibility Eligibility Date Funding Source Not VFC Eligible 02/06/19 Private Assessment Plan Orders Other Orders: Orders: INJ - Influenza Vaccine 02/06/19 Z23 Electronically Signed By: <Electronically signed by Cuco Caldwell DO> Date/Time Signed: 02/07/19 172 Name Value Range Interpretation Code Description Data Mirna rce(s) Supporting Document(s) ID Date Data Source [id number] 02/06/2019 10:24:00 AM [facility] Patient Name: SVITLANA BURNHAM : 1950 Sex: M Pt Unit #: [id number] Location:[facility] Provider: Visit Date/Time: 02/06/19 Primary Insurance: [employer]LL[employer] [...] offer been met?: Not in age range [facility] Social History (Updated 02/06/19 @ 10:25 by [...] by Cuco Caldwell DO> Date/Time Signed: 02/06/19 1108 Name Value Range Interpretation Code Description Data Mirna rce(s) Supporting Document(s) Procedure Social History Code Duration Value Status Description Data Source(s ) Smoking 10/30/2019 12:55:00 PM EDT Current every day smoker co mpleted Current every day smoker [facility] 10/30/2019 11:55:24 AM EDT Current every day smoker co mpleted Current every day smoker [facility] 10/30/2019 11:55:24 AM EDT Current every day smoker co mpleted Current every day smoker [facility] Smoking 10/30/2019 11:55:00 AM EDT Current every day smoker co mpleted Current every day smoker [facility] 07/28/2019 12:56:21 PM EDT Current every day smoker co mpleted Current every day smoker [facility] 07/28/2019 12:56:21 PM EDT Current every day smoker co mpleted Current every day smoker [facility] Smoking 07/28/2019 12:56:00 PM EDT Current every day smoker co mpleted Current every day smoker [facility] 05/04/2019 11:03:01 AM EST Current every day smoker co mpleted Current every day smoker [facility] 05/04/2019 11:03:01 AM EST Current every day smoker co mpleted Current every day smoker [facility] 05/04/2019 11:03:01 AM EST Current every day smoker co mpleted Current every day smoker [facility] Smoking 05/04/2019 11:03:00 AM EST Current every day smoker co mpleted Current every day smoker [facility] 02/06/2019 10:25:13 AM EST Current every day smoker co mpleted Current every day smoker [facility] 02/06/2019 10:25:13 AM EST Current every day smoker co mpleted Current every day smoker [facility] 02/06/2019 10:25:13 AM EST Current every day smoker co mpleted Current every day smoker [facility] 02/06/2019 10:25:00 AM EST Current every day smoker co mpleted Current every day smoker [facility] Smoking 02/06/2019 10:25:00 AM EST Current every day smoker co mpleted Current every day smoker [facility]
[2020-03-26 12:55] LABS: BLOOD UREA NITROGEN 27 MG/DL (7-18); CALCIUM LEVEL 8.9 MG/DL (8.8-10.2); CARBON DIOXIDE LEVEL 25 mmol/L (20-29); CHLORIDE LEVEL 102 MEQ/L (98-107); CREATININE FOR GFR 1.65 MG/DL (0.70-1.30); GLOMERULAR FILTRATION RATE 44.3 (>49); GLUCOSE, FASTING 129 MG/DL (70-100); POTASSIUM SERUM 4.6 MEQ/L (3.5-5.1); SODIUM LEVEL 134 MEQ/L (136-145)
[2020-03-26 12:56] LABS: ALT/SGPT 18 IU/L (0-32); BILIRUBIN,DIRECT 0.1 MG/DL (0.0-0.2); BILIRUBIN,TOTAL 0.4 MG/DL (0.2-1.0); CK-MB VALUE MASS 1.7 NG/ML (<3.6); CPK CREATINE PHOSPHOKINASE 66 U/L (39-308); MB/CK RELATIVE INDEX 2.57 (< OR =4); NT-PRO BNP 487 PG/ML (<125); THYROID STIMULATING HORMONE 0.963 uIU/ML (0.358-3.740); TOTAL PROTEIN 7.3 GM/DL (6.4-8.2); TROPONIN I < 0.02 NG/ML (< 0.10)
[2020-03-26] MEDS ORDERED: GABAPENTIN 300 MG CAP PO PRN (13:00)
[2020-03-26] MEDS ORDERED: COMBIVENT RESPIMAT 100-20MCG INHALER 4GM INH SCH (13:00)
--- NOTE | 2020-03-26 13:44 | HPEPDOC ---
[facility] Medical History & Physical Date of Admission Mar 26, 2020 Date of Service: Mar 26, 2020 Attending Physician: Lillian Sands MD History and Physical CHIEF COMPLAINT: Increased SOB HISTORY OF PRESENT ILLNESS: And is a 69-year-old male with past medical history of hypertension, hyperlipidemia, tobacco use, recent diagnosis of small cell lung cancer, COPD, chronic back pain who presented to [facility] emergency room after being told to come when a moderate right-sided pneumothoraxes, chest x-ray 03/26/2020. The patient states 03/18/2020 he had a right upper lung biopsy done at the [facility]. After the procedure he had hypoxia and was later found to have a right upper lobe pneumothorax and chest tube was placed there. He was kept overnight for observation and later sent home on 03/19/2020. The patient was sent home to follow-up with his primary care provider at a later date. Biopsy results return in 03/20/20 and the patient states he was told it was "cancer", small cell lung cancer. He will set up with an appointment at the [facility]. His first appointment was 03/25/2020 and based off the exam there a chest x-ray was ordered by the traffic control operator/oncologist. He was called today stating he needed to come to the emergency room immediately. Chest x-ray showed moderate right-sided pneumothorax with fibrosis. The patient states he's had some increased soreness of breath particularly worse with exertion, chronic cough with phlegm which is not unusual for him. He also had some lightheadedness over this past week. He denies chest pain, dizziness, fevers, chills, nausea, vomiting, diarrhea, recent sick contacts. In the emergency room vital signs initially showed many 2% on room air. CT surgery was consult it and a right upper lobe chest tube was placed, post procedure he was a 98% on 45 liters nasal cannula. WBC mildly elevated 11.8, Cr 1.65 (unknown baseline). Repeat chest x-ray after right side chest tube placed showed improved right-sided pneumothorax. Patient was admitted for continued treatment. REVIEW OF SYSTEMS: Neg except mentioned above PAST MEDICAL HISTORY: COPD HTN HLD Recent dx of small cell lung cancer RUL nodule with recent lung biopsy Chronic back pain PAST SURGICAL HISTORY: Lung biopsy 03/18/20 Back surgery 1992, 1993, 1994 Neck surgery Left carotid endarterectomy Ear drum reconstruction FAMILY HISTORY: Father: Colon cancer. at 76 y/o Mother: DM type II. 82 y/o SOCIAL HISTORY: Smoker for 50 years, 1-2 PPD, cutting down but still actively smoking 15 cigarettes a day. Denies alcohol or drug use. Follows with [facility] and [facility]. Lives with . Full Code. Heme/onc- Dr. Mcnamara. Uses walker with ambulation. ALLERGIES: Please see below. HOME MEDICATIONS: Please see below. PHYSICAL EXAMINATION: VS: Please see below CONSTITUTIONAL: No acute distress, resting comfortably, AAO x 3 EYES: PERRLA, EOM intact HENT, MOUTH: Normocephalic, atraumatic, moist mucous membranes, NECK: SUPPLE, no JVD, no lymphadenopathy, no carotid bruit CV: Regular rate and rhythm, S1S2 normal, no murmurs/rubs/gallops CHEST: RUL chest tube in place RESPIRATORY: Clear to auscultation bilaterally, no rales/rhonchi/wheezes GI: BS positive in 4 quadrants, soft, nontender, nondistended, no rebound or guarding, no organomegaly : Deferred MUSCULOSKELETAL: Normal ROM. No cyanosis, clubbing, swelling, joint deformity, +1 extremity edema b/l lower INTEGUMENTARY: Intact, no rashes, no lesions, no erythema NEUROLOGIC: Cranial Nerves II-XII are intact, no focal deficits PSYCHIATRIC: Mood and affect are normal LABORATORY DATA: Please see below IMAGING: CXR 03/26/20: mod Right pneumothorax CXR 03/26/20 repeated after chest tube placement: improved ASSESSMENT: 69-year-old male with past medical history of hypertension, hyperlipidemia, tobacco use, right upper lobe nodule recently found to be lung cancer, COPD, chronic back pain admitted for SOB 2/2 to right lung pneumothorax s/p chest tube placement PLAN: SOB likely 2/2 to moderate sized pneumothorax likely 2/2 to lung bx 03/18/20 -S/p bx and chest tube placement at [facility] in [place] on 03/18/20, chest tube removed 03/19/20 and discharged home -Continued to have incr SOB with exertion, cough -See CXR today above with current chest tube secured in place -Saturating well on 4-5 L NC -C/w nebulizer treatment, chest tube management -Dr. Presley (CT surgery) consulted and following DANIELLA vs. CKD -Unknown baseline Cr -Today currently 1.65 -Hold nephrotoxic meds -[facility] -[facility] labs Small cell lung carcinoma, staging not yet done -new diagnosis, requesting records per heme/onc (first appointment 03/25/20) -Previously on doxycycline and prednisone (? concern for PNA on [facility]), c/w home meds -F/u heme/onc treatment plan, workup COPD 2/2 to tobacco use -Not currently in exacerbation -C/w nebulizer ATC and PRN, home inhalers. Tobacco use -Nicotine patch Chronic back pain -C/w pain medication here, gabapentin HTN -C/w home meds but holding ACI due to renal issues above BPH -C/w flomax HLD -C/w statin, fenofibrate GERD -PPI DVT px - Heparin SC DISPOSITION: Currently admitted as acute inpatient. Dr. Presley (CT surgery) consulted. [facility]. Plan is home when medically improved. Vital Signs Vital Signs Date Time Temp Pulse Resp B/P (MAP) Pulse Ox O2 Delivery O2 Flow Rate FiO2 03/26/20 12:05 Nasal Cannula 4.0 03/26/20 11:25 76 22 99 03/26/20 11:23 03/26/20 10:50 98.2 Laboratory Data Labs 24H Laboratory Tests 2 03/26/20 11:42: Immature Granulocyte % (Auto) 0.3, Neutrophils (%) (Auto) 91.4H, Lymphocytes (%) (Auto) 7.4L, Monocytes (%) (Auto) 0.8, Eosinophils (%) (Auto) 0.0, Basophils (%) (Auto) 0.1, Neutrophils # (Auto) 10.8H, Lymphocytes # (Auto) 0.9L, Monocytes # (Auto) 0.1, Eosinophils # (Auto) 0.0, Basophils # (Auto) 0.0, Nucleated Red Blood Cells % (auto) 0.0, Prothrombin Time 13.9, Prothromb Time International Ratio 1.05, Activated Partial Thromboplast Time 28.8, Anion Gap 7L, Glomerular Filtration Rate 44.3L, Calcium Level 8.9, Total Bilirubin 0.4, Direct Bilirubin 0.1, Aspartate Amino Transf (AST/SGOT) 13, Alanine Aminotransferase (ALT/SGPT) 18, Alkaline Phosphatase 49, Total Creatine Kinase 66, Creatine Kinase MB 1.7, Creatine Kinase MB Relative Index 2.57, Troponin I < 0.02, BP-Zby-Z-Type Natriuretic Peptide 487H, Total Protein 7.3, Albumin 4.0, Albumin/Globulin Ratio 1.2, Thyroid Stimulating Hormone (TSH) 0.963 03/26/20 12:50: CBC/BMP Laboratory Tests 03/26/20 11:42 Home Medications Scheduled Amlodipine Besylate (Amlodipine Besylate) 10 Mg Tablet, 10 MG PO DAILY Aspirin (Aspirin EC) 81 Mg Tablet.dr, 81 MG PO DAILY Atorvastatin Calcium (Atorvastatin Calcium) 40 Mg Tablet, 40 MG PO DAILY Budesonide/Formoterol (Symbicort 80-4.5 Mcg Inhaler) 6.9 Gm Hfa.aer.ad, 2 PUFF INH BID Cholecalciferol (Vitamin D3) (Vitamin D3) 1,000 Unit Tablet, 1,000 UNITS PO QHS Cranberry Fruit Extract (Cranberry) 500 Mg Capsule, 500 MG PO QHS Doxycycline Hyclate (Doxycycline Hyclate) 100 Mg Capsule, 100 MG PO BID STARTED 03/22/19 FOR 10 DAYS Fenofibrate Nanocrystallized (Fenofibrate) 145 Mg Tablet, 145 MG PO DAILY Gabapentin (Gabapentin) 300 Mg Capsule, 300 MG PO BID Ipratropium/Albuterol Sulfate (Combivent Respimat 20-100 Mcg) 4 Gm Mist.inhal, 1 PUFF INH QID Lansoprazole (Lansoprazole) 15 Mg Capsule.dr, 30 MG PO DAILY Lisinopril (Lisinopril) 40 Mg Tablet, 40 MG PO DAILY Magnesium Oxide (Magox 400) 400 Mg Tablet, 400 MG PO QHS Metoprolol Succinate (Metoprolol Succinate) 25 Mg Tab.er.24h, 25 MG PO DAILY Multivitamin (Multivitamin) 1 Each Tablet, 1 TAB PO DAILY [place]-3 Fatty Acids/Fish Oil (Fish Oil 1,000 mg Capsule) 1 Each Capsule, 1,000 MG PO QHS Prednisone (Prednisone) 20 Mg Tablet, 20 MG PO ASDIRECTED TAPER DOSE FILLED 03/22/20, 60MG DAILY X 4 DAYS, 40MG DAILY X 4 DAYS, 20MG DAILY X 4 DAYS - DUE TO BEING 40MG ON 03/27/20 Saw [place] Fruit/Zinc Picoli (Saw Oxly 450 mg Capsule) 1 Each Capsule, 450 MG PO DAILY Tamsulosin HCl (Flomax) 0.4 Mg Capsule, 0.4 MG PO DAILY Scheduled PRN Gabapentin (Gabapentin) 300 Mg Capsule, 300 MG PO DAILY PRN for PAIN Hydrocodone/Acetaminophen (Hydrocodone-Acetamin 5-325 mg) 1 Each Tablet, 1 TAB PO Q6H PRN for PAIN MDD 4 Allergies Coded Allergies: No Known Allergies (Unverified , 08/15/18) A-FIB/CHADSVASC A-FIB History Current/History of A-Fib/PAF?: No Current PO Anticoag Therapy: No Age/Risk Factor Scoring CHADSVASC: CHADSVASC Response (Comments) Value Age Risk Factor Age 65-74 years old 1 Hx of CHF No 0 Hx of HTN Yes 1 Hx of Stroke/TIA/or VTE No 0 Hx of Diabetes No 0 Hx of Vascular Disease No 0 Total 2 Treatment Treatment ordered: Other Other anticoagulant ordered: other Lillian Sands MD Mar 26, 2020 13:44
[2020-03-26 13:46] LABS: RSV AMPLIFICATION NEGATIVE (NEGATIVE)
[2020-03-26] MEDS ORDERED: LEVALBUTEROL 1.25 MG/0.5 ML CONCENTRATE NEB NEB SCH (14:00)
[2020-03-26 14:52] LABS: ABG BASE EXCESS 0.7 (-2.0-2.0); ABG HCO3 24.6 MEQ/L (22.0-26.0); ABG O2 SATURATION 92.1 % (95.0-99.0); ABG PARTIAL PRESSURE CO2 37.1 mmHg (35.0-45.0); ABG PARTIAL PRESSURE O2 60.8 mmHg (75.0-100.0); ABG STANDARD HCO3 24.9 MEQ/L (22.0-26.0); ABG TOTAL CO2 25.7 MEQ/L (23.0-31.0); ABG pH (ARTERIAL) 7.439 UNITS (7.350-7.450)
--- NOTE | 2020-03-26 15:46 | RO ---
OPERATIVE NOTE DATE OF OPERATION: 03/26/2020 PREOPERATIVE DIAGNOSIS: Right pneumothorax after lung biopsy at [facility] in [place]. POSTOPERATIVE DIAGNOSIS: Right pneumothorax after lung biopsy at [facility] in [place]. SURGEON: Larry Preslye M.D. PROCEDURE: Insertion of anterior-superior chest tube with moderate sedation. DESCRIPTION OF PROCEDURE: After satisfactory moderate sedation that was eventually achieved with 4 mg of Versed, the patient was prepped and draped in the usual sterile fashion. Incision was made over the second rib and a tunnel was created at the first intercostal space. A #20 chest tube was placed without difficulty and secured to the chest wall with #2 Tevdek suture and connected to the Pleur-Evac. No specimens were collected as it was just air. The patient tolerated the procedure well and a chest x-ray is pending.
[2020-03-26 16:05] VITALS: BP 138/89
--- NOTE | 2020-03-26 17:24 | ECGEPIP ---
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
--- NOTE | 2020-03-26 17:45 | REP ---
INDICATION: post chest tube removal. COMPARISON: Portable exam of 03/26/2020 and two view exam obtained earlier that same day TECHNIQUE: PA and lateral FINDINGS: There is evidence of interstitial fibrotic change status quo. The previously present right-sided thoracotomy tube has been removed. There is no evidence of a pneumothorax. There are no acute patchy parenchymal opacities. There is no evidence of a pleural effusion. The heart is not enlarged. There is pulmonary arterial enlargement which appears stable. IMPRESSION: There is no acute cardiopulmonary disease. Chronic changes and other findings as described above. <Electronically signed by Marlon Thompson > 03/26/20 9098
--- NOTE | 2020-03-26 18:46 | DS.PDOC ---
Discharge Summary General Date of Admission Mar 26, 2020 at 12:27 Date of Discharge 03/26/20 Attending Physician: Lillian Sands MD Discharge Summary HISTORY OF PRESENT ILLNESS: And is a 69-year-old male with past medical history of hypertension, hyperlipidemia, tobacco use, recent diagnosis of small cell lung cancer, COPD, chronic back pain who presented to [facility] emergency room after being told to come when a moderate right-sided pneumothoraxes, chest x-ray 03/26/2020. The patient states 03/18/2020 he had a right upper lung biopsy done at the [facility]. After the procedure he had hypoxia and was later found to have a right upper lobe pneumothorax and chest tube was placed there. He was kept overnight for observation and later sent home on 03/19/2020. The patient was sent home to follow-up with his primary care provider at a later date. Biopsy results return in 03/20/20 and the patient states he was told it was "cancer", small cell lung cancer. He will set up with an appointment at the [facility]. His first appointment was 03/25/2020 and based off the exam there a chest x-ray was ordered by the provider network mgr/oncologist. He was called today stating he needed to come to the emergency room immediately. Chest x-ray showed moderate right-sided pneumothorax with fibrosis. The patient states he's had some increased soreness of breath particularly worse with exertion, chronic cough with phlegm which is not unusual for him. He also had some lightheadedness over this past week. He denies chest pain, dizziness, fevers, chills, nausea, vomiting, diarrhea, recent sick contacts. In the emergency room vital signs initially showed many 2% on room air. AUDI cole was consult it and a right upper lobe chest tube was placed, post procedure he was a 98% on 45 liters nasal cannula. WBC mildly elevated 11.8, Cr 1.65 (unknown baseline). Repeat chest x-ray after right side chest tube placed showed improved right-sided pneumothorax. Patient was admitted for continued treatment. HOSPITAL COURSE: Patient's condition improved to RA. He insisted on leaving AMA. The ER attending, myself, nursing all tried to discuss with patient the risks of leaving with taking the chest tube out early- , increased SOB,etc. He understood the risk but wanted to leave anyway. He left AMA from the ER after having chest tube taken out by Dr. Presley. Repeat CXR done but is pending report. PAST MEDICAL HISTORY: COPD HTN HLD Recent dx of small cell lung cancer RUL nodule with recent lung biopsy Chronic back pain PAST SURGICAL HISTORY: Lung biopsy 03/18/20 Back surgery 1992, 1993, 1994 Neck surgery Left carotid endarterectomy Ear drum reconstruction FAMILY HISTORY: Father: Colon cancer. at 76 y/o Mother: DM type II. 82 y/o SOCIAL HISTORY: Smoker for 50 years, 1-2 PPD, cutting down but still actively smoking 15 cigarettes a day. Denies alcohol or drug use. Follows with [facility] and [facility]. Lives with . Full Code. Heme/onc- Dr. Mcnamara. Uses walker with ambulation. ALLERGIES: Please see below. HOME MEDICATIONS: Please see below. PHYSICAL EXAMINATION: VS: Please see below CONSTITUTIONAL: No acute distress, resting comfortably, AAO x 3 EYES: PERRLA, EOM intact HENT, MOUTH: Normocephalic, atraumatic, moist mucous membranes, NECK: SUPPLE, no JVD, no lymphadenopathy, no carotid bruit CV: Regular rate and rhythm, S1S2 normal, no murmurs/rubs/gallops CHEST: RUL chest tube in place RESPIRATORY: Clear to auscultation bilaterally, no rales/rhonchi/wheezes GI: BS positive in 4 quadrants, soft, nontender, nondistended, no rebound or guarding, no organomegaly : Deferred MUSCULOSKELETAL: Normal ROM. No cyanosis, clubbing, swelling, joint deformity, +1 extremity edema b/l lower INTEGUMENTARY: Intact, no rashes, no lesions, no erythema NEUROLOGIC: Cranial Nerves II-XII are intact, no focal deficits PSYCHIATRIC: Mood and affect are normal LABORATORY DATA: Please see below IMAGING: CXR 03/26/20: mod Right pneumothorax CXR 03/26/20 repeated after chest tube placement: improved ASSESSMENT: 69-year-old male with past medical history of hypertension, hyperlipidemia, tobacco use, right upper lobe nodule recently found to be lung cancer, COPD, chronic back pain admitted for SOB 2/2 to right lung pneumothorax s/p chest tube placement DIAGNOSES AT TIME OF LEAVING AMA: SOB likely 2/2 to moderate sized pneumothorax likely 2/2 to lung bx 03/18/20 DANIELLA vs. CKD Small cell lung carcinoma, staging not yet done COPD 2/2 to tobacco use Tobacco use Chronic back pain HTN BPH HLD GERD DISPOSITION: leaving AMA today TIME SPENT ON DISCHARGE: Greater than 30 minutes. Vital Signs/I&Os Vital Signs Date Time Temp Pulse Resp B/P (MAP) Pulse Ox O2 Delivery O2 Flow Rate FiO2 03/26/20 16:50 89 97 Room Air 03/26/20 16:05 138/89 (105) 03/26/20 14:00 17 03/26/20 13:45 4.0 03/26/20 10:50 98.2 Laboratory Data Labs 24H Laboratory Tests 2 03/26/20 11:42: Immature Granulocyte % (Auto) 0.3, Neutrophils (%) (Auto) 91.4H, Lymphocytes (%) (Auto) 7.4L, Monocytes (%) (Auto) 0.8, Eosinophils (%) (Auto) 0.0, Basophils (%) (Auto) 0.1, Neutrophils # (Auto) 10.8H, Lymphocytes # (Auto) 0.9L, Monocytes # (Auto) 0.1, Eosinophils # (Auto) 0.0, Basophils # (Auto) 0.0, Nucleated Red Blood Cells % (auto) 0.0, Prothrombin Time 13.9, Prothromb Time International Ratio 1.05, Activated Partial Thromboplast Time 28.8, Anion Gap 7L, Glomerular Filtration Rate 44.3L, Calcium Level 8.9, Total Bilirubin 0.4, Direct Bilirubin 0.1, Aspartate Amino Transf (AST/SGOT) 13, Alanine Aminotransferase (ALT/SGPT) 18, Alkaline Phosphatase 49, Total Creatine Kinase 66, Creatine Kinase MB 1.7, Creatine Kinase MB Relative Index 2.57, Troponin I < 0.02, BA-Dbg-Z-Type Natriuretic Peptide 487H, Total Protein 7.3, Albumin 4.0, Albumin/Globulin Ratio 1.2, Thyroid Stimulating Hormone (TSH) 0.963 03/26/20 12:50: Coronavirus (COVID-19)(PCR) NEGATIVE, Influenza Type A (RT-PCR) NEGATIVE, Influenza Type B (RT-PCR) NEGATIVE, Respiratory Syncytial Virus (PCR) NEGATIVE 03/26/20 14:38: Blood Gas Bicarbonate Standard 24.9, Arterial Blood pH 7.439, Arterial Blood Partial Pressure CO2 37.1, Arterial Blood Partial Pressure O2 60.8L, Arterial Blood Total CO2 25.7, Arterial Blood HCO3 24.6, Arterial Blood Base Excess 0.7, Arterial Blood Oxygen Saturation 92.1L CBC/BMP Laboratory Tests 03/26/20 11:42 Discharge Medications Scheduled Amlodipine Besylate (Amlodipine Besylate) 10 Mg Tablet, 10 MG PO DAILY, (Reported) Aspirin (Aspirin EC) 81 Mg Tablet.dr, 81 MG PO DAILY, (Reported) Atorvastatin Calcium (Atorvastatin Calcium) 40 Mg Tablet, 40 MG PO DAILY, (Reported) Budesonide/Formoterol (Symbicort 80-4.5 Mcg Inhaler) 6.9 Gm Hfa.aer.ad, 2 PUFF INH BID, (Reported) Cholecalciferol (Vitamin D3) (Vitamin D3) 1,000 Unit Tablet, 1,000 UNITS PO QHS, (Reported) Cranberry Fruit Extract (Cranberry) 500 Mg Capsule, 500 MG PO QHS, (Reported) Doxycycline Hyclate (Doxycycline Hyclate) 100 Mg Capsule, 100 MG PO BID, (Reported) STARTED 03/22/19 FOR 10 DAYS Fenofibrate Nanocrystallized (Fenofibrate) 145 Mg Tablet, 145 MG PO DAILY, (Reported) Gabapentin (Gabapentin) 300 Mg Capsule, 300 MG PO BID, (Reported) Ipratropium/Albuterol Sulfate (Combivent Respimat 20-100 Mcg) 4 Gm Mist.inhal, 1 PUFF INH QID, (Reported) Lansoprazole (Lansoprazole) 15 Mg Capsule.dr, 30 MG PO DAILY, (Reported) Lisinopril (Lisinopril) 40 Mg Tablet, 40 MG PO DAILY, (Reported) Magnesium Oxide (Magox 400) 400 Mg Tablet, 400 MG PO QHS, (Reported) Metoprolol Succinate (Metoprolol Succinate) 25 Mg Tab.er.24h, 25 MG PO DAILY, (Reported) Multivitamin (Multivitamin) 1 Each Tablet, 1 TAB PO DAILY, (Reported) [place]-3 Fatty Acids/Fish Oil (Fish Oil 1,000 mg Capsule) 1 Each Capsule, 1,000 MG PO QHS, (Reported) Prednisone (Prednisone) 20 Mg Tablet, 20 MG PO ASDIRECTED, (Reported) TAPER DOSE FILLED 1/8/21, 60MG DAILY X 4 DAYS, 40MG DAILY X 4 DAYS, 20MG DAILY X 4 DAYS - DUE TO BEING 40MG ON 03/27/20 Saw [place] Fruit/Zinc Picoli (Saw [place] 450 mg Capsule) 1 Each Capsule, 450 MG PO DAILY, (Reported) Tamsulosin HCl (Flomax) 0.4 Mg Capsule, 0.4 MG PO DAILY, (Reported) Scheduled PRN Gabapentin (Gabapentin) 300 Mg Capsule, 300 MG PO DAILY PRN for PAIN, (Reported) Hydrocodone/Acetaminophen (Hydrocodone-Acetamin 5-325 mg) 1 Each Tablet, 1 TAB PO Q6H PRN for PAIN, (Reported) MDD 4 Allergies Coded Allergies: No Known Allergies (Unverified , 08/15/18) Lillian Sands MD Mar 26, 2020 18:46
[2020-03-26] MEDS ORDERED: GABAPENTIN 300 MG CAP PO SCH (21:00)
[2020-03-26] MEDS ORDERED: DOCUSATE SODIUM 100MG CAPSULE PO SCH (21:00)
[2020-03-26] MEDS ORDERED: MAGNESIUM OXIDE 400 MG TAB (MAG-OX) PO SCH (21:00)
[2020-03-26] MEDS ORDERED: DOXYCYCLINE HYCLATE 100MG TABLET PO SCH (21:00)
[2020-03-26] MEDS ORDERED: HEPARIN SOD (PORCINE) 5000UNITS/ML 1ML VIAL/SYRINGE SC SCH (21:00)
[2020-03-26] MEDS ORDERED: SYMBICORT 80/4.5MCG INHALER 6GM INH SCH (21:00)
[2020-03-26] MEDS ORDERED: VITAMIN D 1,000 INTERNATIONAL UNITS TABLET PO SCH (21:00)
[2020-03-27] MEDS ORDERED: amLODIPine 10 MG TAB PO SCH (09:00)
[2020-03-27] MEDS ORDERED: ATORVASTATIN 20 MG TAB PO SCH (09:00)
[2020-03-27] MEDS ORDERED: OMEPRAZOLE 20 MG CAP PO SCH (09:00)
[2020-03-27] MEDS ORDERED: FENOFIBRATE 145 MG TAB (TRICOR) PO SCH (09:00)
[2020-03-27] MEDS ORDERED: lisinopriL 40 MG TAB PO SCH (09:00)
[2020-03-27] MEDS ORDERED: predniSONE 20 MG TAB PO SCH (09:00)
[2020-03-27] MEDS ORDERED: TAMSULOSIN 0.4 MG CAP PO SCH (09:00)
[2020-03-27] MEDS ORDERED: MULTIVITAMINS/MINERALS THERAP 1 TAB PO SCH (09:00)
[2020-03-27] MEDS ORDERED: PANTOPRAZOLE 40MG TAB (PROTONIX) PO SCH (09:00)
[2020-03-27] MEDS ORDERED: METOPROLOL SUCC *XL* 25MG TAB (TopROL *XL*) PO SCH (09:00)
[2020-03-27] MEDS ORDERED: MOM 30ML SUSPENSION UDC PO SCH (09:00)
--- NOTE | 2020-03-27 10:42 | CR ---
CONSULTATION DATE: 03/26/2020 REASON FOR CONSULTATION: The patient was seen at the request of Dr. Byrne in the emergency room for pneumothorax and increase in shortness of breath. HISTORY OF PRESENT ILLNESS: The patient is a 69-year-old white male who underwent a needle biopsy at the [facility] in [place] last week. At that time, he had suffered a pneumothorax and some type of chest catheter was placed. It was removed 12 hours later but the patient says that no chest x-ray was taken. He started to feel again acutely short of breath as soon as he got home and that has continued to such an extent that he becomes very short of breath just walking around his house and he finally sought medical attention. He was really prompted to seek medical attention after he saw his oncologist, Dr. Mcnamara at the cancer center who, on physical examination, detected decreased breath sounds and recommended he come to the emergency room. He states that he has been coughing and has had some hemoptysis since his biopsy but that has now disappeared. He is a former smoker, having quit this past January. He smoked 1-3 packs per day which figures to 18 a day obtained from the [facility]. He still actively smokes 15 cigarettes a day. He has some chest discomfort between his shoulder blades. This is more of a dull, nagging pain. There is some increase with taking a deep breath. There has been no fever, chills or sweats. He states he has lost 70 pounds over the past three years trying to do so. Chest x-ray was taken which confirmed a pneumothorax approximately 25%. PAST MEDICAL HISTORY: 1. Chronic obstructive pulmonary disease (COPD). 2. Hypertension (HTN). 3. Chronic renal insufficiency. 4. Pulmonary fibrosis. 5. Gastroesophageal reflux disease. 6. Cerebrovascular disease. 7. Now, biopsy-proven small cell carcinoma. PAST SURGERIES: 1. Three back surgeries. 2. Carotid endarterectomy. 3. Needle biopsy of a left lower lobe nodule, which has proven to be small cell carcinoma. 4. Chest tube on 03/18/2020 after the biopsy. SOCIAL HISTORY: As above. No longer imbibes alcohol and denies illicit drugs. TRAVEL HISTORY: He has been in the and to [facility]. He has also been to [facility], [facility] and [facility]. EXPOSURES: No dogs, birds or cats at home. Having been in the [place], he claims significant asbestos exposure. 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 FAMILY HISTORY: Mother at age 82 of stomach cancer. Father of colon cancer at the age of 77. One brother of COPD at the age of 73. One brother has dementia. 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 REVIEW OF SYSTEMS: Constitutional: See HPI; without fever, chills, sweats or night sweats; an intentioned 70 pound weight loss over the past three years. Eyes: Without diplopia, without amaurosis fugax, wears glasses. Nose: Without epistaxis. Mouth: Has upper dentures. Respiratory: See HPI. Cardiac: Denies prior myocardial infarctions or intermittent claudication. Without peripheral edema, and denies orthopnea or paroxysmal nocturnal dyspnea. GI: Without nausea, vomiting, diarrhea, constipation, melena, hematochezia, hematemesis or abdominal pain. : Without dysuria, hematuria or prior history of renal stones. Endocrine: Without diabetes, without thyroid disease. Neurologic: Without paresthesias, paralysis or seizures. Psychiatric: Without pathologic anxieties, depressions or psychoses. MEDICATIONS AT HOME: - Amlodipine 10 mg daily - aspirin 81 mg daily - atorvastatin 40 mg daily - Symbicort 80-4.5 two puffs twice a day - doxycycline 100 mg twice a day; start 03/22/2019 for ten days - fenofibrate 145 mg daily - gabapentin 300 mg twice a day - Vicodin 325 q. 6 hours p.r.n. pain - Combivent 2100 one puff four times a day - pantoprazole 10 mg daily - lisinopril 40 mg daily - metoprolol 25 mg daily - multivitamins one daily - prednisone taper 20 mg - tamsulosin 0.4 mg daily PHYSICAL EXAMINATION: General Appearance: A well-developed, well-nourished white male in mild distress with shortness of breath at rest. Vital signs: Temperature is 98.9 with a heart rate of 70 and in sinus rhythm. Respiratory rate of 16-28 without the use of accessory muscles. He is 94% saturated on room air, and with a blood pressure of 138/89. HEENT: Head is normocephalic. Eyes: Pupils equal, round and reactive to light. Extraocular muscles are intact. Sclerae nonicteric. Mouth shows his mucous membranes to be pink and moist. Lips and commissures without lesions. There is no thrush. He has upper dentures in place with multiple missing teeth in the mandible. Neck: Supple. There is no jugular venous distention. No subcutaneous emphysema. Trachea is midline. There is no lymphadenopathy or thyromegaly. Lungs: Showed markedly decreased breath sounds on the right side. Percussion noticed diaphragm on either side. Cardiac examination: Without murmurs, clicks, gallops or rubs. I cannot feel a point of maximum impulse (PMI). S1, S2 are normal. Abdomen: Soft, nontender. Bowel sounds are positive. There is no hepatomegaly, no CVA tenderness. Extremities: Show no pretibial edema, no calf tenderness or differential swelling of the upper extremities. Skin: Warm, dry and perfused without cyanosis or mottling including that of nail beds and knees. Neuro: Shows cranial nerves II-XII intact with gross motor, gross sensation intact. Gait is not tested. Psychiatric: Awake, alert and oriented x3 with appropriate mood and affect during conversation. DIAGNOSTIC STUDIES: His white count is 11.8 with hemoglobin and hematocrit of 12.9 and 37.9 respectively, and a platelet count of 336. Differential showed 91% neutrophils, 7% lymphocytes, 1% monocytes. There are no mature forms of toxic granulations. His chemistry shows sodium of 134, with a total CO2 of 25 and a BUN and creatinine of 27 and 1.65, which seems to be his baseline. Glucose is 129 with a calcium of 8.9 and a corresponding albumin of 4.0. AST and ALT are normal at 13 and 18 respectively with a total bilirubin of 0.4. His PT/INR is 13.9 and 1.05 respectively with a PTT of 28 seconds. His blood gases today show a pH of 7.43 with a CO2 of 37, a pO2 of 60 and base excess of 0.7. He is COVID negative and also influenza A and B negative, and RSV negative. His chest x-ray shows a 25% pneumothorax on the right side. He looks to have pulmonary fibrosis particularly in the lower lobes. IMPRESSION: 1. Iatrogenic pneumothorax, right side after lung biopsy at [facility]. 2. Biopsy-proven small cell carcinoma, left lower lobe nodule. 3. Hypertension. 4. Gastroesophageal reflux disease. 5. Cerebrovascular disease. 6. Chronic obstructive pulmonary disease (COPD). 7. Chronic renal insufficiency. 8. Tobacco abuse and dependence. PLAN AND DISCUSSION: I will place an anterosuperior chest tube under conscious sedation to re-inflate the lung. We have no CAT scans here demonstrating his underlying disease. I may get one tomorrow. He should be in the hospital approximately 2-3 days. We will check daily chest x-rays.
[2020-03-31] MEDS ORDERED: predniSONE 20 MG TAB PO SCH (09:00)
== END 2020-03-26 19:39 | disposition left against medical advice (07) | DRG 200 ==
LOC: M ED 10:49 → M ED INP 12:27
PROVIDERS: ADMIT Thoracic Surgery (Cardiothoracic Vascular Surgery); ATTEND Internal Medicine
PROC: 0W9930Z Drainage of Right Pleural Cavity with Drainage Device, Percutaneous Approach (ICD-10-PCS; principal; 2020-03-26)
DX: J95.811 Postprocedural pneumothorax (principal); C34.90 Malignant neoplasm of unspecified part of unspecified bronchus or lung; I10 Essential (primary) hypertension; E78.5 Hyperlipidemia, unspecified; F17.210 Nicotine dependence, cigarettes, uncomplicated; J44.9 Chronic obstructive pulmonary disease, unspecified; J84.10 Pulmonary fibrosis, unspecified; Z79.82 Long term (current) use of aspirin; Z79.899 Other long term (current) drug therapy; N40.0 Benign prostatic hyperplasia without lower urinary tract symptoms; K21.9 Gastro-esophageal reflux disease without esophagitis; M54.5 Low back pain

== ENCOUNTER → 2020-03-26 | Outpatient (CLI) | payer OTHER, MEDICARE ==
[~2020-03-26] MED LIST changes: -AMLO10TA5 PO; +AMLO1TAB25 PO; +ASPI81CH33 PO; +ASPI81TA26 PO; -ASPI81TA85 PO; +ASPI81TA86 PO; +CHOL100029 PO; +D31000TA2 PO; +DOXY100C PO; -FENO145T13 PO; +FENO145T7 PO; +GABA-282 PO; -LIDOCAINE 2% INJ 100 MG/5 ML SDV (FOR ANES.) As Ordered ONE; +MULT-90 PO; +NEUR100C PO; -NS 1,000 ML IV ONE; +PRED20TA PO; +SAW1CAPS2 PO; -VITAD1000T PO
--- NOTE | 2020-03-26 10:21 | REP ---
INDICATION: LUNG CANCER COMPARISON: 08/06/2011 TECHNIQUE: PA and lateral. FINDINGS: There is a moderate right pneumothorax. Diffuse underlying chronic appearing fibrosis and pleuroparenchymal changes noted bilaterally. Mediastinum and cardiac silhouette are relatively normal in position and appearance. Skeletal structures intact. IMPRESSION: Moderate right pneumothorax. Underlying chronic appearing bilateral interstitial changes and fibrosis. Findings discussed with Dr. Mcnamara <Electronically signed by Broderick Navarrete > 03/26/20 [id number]
== END ==
LOC: M RAD 09:52
PROVIDERS: ATTEND Specialist
DX: C34.90 Malignant neoplasm of unspecified part of unspecified bronchus or lung (principal)

== ENCOUNTER → 2020-03-28 | Outpatient (CLI) | payer OTHER ==
[~2020-03-28] MED LIST changes: +ASPI81TA26 PO; +D31000TA2 PO; +DOXY100C PO; +GABA-282 PO; -NICOTINE 21MG/24HR 1 EA TRANSDERMAL TD SCH; +PRED20TA PO; +SAW1CAPS2 PO
--- NOTE | 2020-03-28 17:57 | REPVR ---
PROCEDURE INFORMATION: Exam: MR Head Without Contrast Exam date and time: 03/28/2020 5:14 PM Age: 69 years old Clinical indication: Condition or disease; History of cancer (specify primary cancer site): ; Primary cancer: [facility]; Additional info: Small cell lung cancer TECHNIQUE: Imaging protocol: MR of the head without contrast. COMPARISON: No relevant prior studies available. FINDINGS: Brain: No acute infarct identified on the diffusion-weighted imaging. No discrete areas of cerebral edema contributing to intracranial mass effect identified. The T2 weighted imaging does demonstrate patchy foci of increased signal intensity in the deep and subcortical white matter most likely representing chronic small vessel ischemic change. There is mild cerebral volume loss. Cerebral ventricles: The ventricles are slightly enlarged in keeping with volume peer Bones/joints: Unremarkable. Paranasal sinuses: Normal as visualized. No acute sinusitis. Mastoid air cells: Normal as visualized. No mastoid effusion. Orbits: Unremarkable. Soft tissues: Unremarkable. IMPRESSION: No noncontrast MRI evidence of intracranial metastatic disease. Electronically signed by: Josie Nevarez On 03/28/2020 17:57:12 PM
== END ==
LOC: M RAD 16:05
PROVIDERS: ATTEND Internal Medicine Hematology
DX: D02.21 Carcinoma in situ of right bronchus and lung (principal)

== ENCOUNTER → 2020-04-02 | Outpatient (CLI) | payer OTHER ==
[~2020-04-02] MED LIST changes: -LISI40TA PO; +LISI40TA4 PO; +ONDA8TAB10 PO; +PROC10TA4 PO
--- NOTE | 2020-04-02 17:26 | REP ---
INDICATION: STAGING SCLC. 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 COMPARISON: Comparison chest radiograph 26 March 2020.. TECHNIQUE: Forty-five minutes following the intravenous injection of a 8.46 mCi dose of F-18 FDG, three-dimensional PET scintigraphy is acquired from the skull base to the proximal thighs. Triplanar noncontrast CT scanning is acquired through the same anatomic range for attenuation correction, and image registration with scan parameters optimized to minimize radiation exposure to the patient. PET scintigraphy and CT datasets were fused and displayed on a workstation with multiplanar and projection display capability. FINDINGS: Head and neck soft tissues are unremarkable. In the abdomen and pelvis there is normal adrenal uptake. There is normal distribution of injected FDG to the liver, spleen, genitourinary, and gastrointestinal system. No abnormal hypermetabolic uptake is seen in the abdomen and pelvis. The small nodule in the right lower lobe shows mildly hypermetabolic uptake, maximum standard uptake value 3.05. This nodule measures 1.1 cm in greatest diameter. No other abnormal pulmonary parenchymal hypermetabolic uptake is seen. There is a lymph node in the precarinal region of the mediastinum measuring 10 mm in short axis dimension. This is not felt to be hypermetabolic. Maximum standard uptake value is 2.53. No other mediastinal muriel focus is seen. IMPRESSION: The nodule in the right lower lobe is mildly hypermetabolic, SUV 3.05. There is a single precarinal lymph node which does not appear to be hypermetabolic. Otherwise negative PET scintigraphy. <Electronically signed by Alonso Shea > 04/02/20 [id number]
== END ==
LOC: M PLARAD 09:00
PROVIDERS: ATTEND Internal Medicine Pulmonary Disease
DX: C34.31 Malignant neoplasm of lower lobe, right bronchus or lung (principal)

== ENCOUNTER → 2020-04-11 | Outpatient (CLI) | payer OTHER ==
[~2020-04-11] MED LIST changes: +LIDOCAINE 1% MDV 20ML VIAL As Ordered ONE; +MIDAZOLAM INJ 2MG/2ML VIAL (J2250 PER 1MG) As Ordered ONE; +PROMETHAZINE INJ 25 MG/ML VIAL (J2550) As Ordered ONE; +ceFAZolin 1GM VIAL (J0690 PER 500MG) As Ordered ONE; +diphenhydrAMINE 50MG/ML VIAL (J1200) As Ordered ONE; +fentaNYL 100 MCG/2 ML INJECTION (J3010) As Ordered ONE
--- NOTE | 2020-04-11 12:17 | IRHP ---
[facility] IR Pre-Procedure H & P General Date of Service: Apr 11, 2020 Procedure: Same Day Surgery Interval History and Physical I have seen the patient and reviewed last H & P performed within 30 days. There is no significant interval change. History of Present Illness Chief Complaint The patient is a 69-year-old male admitted with a reason for visit of Lung Ca. PRE-PROCEDURE DIAGNOSIS: Lung cancer HEART: Normal rate. LUNGS: Normal breathing at rest. ASA Classification ASA Classification: III-Severe systemic dis. Mallampati Score: II NPO: Yes Problems with prior sedation: No Obstructive Sleep Apnea: No Plan moderate sedation Allergies Coded Allergies: No Known Allergies (Unverified , 08/15/18) Home Medications Scheduled Amlodipine Besylate (Amlodipine Besylate), 10 MG PO DAILY, (Reported) Aspirin (Aspirin EC), 81 MG PO DAILY, (Reported) Atorvastatin Calcium (Atorvastatin Calcium), 40 MG PO DAILY, (Reported) Budesonide/Formoterol (Symbicort 80-4.5 Mcg Inhaler), 2 PUFF INH BID, (Reported) Cholecalciferol (Vitamin D3) (Vitamin D3), 1,000 UNITS PO QHS, (Reported) Cranberry Fruit Extract (Cranberry), 500 MG PO QHS, (Reported) Doxycycline Hyclate (Doxycycline Hyclate), 100 MG PO BID, (Reported) Fenofibrate Nanocrystallized (Fenofibrate), 145 MG PO DAILY, (Reported) Gabapentin (Gabapentin), 300 MG PO BID, (Reported) Ipratropium/Albuterol Sulfate (Combivent Respimat 20-100 Mcg), 1 PUFF INH QID, (Reported) Lansoprazole (Lansoprazole), 30 MG PO DAILY, (Reported) Lisinopril (Lisinopril), 40 MG PO DAILY, (Reported) Magnesium Oxide (Magox 400), 400 MG PO QHS, (Reported) Metoprolol Succinate (Metoprolol Succinate), 25 MG PO DAILY, (Reported) Multivitamin (Multivitamin), 1 TAB PO DAILY, (Reported) [place]-3 Fatty Acids/Fish Oil (Fish Oil 1,000 mg Capsule), 1,000 MG PO QHS, (Reported) Prednisone (Prednisone), 20 MG PO ASDIRECTED, (Reported) [place] Fruit/Zinc Picoli (S[place] 450 mg Capsule), 450 MG PO DAILY, (Reported) Tamsulosin HCl (Flomax), 0.4 MG PO DAILY, (Reported) Scheduled PRN Gabapentin (Gabapentin), 300 MG PO DAILY PRN for PAIN, (Reported) Hydrocodone/Acetaminophen (Hydrocodone-Acetamin 5-325 mg), 1 TAB PO Q6H PRN for PAIN, (Reported) BRAYDEN NOONAN MD Apr 11, 2020 12:17
[2020-04-11 15:10] VITALS: BP 138/83
--- NOTE | 2020-04-12 11:27 | POST-OPPD ---
Postoperative Procedure Note Date Of Procedure: Apr 11, 2020 Time Of Procedure: 16:00 IR Ultrasound and fluoroscopy guided port placement. IR Ultrasound of the neck. IR Moderate sedation. Clinical indication: Lung cancer. Physician: Dr. Nevarez. Procedure: The patient was advised of the benefits, risks, and alternatives of the procedure and informed consent was obtained. A time-out was performed with verification of the patient's name, MRN, site of procedure and type of procedure to be performed. The patient was positioned in the supine position on the angiographic table. The site was prepped and draped in the usual sterile fashion. Moderate sedation was performed by the physician including the presence of an independent trained RN who assisted and monitored the patient's level of consciousness and physiologic status. Following the administration of fentanyl and Versed , the physician spent 45 minutes of continuous face to face time with the patient. Ultrasound of the neck reveals a patent and compressible right internal jugular vein. A senior electrical controls engineer radiograph reveals increased lung markings. The neck and anterior chest wall were anesthetized with lidocaine. The right internal jugular vein was accessed using a microintroducer needle under ultrasound guidance, via a lateral approach. An 018 wire was advanced into the superior vena cava, the needle was removed and a microsheath was placed. An Amplatz wire was then passed into the inferior vena cava. An incision at the internal jugular vein access site and anterior chest wall were made using a scalpel. An incision was made at the anterior chest wall. A small pocket was created using a combination of blunt and sharp dissection. A tunneling device was then used to pass the catheter from the pocket to the neck puncture site. An 8- [place] Ang[employer] Smart power port was then positioned in the pocket. The catheter was then measured and cut. The introducer sheath was exchanged for a peel-away sheath. The catheter was passed through the peel-away sheath into the internal jugular vein and the peel-away sheath was removed. The port tip was positioned at the cavoatrial junction. The port was then accessed with a Dempsey needle. The port flushes and aspirates well. The puncture site in the neck was closed. The chest wall incision was then closed with 2-0 Vicryl and 4-0 Monocryl. Glue and Steri- Strips were applied. A sterile dressing was then applied. The patient tolerated the procedure well and was returned to the PRU in stable condition. Estimated blood loss: <5 ml. Complications: None. Conclusion: 1. Successful placement of an 8-Armen[place] Angio dynamics Smart power port via the right internal jugular vein. The port is ready for immediate use. 2. Patient to follow up in IR clinic in 2 weeks. Thank you for this referral. BRAYDEN NEVAREZ MD Apr 12, 2020 11:27
== END ==
LOC: M IRPRO 04-08 13:29
PROVIDERS: ATTEND Radiology Diagnostic Radiology
DX: C34.90 Malignant neoplasm of unspecified part of unspecified bronchus or lung (principal); Z79.82 Long term (current) use of aspirin; Z79.899 Other long term (current) drug therapy
CPT/HCPCS: 36561; 99152; 99153; C1769; C1788; C1894; J0690; J1200; J1642; J1644; J2250; J3010

== ENCOUNTER → 2020-04-18 | Outpatient (CLI) | payer OTHER ==
[~2020-04-18] MED LIST changes: -LIDOCAINE 1% MDV 20ML VIAL As Ordered ONE; -MIDAZOLAM INJ 2MG/2ML VIAL (J2250 PER 1MG) As Ordered ONE; -PROMETHAZINE INJ 25 MG/ML VIAL (J2550) As Ordered ONE; -ceFAZolin 1GM VIAL (J0690 PER 500MG) As Ordered ONE; -diphenhydrAMINE 50MG/ML VIAL (J1200) As Ordered ONE; -fentaNYL 100 MCG/2 ML INJECTION (J3010) As Ordered ONE
--- NOTE | 2020-04-18 13:14 | RADONC.CN ---
Radiation Oncology Hx/Consult Radiation Oncology Consult Date of Service: Apr 18, 2020 Pt Identifier Melissa Cee is a 69 year old male current smoker (>50 pk year history) with COPD and newly diagnosed LS SCLC [id number] of the RLL. He is seen today for consideration of RT to his chest. Diagnosis/Treatment History Oncologic History 11/26/[address] chest ([facility]) showing an enlarged posterior RLL 0.5 cm nodule and mediastinal adenopathy. 03/01/[address] chest showing growth of the RLL nodule to 1.0 cm and stably enlarged mediastinal adenopathy. 03/18/20 CT biopsy of the RLL nodule showing SCLC complicated by pneumothorax which was managed successfully with chest tube. No mediastinal staging EBUS performed. 03/28/20 MRI head negative. 04/02/20 PET-CT showing increased uptake in the malignant RLL nodule now 1.1 cm as well as low grade uptake in the 1.5 x 1.0 cm precarinal node. No additional hypermetabolism noted. He had a surgical evaluation and was referred to medical oncology for consideration of chemotherapy. PFTs [facility] 03/19/20 Moderate obstructive lung disease Decreased FEV1/FVC DLCO not done Interval History Melissa is here with his . He served in [place], denies exposures. He is a current 1ppd smoker for >50 years. He desires to quit and is actively trying, has quit aids (patches) does not want prescription medication at this time but willing to consider in the future. He has DEL RIO when walking but can get up a flight of stairs. He is on COPD controller meds, he does not wear CPAP or O2. He has no further hemoptysis s/p traumatic pneumothorax after biopsy. He has chronic low back pain which is functionally limiting. Gets his pain medication from a workman's comp Dr. His appetite is good and weight is stable. 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 Allergies / Meds Allergies: Coded Allergies: No Known Allergies (Unverified , 08/15/18) Home Meds Reported Medications Cholecalciferol (Vitamin D3) (Vitamin D3) 1,000 Unit Tablet, 1000 UNITS PO QHS, TAB 03/26/20 Gabapentin (Gabapentin) 300 Mg Capsule, 300 MG PO DAILY PRN for PAIN, CAP 03/26/20 Gabapentin (Gabapentin) 300 Mg Capsule, 300 MG PO BID, CAP 03/26/20 Aspirin (Aspirin EC) 81 Mg Tablet.dr, 81 MG PO DAILY, TAB 03/26/20 Saw [place] Fruit/Zinc Picoli (Saw [place] 450 mg Capsule) 1 Each Capsule, 450 MG PO DAILY, CAP 03/26/20 Multivitamin (Multivitamin) 1 Each Tablet, 1 TAB PO DAILY, TAB 03/25/20 Cranberry Fruit Extract (Cranberry) 500 Mg Capsule, 500 MG PO QHS 08/15/18 [place]-3 Fatty Acids/Fish Oil (Fish Oil 1,000 mg Capsule) 1 Each Capsule, 1000 MG PO QHS, CAP 08/15/18 Magnesium Oxide (Magox 400) 400 Mg Tablet, 400 MG PO QHS, TAB 08/15/18 Lansoprazole (Lansoprazole) 15 Mg Capsule.dr, 30 MG PO DAILY, CAP 08/15/18 Atorvastatin Calcium (Atorvastatin Calcium) 40 Mg Tablet, 40 MG PO DAILY, TAB 08/15/18 Lisinopril (Lisinopril) 40 Mg Tablet, 40 MG PO DAILY, TAB 08/15/18 Tamsulosin HCl (Flomax) 0.4 Mg Capsule, 0.4 MG PO DAILY, CAP 08/15/18 Ipratropium/Albuterol Sulfate (Combivent Respimat 20-100 Mcg) 4 Gm Mist.inhal, 1 PUFF INH QID, INHALER 08/15/18 Budesonide/Formoterol (Symbicort 80-4.5 Mcg Inhaler) 6.9 Gm Hfa.aer.ad, 2 PUFF INH BID, INHALER 08/15/18 Fenofibrate Nanocrystallized (Fenofibrate) 145 Mg Tablet, 145 MG PO DAILY, TAB 08/15/18 Metoprolol Succinate (Metoprolol Succinate) 25 Mg Tab.er.24h, 25 MG PO DAILY, TAB 08/15/18 Amlodipine Besylate (Amlodipine Besylate) 10 Mg Tablet, 10 MG PO DAILY, TAB 08/15/18 Hydrocodone/Acetaminophen (Hydrocodone-Acetamin 5-325 mg) 1 Each Tablet, 1 TAB PO Q6H PRN for PAIN, TAB MDD 4 08/15/18 Discontinued Reported Medications Doxycycline Hyclate (Doxycycline Hyclate) 100 Mg Capsule, 100 MG PO BID STARTED 03/22/19 FOR 10 DAYS 03/26/20 Prednisone (Prednisone) 20 Mg Tablet, 20 MG PO ASDIRECTED TAPER DOSE FILLED 03/22/20, 60MG DAILY X 4 DAYS, 40MG DAILY X 4 DAYS, 20MG DAILY X 4 DAYS - DUE TO BEING 40MG ON 03/27/20 03/26/20 Review of Systems Constitutional: Denies: Chills, Fever, Night Sweats Eyes: Denies: Pain, Vision change HEENT: Denies: Head Aches, Dysphagia, Sore Throat Skin: Denies: Rash, Lesions, Bruising Pulmonary: Reports: Dyspnea, Cough; Denies: Pleuritic Chest Pain Cardiovascular: Denies: Chest Pain, Palpitations, Edema Gastrointestinal: Denies: Nausea, Vomiting, Abdominal Pain, Diarrhea Genitourinary: Denies: Dysuria, Frequency, Incontinence Hematologic: Denies: Bruising, Petecchia, Enlarged Lymph Nodes Musculoskeletal: Reports: Back pain Neurological: Denies: Weakness, Numbness, Incoordination Psych: Reports: Mood Normal; Denies: Memory Issues, Thoughts of Self Harm Vital Signs Ht 71" Wt 208 lb BMI 29 T 87.8 P 79 RR 16 BP 124/67 O2 97% Pain 5 back Fatigue 1 General Exam: Positive: Alert, Cooperative, No Acute Distress Eye Exam: Positive: PERRLA, EOMI ENT EXAM: Positive: Mucous membr. moist/pink, Pharynx Normal Neck Exam: Negative: Thyromegaly, Lymphadenopathy Chest Exam: Positive: Clear to auscultation, Rhonchi (Right base); Negative: Rales, Wheezing Heart Exam: Positive: Rate Normal, Regular Rhythm Abdomen Exam: Positive: Soft; Negative: Tenderness, Mass Extremity Exam: Negative: Clubbing, Cyanosis, Edema, Normal pulses, Tenderness, Swelling, Other Neuro Exam: Positive: Normal Gait, Normal Speech, Cranial Nerves 3-12 NL Psych Exam: Positive: Mental status NL, Mood NL, Memory Intact Diagnostic and Laboratory Diagnostic Review Radiologic images, relevant labs and pathology reports were personally reviewed and discussed with Mr. Cee. Assessment and Plan Impression Mr. Cee is a 69 year old male current smoker (>50 pk year history) with COPD and newly diagnosed LS SCLC [id number] of the RLL. He is seen today for consideration of RT to his chest. 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 Cee regarding the diagnosis at hand and available therapeutic options. I note that he has poor pulmonary reserve, is on COPD control medications and has dyspnea on exertion in addition to chronic low back pain. Overall I do not see how he would be an appropriate lobectomy candidate, in addition, this is SCLC and lobectomy is far from standard of care in this disease. He has also not undergone EBUS staging of the mediastinum and there are enlarged mediastinal nodes on serial CT scans in addition to the proven peripheral RLL lesion. Given that chemotherapy is in queue (as it is standard of care in any event for SCLC) and because on most trials of chemoradiation in LS SCLC mediastinal stations harboring enlarged nodes would have been included in the radiation portals (in the pre-PET-CT era) I have no compunction about treating the chest including the enlarged nodes with definitive intent chemoradiation a la, standard therapy for LS-SCLC. I explained this to the patient in detail. In the absence of distant metastases thoracic chemoradiation can be curative in some SCLC patients, but that even if the disease relapses elsewhere in time, the chance of chest relapse is greatly reduced by inclusion of thoracic RT. The alternatives of pursuing SBRT alone to the proven nodule seems unwise, given the enlarged chest nodes, and may prove inconsequential as the nodule is small and peripheral such that it poses no i mmediate risk to him. The alternative of surgery would resolve the questionable status of the mediastinal nodes, as they would be sampled, but he is frail for lobectomy and this seems unwise. He could also undergo EBUS staging to obtain tissue, however this would only be useful in my view if positive for cancer, he would still be LS in any event and I would still treat the enlarged nodes in the chest, as there is little additional morbidity risk from this approach, and the chest is the most likely site of first relapse in SCLC patients. For radiation I will give 60 Gy in 30 fractions with VMAT and 4DCT based simulation. This will spare the esophagus and allow for lung V20 to be reduced which is important given his low pulmonary reserve. Simulation can proceed in the coming week and treatment can begin between cycle 1 and 2 of chemotherapy. Timing of radiation relative to chemotherapy is less urgent as his disease is not bulky and will not benefit from downstaging prior to initiation of RT. We discussed the logistics of receiving radiation therapy in detail including the need for a 1-time planning session. We reviewed the side effects of treatment fatigue, mild esophagitis and <5% risk of pneumonitis. For his chronic pain which is not cancer related he has PCP follow up in place, I told him I would be happy to refer him to palliative care for this but he politely declined at this time. We also briefly discussed the role PCI versus MRI surveillance in SCLC, I recommended to him that we obtain a 2-3 month MRI upon completion of RT and make decisions about this at that time. After discussing the risks, benefits and alternatives to radiation therapy, Mr. Cee was amenable to pursuing radiotherapy. All questions were answered to the patient's satisfaction. We instructed the patient that if there were any questions,concerns or changes in clinical status in the interim to contact us. Recommendations Chemoradiation to right chest and mediastinum 60 Gy in 30 fractions as discussed above Simulation in the coming week Chemotherapy per Dr. Mcnamara Upon completion will order 2-3 month MRI head for PCI decision making RISSA MOLINA MD Apr 18, 2020 13:08
== END ==
LOC: M ONCR 09:45
PROVIDERS: ATTEND General Practice
DX: C34.90 Malignant neoplasm of unspecified part of unspecified bronchus or lung (principal)

== ENCOUNTER → 2020-04-22 | Outpatient (CLI) | payer OTHER ==
--- NOTE | 2020-04-22 13:29 | REPPI ---
INDICATION: POST PNEUMOTHORAX COMPARISON: 03/26/2020 TECHNIQUE: PA and lateral. FINDINGS: The mediastinum and cardiac silhouette are normal. [id number] identified with tip in the SVC. The lung marsh demonstrate diffuse chronic fibrosis and interstitial changes similar to prior examination. No focal consolidation, effusion, or pneumothorax. IMPRESSION: Diffuse chronic interstitial changes and fibrosis. No focal consolidation or effusion. No pneumothorax. <Electronically signed by Broderick Navarrete > 04/22/20 [id number]
== END ==
LOC: M PLAIMG 09:10 → M PLALAB 09:10
PROVIDERS: ATTEND Thoracic Surgery (Cardiothoracic Vascular Surgery)
DX: J95.811 Postprocedural pneumothorax (principal)

== ENCOUNTER → 2020-04-23 | Outpatient (POV) | payer OTHER ==
--- NOTE | 2020-04-24 12:16 | IRPN ---
[facility] IR Progress Note IR Progress Note DATE: Apr 23, 2020 Patient agreed to this telephone follow-up. I spent 5 minutes talking to the patient. FOLLOW-UP: Status post port placement. Patient states no issues with the port site. No pain, swelling, redness or discharge. The port has not been used yet. ON EXAMINATION: No video on patient side. IMPRESSION: Doing well status post port placement. No further follow-up scheduled unless initiated by patient and/or referring provider. Thank you for this referral Allergies Coded Allergies: No Known Allergies (Unverified , 08/15/18) BRAYDEN NOONAN MD Apr 24, 2020 12:16
== END ==
LOC: M TMIRPOV 09:14
PROVIDERS: ATTEND Radiology Diagnostic Radiology
DX: Z45.2 Encounter for adjustment and management of vascular access device (principal)

== ENCOUNTER 2020-05-10 13:01 | Outpatient (RCR) | payer OTHER ==
[2020-05-13] MEDS ORDERED: MAGICMW SSP (11:04)
[2020-05-13] MEDS ORDERED: LIDO2SO PO (13:37)
== END 2020-05-12 ==
LOC: M ONCR 13:01
PROVIDERS: ATTEND General Practice
DX: C34.31 Malignant neoplasm of lower lobe, right bronchus or lung (principal)

== ENCOUNTER → 2020-05-13 | Outpatient (CLI) | payer OTHER ==
[~2020-05-13] MED LIST changes: +LIDO2SO PO; +MAGICMW SSP
--- NOTE | 2020-05-13 15:16 | REP ---
INDICATION: KOLBY LEG SWELLING AND PAIN COMPARISON: None. TECHNIQUE: Real time compression and duplex Doppler interrogation of the bilateral lower extremity deep venous system is performed. FINDINGS: Bilaterally, the common femoral, superficial femoral and popliteal veins are fully compressible with transducer pressure and demonstrate normal spontaneous and phasic flow, without evidence of deep venous thrombosis. IMPRESSION: No evidence of deep venous thrombosis of the bilateral lower extremity femoral popliteal venous system. <Electronically signed by Ernie Cai > 05/13/20 [id number]
== END ==
LOC: M RAD 14:37
PROVIDERS: ATTEND General Practice
DX: M79.604 Pain in right leg (principal); M79.605 Pain in left leg; C34.90 Malignant neoplasm of unspecified part of unspecified bronchus or lung

== ENCOUNTER 2020-06-11 10:11 | Outpatient (RCR) | payer OTHER ==
--- NOTE | 2020-05-13 15:49 | RADENCPD ---
Date/Time of Encounter Date of Encounter: May 13, 2020 Time of Encounter: 15:46 Encounter Earlier today at his [facility], Melissa complained of right lower extremity cramping pain present since Wednesday. I ordered a stat US of the BL lower extremities to assess for clot. Thankfully this came back negative. I called and conveyed the result to Melissa's . Will continue with radiation tomorrow. RISSA MOLINA MD May 13, 2020 15:49
[~2020-06-11 10:11] MED LIST changes: +MORP-69 PO; +OXYC1SOL3 PO; +TRAZ-252 PO
[2020-06-13] MEDS ORDERED: OXYC1SOL3 PO (08:13)
[2020-06-13] MEDS ORDERED: MORP-69 PO (08:14)
== END 2020-06-12 ==
LOC: M ONCR 10:11
PROVIDERS: ATTEND General Practice
DX: C34.31 Malignant neoplasm of lower lobe, right bronchus or lung (principal)

== ENCOUNTER → 2020-08-09 | Outpatient (CLI) | payer OTHER ==
[~2020-08-09] MED LIST changes: +K-TA1TAB PO; +LIDO1CRE42 TOP; +NYST50SS PO
--- NOTE | 2020-08-09 11:46 | REPVR ---
PROCEDURE INFORMATION: Exam: CT Chest Without Contrast; Diagnostic Exam date and time: 08/09/2020 10:59 AM Age: 69 years old Clinical indication: Condition or disease; Other: Sclc TECHNIQUE: Imaging protocol: Diagnostic computed tomography of the chest without contrast. 3D rendering (Not supervised by radiologist): MIP and/or 3D reconstructed images were created by the technologist. Radiation optimization: All CT scans at this facility use at least one of these dose optimization techniques: automated exposure control; mA and/or kV adjustment per patient size (includes targeted exams where dose is matched to clinical indication); or iterative reconstruction. COMPARISON: PT PET/CT Skull/mid thigh 04/02/2020 10:26 AM FINDINGS: Tubes, catheters and devices: Termination of med port catheter in the superior vena cava. Lungs: Severe COPD with honeycombing and bilateral interstitial disease. Previously visualized right lower lobe nodule is not reproduced on the current study. Pleural spaces: No pleural effusion. Heart: Coronary artery calcification. Aorta: Calcification and ectasia of the thoracic aorta. Lymph nodes: Mildly enlarged 1.6 by 1.3 by 1.7 cm precarinal lymph node. Note evaluation of the mame is somewhat limited in the absence of intravenous contrast. Stomach and bowel: Questionable wall thickening in the nondistended stomach. Bones/joints: Schmorl's nodes and degenerative change. IMPRESSION: 1. Previously visualized right lower lobe nodule is not reproduced on the current study. 2. Severe COPD with honeycombing and bilateral interstitial disease. 3. Additional findings as described above. Electronically signed by: Nick Rocha On 08/09/2020 11:45:57 AM
== END ==
LOC: M RAD 10:33
PROVIDERS: ATTEND Specialist
DX: D64.9 Anemia, unspecified (principal); J44.9 Chronic obstructive pulmonary disease, unspecified; I25.10 Atherosclerotic heart disease of native coronary artery without angina pectoris; I70.0 Atherosclerosis of aorta; R59.0 Localized enlarged lymph nodes; J84.9 Interstitial pulmonary disease, unspecified

== ENCOUNTER → 2020-08-13 | Outpatient (CLI) | payer OTHER ==
--- NOTE | 2020-08-13 13:46 | REPVR ---
PROCEDURE INFORMATION: Exam: MR Head Without Contrast Exam date and time: 08/13/2020 11:41 AM Age: 69 years old Clinical indication: Screening exam; Additional info: Malignant neoplasm of lower lobe, right bronchus or lung TECHNIQUE: Imaging protocol: MR of the head without contrast. COMPARISON: MRI-Brain without Contrast 03/28/2020 5:13 PM FINDINGS: Limitations: The study is mildly limited due to patient motion artifact. Evaluation for metastatic disease is also limited without IV contrast. Brain: No restricted diffusion is seen to suggest acute infarction. There is no acute intracranial hemorrhage, cerebral edema, or midline shift. Age-related cerebral and cerebellar substance loss is present. Scattered increased T2 and FLAIR signal within the periventricular and subcortical white matter is present. This is nonspecific but likely related to chronic microangiopathic ischemic change. Cerebral ventricles: No hydrocephalus. Bones/joints: Unremarkable. Paranasal sinuses: Normal as visualized. No acute sinusitis. Mastoid air cells: Normal as visualized. No mastoid effusion. Orbital cavity: Unremarkable. Soft tissues: Unremarkable. IMPRESSION: 1. No acute intracranial abnormality. 2. Chronic findings as discussed above. Electronically signed by: Enrrique Ruffin On 08/13/2020 13:46:44 PM
== END ==
LOC: M RAD 10:46
PROVIDERS: ATTEND General Practice
DX: C34.31 Malignant neoplasm of lower lobe, right bronchus or lung (principal)

== ENCOUNTER → 2020-08-14 | Outpatient (CLI) | payer OTHER ==
--- NOTE | 2020-08-14 17:03 | RADONC ---
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 He completed chemoradiation 60 Gy in 30 fractions on 06/11/20. He subsequently completed a total of 4 cycles of carboplatin/etoposide with Dr. Mcnamara. He is seen today to discuss PCI. Diagnosis/Treatment History Oncologic History 11/26/[address] chest ([place] showing an enlarged posterior RLL 0.5 cm nodule and mediastinal adenopathy. 03/01/[address] chest showing growth of the RLL nodule to 1.0 cm and stably enlarged mediastinal adenopathy. 03/18/20 CT biopsy of the RLL nodule showing SCLC complicated by pneumothorax which was managed successfully with chest tube. No mediastinal staging EBUS performed. 03/28/20 MRI head negative. 04/02/20 PET-CT showing increased uptake in the malignant RLL nodule now 1.1 cm as well as low grade uptake in the 1.5 x 1.0 cm precarinal node. No additional hypermetabolism noted. 04/18/20-06/11/20 chemoradiation 60 Gy in 30 fractions. 07/10/20 completed cycle 4 of carboplatin/etoposide. Recent data: 08/09/20 CT chest FINDINGS: Tubes, catheters and devices: Termination of med port catheter in the superior vena cava. Lungs: Severe COPD with honeycombing and bilateral interstitial disease. Previously visualized right lower lobe nodule is not reproduced on the current study. Pleural spaces: No pleural effusion. Heart: Coronary artery calcification. Aorta: Calcification and ectasia of the thoracic aorta. Lymph nodes: Mildly enlarged 1.6 by 1.3 by 1.7 cm precarinal lymph node. Note evaluation of the mame is somewhat limited in the absence of intravenous contrast. Stomach and bowel: Questionable wall thickening in the nondistended stomach. Bones/joints: Schmorl's nodes and degenerative change. IMPRESSION: 1. Previously visualized right lower lobe nodule is not reproduced on the current study. 2. Severe COPD with honeycombing and bilateral interstitial disease. 3. Additional findings as described above. 08/14/20 MRI brain FINDINGS: Limitations: The study is mildly limited due to patient motion artifact. Evaluation for metastatic disease is also limited without IV contrast. Brain: No restricted diffusion is seen to suggest acute infarction. There is no acute intracranial hemorrhage, cerebral edema, or midline shift. Age-related cerebral and cerebellar substance loss is present. Scattered increased T2 and FLAIR signal within the periventricular and subcortical white matter is present. This is nonspecific but likely related to chronic microangiopathic ischemic change. Cerebral ventricles: No hydrocephalus. Bones/joints: Unremarkable. Paranasal sinuses: Normal as visualized. No acute sinusitis. Mastoid air cells: Normal as visualized. No mastoid effusion. Orbital cavity: Unremarkable. Soft tissues: Unremarkable. IMPRESSION: 1. No acute intracranial abnormality. 2. Chronic findings as discussed above. Interval History Melissa feels well. Weight is up, esophagitis has resolved. He is eating at will, all foods and beverages. He has no complaints other than stable productive cough and DEL RIO. 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 Allergies / Meds Allergies: Coded Allergies: No Known Allergies (Unverified , 08/15/18) Home Meds Active Scripts Trazodone HCl (Trazodone HCl) 50 Mg Tablet, 1 TAB PO QPM for Sleep aid, #30 TAB Prov:ROSARIO MCNAMARA MD 08/06/20 Lidocaine/Prilocaine (Lidocaine-Prilocaine Cream) 2.5%/2.5% Cream..g., 1 APLCT TOP ASDIRECTED, #30 GRAM Prov:ROSARIO MCNAMARA MD 06/19/20 Lidocaine HCl (Lidocaine HCl Viscous) 15 Ml Solution, 5 ML PO QIDP PRN for esophagitis, #5 ML Take 5 minutes prior to eating/drinking with a straw, avoid numbing your mouth Prov:RISSA MOLINA MD 05/13/20 Reported Medications Cholecalciferol (Vitamin D3) (Vitamin D3) 1,000 Unit Tablet, 1000 UNITS PO QHS, TAB 03/26/20 Gabapentin (Gabapentin) 300 Mg Capsule, 300 MG PO DAILY PRN for PAIN, CAP 03/26/20 Aspirin (Aspirin EC) 81 Mg Tablet.dr, 81 MG PO DAILY, TAB 03/26/20 Saw [place] Fruit/Zinc Picoli (Saw [place] 450 mg Capsule) 1 Each Capsule, 450 MG PO DAILY, CAP 03/26/20 Multivitamin (Multivitamin) 1 Each Tablet, 1 TAB PO DAILY, TAB 03/25/20 Cranberry Fruit Extract (Cranberry) 500 Mg Capsule, 500 MG PO QHS 08/15/18 [place]-3 Fatty Acids/Fish Oil (Fish Oil 1,000 mg Capsule) 1 Each Capsule, 1000 MG PO QHS, CAP 08/15/18 Magnesium Oxide (Magox 400) 400 Mg Tablet, 400 MG PO QHS, TAB 08/15/18 Lansoprazole (Lansoprazole) 15 Mg Capsule.dr, 30 MG PO DAILY, CAP 08/15/18 Atorvastatin Calcium (Atorvastatin Calcium) 40 Mg Tablet, 40 MG PO DAILY, TAB 08/15/18 Lisinopril (Lisinopril) 40 Mg Tablet, 40 MG PO DAILY, TAB 08/15/18 Tamsulosin HCl (Flomax) 0.4 Mg Capsule, 0.4 MG PO DAILY, CAP 08/15/18 Ipratropium/Albuterol Sulfate (Combivent Respimat 20-100 Mcg) 4 Gm Mist.inhal, 1 PUFF INH QID, INHALER 08/15/18 Budesonide/Formoterol (Symbicort 80-4.5 Mcg Inhaler) 6.9 Gm Hfa.aer.ad, 2 PUFF INH BID, INHALER 08/15/18 Fenofibrate Nanocrystallized (Fenofibrate) 145 Mg Tablet, 145 MG PO DAILY, TAB 08/15/18 Metoprolol Succinate (Metoprolol Succinate) 25 Mg Tab.er.24h, 25 MG PO DAILY, TAB 08/15/18 Discontinued Scripts Nystatin (Nystatin Oral Susp) 100,000 Unit/1 Ml Oral.susp, 5 ML PO QID for 10 Days, #200 ML 2 Refills Prov:ROSARIO MCNAMARA MD 07/13/20 Prochlorperazine Maleate (Prochlorperazine Maleate) 10 Mg Tablet, 10 MG PO Q8H PRN for NAUSEA OR VOMITING, #30 TAB 3 Refills Prov:ROSARIO MCNAMARA MD 04/19/20 Ondansetron HCl (Ondansetron HCl) 8 Mg Tablet, 8 MG PO Q8H PRN for NAUSEA OR VOMITING, #30 TAB 3 Refills Prov:ROSARIO MCNAMARA MD 04/19/20 Review of Systems Review of Systems Constitutional: Denies: Fever, Malaise, Fatigue, Weight Loss Eyes: Denies: Pain HEENT: Denies: Head Aches Skin: Denies: Rash Pulmonary: Reports: Dyspnea, Cough Cardiovascular: Denies: Chest Pain, Palpitations Gastrointestinal: Denies: Nausea, Abdominal Pain Hematologic: Denies: Bruising Musculoskeletal: Reports: Back pain; Denies: Neck pain Neurological: Denies: Weakness, Numbness Psych: Reports: Mood Normal Physical Examination Vital Signs Wt 192 lbs T 98 P 70 RR 18 BP 155/84 O2 97% Pain 0 Fatigue 1 General Exam: Positive: Alert, Cooperative, No Acute Distress Eye Exam: Positive: PERRLA, EOMI ENT EXAM: Positive: Atraumatic Neck Exam: Positive: Supple Chest Exam: Positive: Clear to auscultation, Wheezing (Biapical) Heart Exam: Positive: Rate Normal, Regular Rhythm Abdomen Exam: Positive: Soft Extremity Exam: Negative: Edema Skin Exam: Positive: Nl turgor and temperature Neuro Exam: Positive: Normal Gait, Normal Speech, Cranial Nerves 3-12 NL Psych Exam: Positive: Mental status NL Diagnostic and Laboratory Diagnostic Review Radiologic images, relevant labs and pathology reports were personally reviewed and discussed with Mr. Cee. Assessment and Plan Impression Assessment Mr. Cee is a 69 year old male with a history of current smoker with COPD and a history of limited stage SCLC [id number] (AJCC IIIA) of the RLL and mediastinum. He completed chemoradiation 60 Gy in 30 fractions on 06/11/20. He subsequently completed a total of 4 cycles of carboplatin/etoposide with Dr. Mcnamara. He is seen today to discuss PCI. He is doing well overall with resolution of his grade 3 radiation esophagitis. He has no additional complaints today of concerns. His CT chest showed resolution of the RLL nodule and no progression in the chest. His MRI head was limited by lack of gadolinium (I was asked to have the scan performed without because of his elevated creatinine) which is suboptimal, nevertheless it did not reveal any FLAIR abnormalities concerning for metastatic disease. I discussed the historical basis for PCI, and the established benefit of ~5% increase in OS @ 3 years (Yamileth INMAN 1998). This stands in contrast to the neurocognitive risks of treatment which I thoroughly explained. I also explained that we give Namenda with PCI which can mitigate the risk of neurocognitive decline somewhat. Without PCI the risk of brain metastases manifesting is 50% or greater (based on autopsy studies conducted historically), but in my estimation based on the very small volume of disease present at diagnosis this risk may be lower in his case, however I have no way to quantify this risk reduction other than to suspect based on my clinical judgement. I also discussed newer data which suggest that MRI surveillance is an acceptable alternative to PCI in ES SCLC. Overall, Melissa considered the options and my recommendation for PCI and has elected to pursue MRI surveillance at this time. He does not deem the side effects worth the benefit at this time. This is reasonable. I will obtain an MRI of the brain in 3 months, hopefully with contrast if kidney function is acceptable. If intracranial disease manifests then Melissa will receive WBRT, and SRS will be reserved for salvage. Performance Status ECOG 1 Plan Patient has elected MRI surveillance MRI head in 3 months time Body imaging per Dr. Mcnamara Mr. Cee was encouraged to call with questions or concerns in the interim period. Billing Statement Total time of [24] minutes was spent preparing for the visit [1], obtaining HPI [4], examining the patient [2], reviewing diagnostic tests [4], discussing management options [4], coordinating care [2], and writing this note [7]. RISSA MOLINA MD Aug 14, 2020 17:03
== END ==
LOC: M ONCR 14:00
PROVIDERS: ATTEND General Practice
DX: C34.31 Malignant neoplasm of lower lobe, right bronchus or lung (principal); F17.210 Nicotine dependence, cigarettes, uncomplicated; J44.9 Chronic obstructive pulmonary disease, unspecified; J84.9 Interstitial pulmonary disease, unspecified; Z79.899 Other long term (current) drug therapy; Z95.828 Presence of other vascular implants and grafts

== ENCOUNTER → 2020-11-06 | Outpatient (CLI) | payer OTHER ==
[~2020-11-06] MED LIST changes: -DOXY100C PO; +DOXY100C3 PO; +PROHANCE 279.3MG/ML 5ML VIAL As Ordered ONE
--- NOTE | 2020-11-06 14:59 | REPVR ---
PROCEDURE INFORMATION: Exam: MR Head Without and With Contrast Exam date and time: 11/06/2020 1:55 PM Age: 69 years old Clinical indication: Condition or disease; History of cancer (specify primary cancer site): ; Patient HX: HX lung CA TECHNIQUE: Imaging protocol: MR of the head without and with intravenous contrast. Contrast material: PROHANCE; Contrast volume: 8 ml; Contrast route: INTRAVENOUS (IV); COMPARISON: MRI-Brain without Contrast 08/13/2020 11:12 AM FINDINGS: Brain: No acute infarct identified on the diffusion-weighted imaging. The brain demonstrates mild generalized volume loss. Foci of increased signal intensity in the deep and subcortical white matter on the T2 weighted imaging most likely representing mild chronic small vessel ischemic change, stable. No enhancing intracranial pathology. Cerebral ventricles: The ventricles are mildly enlarged in keeping with volume loss. Bones/joints: Unremarkable. Paranasal sinuses: Normal as visualized. No acute sinusitis. Mastoid air cells: Normal as visualized. No mastoid effusion. Orbital cavity: Unremarkable. Soft tissues: Unremarkable. IMPRESSION: No evidence of intracranial metastatic disease. Electronically signed by: Josie Nevarez On 11/06/2020 14:58:37 PM
== END ==
LOC: M RAD 11:17
PROVIDERS: ATTEND General Practice
DX: C34.31 Malignant neoplasm of lower lobe, right bronchus or lung (principal)
CPT/HCPCS: 70553; A9576

== ENCOUNTER → 2020-11-13 | Outpatient (CLI) | payer OTHER ==
[~2020-11-13] MED LIST changes: -PROHANCE 279.3MG/ML 5ML VIAL As Ordered ONE
--- NOTE | 2020-11-13 13:49 | RADONC ---
Radiation Oncology Hx/FUP Radiation Oncology Hx/FUP Date of Service: Nov 13, 2020 Pt Identifier Melissa Cee is a 69 year old male current smoker with COPD and a history of limited stage SCLC [id number] (AJCC IIIA) of the RLL and mediastinum. He completed chemoradiation 60 Gy in 30 fractions on 06/11/20. He subsequently completed a total of 4 cycles of carboplatin/etoposide with Dr. Mcnamara. He declined PCI in favor of MRI surveillance due to concern for neurocognitive sequelae. Diagnosis/Treatment History Oncologic History 11/26/[address] [place] showing an enlarged posterior RLL 0.5 cm nodule and mediastinal adenopathy. 03/01/[address] chest showing growth of the RLL nodule to 1.0 cm and stably enlarged mediastinal adenopathy. 03/18/20 CT biopsy of the RLL nodule showing SCLC complicated by pneumothorax which was managed successfully with chest tube. No mediastinal staging EBUS performed. 03/28/20 MRI head negative. 04/02/20 PET-CT showing increased uptake in the malignant RLL nodule now 1.1 cm as well as low grade uptake in the 1.5 x 1.0 cm precarinal node. No additional hypermetabolism noted. 04/18/20-06/11/20 chemoradiation 60 Gy in 30 fractions. 07/10/20 completed cycle 4 of carboplatin/etoposide. 08/09/20 CT chest negative. 08/14/20 MRI head negative. Recent data: 11/09/20 MRI head FINDINGS: Brain: No acute infarct identified on the diffusion-weighted imaging. The brain demonstrates mild generalized volume loss. Foci of increased signal intensity in the deep and subcortical white matter on the T2 weighted imaging most likely representing mild chronic small vessel ischemic change, stable. No enhancing intracranial pathology. Cerebral ventricles: The ventricles are mildly enlarged in keeping with volume loss. Bones/joints: Unremarkable. Paranasal sinuses: Normal as visualized. No acute sinusitis. Mastoid air cells: Normal as visualized. No mastoid effusion. Orbital cavity: Unremarkable. Soft tissues: Unremarkable. IMPRESSION: No evidence of intracranial metastatic disease. Interval History Melissa is here with his . He feels well. Energy levels still less than before treatment but he is up and riding four-wheelers again. He is eager for hunting season to start. He has no further dysphagia or pain. He continues to smoke no desire to quit. His main complaint is poor sleep. He gets up to urinate infrequently main bother is nocturnal coughing, wakes up most nights because of thick mucus in throat, feels this comes from his nose. Current Therapy Surveillance Stage Limited stage SCLC [id number] (AJCC IIIA) of the RLL and mediastinum Social History: Current smoker 50+ pack year Does not drink Allergies / Meds Allergies: Coded Allergies: No Known Allergies (Unverified , 08/15/18) Home Meds Active Scripts Trazodone HCl (Trazodone HCl) 50 Mg Tablet, 1 TAB PO QPM for Sleep aid, #30 TAB Prov:ROSARIO MCNAMARA MD 10/16/20 Lidocaine/Prilocaine (Lidocaine-Prilocaine Cream) 2.5%/2.5% Cream..g., 1 APLCT TOP ASDIRECTED, #30 GRAM Prov:ROSARIO MCNAMARA MD 06/19/20 Lidocaine HCl (Lidocaine HCl Viscous) 15 Ml Solution, 5 ML PO QIDP PRN for esophagitis, #5 ML Take 5 minutes prior to eating/drinking with a straw, avoid numbing your mouth Prov:RISSA MOLINA MD 05/13/20 Reported Medications Cholecalciferol (Vitamin D3) (Vitamin D3) 1,000 Unit Tablet, 1000 UNITS PO QHS, TAB 03/26/20 Gabapentin (Gabapentin) 300 Mg Capsule, 300 MG PO DAILY PRN for PAIN, CAP 03/26/20 Aspirin (Aspirin EC) 81 Mg Tablet.dr, 81 MG PO DAILY, TAB 03/26/20 Saw [place] Fruit/Zinc Picoli (Saw [place] 450 mg Capsule) 1 Each Capsule, 450 MG PO DAILY, CAP 03/26/20 Multivitamin (Multivitamin) 1 Each Tablet, 1 TAB PO DAILY, TAB 03/25/20 Cranberry Fruit Extract (Cranberry) 500 Mg Capsule, 500 MG PO QHS 08/15/18 [place]-3 Fatty Acids/Fish Oil (Fish Oil 1,000 mg Capsule) 1 Each Capsule, 1000 MG PO QHS, CAP 08/15/18 Magnesium Oxide (Magox 400) 400 Mg Tablet, 400 MG PO QHS, TAB 08/15/18 Lansoprazole (Lansoprazole) 15 Mg Capsule.dr, 30 MG PO DAILY, CAP 08/15/18 Atorvastatin Calcium (Atorvastatin Calcium) 40 Mg Tablet, 40 MG PO DAILY, TAB 08/15/18 Lisinopril (Lisinopril) 40 Mg Tablet, 40 MG PO DAILY, TAB 08/15/18 Tamsulosin HCl (Flomax) 0.4 Mg Capsule, 0.4 MG PO DAILY, CAP 08/15/18 Ipratropium/Albuterol Sulfate (Combivent Respimat 20-100 Mcg) 4 Gm Mist.inhal, 1 PUFF INH QID, INHALER 08/15/18 Budesonide/Formoterol (Symbicort 80-4.5 Mcg Inhaler) 6.9 Gm Hfa.aer.ad, 2 PUFF INH BID, INHALER 08/15/18 Fenofibrate Nanocrystallized (Fenofibrate) 145 Mg Tablet, 145 MG PO DAILY, TAB 08/15/18 Metoprolol Succinate (Metoprolol Succinate) 25 Mg Tab.er.24h, 25 MG PO DAILY, TAB 08/15/18 Review of Systems Review of Systems Constitutional: Reports: Fatigue; Denies: Weight Loss Eyes: Denies: Pain HEENT: Reports: Sinus Congestion, Post Nasal Drip; Denies: Head Aches, Sore Throat Skin: Denies: Rash Pulmonary: Reports: Cough; Denies: Dyspnea Cardiovascular: Denies: Chest Pain Gastrointestinal: Denies: Nausea, Vomiting, Abdominal Pain Genitourinary: Reports: Frequency Hematologic: Denies: Bruising, Bleeding Excessively Endocrine: Denies: Cold Intolerance Musculoskeletal: Denies: Neck pain, Back pain Neurological: Reports: Weakness, Numbness Psych: Reports: Mood Normal; Denies: Anxiety Physical Examination Vital Signs Wt 189 lbs T 96 P 68 RR 20 BP 129/78 O2 93% Pain 0 Fatigue 2 General Exam: Alert, Cooperative, No Acute Distress Eye Exam: PERRLA, EOMI ENT EXAM: Atraumatic Neck Exam: Supple Chest Exam: Clear to auscultation, Normal air movement Heart Exam: Rate Normal, Regular Rhythm Abdomen Exam: Soft Extremity Exam: Negative: Edema Skin Exam: Nl turgor and temperature Neuro Exam: Normal Gait, Normal Speech, Cranial Nerves 3-12 NL Psych Exam: Mental status NL Diagnostic and Laboratory Diagnostic Review Radiologic images, relevant labs and pathology reports were personally reviewed and discussed with Mr. Cee. Assessment and Plan Impression Assessment Mr. Cee is a 69 year old male with a history of current smoker with COPD and a history of limited stage SCLC [id number] (AJCC IIIA) of the RLL and mediastinum. He completed chemoradiation 60 Gy in 30 fractions on 06/11/20. He subsequently completed a total of 4 cycles of carboplatin/etoposide with Dr. Mcnamara. He declined PCI in favor of MRI surveillance due to concern for neurocognitive sequelae. His MRI remains without evidence of intracranial disease, thus will continue surveillance. Next in 3 months. He has no evidence of late esophageal stricture at this time as he is eating without difficulty. His sleep seems to be affected by post-nasal drip type symptoms, I suggested mucinex, flonase and or saline irrigation before bed to help with this. He will see Dr. Mcnamara later today as well. Performance Status ECOG 0 Plan Follow up in 3 months with MRI head Flonase/mucinex/saline irrigation discussed for post-nasal drip Will initiate survivorship care at next visit if MRI remains negative Mr. Cee was encouraged to call with questions or concerns in the interim period. Billing Statement Total time of [21] minutes was spent preparing for the visit [2], obtaining HPI [5], examining the patient [2], reviewing diagnostic tests [3], discussing management options [5], coordinating care [1], and writing this note [24]. RISSA MOLINA MD Nov 13, 2020 13:49
== END ==
LOC: M ONCR 12:57
PROVIDERS: ATTEND General Practice
DX: C34.31 Malignant neoplasm of lower lobe, right bronchus or lung (principal); F17.210 Nicotine dependence, cigarettes, uncomplicated; J44.9 Chronic obstructive pulmonary disease, unspecified; Z79.82 Long term (current) use of aspirin; Z79.899 Other long term (current) drug therapy; Z92.21 Personal history of antineoplastic chemotherapy; Z92.3 Personal history of irradiation

== ENCOUNTER → 2020-11-20 | Outpatient (CLI) | payer OTHER ==
[~2020-11-20] MED LIST changes: +ISOVUE-370 76% 100ML VIAL As Ordered ONE
--- NOTE | 2020-11-20 13:21 | REP ---
INDICATION: LUNG CA. COMPARISON: Comparison CT studies of the chest are reviewed from August 09, 2020 and March 01, 2020. Comparison is made with PET-CT imaging from April 02, 2020. TECHNIQUE: Helical scanning is acquired following the intravenous injection of 75 mL of Isovue 370. 3 mm axial images re-formatted. Coronal and sagittal MPR and coronal MIP images are included. FINDINGS: Preliminary digital globe changer radiograph demonstrates extensive diffuse is interstitial pulmonary fibrosis. A right-sided [id number]-[id number] catheter is seen. Axial CT images confirm the presence of advanced emphysematous change with predominantly peripheral interstitial fibrosis pattern most prominently affecting the lower lobes. The peripheral pulmonary nodule seen in the right lower lobe on the March 01, [address] study is no longer visible. No new pulmonary mass lesion or significant nodule is appreciated. There is no evidence of pleural effusion. A tiny amount of pericardial fluid is seen at the base of the heart. No adrenal lesion is observed. There is mild left coronary artery vascular calcification. A stable precarinal lymph node is seen with a short axis dimension of 11 mm. Whole is appears smaller than on the original CT of March 01, 2020. There is a pretracheal lymph node superior to this with a 6 mm short axis dimension. This is unchanged. No bony destructive lesion is seen. IMPRESSION: Advanced COPD interstitial fibrosis pattern. The nodule in the right lower lobe noted on March 01, 2020 is no longer visible. Stable mediastinal lymph nodes. <Electronically signed by Alonso Shea > 11/20/20 [id number]
== END ==
LOC: M RAD 10:42
PROVIDERS: ATTEND Specialist
DX: C34.90 Malignant neoplasm of unspecified part of unspecified bronchus or lung (principal); J84.10 Pulmonary fibrosis, unspecified; Z95.828 Presence of other vascular implants and grafts; J44.9 Chronic obstructive pulmonary disease, unspecified
CPT/HCPCS: 71260; Q9967

== ENCOUNTER 2021-01-18 19:16 | Inpatient (IN) | payer MEDICARE, OTHER ==
[~2021-01-18] VITALS: Ht 180.3 cm; Wt 81.6 kg
[~2021-01-18 19:16] MED LIST changes: -ISOVUE-370 76% 100ML VIAL As Ordered ONE; +PRED20TA
--- OUTSIDE RECORDS SUMMARY | 2021-01-18 19:28 | CCD ---
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 Name Role Phone Jazzmine Vargsa MD Unavailable Unavailable Jazzmine Vargas MD Unavailable Unavailable Jazzmine Vargas MD Unavailable Unavailable Jazzmine Vargas MD Unavailable Unavailable Jazzmine Vargas MD Unavailable Unavailable Jazzmine Vargas MD Unavailable Unavailable Mi, A Marian PA Unavailable Unavailable Mi, A Marian PA Unavailable Unavailable Mi, A Marian PA Unavailable Unavailable Mi, A Marian PA Unavailable Unavailable Mi, A Marian PA Unavailable Unavailable Mi, A Marian PA Unavailable Unavailable Mi, A Marian PA Unavailable Unavailable Mi, A Marian PA Unavailable Unavailable Mi, A Marian PA Unavailable Unavailable Mi, A Marian PA Unavailable Unavailable Mi, A Marian PA Unavailable Unavailable Mi, A Marian PA Unavailable Unavailable Mi, A Marain PA Unavailable Unavailable Mi, A Marian PA Unavailable Unavailable Mi, A Marian PA Unavailable Unavailable Mi, A Marian PA Unavailable Unavailable Mi, A Marian PA Unavailable Unavailable Mi, A Marian PA Unavailable Unavailable Mi, A Marian PA Unavailable Unavailable Mi, A Marian PA Unavailable Unavailable Mi, A Marian PA Unavailable Unavailable Mi, A Marian PA Unavailable Unavailable Mi, A Marian PA Unavailable Unavailable Mi, A Marian PA Unavailable Unavailable Mi, A Marian PA Unavailable Unavailable Mi, A Marian PA Unavailable Unavailable Mi, A Marian PA Unavailable Unavailable Mi, A Marian PA Unavailable Unavailable Mi, A Marian PA Unavailable Unavailable Mi, A Marian PA Unavailable Unavailable Mi, A Marian PA Unavailable Unavailable Mi, A Marian PA Unavailable Unavailable Mi, A Marian PA Unavailable Unavailable Mi, A Marian PA Unavailable Unavailable Mi, A Marian PA Unavailable Unavailable Mi, A Marian PA Unavailable Unavailable Mi, A Marian PA Unavailable Unavailable Mi, A Marian PA Unavailable Unavailable Mi, A Marian PA Unavailable Unavailable Mi, A Marian PA Unavailable Unavailable Mi, A Marian PA Unavailable Unavailable Mi, A Marian PA Unavailable Unavailable Mi, A Marian PA Unavailable Unavailable Mi, A Marian PA Unavailable Unavailable Mi, A Marian PA Unavailable Unavailable Mi, A Marian PA Unavailable Unavailable Mi, A Marian PA Unavailable Unavailable Mi, A Marian PA Unavailable Unavailable Mi, A Marian PA Unavailable Unavailable Mi, A Marian PA Unavailable Unavailable Mi, A Marian PA Unavailable Unavailable Mi, A Marian PA Unavailable Unavailable Mi, A Marian PA Unavailable Unavailable Horace Caldwell DO Unavailable Unavailable Horace Caldwell DO Unavailable Unavailable Horace Caldwell DO Unavailable Unavailable Horace Caldwell DO Unavailable Unavailable Horace Caldwell DO Unavailable Unavailable Horace Caldwell DO Unavailable Unavailable Horace Caldwell DO Unavailable Unavailable Horace Caldwell DO Unavailable Unavailable Horace Caldwell DO Unavailable Unavailable Horace Caldwell DO Unavailable Unavailable Horace Caldwell DO Unavailable Unavailable Horace Caldwell DO Unavailable Unavailable Paulette P Cuco DO Unavailable Unavailable Paulette P Cuco DO Unavailable Unavailable Paulette, P [...] Paulette, P Cuco DO Unavailable Unavailable Paulette, Horace Norwood DO Unavailable Unavailable JOLENE, L RONY MD Unavailable Unavailable JOLENE, L RONY MD Unavailable Unavailable JOLENE, L RONY MD Unavailable Unavailable JOLENE, L RONY MD Unavailable Unavailable JOLENE, L RONY MD Unavailable Unavailable JOLENE, L RONY MD Unavailable Unavailable JOLENE, L RONY MD Unavailable Unavailable JOLENE, L RONY MD Unavailable Unavailable JOLENE, L RONY MD Unavailable Unavailable JOLENE, L RONY MD Unavailable Unavailable JOLENE, L RONY MD Unavailable Unavailable JOLENE, L RONY MD Unavailable Unavailable JOLENE, L RONY MD Unavailable Unavailable JOLENE, L RONY MD Unavailable Unavailable JOLENE, L RONY MD Unavailable Unavailable JOLENE, L RONY MD Unavailable Unavailable JOLENE, L RONY MD Unavailable Unavailable JOLENE, L RONY MD Unavailable Unavailable JOLENE, L RONY MD Unavailable Unavailable JOLENE, L RONY MD Unavailable Unavailable Re-disclosure Warning The records that [...] is protected by Article 27-F of the [facility] Public Health law. If you continue you may have access to information: Regarding HIV / AIDS; Provided by facilities licensed or operated by the [facility] Office of Mental Health; or Provided by the [facility] Office for People With Developmental Disabilities. If such information is present, then the following [facility] mandated warning applies: This information [...] law may result in a fine or mcfp sentence or both. A general authorization for the release of medical or other information is NOT sufficient authorization for further disc losure. Allergies and Adverse Reactions Type Description Substance Reaction Status Data Source(s ) Food allergy No Known Food Allergies No Known Food Allergies [facility] Family History Family Member Name Family Member Gender Family Member Status Date o f Status Description Data Source(s) Unknown Condition [facility] Unknown Condition [facility] Unknown Condition [facility] Unknown Condition [facility] Unknown Condition [facility] Unknown Condition [facility] Unknown Condition [facility] Unknown Condition [facility] Unknown Condition [facility] Unknown Condition [facility] Unknown Condition [facility] Unknown Condition [facility] Unknown Condition [facility] Unknown Condition [facility] Unknown Condition [facility] Unknown Condition [facility] Unknown Condition [facility] Unknown Condition [facility] Unknown Male Problem [facility] ([facility]) Encounters Encounter Providers Location Date Indications Data Source(s ) Emergency Attender: RONY FERNÁNDEZ MDConsultant: Marian VARGHESE 01/18/2021 10:46:00 AM EDT - 01/18/2021 06:29:00 PM EDT [facility] Patient discharged. Emergency Attender: Jazzmine Vargas MDConsultant: Marian Fountain 01/17/2021 04:40:00 PM EDT - 01/17/2021 07:24:00 PM EDT [facility] Patient discharged. Outpatient Attender: Cuco Caldwell DO 11/25/2020 05:07:00 PM EDT [facility] Outpatient Attender: Cuco Caldwell DO 11/25/2020 05:03:00 PM EDT [facility] Outpatient Attender: Cuco Vieraer: Cuco Caldwell DO 11/25/2020 01:37:00 PM EDT - 11/25/2020 03:04:00 PM EDT [facility] Emergency Attender: RONY FERNÁNDEZ MDConsultant: Cuco Caldwell DO 11/23/2020 08:04:00 PM EDT - 11/24/2020 12:24:00 AM EDT [facility] Patient discharged. Outpatient Attender: Cuco Young: Cuco Caldwell DO 10/31/2020 11:14:00 AM EDT [facility] Outpatient Attender: Cuco Young: Cuco Caldwell DO 08/08/2020 11:32:00 AM EDT [facility] Outpatient Attender: Cuco Young: Cuco Caldwell DO 05/30/2020 03:35:00 PM EDT - 05/30/2020 04:54:00 PM EDT [facility] Outpatient Attender: Cuco Young: Cuco Caldwell DO 04/30/2020 10:32:00 AM EST - 04/30/2020 11:21:00 AM EST [facility] Outpatient Attender: Cuco Young: Cuco Caldwell DO 01/15/2020 10:33:00 AM EST - 01/15/2020 11:02:00 AM EST [facility] Immunizations Vaccine Date Status Description Data Source(s) COVID-19 Moderna 06/08/2020 12:00:00 AM EDT completed [facility] COVID-19 Moderna 05/11/2020 12:00:00 AM EST completed [facility] INFLUENZA VIRUS VACCINE QUADRIVAL SPLIT 2020-21(65 YR UP)/PF 01/11/2020 12:00:00 AM EDT completed [facility] IIV3. This is one of two codes replacing CVX 15, which is being retired. 01/09/2020 12:00:00 AM EDT completed [facility] IIV3. This is one of two codes replacing CVX 15, which is being retired. 01/09/2020 12:00:00 AM EDT completed influenza vaccine, inactivated [facility] IIV3. This is one of two codes replacing CVX 15, which is being retired. 01/09/2020 12:00:00 AM EDT completed influenza vaccine, inactivated [facility] IIV3. This is one of two codes replacing CVX 15, which is being retired. 01/09/2020 12:00:00 AM EDT completed influenza vaccine, inactivated [facility] Medications Medication Brand Name Start Date Product Form Dose Route Admi nistrative Instructions Pharmacy Instructions Status Indications Reaction Description Data Source(s) 0.4 mg 01/01/2021 12:00:00 AM EDT capsule 90 TAKE ONE CAPSULE BY MOUTH EVERY DAY TAKE ONE CAPSULE BY MOUTH EVERY DAY SOLD: 01/01/2021 [facility] Acetaminophen 325 MG / Hydrocodone Bitartrate 5 MG Ora [facility] Tablet 5-325 mg HYDROCODONE/ACETAMINOPHEN 12/26/2020 12:00:00 AM EDT tablet 180 TAKE 1-2 TABLETS BY MOUTH EVERY 6 HOURS NEEDED FOR PAIN MAXIMUM DAILY DOSE = SIX TABLETS TAKE 1-2 TABLETS BY MOUTH EVERY 6 HOURS NEEDED FOR PAIN MAXIMUM DAILY DOSE = SIX TABLETS SOLD: 12/26/2020 [facility] 50 mg 12/26/2020 12:00:00 AM EDT tablet 30 TAKE ONE TABLET BY MOUTH IN THE EVENING FOR SLEEP AID TAKE ONE TABLET BY MOUTH IN THE EVENING FOR SLEEP AID SOLD: 12/26/2020 [facility] 25 mg 12/24/2020 12:00:00 AM EDT tablet extended release 24 hr 180 TAKE 1 TABLET BY MOUTH TWICE A DAY TAKE 1 TABLET BY MOUTH TWICE A DAY SOLD: 12/25/2020 [facility] Acetaminophen 325 MG / Hydrocodone Bitartrate 5 MG Ora l Tablet 5-325 mg HYDROCODONE/ACETAMINOPHEN 11/28/2020 12:00:00 AM EDT tablet 180 TAKE 1-2 TABLETS BY MOUTH EVERY 6 HOURS NEEDED FOR PAIN MAXIMUM DAILY DOSE = 6 TAKE 1- 2 TABLETS BY MOUTH EVERY 6 HOURS NEEDED FOR PAIN MAXIMUM DAILY DOSE = 6 SOLD: 12/02/2020 [facility] 20 mg 11/25/2020 12:00:00 AM EDT tablet 24 TAKE 3 TABLETS BY MOUTHONCE A DAY FOR 4 DAYS THEN 2 TABLETS FOR 4 DAYS THEN ONE TABLET FOR 4 DAYS THEN STOP TAKE 3 TABLETS BY MOUTHONCE A DAY FOR 4 DAYS THEN 2 TABLETS FOR 4 DAYS THEN ONE TABLET FOR 4 DAYS THEN STOP SOLD: 11/25/2020 [facility] doxycycline hyclate 100 MG Oral Capsule DOXYCYCLINE HYCLATE 11/25/2020 12:00:00 AM EDT capsule 20 TAKE ONE CAPSULE BY MOUTH TW ICE A DAY FOR 10 DAYS TAKE ONE CAPSULE BY MOUTH TWICE A DAY FOR 10 DAYS SOLD: 11/25/2020 [facility] 50 mg 11/14/2020 12:00:00 AM EDT tablet 30 TAKE ONE TABLET BY MOUTH IN THE EVENING FOR SLEEP AID TAKE ONE TABLET BY MOUTH IN THE EVENING FOR SLEEP AID SOLD: 11/14/2020 [facility] Acetaminophen 325 MG / Hydrocodone Bitartrate 5 MG Ora l Tablet 5-325 mg HYDROCODONE/ACETAMINOPHEN 10/29/2020 12:00:00 AM EDT tablet 180 TAKE 1-2 TABLETS BY MOUTH EVERY 6 HOURS NEEDED FOR PAIN MAXIMUM DAILY DOSE = 6 TAKE 1- 2 TABLETS BY MOUTH EVERY 6 HOURS NEEDED FOR PAIN MAXIMUM DAILY DOSE = 6 SOLD: 10/29/2020 [facility] Acetaminophen 325 MG / Hydrocodone Aryan trate 5 MG Oral Tablet Hydrocodone-Acetaminophen Hydrocodone-Acetaminophen 10/24/2020 12:27:39 PM EDT TAB active [facility] Acetaminophen 325 MG / Hydrocodone Bitartrate 5 MG Ora l Tablet 5-325 mg HYDROCODONE/ACETAMINOPHEN 09/28/2020 12:00:00 AM EDT tablet 180 TAKE 1-2 TABLETS BY MOUTH EVERY 6 HOURS NEEDED FOR PAIN MAXIMUM DAILY DOSE = 6 TAKE 1- 2 TABLETS BY MOUTH EVERY 6 HOURS NEEDED FOR PAIN MAXIMUM DAILY DOSE = 6 SOLD: 09/30/2020 [facility] Acetaminophen 325 MG / Hydrocodone Aryan trate 5 MG Oral Tablet Hydrocodone-Acetaminophen Hydrocodone-Acetaminophen 09/26/2020 04:45:33 PM EDT TAB completed [facility] atorvastatin 40 MG Oral Tablet ATORVASTATIN CALCIUM 09/19/2020 1 2:00:00 AM EDT tablet 90 TAKE ONE TABLET BY MOUTH EVERY D AY TAKE ONE TABLET BY MOUTH EVERY DAY SOLD: 09/20/2020 [facility] atorvastatin 40 MG Oral Tablet ATORVASTATIN CALCIUM 09/19/2020 1 2:00:00 AM EDT tablet 90 TAKE ONE TABLET BY MOUTH EVERY D AY TAKE ONE TABLET BY MOUTH EVERY DAY SOLD: 01/01/2021 [facility] 50 mg 09/18/2020 12:00:00 AM EDT tablet 30 TAKE ONE TABLET BY MOUTH EVERY EVENING FOR SLEEP AID TAKE ONE TABLET BY MOUTH EVERY EVENING FOR SLEEP AID S OLD: 09/18/2020 [facility] Acetaminophen 325 MG / Hydrocodone Bitartrate 5 MG Ora l Tablet 5-325 mg HYDROCODONE/ACETAMINOPHEN 08/30/2020 12:00:00 AM EDT tablet 180 TAKE 1-2 TABLET BY MOUTH EVERY 6 HOURS NEEDED FOR PAIN MAXIMUM DAILY DOSE = 6 TAKE 1-2 TABLET BY MOUTH EVERY 6 HOURS NEEDED FOR PAIN MAXIMUM DAILY DOSE = 6 SOLD: 08/30/2020 [facility] Acetaminophen 325 MG / Hydrocodone Aryan trate 5 MG Oral Tablet Hydrocodone-Acetaminophen Hydrocodone-Acetaminophen 08/29/2020 09:15:09 AM EDT TAB completed [facility] 50 mg 08/06/2020 12:00:00 AM EDT tablet 30 TAKE ONE TABLET BY MOUTH EVERY EVENING FOR SLEEP TAKE ONE TABLET BY MOUTH EVERY EVENING FOR SLEEP SOLD: 08/06/2020 [facility] 300 mg 08/03/2020 12:00:00 AM EDT capsule 300 TAKE ONE CAPSULE BY MOUTH EVERY MORNING AND AFTER LUNCH THEN 2 IN THE EVENING TAKE ONE CAPSULE BY MOUTH EVERY MORNING AND AFTER LUNCH THEN 2 IN THE EVENING SOLD: 08/03/2020 [facility] 300 mg 08/03/2020 12:00:00 AM EDT capsule 300 TAKE ONE CAPSULE BY MOUTH EVERY MORNING AND AFTER LUNCH THEN 2 IN THE EVENING TAKE ONE CAPSULE BY MOUTH EVERY MORNING AND AFTER LUNCH THEN 2 IN THE EVENING SOLD: 11/03/2020 [facility] Acetaminophen 325 MG / Hydrocodone Bitartrate 5 MG Ora l Tablet 5-325 mg HYDROCODONE/ACETAMINOPHEN 07/31/2020 12:00:00 AM EDT tablet 180 TAKE 1-2 TABLETS BY MOUTH EVERY 6 HOURS NEEDED FOR PAIN MAXIMUM DAILY DOSE = 6 TAKE 1- 2 TABLETS BY MOUTH EVERY 6 HOURS NEEDED FOR PAIN MAXIMUM DAILY DOSE = 6 SOLD: 08/01/2020 [facility] Acetaminophen 325 MG / Hydrocodone Aryan trate 5 MG Oral Tablet Hydrocodone-Acetaminophen Hydrocodone-Acetaminophen 07/30/2020 07:08:16 PM EDT TAB completed [facility] Acetaminophen 325 MG / Hydrocodone Aryan trate 5 MG Oral Tablet Hydrocodone-Acetaminophen Hydrocodone-Acetaminophen 07/26/2020 01:46:51 PM EDT TAB completed [facility] Acetaminophen 325 MG / Hydrocodone Aryan trate 5 MG Oral Tablet Hydrocodone-Acetaminophen Hydrocodone-Acetaminophen 07/23/2020 04:50:22 PM EDT TAB completed [facility] Acetaminophen 325 MG / Hydrocodone Aryan trate 5 MG Oral Tablet Hydrocodone-Acetaminophen Hydrocodone-Acetaminophen 07/23/2020 01:08:07 PM EDT TAB completed [facility] Acetaminophen 325 MG / Hydrocodone Bitartrate 5 MG Ora l Tablet 5-325 mg HYDROCODONE/ACETAMINOPHEN 07/23/2020 12:00:00 AM EDT tablet 180 TAKE ONE TO TWO TABLETS EVERY 6 HOURS NEEDED FOR PAIN MAXIMUM DAILY DOSE = 6 TABLETS TAKE ONE TO TWO TABLETS EVERY 6 HOURS NEEDED FOR PAIN MAXIMUM DAILY DOSE = 6 TABLETS SOLD: 07/24/2020 [facility] atorvastatin 40 MG Oral Tablet Atorvastatin Atorvastatin 07/18/2020 08:55:58 AM EDT 0 active [facility] 100,000 unit/mL 07/14/2020 12:00:00 AM EDT suspension 200 TAKE 5ML BY MOUTH FOUR TIMES A DAY TAKE 5ML BY MOUTH FOUR TIMES A DAY SOLD: 07/22/2020 [facility] 100,000 unit/mL 07/14/2020 12:00:00 AM EDT suspension 200 TAKE 5ML BY MOUTH FOUR TIMES A DAY TAKE 5ML BY MOUTH FOUR TIMES A DAY SOLD: 07/14/2020 [facility] 50 mg 07/05/2020 12:00:00 AM EDT tablet 30 TAKE ONE TABLET BY MOUTH EVERY EVENING FOR SLEEP TAKE ONE TABLET BY MOUTH EVERY EVENING FOR SLEEP SOLD: 07/06/2020 [facility] 15 mg 06/28/2020 12:00:00 AM EDT capsule,delayed release (DR/EC) 180 TAKE TWO CAPSULES BY MOUTH EVERY DAY TAKE TWO CAPSULES BY MOUTH EVERY DAY SOLD: 10/02/2020 [facility] 15 mg 06/28/2020 12:00:00 AM EDT capsule,delayed release (DR/EC) 180 TAKE TWO CAPSULES BY MOUTH EVERY DAY TAKE TWO CAPSULES BY MOUTH EVERY DAY SOLD: 01/01/2021 [facility] 15 mg 06/28/2020 12:00:00 AM EDT capsule,delayed release (DR/EC) 180 TAKE TWO CAPSULES BY MOUTH EVERY DAY TAKE TWO CAPSULES BY MOUTH EVERY DAY SOLD: 06/29/2020 [facility] lansoprazole 15 MG Delayed Release Oral Capsule Lansoprazole Lansoprazole 06/27/2020 10:49:55 AM EDT 30 MG active [facility] Lidocaine 25 MG/ML / Prilocaine 25 MG/ML Topical Cream 2.5-2.5 % LIDOCAINE/PRILOCAINE 06/26/2020 12:00:00 AM EDT cream 30 APPLY 1 APPLICATION TOPICALLY DIRECTED APPLY 1 APPLICATION TOPICALLY DIRECTED SOLD: 2020 [facility] 5-325 mg 06/25/2020 12:00:00 AM EDT tablet 180 TAKE ONE TO TWO TABLETS BY MOUTH EVERY 6 HOURS NEEDED FOR PAIN MAXIMUM DAILY DOSE = 6 TAKE ONE TO TWO TABLETS BY MOUTH EVERY 6 HOURS NEEDED FOR PAIN MAXIMUM DAILY DOSE = 6 SOLD: 06/25/2020 [facility] Acetaminophen 325 MG / Hydrocodone Aryan trate 5 MG Oral Tablet Hydrocodone-Acetaminophen Hydrocodone-Acetaminophen 06/24/2020 06:39:18 PM EDT TAB completed [facility] Acetaminophen 325 MG / Hydrocodone Aryan trate 5 MG Oral Tablet Hydrocodone-Acetaminophen Hydrocodone-Acetaminophen 06/24/2020 02:53:56 PM EDT TAB completed [facility] 20 mEq 06/19/2020 12:00:00 AM EDT tablet extended release 10 TAKE TWO TABLETS BY MOUTH EVERY DAY FOR 5 DAYS TAKE TWO TABLETS BY MOUTH EVERY DAY FOR 5 DAYS SOLD: 06/19/2020 [facility] 5 mg/5 mL 06/13/2020 12:00:00 AM EDT solution 210 TAKE 5ML BY MOUTH EVERY 4 HOURS NEEDED FOR RADIATION ESOPHAGITIS, MAXIMUM DAILY DOSE = 30ML TAKE 5ML BY MOUTH EVERY 4 HOURS NEEDED FOR RADIATION ESOPHAGITIS, MAXIMUM DAILY DOSE = 30ML SOLD: 06/13/2020 [facility] 15 mg 06/13/2020 12:00:00 AM EDT tablet extended release 14 TAKE ONE TABLET BY MOUTH TWICE A DAY, MAXIMUM DAILY DOSE = 2 TAKE ONE TABLET BY MOUTH TWICE A DAY, MAXIMUM DAILY DOSE = 2 SOLD: 06/13/2020 [facility] 40 mg 06/09/2020 12:00:00 AM EDT tablet 45 TAKE ONE-HALF TABLET BY MOUTH ONCE DAILY TAKE ONE-HALF TABLET BY MOUTH ONCE DAILY SOLD: 06/10/2020 [facility] 40 mg 06/09/2020 12:00:00 AM EDT tablet 45 TAKE ONE-HALF TABLET BY MOUTH ONCE DAILY TAKE ONE-HALF TABLET BY MOUTH ONCE DAILY SOLD: 01/01/2021 [facility] 40 mg 06/09/2020 12:00:00 AM EDT tablet 45 TAKE ONE-HALF TABLET BY MOUTH ONCE DAILY TAKE ONE-HALF TABLET BY MOUTH ONCE DAILY SOLD: 09/20/2020 [facility] 50 mg 06/07/2020 12:00:00 AM EDT tablet 30 TAKE ONE TABLET BY MOUTH EVERY EVENING FOR SLEEP TAKE ONE TABLET BY MOUTH EVERY EVENING FOR SLEEP SOLD: 06/07/2020 [facility] 15 mg 06/07/2020 12:00:00 AM EDT tablet extended release 14 TAKE ONE TABLET BY MOUTH TWICE A DAY FOR PAIN MAXIMUM DAILY DOSE = 2 TABLETS TAKE ONE TABLET BY MOUTH TWICE A DAY FOR PAIN MAXIMUM DAILY DOSE = 2 TABLETS SOLD: 06/07/2020 [facility] 25 mg 06/06/2020 12:00:00 AM EDT tablet extended release 24 hr 90 TAKE ONE TABLET BY MOUTH TWICE A DAY TAKE ONE TABLET BY MOUTH TWICE A DAY SOLD: 06/06/2020 [facility] 25 mg 06/06/2020 12:00:00 AM EDT tablet extended release 24 hr 90 TAKE ONE TABLET BY MOUTH TWICE A DAY TAKE ONE TABLET BY MOUTH TWICE A DAY SOLD: 11/13/2020 [facility] 25 mg 06/06/2020 12:00:00 AM EDT tablet extended release 24 hr 90 TAKE ONE TABLET BY MOUTH TWICE A DAY TAKE ONE TABLET BY MOUTH TWICE A DAY SOLD: 07/22/2020 [facility] 5 mg/5 mL 06/06/2020 12:00:00 AM EDT solution 210 TAKE 5ML BY MOUTH EVERY 4 HOURS NEEDED FOR RADIATION MAXIMUM DAILY DOSE = 30ML TAKE 5ML BY MOUTH EVERY 4 HOURS NEEDED FOR RADIATION MAXIMUM DAILY DOSE = 30ML SOLD: 06/06/2020 [facility] 25 mg 06/06/2020 12:00:00 AM EDT tablet extended release 24 hr 90 TAKE ONE TABLET BY MOUTH TWICE A DAY TAKE ONE TABLET BY MOUTH TWICE A DAY SOLD: 09/18/2020 [facility] Magnesium Oxide 400 MG Oral Tablet Magnesium Oxide 05/30/2020 04:42 :22 PM EDT 400 MG active [facility] Magnesium Oxide 400 MG Oral Tablet Magnesium Oxide 05/30/2020 04:42 :22 PM EDT 400 MG [facility] 24 HR metoprolol succinate 25 MG Extende d Release Oral Tablet Metoprolol Succinate Metoprolol Succinate 05/30/2020 04:41:41 PM EDT 0 active [facility] 24 HR metoprolol succinate 25 MG Extende d Release Oral Tablet Metoprolol Succinate Metoprolol Succinate 05/30/2020 04:41:41 PM EDT 0 active [facility] Lisinopril 40 MG Oral Tablet Lisinopril 05/30/2020 08:27:58 AM EDT 20 MG active [facility] Lisinopril 40 MG Oral Tablet Lisinopril 05/30/2020 08:27:58 AM EDT 20 MG active [facility] 5-325 mg 05/20/2020 12:00:00 AM EST tablet 180 TAKE 1-2 TABLETS BY MOUTH EVERY 6 HOURS NEEDED FOR PAIN MAXIMUM DAILY DOSE = 6 TAKE 1-2 TABLETS BY MOUTH EVERY 6 HOURS NEEDED FOR PAIN MAXIMUM DAILY DOSE = 6 SOLD: 05/20/2020 [facility] Acetaminophen 325 MG / Hydrocodone Aryan trate 5 MG Oral Tablet Hydrocodone-Acetaminophen Hydrocodone-Acetaminophen 05/17/2020 06:00:13 PM EST TAB completed [facility] Acetaminophen 325 MG / Hydrocodone Aryan trate 5 MG Oral Tablet Hydrocodone-Acetaminophen Hydrocodone-Acetaminophen 05/17/2020 06:00:13 PM EST TAB active [facility] Acetaminophen 325 MG / Hydrocodone Aryan trate 5 MG Oral Tablet Hydrocodone-Acetaminophen Hydrocodone-Acetaminophen 05/17/2020 05:23:41 PM EST TAB completed [facility] Acetaminophen 325 MG / Hydrocodone Aryan trate 5 MG Oral Tablet Hydrocodone-Acetaminophen Hydrocodone-Acetaminophen 05/17/2020 05:23:41 PM EST TAB completed [facility] [id number] 05/13/2020 12:00:00 AM EST Suspension 240 USE 10ML TO SWISH AND SPIT FOUR TIMES A DAY NEEDED FOR ESOPHAGITIS USE 10ML TO SWISH AND SPIT FOUR TIMES A DAY NEEDED FOR ESOPHAGITIS SOLD: 06/06/2020 [facility] [id number] 05/13/2020 12:00:00 AM EST Suspension 240 USE 10ML TO SWISH AND SPIT FOUR TIMES A DAY NEEDED FOR ESOPHAGITIS USE 10ML TO SWISH AND SPIT FOUR TIMES A DAY NEEDED FOR ESOPHAGITIS SOLD: 05/13/2020 [facility] gabapentin 300 MG Oral Capsule Gabapentin Gabapentin 2020 06:49:42 PM EST 300 MG active [facility] gabapentin 300 MG Oral Capsule Gabapentin Gabapentin 2020 06:49:42 PM EST 300 MG active [facility] gabapentin 300 MG Oral Capsule Gabapentin Gabapentin 2020 11:19:50 AM EST 300 MG completed [facility] gabapentin 300 MG Oral Capsule Gabapentin Gabapentin 2020 11:19:50 AM EST 300 MG completed [facility] gabapentin 300 MG Oral Capsule Gabapentin Gabapentin 2020 11:19:50 AM EST 300 MG active [facility] 8 mg 04/30/2020 12:00:00 AM EST tablet 30 TAKE ONE TABLET BY MOUTH EVERY 8 HOURS NEEDED FOR NAUSEA OR VOMITING TAKE ONE TABLET BY MOUTH EVERY 8 HOURS A S NEEDED FOR NAUSEA OR VOMITING SOLD: 06/10/2020 [facility] 8 mg 04/30/2020 12:00:00 AM EST tablet 30 TAKE ONE TABLET BY MOUTH EVERY 8 HOURS NEEDED FOR NAUSEA OR VOMITING TAKE ONE TABLET BY MOUTH EVERY 8 HOURS A S NEEDED FOR NAUSEA OR VOMITING SOLD: 05/01/2020 [facility] 10 mg 04/30/2020 12:00:00 AM EST tablet 30 TAKE ONE TABLET BY MOUTH EVERY 8 HOURS NEEDED FOR NAUSEA OR VOMITING TAKE ONE TABLET BY MOUTH EVERY 8 HOURS A S NEEDED FOR NAUSEA OR VOMITING SOLD: 05/01/2020 [facility] 5-325 mg 04/21/2020 12:00:00 AM EST tablet 180 TAKE ONE TO TWO TABLETS BY MOUTH EVERY 6 HOURS NEEDED FOR PAIN MAXIMUM DAILY DOSE = 6 TAKE ONE TO TWO TABLETS BY MOUTH EVERY 6 HOURS NEEDED FOR PAIN MAXIMUM DAILY DOSE = 6 SOLD: 04/21/2020 [facility] Acetaminophen 325 MG / Hydrocodone Aryan trate 5 MG Oral Tablet Hydrocodone-Acetaminophen Hydrocodone-Acetaminophen 04/19/2020 10:54:43 AM EST TAB completed [facility] Acetaminophen 325 MG / Hydrocodone Aryan trate 5 MG Oral Tablet Hydrocodone-Acetaminophen Hydrocodone-Acetaminophen 04/19/2020 10:54:43 AM EST TAB completed [facility] Acetaminophen 325 MG / Hydrocodone Aryan trate 5 MG Oral Tablet Hydrocodone-Acetaminophen Hydrocodone-Acetaminophen 04/19/2020 10:54:43 AM EST TAB active [facility] 10 mg 04/03/2020 12:00:00 AM EST tablet 90 TAKE ONE TABLET BY MOUTH EVERY DAY TAKE ONE TABLET BY MOUTH EVERY DAY SOLD: 04/04/2020 [facility] 10 mg 04/03/2020 12:00:00 AM EST tablet 90 TAKE ONE TABLET BY MOUTH EVERY DAY TAKE ONE TABLET BY MOUTH EVERY DAY SOLD: 07/22/2020 [facility] 40 mg 04/03/2020 12:00:00 AM EST tablet 90 TAKE ONE TABLET BY MOUTH EVERY DAY TAKE ONE TABLET BY MOUTH EVERY DAY SOLD: 04/04/2020 [facility] Lisinopril 40 MG Oral Tablet Lisinopril 04/02/2020 08:31:54 AM EST 0 active [facility] Lisinopril 40 MG Oral Tablet Lisinopril 04/02/2020 08:31:54 AM EST 0 completed [facility] Lisinopril 40 MG Oral Tablet Lisinopril 04/02/2020 08:31:54 AM EST 0 completed [facility] 5-325 mg 03/23/2020 12:00:00 AM EST tablet 180 TAKE 1-2 TABLETS BY MOUTH EVERY 6 HOURS NEEDED FOR PAIN MAXIMUM DAILY DOSE = 6 TAKE 1-2 TABLETS BY MOUTH EVERY 6 HOURS NEEDED FOR PAIN MAXIMUM DAILY DOSE = 6 SOLD: 03/23/2020 [facility] Prednisone 20 MG Oral Tablet Prednisone 03/22/2020 05:53:14 PM EST 20 MG completed [facility] Prednisone 20 MG Oral Tablet Prednisone 03/22/2020 05:53:14 PM EST 20 MG completed [facility] Prednisone 20 MG Oral Tablet Prednisone 03/22/2020 05:53:14 PM EST 20 MG completed [facility] doxycycline hyclate 100 MG Oral Capsule Doxycycline Hyclate Doxycycline Hyclate 03/22/2020 05:53:02 PM EST 100 MG completed [facility] doxycycline hyclate 100 MG Oral Capsule Doxycycline Hyclate Doxycycline Hyclate 03/22/2020 05:53:02 PM EST 100 MG completed [facility] doxycycline hyclate 100 MG Oral Capsule Doxycycline Hyclate Doxycycline Hyclate 03/22/2020 05:53:02 PM EST 100 MG [facility] 20 mg 03/22/2020 12:00:00 AM EST tablet [...] THEN STOP SOLD: 03/23/2020 [facility] doxycycline hyclate 100 MG Oral Capsule DOXYCYCLINE HYCLATE 03/22/2020 12:00:00 AM EST capsule 20 TAKE ONE CAPSULE BY MOUTH TW ICE A DAY FOR 10 DAYS TAKE ONE CAPSULE BY MOUTH TWICE A DAY FOR 10 DAYS SOLD: 03/23/2020 [facility] Acetaminophen 325 MG / Hydrocodone Aryan trate 5 MG Oral Tablet Hydrocodone-Acetaminophen Hydrocodone-Acetaminophen 03/21/2020 04:22:04 PM EST TAB completed [facility] Acetaminophen 325 MG / Hydrocodone Aryan trate 5 MG Oral Tablet Hydrocodone-Acetaminophen Hydrocodone-Acetaminophen 03/21/2020 04:22:04 PM EST TAB completed [facility] Acetaminophen 325 MG / Hydrocodone Aryan trate 5 MG Oral Tablet Hydrocodone-Acetaminophen Hydrocodone-Acetaminophen 03/21/2020 04:22:04 PM EST TAB completed [facility] Amlodipine 10 MG Oral Tablet Amlodipine 02/23/2020 05:49:32 PM EST 0 active [facility] Amlodipine 10 MG Oral Tablet Amlodipine 02/23/2020 05:49:32 PM EST 0 active [facility] Amlodipine 10 MG Oral Tablet Amlodipine 02/23/2020 05:49:32 PM EST 0 completed [facility] 5-325 mg 02/23/2020 12:00:00 AM EST tablet 180 TAKE 1-2 TABLETS BY MOUTH EVERY 6 HOURS NEEDED FOR PAIN MAXIMUM DAILY DOSE = 6 TAKE 1-2 TABLETS BY MOUTH EVERY 6 HOURS NEEDED FOR PAIN MAXIMUM DAILY DOSE = 6 SOLD: 02/23/2020 [facility] Acetaminophen 325 MG / Hydrocodone Aryan trate 5 MG Oral Tablet Hydrocodone-Acetaminophen Hydrocodone-Acetaminophen 02/20/2020 06:21:33 PM EST TAB completed [facility] Acetaminophen 325 MG / Hydrocodone Aryan trate 5 MG Oral Tablet Hydrocodone-Acetaminophen Hydrocodone-Acetaminophen 02/20/2020 06:21:33 PM EST TAB completed [facility] Acetaminophen 325 MG / Hydrocodone Rayan trate 5 MG Oral Tablet Hydrocodone-Acetaminophen Hydrocodone-Acetaminophen 02/20/2020 06:21:33 PM EST TAB completed [facility] 5-325 mg 01/24/2020 12:00:00 AM EST tablet 180 TAKE 1-2 TABLETS BY MOUTH EVERY 6 HOURS NEEDED FOR PAIN MAXIMUM DAILY DOSE = 6 TAKE 1-2 TABLETS BY MOUTH EVERY 6 HOURS NEEDED FOR PAIN MAXIMUM DAILY DOSE = 6 SOLD: 01/25/2020 [facility] Acetaminophen 325 MG / Hydrocodone Aryan trate 5 MG Oral Tablet Hydrocodone-Acetaminophen Hydrocodone-Acetaminophen 01/15/2020 01:37:06 PM EST TAB completed [facility] Acetaminophen 325 MG / Hydrocodone Aryan trate 5 MG Oral Tablet Hydrocodone-Acetaminophen Hydrocodone-Acetaminophen 01/15/2020 01:37:06 PM EST TAB completed [facility] Acetaminophen 325 MG / Hydrocodone Aryan trate 5 MG Oral Tablet Hydrocodone-Acetaminophen Hydrocodone-Acetaminophen 01/15/2020 01:37:06 PM EST TAB completed [facility] gabapentin 300 MG Oral Capsule Gabapentin Gabapentin 2019 11:03:22 AM EST 300 MG completed [facility] gabapentin 300 MG Oral Capsule Gabapentin Gabapentin 2019 11:03:22 AM EST 300 MG completed [facility] gabapentin 300 MG Oral Capsule Gabapentin Gabapentin 2019 11:03:22 AM EST 300 MG [facility] 0.4 mg 01/03/2020 12:00:00 AM EDT capsule 90 TAKE ONE CAPSULE BY MOUTH EVERY DAY TAKE ONE CAPSULE BY MOUTH EVERY DAY SOLD: 09/20/2020 [facility] 0.4 mg 01/03/2020 12:00:00 AM EDT capsule 90 TAKE ONE CAPSULE BY MOUTH EVERY DAY TAKE ONE CAPSULE BY MOUTH EVERY DAY SOLD: 04/04/2020 [facility] 0.4 mg 01/03/2020 12:00:00 AM EDT capsule 90 TAKE ONE CAPSULE BY MOUTH EVERY DAY TAKE ONE CAPSULE BY MOUTH EVERY DAY SOLD: 01/08/2020 [facility] 0.4 mg 01/03/2020 12:00:00 AM EDT capsule 90 TAKE ONE CAPSULE BY MOUTH EVERY DAY TAKE ONE CAPSULE BY MOUTH EVERY DAY SOLD: 06/27/2020 [facility] Tamsulosin hydrochloride 0.4 MG Oral Capsule Tamsulosin 01/02/2020 01:53:35 PM EDT 0 active [facility] Tamsulosin hydrochloride 0.4 MG Oral Capsule Tamsulosin 01/02/2020 01:53:35 PM EDT 0 active [facility] Tamsulosin hydrochloride 0.4 MG Oral Capsule Tamsulosin 01/02/2020 01:53:35 PM EDT 0 active [facility] Tamsulosin hydrochloride 0.4 MG Oral Capsule Tamsulosin 01/02/2020 01:53:35 PM EDT 0 active [facility] 5-325 mg 12/26/2019 12:00:00 AM EDT tablet 180 TAKE 1-2 TABLETS BY MOUTH EVERY 6 HOURS NEEDED FOR PAIN MAXIMUM DAILY DOSE = 6 TAKE 1-2 TABLETS BY MOUTH EVERY 6 HOURS NEEDED FOR PAIN MAXIMUM DAILY DOSE = 6 SOLD: 12/26/2019 [facility] Acetaminophen 325 MG / Hydrocodone Aryan trate 5 MG Oral Tablet Hydrocodone-Acetaminophen Hydrocodone-Acetaminophen 12/25/2019 08:59:59 AM EDT TAB completed [facility] Acetaminophen 325 MG / Hydrocodone Aryan trate 5 MG Oral Tablet Hydrocodone-Acetaminophen Hydrocodone-Acetaminophen 12/25/2019 08:59:59 AM EDT TAB completed [facility] Acetaminophen 325 MG / Hydrocodone Aryan trate 5 MG Oral Tablet Hydrocodone-Acetaminophen Hydrocodone-Acetaminophen 12/25/2019 08:59:59 AM EDT TAB active [facility] Acetaminophen 325 MG / Hydrocodone Aryan trate 5 MG Oral Tablet Hydrocodone-Acetaminophen Hydrocodone-Acetaminophen 12/25/2019 08:59:59 AM EDT TAB completed [facility] 5-325 mg 11/26/2019 12:00:00 AM EDT [...] Hydrocodone-Acetaminophen 11/23/2019 07:46:14 PM EDT TAB completed [facility] Acetaminophen 325 MG / Hydrocodone Aryan trate 5 MG Oral Tablet Hydrocodone-Acetaminophen Hydrocodone-Acetaminophen 11/23/2019 07:46:14 PM EDT TAB completed [facility] Acetaminophen 325 MG / Hydrocodone Aryan trate 5 MG Oral Tablet Hydrocodone-Acetaminophen Hydrocodone-Acetaminophen 11/23/2019 07:46:14 PM EDT TAB completed [facility] Acetaminophen 325 MG / Hydrocodone Aryan trate 5 MG Oral Tablet Hydrocodone-Acetaminophen Hydrocodone-Acetaminophen 11/23/2019 07:46:14 PM EDT TAB completed [facility] Acetaminophen 325 MG / Hydrocodone Aryan trate 5 MG Oral Tablet Hydrocodone-Acetaminophen Hydrocodone-Acetaminophen 11/23/2019 09:45:47 AM EDT TAB completed [facility] Acetaminophen 325 MG / Hydrocodone Aryan trate 5 MG Oral Tablet Hydrocodone-Acetaminophen Hydrocodone-Acetaminophen 11/23/2019 09:45:47 AM EDT TAB completed [facility] Acetaminophen 325 MG / Hydrocodone Aryan trate 5 MG Oral Tablet Hydrocodone-Acetaminophen Hydrocodone-Acetaminophen 11/23/2019 09:45:47 AM EDT TAB completed [facility] Acetaminophen 325 MG / Hydrocodone Aryan trate 5 MG Oral Tablet Hydrocodone-Acetaminophen Hydrocodone-Acetaminophen 11/23/2019 09:45:47 AM EDT TAB completed [facility] Acetaminophen 325 MG / Hydrocodone Aryan trate 5 MG Oral Tablet Hydrocodone-Acetaminophen Hydrocodone-Acetaminophen 10/26/2019 06:52:48 PM EDT TAB completed [facility] Acetaminophen 325 MG / Hydrocodone Aryan trate 5 MG Oral Tablet Hydrocodone-Acetaminophen Hydrocodone-Acetaminophen 10/26/2019 06:52:48 PM EDT TAB completed [facility] Acetaminophen 325 MG / Hydrocodone Aryan trate 5 MG Oral Tablet Hydrocodone-Acetaminophen Hydrocodone-Acetaminophen 10/26/2019 06:52:48 PM EDT TAB completed [facility] Acetaminophen 325 MG / Hydrocodone Aryan trate 5 MG Oral Tablet Hydrocodone-Acetaminophen Hydrocodone-Acetaminophen 10/26/2019 06:52:48 PM EDT TAB completed [facility] 25 mg 10/10/2019 12:00:00 AM EDT tablet extended release 24 hr 90 TAKE ONE TABLET BY MOUTH EVERY DAY TAKE ONE TABLET BY MOUTH EVERY DAY SOLD: 01/08/2020 [facility] 25 mg 10/10/2019 12:00:00 AM EDT tablet extended release 24 hr 90 TAKE ONE TABLET BY MOUTH EVERY DAY TAKE ONE TABLET BY MOUTH EVERY DAY SOLD: 04/04/2020 [facility] 24 HR metoprolol succinate 25 MG Extende d Release Oral Tablet Metoprolol Succinate Metoprolol Succinate 10/09/2019 11:15:00 AM EDT 0 completed [facility] 24 HR metoprolol succinate 25 MG Extende d Release Oral Tablet Metoprolol Succinate Metoprolol Succinate 10/09/2019 11:15:00 AM EDT 0 completed [facility] atorvastatin 40 MG Oral Tablet Atorvastatin Atorvastatin 10/09/2019 11:14:47 AM EDT 40 MG completed [facility] atorvastatin 40 MG Oral Tablet ATORVASTATIN CALCIUM 10/09/2019 1 2:00:00 AM EDT tablet 90 TAKE ONE TABLET BY MOUTH EVERY D AY TAKE ONE TABLET BY MOUTH EVERY DAY SOLD: 04/04/2020 [facility] atorvastatin 40 MG Oral Tablet ATORVASTATIN CALCIUM 10/09/2019 1 2:00:00 AM EDT tablet 90 TAKE ONE TABLET BY MOUTH EVERY D AY TAKE ONE TABLET BY MOUTH EVERY DAY SOLD: 01/08/2020 [facility] atorvastatin 40 MG Oral Tablet ATORVASTATIN CALCIUM 10/09/2019 1 2:00:00 AM EDT tablet 90 TAKE ONE TABLET BY MOUTH EVERY D AY TAKE ONE TABLET BY MOUTH EVERY DAY SOLD: 06/26/2020 [facility] 300 mg 07/30/2019 12:00:00 AM EDT capsule 180 TAKE ONE CAPSULE BY MOUTH TWICE A DAY TAKE ONE CAPSULE BY MOUTH TWICE A DAY SOLD: 03/28/2020 [facility] 300 mg 07/30/2019 12:00:00 AM EDT capsule 180 TAKE ONE CAPSULE BY MOUTH TWICE A DAY TAKE ONE CAPSULE BY MOUTH TWICE A DAY SOLD: 01/15/2020 [facility] gabapentin 300 MG Oral Capsule Gabapentin Gabapentin 2019 01:25:25 PM EDT 300 MG completed [facility] gabapentin 300 MG Oral Capsule Gabapentin Gabapentin 2019 01:25:25 PM EDT 300 MG completed [facility] gabapentin 300 MG Oral Capsule Gabapentin Gabapentin 2019 01:25:25 PM EDT 300 MG [facility] 15 mg 07/16/2019 12:00:00 AM EDT capsule,delayed release (DR/EC) 180 TAKE TWO CAPSULES BY MOUTH EVERY DAY TAKE TWO CAPSULES BY MOUTH EVERY DAY SOLD: 04/04/2020 [facility] 15 mg 07/16/2019 12:00:00 AM EDT capsule,delayed release (DR/EC) 180 TAKE TWO CAPSULES BY MOUTH EVERY DAY TAKE TWO CAPSULES BY MOUTH EVERY DAY SOLD: 01/10/2020 [facility] lansoprazole 15 MG Delayed Release Oral Capsule Lansoprazole Lansoprazole 07/14/2019 01:22:40 PM EDT 30 MG completed [facility] Amlodipine 10 MG Oral Tablet Amlodipine 04/14/2019 08:43:39 AM EST 10 MG completed [facility] Amlodipine 10 MG Oral Tablet Amlodipine 04/14/2019 08:43:39 AM EST 10 MG completed [facility] Amlodipine 10 MG Oral Tablet Amlodipine 04/14/2019 08:43:39 AM EST 10 MG completed [facility] Lisinopril 40 MG Oral Tablet Lisinopril 04/14/2019 08:43:09 AM EST 40 MG completed [facility] Lisinopril 40 MG Oral Tablet Lisinopril 04/14/2019 08:43:09 AM EST 40 MG completed [facility] Lisinopril 40 MG Oral Tablet Lisinopril 04/14/2019 08:43:09 AM EST 40 MG completed [facility] 10 mg 04/14/2019 12:00:00 AM EST [...] 01/17/2019 08:45:27 AM EST 0.4 MG completed [facility] Tamsulosin hydrochloride 0.4 MG Oral Capsule Tamsulosin 01/17/2019 08:45:27 AM EST 0.4 MG completed [facility] Tamsulosin hydrochloride 0.4 MG Oral Capsule Tamsulosin 01/17/2019 08:45:27 AM EST 0.4 MG completed [facility] Tamsulosin hydrochloride 0.4 MG Oral Capsule Tamsulosin 01/17/2019 08:45:27 AM EST 0.4 MG completed [facility] Magnesium Oxide 400 MG Oral Tablet Magnesium Oxide 03/16/2018 07:52 :00 AM EST 400 MG completed [facility] Magnesium Oxide 400 MG Oral Tablet Magnesium Oxide 03/16/2018 07:52 :00 AM EST 400 MG completed [facility] Insurance Providers Payer name Policy type / Coverage type Policy ID Covered constitution party ID Covered constitution party's relationship to vargas Policy [employer] Plan Information 'S ADMINISTRATION [id number] SP [id number] WELLCARE -O/P [id number] 18 [id number] ADMINSTRATION -O/P [id number] 18 [id number] MEDICARE PART A -O/P [id number] 18 [id number] [place] CC[place] [id number] SP [id number] 46 'S ADMINISTRATION [id number] SP [id number] OPTUM [place] O [id number] S [id number] WELLCARE [id number] SP [id number] TODAYS OPTIONS [id number] SP [id number] TODAYS OPTIONS [id number] SP [id number] Medicare [place] Primary [id number] Self 1A [id number] [facility] Medicare Medigap Part B [id number] Self VY [id number] [facility] Commercial [id number] Self [id number] [facility] MEDICARE -O/P [id number] 18 [id number] [facility] MEDICARE CHOICE [id number] PT [id number] [facility] MEDICARE CHOICE [id number] PT [id number] [facility] MEDICARE CHOICE [id number] PT [id number] [facility] MEDICARE CHOICE [id number] PT [id number] Problems, Conditions, and Diagnoses Code Display Name Description Problem Type Effective Dates Data Source(s) L18675 Personal history of other malignant neop lasm of bronchus and lung Personal history of other malignant neoplasm of bronchus and lung Diagnosis 11/23/2020 08:04:00 PM EDT [facility] [id number] Nicotine dependence, cigarettes, uncompl icated Nicotine dependence, cigarettes, uncomplicated Diagnosis 11/23/2020 08:04:00 PM EDT [facility] I10 Essential (primary) hypertension Essential (primary) h ypertension Diagnosis 11/23/2020 08:04:00 PM EDT [facility] E8770 Fluid overload, unspecified Fluid overload, unspecifie d Diagnosis 11/23/2020 08:04:00 PM EDT [facility] R0600 Dyspnea, unspecified Dyspnea, unspecified Diagnosis 11/23/2020 08:04:00 PM EDT [facility] Surgeries/Procedures No Information Results ID Date Data Source [id number] 01/18/2021 12:15:00 PM EDT [facility] [address] [place] [address] PHONE: [phone] FAX: [phone] Name .................. : TEJ Olivares Acct Number.................. : [id number] ROOM. ................. : [id number] Number ................... : [id number] Stay type ............. : E/R Discharge Date......... ... : Admit Date ......... : 03/20/20 Admit Phys .................... : COONEYNORM Date of ....... : 1950 Family Phys ................... : MI NASSAR Phone .................. : [phone] Age ................................ : 70 Film# .................. .:[id number] Sex ................................. : M Unsigned transcriptions are preliminary reports and do not represent a medical or legal document CHEST PORTABLE 16490 COMPLETE:01/18/21 11:31 64928 Reason(s): Chest Pain PORTABLE CHEST SINGLE VIEW OBTAINED AT 11:48 AM HISTORY: Chest pain COMPARISON: 11/23/2020 FINDINGS: The heart is not enlarged. Right-sided Port-A-Cath present with tip projected over the SVC. EKG wires are projected over the chest. Moderately extensive diffuse interstitial disease this was present on previous exam. There is more confluent opacification in the right lower lobe currently. No pleural effusions or pneumothorax. IMPRESSION: Chronic interstitial disease with superimposed more confluent opacification in the right lower lobe. This could be atelectasis or pneumonia. __ Electronically Reviewed and Signed By Eulogio Batres MD , 01/18/21 12:15, JWRodri Transcribe Initials: DZ , Transcribe Date: 01/18/21 11:43, Dictation Date: Copy for: 010 EMERGENCY SRV Copy for: EMERGENCY DEPT via modem Copy for: 710 MED REC Page 1 of 1 Name Value Range Interpretation Code Description Data Mirna rce(s) Supporting Document(s) ID Date Data Source [id number] 01/18/2021 01:33:00 PM EDT [facility] NOT DETECTEDNOT DETECTED{ PROC EDURAL CONTROL VALID KIT LOT # [id number] 01/18/21.1333.CM . . . KIT EXP DATE _07/18/21 01/18/21.1333.CM . . . NORMAL RANGE IS NOT DETECTEDThe COVID-19 assay is a rapid molecular in vitro diagnostic testutilizing an isothermal nucleic acid amplification technology for thequalitative detection of nucleic acid from the SARS-CoV-2 viral RNA in directnasal or nasopharyngeal swabs. Testing should be performed within the first 7days of the onset of symptoms.NEGATIVE RESULTS SHOULD BE TREATED PRESUMPTIVE AND, IF INCONSISTENT WITHCLINICAL SIGNS AND SYMPTOMS OR NECESSARY FOR PATIENT MANAGEMENT, SHOULD BETESTED WITH DIFFERENT AUTHORIZED OR CLEARED MOLECULAR TESTS. NEGATIVE RESULTSDO NOT PRECLUDE SARS-CoV-2 INFECTION AND SHOULD NOT BE USED THE SOLE BASISFOR PATIENT MANAGEMENT DECISIONS. Name Value Range Interpretation Code Description Data Mirna rce(s) Supporting Document(s) ID Date Data Source [id number] 01/18/2021 01:53:00 PM EDT [facility] Name Value Range Interpretation Code Description Data Mirna rce(s) Supporting Document(s) Influenza virus A Ag [Presence] in Nasopharynx by Immunoassa y NEGATIVE NORMAL: NEGATIVE [facility] Influenza virus B Ag [Presence] in Nasopharynx by Immunoassa y NEGATIVE NORMAL: NEGATIVE [facility] NEGATIVENEGATIVE PROCEDURAL CO NTROL VALID KIT LOT # _[id number] 01/18/21.1353.CM . KIT EXP DATE _12/20/21 01/18/21.1353.CM .The Influenza A & B assay is a rapid molecular in vitro diagnostic testutilizing an isothermal nucleic acid amplification technology for thequalitative detection of influenza A and B viral RNA.Negative results do not preclude influenza virus infection and should not beused as the sole basis for diagnosis, treatment or other patient managementdecisions. ID Date Data Source [id number] 01/18/2021 01:49:00 PM EDT [facility] Name Value Range Interpretation Code Description Data Mirna rce(s) Supporting Document(s) RSV ANTIGEN NEGATIVE NORMAL: NEGATIVE [facility] RSV ANTIGEN REENTER NEGATIVE NORMAL: NEGATIVE [facility] { PROCEDURAL CONTROL VALID ){ KIT LOT # [id number] ){ KIT EXP DATE 06/25/21 ) ID Date Data Source [id number] 01/18/2021 01:56:00 PM EDT [facility] Name Value Range Interpretation Code Description Data Mirna rce(s) Supporting Document(s) Magnesium [Mass/volume] in Serum or Plasma 1.0 MG/DL 1.7 - 2.2 L [facility] ID Date Data Source [id number] 01/18/2021 01:56:00 PM EDT [facility] Name Value Range Interpretation Code Description Data Mirna rce(s) Supporting Document(s) COMPREHENSIVE METABOLIC PANEL [facility] COMPREHENSIVE METABOLIC PANEL Sodium [Moles/volume] in Serum or Plasma 137 mEq/L 134 - 153 [facility] Potassium [Moles/volume] in Serum or Plasma 4.5 mEq/L 3.6 - 5.0 [facility] Chloride [Moles/volume] in Serum or Plasma 101 mEq/L 98 - 107 [facility] Carbon dioxide, total [Moles/volume] in Serum or Plasma 24 MEQ/L 22 - 30 [facility] Glucose [Mass/volume] in Serum or Plasma 100 MG/DL 70 - 99 H [facility] BUN 20 MG/DL 7 - 21 [facility] al Creatinine [Mass/volume] in Serum or Plasma 1.9 MG/DL 0.7 - 1.5 H [facility] BUN/CREAT 11 8 - 27 [facility] Protein [Mass/volume] in Serum or Plasma 6.7 G/DL 6.3 - 8.2 [facility] Albumin [Mass/volume] in Serum or Plasma 4.1 G/DL 3.9 - 5.0 [facility] Globulin [Mass/volume] in Serum by calculation 2.6 GM/DL 2.4 - 3.2 [facility] A/G RATIO 1.6 0.8 - 2.0 [facility] Calcium [Mass/volume] in Serum or Plasma 8.2 MG/DL 8.4 - 10.2 L [facility] Bilirubin.total [Mass/volume] in Serum or Plasma <0.7 MG/DL 0.2 - 1.3 [facility] Alkaline phosphatase [Enzymatic activity/volume] in Serum or Plasma 42 U/L 38 - 126 [facility] Aspartate aminotransferase [Enzymatic activity/volume] in Serum or Plasma 21 U/L 5 - 40 [facility] Alanine aminotransferase [Enzymatic activity/volume] in Seru m or Plasma 11 U/L 7 - 56 [facility] Anion gap 3 in Serum or Plasma 12.0 mmol/L 8.0 - 16.0 [facility] 70 [facility]/min [facility] eduarda AFR AMER GFR 45 mL/min [facility] Male GFR In terprentation 20-49 yrs >60 mL/min Normal 50-59 yrs >56 mL/min Normal 60-69 yrs >49 mL/min Normal 70-79yrs >42 mL/min Normal 80 and above >35 mL/min Normal Female GFR Interpretation 20-39 yrs >60 mL/min Normal 40-49 yrs >58 mL/min Normal 50-59 yrs >51 mL/min Normal 60-69 yrs >45 mL/min Normal 70-79 yrs >39 mL/min Normal 80 and above >32 mL/min Normal ID Date Data Source [id number] 01/18/2021 01:56:00 PM EDT [facility] Value Range Interpretation Code Description Data Mirna rce(s) Supporting Document(s) BNP 3087 PG/ML 0 - 125 H [facility] ID Date Data Source [id number] 01/18/2021 01:56:00 PM EDT [facility] Value Range Interpretation Code Description Data Mirna rce(s) Supporting Document(s) TROPONIN T <0.01 NG/ML 0.00 - 0.10 [facility]ital TROPONIN T0.1 ng/ml Recommended as the c linical threshold value forTroponin T. ID Date Data Source [id number] 01/18/2021 01:15:00 PM T [facility] Name Value Range Interpretation Code Description Data Mirna rce(s) Supporting Document(s) Lactate [Moles/volume] in Serum or Plasma 0.8 MMOL/L 0.2 - 2.2 [facility] ID Date Data Source [id number] 01/18/2021 01:01:00 PM T [facility] Value Range Interpretation Code Description Data Mirna rce(s) Supporting Document(s) CBC W/AUTOMATED DIFF [facility] COMPLETE BLOOD COUNT Leukocytes [#/volume] in Blood by Automated count 8.2 10^3/uL 4.2 - 1 1.0 [facility] Erythrocytes [#/volume] in Blood by Automated count 3.70 10^6/uL 4. 50 - 6.30 L [facility] Hemoglobin [Mass/volume] in Blood 10.8 g/dL 14.0 - 16.0 L [facility] Hematocrit [Volume Fraction] of Blood by Automated count 31.6 % 4 1.0 - 51.0 L [facility] Erythrocyte mean corpuscular volume [Entitic volume] by Auto mated count 85.4 fL 80.0 - 94.0 [facility] Erythrocyte mean corpuscular hemoglobin [Entitic mass] by Automated count 29.2 pg 27.0 - 34.0 [facility] Erythrocyte mean corpuscular hemoglobin concentration [Mass/volume] by Automated count 34.2 g/dL 31.0 - 36.0 [facility] Erythrocyte distribution width [Ratio] by Automated count 17.0 % 11.5 - 14.8 H [facility] Platelets [#/volume] in Blood by Automated count 274 10^3/uL 150 - 45 0 [facility] Platelet mean volume [Entitic volume] in Blood by Automated count 9.8 fL 7.4 - 10.4 [facility] Neutrophils/100 leukocytes in Blood by Automated count 77.5 % 37. 0 - 80.0 [facility] Lymphocytes/100 leukocytes in Blood by Manual count 10.3 % 25.0 - 40.0 L [facility] Monocytes/100 leukocytes in Blood by Automated count 11.2 % 3.0 - 8.0 H [facility] Eosinophils/100 leukocytes in Blood by Automated count 0.6 % 0.0 - 7.0 [facility] [facility] Basophils/100 leukocytes in Blood by Automated count 0.2 % 0.0 - 2.0 [facility] %IG 0.2 % 0.0 - 0.0 [facility] % 0.0 - 0.0 [facility] al Neutrophils [#/volume] in Blood by Automated count 6.34 10^3/uL 2.00 - 6.90 [facility] Lymphocytes [#/volume] in Blood by Automated count 0.84 10^3/uL 0.60 - 3.40 [facility] Monocytes [#/volume] in Blood by Automated count 0.92 10^3/uL 0.00 - 0.90 H [facility] Eosinophils [#/volume] in Blood by Automated count 0.05 10^3/uL 0.00 - 0.70 [facility] Basophils [#/volume] in Blood by Automated count 0.02 10^3/uL 0.00 - 0.20 [facility] #IG 0.02 10^3/uL 0.00 - 0.10 [facility]ital #NRBC 0.00 10^3/uL 0.00 - 0.00 [facility] MANUAL DIFF NOT INDICATED [facility] RBC MORPH NOT INDICATED [facility] spital ID Date Data Source [id number] 01/18/2021 12:13:00 PM EDT [facility] [address] [place] [address] PHONE: [phone] FAX: [phone] Name .................. : TEJ Olivares Acct Number.................. : [id number] ROOM. ................. : VT-35 MR Number ................... : [id number] Stay type ............. : E/R Discharge Date......... ... : 01/17/21 Admit Date ......... : 01/17/21 Admit Phys .................... : ALICIA Irene Date of ....... : 1950 Family Phys ................... : MI NASSAR Phone .................. : [phone] Age ................................ : 70 Film# .................. .:[id number] Sex ................................. : M Unsigned transcriptions are preliminary reports and do not represent a medical or legal document RIBS UNILAT W/PA CXR RT [id number] COMPLETE:01/17/21 19:07 [facility] [place] [id number] Reason(s): Pain PA CHEST AND 4 VIEWS OF THE RIGHT RIBS INDICATION: Pain. COMPARISON: Chest x-ray 11/23/2020, CT abdomen 05/12/2016 FINDINGS: Chest: The heart is not enlarged. Pulmonary vessels are within normal limits. There is a Port-A- Cath on the right with tip projected over the SVC. Moderately extensive diffuse interstitial disease. Unchanged from the previous chest x-ray. Interstitial disease is seen in the lo wer lobes on the previous abdominal CT from 2017. No lobar consolidation. No pleural effusions or pneumothorax. Ribs: There is a nondisplaced fracture of the right sixth rib posterior laterally. Mild adjacent pleural thickening. No other rib fracture is seen. No rib lesion. IMPRESSION: Chest: Diffuse chronic interstitial disease unchanged. Ribs: Nondisplaced fracture right posterolateral sixth rib Electronically Reviewed and Signed By Eulogio Batres MD , 01/18/21 12:13, JWRodri Transcribe Initials: TEZ , Transcribe Date: 01/18/21 11:09, Dictation Date: Copy for: [place] [facility] [place]: [address] [place] [address] PHONE: [phone] FAX: [phone] Name .................. : TEJ Olivares Acct Number.................. : [id number] ROOM. ........... ...... : VT-35 Number ................... : [id number] Stay type ............. : E/R Discharge Date......... ... : 01/17/21 Admit Date ......... : 01/17/21 Admit Phys .................... : VARGAS JAZZMINE Irene Date of ....... : 1950 Family Phys ................... : MI NASSAR Phone .................. : [phone] Age ................................ : 70 Film# .................. .:[id number] Sex ................................. : Ren Unsigned transcriptions are preliminary reports and do not represent a medical or legal document VIOLETA RG W/ABIMAEL CXR [place] [id number] COMPLETE:01/17/21 19:07 [facility] [place] [id number] Reason(s): Pain DISCHARGED Page 2 of 2 Name Value Range Interpretation Code Description Data Mirna rce(s) Supporting Document(s) ID Date Data Source [id number] 01/17/2021 04:40:00 PM EDT [facility] 1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 health departments, is required.SARS-CoV-2 Ag Resp Ql IA.rapid Name Value Range Interpretation Code Description Data Mirna rce(s) Supporting Document(s) ID Date Data Source [id number] 11/25/2020 03:20:00 PM EDT [facility] Name Value Range Interpretation Code Description Data Mirna rce(s) Supporting Document(s) SARS-CoV-2 (COVID-19) Ag [Presence] in R espiratory specimen by Rapid immunoassay BinaxNow Covid -19 Ag Negative [facility] This lab was ordered by [facility] and reported by [facility]. ID Date Data Source [id number] 11/25/2020 02:07:00 PM EDT [facility] Patient Name: SVITLANA BURNHAM : 0 1950 Sex: M Pt Unit #: [id number] Location:[facility] Provider: Visit Date/Time: 11/25/20 Primary Insurance: [employer] Secondary Insurance: [employer] - Intake Vital Signs 11/25/20 14:10 11/25/20 14:11 11/25/20 14:16 Current Height 5 ft 11 in Current Weight 188 lb Weight Measurement Method Standing Scale BMI 26.2 BP 104/58 Blood Pressure Location Lt brachial Position Sitting Respiration 24 20 24 Pulse 114 H 86 78 Pulse Source Pulse Oximeter Temp 97.8 F Temp Source Oral Pulse Oximetry (%) 87 90 94 Oxygen Delivery Method room air room air room air Comment walking over to the room 3 mins later Intake Visit Reasons: Hospital Discharge Follow-up Nurse Note: Went to the ER for SOB.Was not tested for COVID O2 sat 87 when ambulating and up to 94 while sitting Security Nurse Required: No Accompanied by: Self / Same as Patient Is patient in pain?: Yes (lower back) Pain scale (1-10): 7 Allergies No Known Drug Allergies Allergy (Unverified 07/04/13 11:03) No Known Food Allergies Allergy (Unverified 08/08/20 11:37) HIV Testing Offer - ages 13-64 Requirement for HIV testing offer been met?: Not in age range Do you need a note to return Do you need a note to return to daycare/school/sports/work: No Coronavirus Screening Screening Are you currently positive or on isolation for COVID ?: No Do you have any NEW signs of one or more of the following?: cough, shortness of breath and difficulty breathing Do you have NEW signs of at least two of the following?: congestion, tiredness and runny nose HPI Additional HPI HPI Details: 69 YO male for f/u [facility] 11/23/20 for SOB. His pulse ox was in the 80's at home. [facility] lung cancer recently. He was sent home. he was never tested for Covid per RAOUL De Dios. ER note state okay on O2 NC 2L. He does not have O2 at home. He states he feels better than he did 11/23/20. His thinks it is from all the cancer treatment. Last cancer treatment June. His O2 goes down if he walks. His pulse ox was 86% after walking in. He has a little more cough. No fever. No diarrhea, headache, no nausea. He can taste his food. [facility] Medical History (Updated 04/30/20 @ 11:08 by Cuco Caldwell DO) History of pneumothorax Small cell lung cancer Surgical History Angioplasty of vein Carotid endarterectomy (01/10/13) History of - surgery History of - surgery F amily History Mother Diabetes Dementia Father No problems noted. Social History (Updated 10/30/19 @ 11:55 by Diane De Dios) Does the Patient have a Healthcare Proxy: No Does Patient have a DNR?: No Does Patient have a Living Will?: No Smoking Status: Current every day smoker tobacco type: cigarettes alcohol intake: current alcohol intake frequency: holidays/special occasions only substance use type: painkillers Exam Const General: comfortable and ill appearing [facility] Head: normal to inspection Ears: TM's normal bilaterally Face and sinus: sinuses nontender Mouth: moist mucous membranes Throat: posterior oropharynx normal Neck Neck: supple and no lymphadenopathy noted Resp Effort Inspection: normal respiratory effort Auscultation: clear to auscultation bilaterally, no rales, no rhonchi and wheezes (some wheezes, slightly more on R lung than L) Cardio Heart Sounds: S1 normal, S2 normal, no gallops, no murmurs and no rubs Extrem General: capillary refill normal and clubbing Assessment Plan Assessment Plan (1) Hospital discharge follow-up: Code(s): Z09 - Encounter for follow-up examination after completed treatment for conditions other than malignant neoplasm Plan: Hospital ER f/u. COPD and bronchitis. Covid test done. Doxycycline 100mg BID x 10 days, Prednisone taper Q4 days: 60mg, 40mg, 20mg, then stop. Orders: Orders Cepheid SARS/FLU/RSV RT-PCR Today R06.02 - Shortness of breath BinaxNow Covid-19 Ag Today R06.02 - Shortness of breath Coding Level of Care Code 65809 Est Pt Intermediate Comp Diagnoses Hospital discharge follow-up Z09 Additional Codes Intake - Is patient in pain?: Yes (1125F) <Electronically signed by Cuco Caldwell DO> 11/25/20 1511 Name Value Range Interpretation Code Description Data Mirna rce(s) Supporting Document(s) ID Date Data Source [id number] 11/24/2020 06:57:00 [place] [address] RESPIRATORY CARE REPORT ==== ---------NAME------- NUMBER SEX AGE ADMIT DISC. XRAY# F/C TERESA SHANE H [id number] M 69 11/23/20 11/24/20 [id number] MB8 E/R DATE OF : 1950 M/R# [id number] #: [id number] TR-03 LOCATION: EMERGENCY DEPT EKG 26211 COMP LETE:11/24/20 02:40 AJP [id number] PHYSICIAN: COONEYNORM JOLENE NOR Name Value Range Interpretation Code Description Data Mirna rce(s) Supporting Document(s) ID Date Data Source [id number] 11/24/2020 12:28:00 PM EDT [facility] [address] [place] [address] PHONE: [phone] FAX: [phone] Name .................. : TEJ GALLyle Olivares Acct Number.................. : [id number] ROOM. ................. : TR-03 MR Number ................... : [id number] Stay type ............. : E/R Discharge Date......... ... : 11/24/20 Admit Date ......... : 11/23/20 Admit Phys .................... : COONEYNORM Date of ....... : 1950 Family Phys ................... : PAULETTE GUDINO Phone .................. : [phone] Age ................................ : 69 Film# .................. .:[id number] Sex ................................. : M Unsigned transcriptions are preliminary reports and do not represent a medical or legal document CHEST PORTABLE [id number] COMPLETE:11/23/20 23:40 AML 35215 Reason(s): Shortness of Breath PORTABLE CHEST SINGLE VIEW 10:18 PM HISTORY: Shortness of breath COMPARISON: None. FINDINGS: Right chest port. No mediastinal or hilar masses. Heart size within normal limits. No focal pneumonia. Diffusely increased interstitial prominence. No available comparison to assess chronicity. Probably chronic. Possibility of interstitial edema not excluded. No pleural effusions or pneumothorax. IMPRESSION: Diffusely increased interstitial densities probably chronic but no available comparison to be certain that this does not represent interstitial edema/CHF Electronically Reviewed and Signed By Nain Hudson MD , 11/24/20 12:28, SCB Transcribe Initials: TEZ , Transcribe Date: 11/24/20 10:09, Dictation Date: Copy for: EMERGENCY DEPT via modem Copy for: 710 MED REC DISCHARGED Page 1 of 1 Name Value Range Interpretation Code Description Data Mirna rce(s) Supporting Document(s) ID Date Data Source [id number] 11/23/2020 08:04:00 PM EDT [facility] 1 OrderSheet [facility] Emergency Department [address] [place] [address] Phone #: ext- [phone] 11/23/2020 19:58 Patient: SVITLANA BURNHAM Sex: M : 1950 Age: 69yWEIGHT:84.3 kg (S) HEIGHT:71 inches (S) BMI:25.9ALLERGIES: No Known Drug AllergyCHIEF COMPLAINT: dyspneaDIAGNOSIS: DyspneaLAB ORDERSOrder Description Priority Entered Acknowledged InitialedUO[facility] w Diff STAT 20:12 11/23/2020 20:12 Gina Fuentes Laura Laura R.N. R.N.; Per protocol; Rony Fernández MDCMP STAT 20:12 11/23/2020 20:12 Gina Fuentes Laura Laura R.N. R.NCedrick; Per protocol; Rony Fernández MDTroponin-T STAT 21:48 11/23/2020 22:14 Nathaly Hunter Norma MD; R.N.TSH STAT 21:48 11/23/2020 22:14 Nathaly Hunter Norma MD; R.N.BNP STAT 21:48 11/23/2020 22:14 Nathaly Hunter Norma MD; R.N.Magnesium STAT 21:48 11/23/2020 22:14 Nathaly Hunter Norma MD; R.N.DIAGNOSTIC STUDY ORDERSOrder Description Priority Entered Acknowledged InitialedChest Portable 1 STAT 21:48 11/23/2020 22:05 Esme Hunter (Oxygen? Rony Fernández MD; R.N.(Yes)) Reason for Study: Shortness of BreathCT CTA CHEST STAT 23:15 11/23/2020 Initialed: 23:36 Rony Fernández MD(NONCOR) W CON Rony Fernández MD; Cancelled: Physician Order 23:36 ZAYRA Fernández PP, MD(Oxygen?(No))(IV?(Yes)) Reason for Study: dyspnea, hypoxia, hx of lung caMEDICATION/IV/DRIP/FLUID ORDERS 2 OrderSheet [facility] Emergency Department [address] [place] [address] Phone #: ext- [phone] 11/23/2020 19:58 Patient: SVITLANA BURNHAM Sex: M : 1950 Age: 69yOrder Description Priority Entered Acknowledged InitialedGENERAL ORDERSOrder Description Priority Entered Acknowledged InitialedEKG 20:12 11/23/2020 20:12 Gina Fuentes Laura Laura R.N. R.N.; Per protocol; Rony Fernández MDSaline Lock 20:12 11/23/2020 20:12 Gina Fuentes Laura Laura R.N. R.N.; Per protocol; Rony Fernández MD[Electronically signed by Rony Fernández MD (00:17 11/24/2020)][Electronically signed by Kavitha Parrish RN (00:24 11/24/2020)][Electronically locked by Kavitha Parrish RN (00:24 11/24/2020)] Name Value Range Interpretation Code Description Data Mirna rce(s) Supporting Document(s) ID Date Data Source [id number] 11/23/2020 08:04:00 PM EDT [facility] 1 Medication Reconciliation Report [facility] Emergency Department [address] [place] [address] Phone #: ext- [phone] 11/23/2020 19:58 Patient: SVITLANA BURNHAM Sex: M : 1950 Age: 69yWeight: 84.3 kgHeight/Length: 71 in.BMI: 25.9ALLERGIES: No Known Drug AllergyThe patient's Home Medications are listed below:Unable to obtain.The source(s) of the original Home Medication information:Not obtained.The following Medications were given to the patient in the Emergency Department:None.The following Medications were prescribed to the patient:None. Name Value Range Interpretation Code Description Data Mirna rce(s) Supporting Document(s) ID Date Data Source [id number] 11/23/2020 08:04:00 PM EDT [facility] 1 Medication Administration Record [facility] Emergency Department [address] [place] [address] Phone #: ext- [phone] 01/2021 19:58 Patient: SVITLANA BURNHAM Sex: M : 1950 Age: 69yWeight: 84.3 kgHeight/Length: 71 inBMI: 25.9ALLERGIES: No Known Drug AllergyDate/Time Medication Administered Medication Ordered Name Value Range Interpretation Code Description Data Mirna rce(s) Supporting Document(s) ID Date Data Source [id number] 11/23/2020 08:04:00 PM EDT [facility] 1 General Instructions [facility] Emergency Department [address] [place] [address] Phone #: ext- [phone] 11/23/2020 19:58 Patient: SVITLANA BURNHAM Sex: M : 1950 Age: 69yDyspneamild fluid overload.INSTRUCTIONSNo strenuous activity.(Please follow up with your primary care physician. Keep your oncology appt you have scheduled nextweek. Take all medications previously instructed. return if worse or any new symptoms.).Warnings: Further evaluation is necessary.GENERAL WARNINGS: Return or contact your physician immediately if your condition worsens orchanges unexpectedly, if not improving as expected, or if other problems arise.Follow-up:Follow up with your doctor Wednesday even if well. Call for an appointment. Reason for referral: evaluation.Summary of care provided to patient via paper.Understanding of the discharge instructions verbalized by patient. ADDITIONAL INFORMATIONShortness of Breath (Dyspnea)Shortness of breath is the feeling that you can't catch your breath or get enough air. It is also knownas dysp john.Dyspnea can be caused by many different conditions. They include: Acute asthma attack Worsening of chronic lung diseases such as chronic bronchitis and emphysema Heart failure. This is when weak heart muscle allows extra fluid to collect in the lungs. Panic attacks or anxiety. Fear can cause rapid breathing (hyperventilation). Pneumonia, or an infection in the lung tissue Exposure to toxic substances, fumes, smoke, or certain medicines 2 General Instructions [facility] Emergency Department [address] [place] [address] Phone #: ext- [phone] 11/23/2020 19:58 Patient: SVITLANA BURNHAM Sex: M : 1950 Age: 69y Blood clot in the lung (pulmonary embolism). This is often from a piece of blood clot in a deep vein of the leg (deep vein thrombosis) that breaks off and travels to the lungs. Heart attack or heart-related chest pain (angina) Anemia Collapsed lung (pneumothorax) Dehydration PregnancyBased on your visit today, the exact cause of your shortness of breath is not certain. Your tests don'tshow any of the serious causes of dyspnea. You may need other tests to find out if you have aserious problem. It's important to watch for any new symptoms or symptoms that get worse. Followup with your healthcare provider as d briannected.Home careFollow these tips to take care of yourself at home: When your symptoms are better, go back to your usual activities. If you smoke, you should stop. Join a quit-smoking program or ask your healthcare provider for help. Eat a healthy diet and get plenty of sleep. Get regular exercise. Talk with your healthcare provider before starting to exercise, especially if you have other medical problems. Cut down on the amount of caffeine and stimulants you consume.Follow-up careFollow up with your healthcare provider, or as advised.If tests were done, you will be told if your treatment needs to be changed. You can call as directed forthe results.If an X-ray was taken, a specialist will review it. You will be notified of any new findings that mayaffect your care.Call 911Shortness of breath may be a sign of a serious medical problem. For example, it may be a problemwith your heart or lungs. Call 911 if you have worsening shortness of breath or trouble breathing, 3 General Instructions [facility] Emergency Department [address] [place], [place] [id number] Phone #: ext- [phone] 11/23/2020 19:58 Patient: SVITLANA BURNHAM Sex: M : 1950 Age: 69yespecially with any of the symptoms below: Confusion or difficulty waking Fainting or loss of consciousness. Fast or irregular heartbeat Coughing up blood Pain in your chest, arm, shoulder, neck, or upper back SweatingWhen to seek medical adviceCall your healthcare provider right away if any of these occur: Slight shortnes s of breath or wheezing Redness, pain or swelling in your leg, arm, or other body area Swelling in both legs or ankles Fast weight gain Dizziness or weakness Fever of 100.4F (38C) or higher, or as directed by your healthcare provider [employer]. [address] [place] [address]. All rights reserved. This information is not intended as asubstitute for professional medical care. Always follow your healthcare professional's instructions. You have been given the following additional information: Shortness of Breath (Dyspnea) No strenuous activity.(Electronically signed by Rony Fernández MD 11/24/2020 00:17) Name Value Range Interpretation Code Description Data Mirna rce(s) Supporting Document(s) ID Date Data Source [id number] 11/23/2020 08:04:00 PM EDT [facility] 1 Clinical Report - Nurses [facility] Emergency Department [address] [place] [address] Phone #: ext- [phone] 11/23/2020 19:58 Patient: SVITLANA BURNHAM Sex: M : 1950 Age: 69yTRIAGEArrived by private vehicle.Acuity: LEVEL 2.Chief Complaint: SHORTNESS OF BREATH and (LOW OXYGEN LEVEL).20:05 11/23/20. Alert. No acute distress. (mild respiratory distress).( Patient reports his O2 levels have "been in the 80's" for several days. Had CTA of chest several daysago, has not gotten results yet. Pt reports history of lung cancer, states he is in remission. Cough, deniesfever. Has had covid shot.).SEPSIS SCREEN: SIRS SCREEN NEGATIVE: respiratory rate greater than 20. SEPSIS SCREENNEGATIVE. No suspected or confirmed signs of infection present. --20:05 11/23/20 Nathaly Hunter R.N.19:59 11/23/20. BP: 121/79. MAP: 93. HR: 95. RR: 24. O2 saturation: 87% on room air. Temp: 97.9 F(oral). --20:05 11/23/20 Nathaly Hunter R.NCedrick00:21 11/24/20. Pain level now: 0/10. --00:22 11/24/20 Kavitha Parrish RN.Weight: 84.3 kg stated. Height/Length: 71 inches Per Patient. BMI: 25.9. --20:05 11/23/20 Nathaly Hunter R.N.MedicationsUnable to Obtain. --00:24 11/24/20 Kavitha Parrish RN.AllergiesNo Known Drug Allergy. --20:02 11/23/20 Nathaly Hunter R.N.PROBLEMS:Kidney failure.Lung Cancer. --20:02 11/23/20 Nathaly Hunter R.N.Hypertension. --23:37 11/23/20 Rony Fernández MDThe following entry was modified by Rony Fernández MD, 23:37 11/23/20Hypertension. --20:01 11/23/20 Nathaly Hunter R.N..ADDITIONAL SURGERIES:Back Surgery.Ear surgery.Neck Surgery. 2 Clinical Report - Nurses [facility] Emergency Department [address] [place] [address] Phone #: ext- [phone] 11/23/2020 19:58 Patient: SVITLANA BURNHAM Sex: M : 1950 Age: 69y Port a cath placement. --20:02 11/23/20 Nathaly Hunter R.N. History 20:05 11/23/20. PAST MEDICAL HX: Immunizations: up-to-date. SOCIAL HX: Current every day heavy tobacco smoker- 1 pack per day. No alcohol use or drug use. He was offered HIV testing but declined and hepatitis C testing but declined. He has not traveled outside the [place] Infectious disease exposure: The patient was not exposed to Coronavirus. Patient is not a known carrier of tuberculosis, hepatitis, HIV or MRSA. SELF HARM ASSESSMENT: Self harm assessment was performed. The patient answered "no" to the question(s) "Have you recently felt down, depressed, or hopeless?", "Do you have thoughts of harming or killing yourself?", "Do you have a plan for harming or killing yourself?" and "Have you recently had thoughts about harming or killing others?". ABUSE ASSESSMENT: No report of abuse. NUTRITIONAL RISK ASSESSMENT: The nutritional risk assessment revealed no deficiencies. F UNCTIONAL ASSESSMENT: Functional assessment: no impairments noted. LEARNING NEEDS ASSESSMENT: The learning needs assessment revealed no barriers. FALL RISK ASSESSMENT: Fall risk assessment completed. Risk factors identified include patient age greater than 65 years. Fall interventions initiated. Patient placed on stretcher. Side rails up x2. Bed in low position. Brakes on. Call light in reach of patient. SKIN INTEGRITY ASSESSMENT: Skin integrity risk assessment completed. No skin integrity risk identified. --20:05 11/23/20 Nathaly Hunter R.N. Interventions 20:05 11/23/20. Identification band on patient. To treatment room. --20:05 11/23/20 Nathaly Hunter R.N.PHYSICAL [id number] 11/23/20. Ambulatory to room.GENERAL / NEURO / PSYCH: Alert. Oriented X 4. Appears in distress. (mild respiratory distress).RESPIRATORY: Mild respiratory distress. The patient can speak in full sentences. Chest nontender.Breath sounds within normal limits. ( Pt spo2 87% on RA on arrival).CVS: Normal sinus rhythm noted. Capillary refill less than 2 seconds.GI / : Abdomen soft and nontender. Bowel sounds within normal limits.SKIN: Skin is warm and dry. Normal skin turgor. --23:10 11/23/20 Nathaly Hunter R.N. 3 Clinical Report - Nurses [facility] Emergency Department [address] [place] [address] Phone #: ext- [phone] 11/23/2020 19:58 Patient: SVITLANA BURNHAM Sex: M : 1950 Age: 69yNURSING PROGRESS NOTES20:07 11/23/2020 Site #1 started via IV in the right antecubital space with an 20g angiocath, with aseptictechnique and good blood return; one attempt. Blood drawn: rainbow set. Labeled in the presence of thepatient and held. Saline lock flushed with 10 mL saline (Started by Kimberly WELLINGTONdamaged freight inspector). --20: Nathaly Hunter R.N. Oxygen administered by nasal cannula at 2 liters. Monitoring of patient in place. EKG was performed by a nurse and shown to the ED physician. Patient gowned. Reassurance given to the patient. Two patient identifiers checked. Call light placed in reach. Side rails up x 1. Bed placed in lowest position. Brakes of bed on. Patient ready for evaluation- ED physician and PA notified. --20:07 11/23/20 Nathaly Hunter R.N. 20:06 11/23/20. O2 saturation: 97% on nasal cannula at 2 liters/minute. --20:07 11/23/20 Nathaly Hunter R.N. 23:23 11/23/2020 Site #1 removed. Catheter intact. Pressure dressing applied. --23:23 11/23/20 Nathaly Hunter R.N. 23:24 11/23/20. ( Pt updated on plan of care that CT scan of chest has been ordered. [facility] and does not wish to have another scan. Dr Fernández updated. E[place] going to attempt to obtain records from [facility]. Pt states he is no longer going to keep IV in his arm; states if "you don't take it out, i am going to rip it out myself". This RN removes IV and applies pressure. Pt states he "is only waiting 30 more minutes then leaving". Dr Fernández notified.). --23:24 11/23/20 Nathaly Hunter R.N. 23:30 11/23/20. ( RT obtained walking spo2 on patient; Spo2 dropped to 89% on RA. Dr Fernández notified.). --23:30 11/23/20 Nathaly Hunter R.N. Reassessment acuity: LEVEL 3. GENERAL / NEURO / PSYCH: Denies fatigue. Denies anxiety. RESPIRATORY: No orthopnea. Respiratory distress present (slight distress). No respiratory distress. Decreased breath sounds. No crackles or wheezes. CVS: Denies chest pain. Normal sinus rhythm noted. Cardiac rhythm: (sinus). SKIN: Skin is warm and dry. Skin color within normal limits. Skin color normal. No diaphoresis noted. --00:17 11/24/20 Kavitha Parrish RN 00:15 11/24/20. BP: 106/67 taken on the left arm, while standing. MAP: 80. HR: 72 (regular, normal rate and strong). RR: 22 (regular, unlabored and normal). O2 saturation: 97% on room air. Temp: 98.7 F (oral). Pain level now: 0/10. --00:17 11/24/20 Kavitha Parrish RN.DISPOSITION / DISCHARGE [place] Coma Scale. (15). Departure time: 23:55 11/23/2020. Discharge instructions provided and reviewed with the patient. Reviewed warnings (to return prn). Reviewed medication(s) (continue routine medications). Reviewed diet (regular). Reviewed need to stop smoking. He has no activity restrictions. 4 Clinical Report - Nurses [facility] Emergency Department [address] [place] [address] Phone #: ext- [phone] 11/23/2020 19:58 Patient: SVITLANA BURNHAM Sex: M : 1950 Age: 69y Patient verbalized understanding. No note given. Written instructions not provided in Zimbabwean. The patient was discharged by the physician. He was discharged home and accompanied by self. He left ambulatory and via private vehicle. Patient driving. --00:20 11/24/20 Kavitha Parrish RN 00:17 11/24/20. BP: 106/67 taken on the right arm, while standing. MAP: 80. HR: 72 (regular, normal rate and strong). RR: 22 (regular, unlabored and normal). O2 saturation: 97% on room air. Temp: 97.6 F (oral). Pain level now: 0/10. --00:20 11/24/20 Kavitha Parrish RN.Locked/Released at 11/24/2020 00:24 by Kavitha Parrish RN Name Value Range Interpretation Code Description Data Mirna rce(s) Supporting Document(s) ID Date Data Source [id number] 11/23/2020 08:04:00 PM EDT [facility] 1 Clinical Report - Physicians/Mid Levels [facility] Emergency Department [address] [place] [address] Phone #: ext- [phone] 11/23/2020 19:58 Patient: SVITLANA BURNHAM Sex: M : 1950 Age: 69y Arrived- By private vehicle. Historian- patient. Disposition decision: 23:41 11/23/2020.HISTORY OF PRESENT ILLNESS Chief Complaint: DYSPNEA. This started 3 days and is still present. The dyspnea is described as mild. The patient has had a cough and dyspnea on exertion. No sputum production, fever, sweating episodes, wheezing or chills. No chest pain or discomfort, calf pain, foot swelling or anxiety. No dizziness, tingling, numbness or palpitations. (Patient reports his O2 levels have "been in the 80's" for several days. Had CTA of chest several days ago, has not gotten results yet. Pt reports history of lung cancer, states he is in remission. Cough, denies fever. Has had covid shot.)). Similar symptoms previously. Recent medical care: The patient was seen recently by a health care provider.REVIEW OF SYSTEMSThe patient has had a cough and difficulty breathing but not had weight loss. No muscle aches, eyeirritation or sore throat or throat. No nasal discharge or congestion, sinus drainage, nausea or vomiting.No abdominal pain or pain, diarrhea, black stools or bloody stools. No headache, fainting episodes,blurred vision or difficulty with urination or urination. No excessive urination, skin rash or rash or joint painor pain. No chills, fever, double vision, ear pain or diarrhea. No nausea, vomiting, urinary frequency,hematuria or neck pain. No headache, seizure or easy bruising.PAST HISTORYSee nurses notes. Problems: Arthritis. Hypertension. Nephropathy. Lung Disease. Kidney failure. Additional Surgeries: Back Surgery. Ear surgery. Neck Surgery. Port a cath placement. Allergies: 2 Clinical Report - Physicians/Mid Levels [facility] Emergency Department [address] [place] [address] Phone #: ext- [phone] 11/23/2020 19:58 Patient: SVITLANA BURNHAM Sex: M : 1950 Age: 69y No Known Drug Allergy.SOCIAL HISTORYNo drug use.ADDITIONAL NOTESThe nursing notes have been reviewed.PHYSICAL EXAMVital Signs: 11/23/2020 22:52 BP: 121/64. MAP: 83. HR: 73. RR: 18. O2 saturation: 97% on nasal cannulaat 2 liters/minute.11/23/2020 21:38 BP: 109/67. MAP: 81. HR: 80. RR: 18. O2 saturation: 97% on nasal cannula at 2liters/minute.11/23/2020 20:50 BP: 116/74. MAP: 88. HR: 78. RR: 19. O2 saturation: 98% on nasal cannula at 2liters/minute.11/23/2020 20:06 O2 saturation: 97% on nasal cannula at 2 lit ers/minute.11/23/2020 19:59 BP: 121/79. MAP: 93. HR: 95. RR: 24. O2 saturation: 87% on room air. Temp: 97.9 F.Have been reviewed and appear to be correct. Blood pressure normal. Mean arterial pressure- normal.Heart rate normal. Respiratory rate normal. Temperature normal. Oxygen saturation normal.Appearance: Alert. No acute distress.Eyes: Pupils equal, round and reactive to light. Eyes normal inspection.ENT: Ears normal. Nose normal. Mildly dry mucous membranes present.Neck: Normal inspection. Neck supple.CVS: Normal heart rate and rhythm. Heart sounds normal. Pulses normal.Respiratory: No respiratory distress. Painless inspiration. Breath sounds normal.Abdomen: Soft and nontender.Back: Normal inspection.Skin: Skin warm but moist. Normal skin color. No rash. Normal skin turgor.Extremities: Extremities exhibit normal ROM. No lower extremity edema.Neuro: Oriented X 3. No motor deficit. No sensory deficit.LABS, X-RAYS, AND EKGLaboratory Tests: CT CTA CHEST NON-CORONARY W CON INC PP: (KAMALA: 11/23 23:15) ( MsgRcvd 11/23/2020 23:36) Canceled Reason(s): dyspnea, hypoxia, hx of lung ca Reason(s): dyspnea, hypoxia, hx of lung ca TRANSPORTATION: WC IV? IV?(Yes) O2? Oxygen?(No) Ro Troponin-T: (KAMALA: 11/23/2020 20:15) ( [facility] 11/23/2020 22:34) Final results Test Result Flag Units (Reference) TROPONIN T 0.03 NG/ML (0.00 - 0.10) TROPONIN T0.1 ng/ml Recommended as the clinical threshold value Timothy Jansen. TSH: (KAMALA: 11/23/2020 20:15) ( [facility] 11/23/2020 22:45) Final results 3 Clinical Report - Physicians/Mid Levels [facility] Emergency Department [address] [place] [address] Phone #: ext- [phone] 11/23/2020 19:58 Patient: SVITLANA BURNHAM Sex: M : [birth year] Age: 69y Test Result Flag Units (Reference) TSH 4.90 uIU/mL (0.47 - 5.01)BNP: (KAMALA: 11/23/2020 20:15) ( [facility] 11/23/2020 22:45) Final results Test Result Flag Units (Reference) BNP 8617 H PG/ML (0 - 125)Chest Portable 1 View: (KAMALA: 11/23/2020 21:48) ( [facility] 23:40[facility] [place]eason(s): Shortness of BreathTRANSPORTATION: P IV? O2? Oxygen?(Yes) Room: [facility]: (KAMALA: 11/23/2020 20:15) ( [facility] 11/23/2020 22:52) Final results Test Result Flag Units (Reference) MAGNESIUM 1.0 L MG/DL (1.7 - 2.2)CBC w Diff: (KAMALA: 11/23/2020 20:10) ( MsgRcvd 11/23/2020 20:55) Final results Test Result Flag Units (Reference) CBC W/AUTOMATED DIFF COMPLETE BLOOD COUNT WBC 7.1 10/uL (4.2 - 11.0) RBC 3.95 L 10/uL (4.50 - 6.30) HEMOGLOBIN 11.4 L g/dL (14.0 - 16.0) HEMATOCRIT 33.3 L % (41.0 - 51.0) MCV 84.3 fL (80.0 - 94.0) MCH 28.9 pg (27.0 - 34.0) MCHC 34.2 g/dL (31.0 - 36.0) RDW 16.2 H % (11.5 - 14.8) PLATELETS 270 10/uL (150 - 450) MPV 10.0 fL (7.4 - 10.4) NEUT 76.0 % (37.0 - 80.0) LYMPH 7.3 L % (25.0 - 40.0) MONO 15.2 H % (3.0 - 8.0) EOS 0.6 % (0.0 - 7.0) BASO 0.8 % (0.0 - 2.0) %IG 0.1 H % (0.0 - 0.0) %NRBC 0.0 % (0.0 - 0.0) #NEUT 5.38 10/uL (2.00 - 6.90) #LYMPH 0.52 L 10/uL (0.60 - 3.40) #MONO 1.08 H 10/uL (0.00 - 0.90) #EOS 0.04 10/uL (0.00 - 0.70) #BASO 0.06 10/uL (0.00 - 0.20) #IG 0.01 10/uL (0.00 - 0.10) #NRBC 0.00 10/uL (0.00 - 0.00) MANUAL DIFF SEE BELOW SEGS 83 H % (37 - 80) %LYMPH 7 L % (25 - 40) %MONO 10 H % (3 - 8) RBC MORPH SEE BELOW { SICKLE CELL (NORMAL: NONE SEEN ) TARGET CELLS 1+ A (NORMAL: NONE COMMENT: 4 Clinical Report - Physicians/[facility] Emergency Department [address] [place] [address] Phone #: ext- [phone] 11/23/2020 19:58 Patient: SVITLANA BURNHAM Sex: M : 1950 Age: 69y CMP: (KAMALA: 11/23/2020 20:10) ( MsgRcvd 11/23/2020 20:47) Final results Test Result Flag Units (Reference) COMPREHENSIVE METABOLIC PANEL COMPREHENSIVE METABOLIC PANEL SODIUM 137 mEq/L (134 - 153) POTASSIUM 3.9 mEq/L (3.6 - 5.0) CHLORIDE 99 mEq/L (98 - 107) CO2 23 MEQ/L (22 - 30) GLUCOSE 107 H MG/DL (70 - 99) BUN 18 MG/DL (7 - 21) CREATININE 1.9 H MG/DL (0.7 - 1.5) BUN/CREAT 9 (8 - 27) TOTAL PROTEIN 7.7 G/DL (6.3 - 8.2) ALBUMIN 4.5 G/DL (3.9 - 5.0) GLOBULIN 3.2 GM/DL (2.4 - 3.2) A/G RATIO 1.4 (0.8 - 2.0) CALCIUM 8.3 L MG/DL (8.4 - 10.2) TOTAL BILI <0.7 MG/DL (0.2 - 1.3) ALKALINE PHOS 43 U/L (38 - 126) SGOT/AST 25 U/L (5 - 40) SGPT/ALT 10 U/L (7 - 56) ANION GAP 15.0 mmol/L (8.0 - 16.0) AGE 69 yrs NON-AA GFR 38 mL/min AFR AMER GFR 45 mL/min Male GFR Interprentation 20-49 yrs >60 mL/min Normal 50-59 yrs >56 mL/min Normal 60-69 yrs >49 mL/min Normal 70-79yrs >42 mL/min Normal 80 and above >35 mL/min Normal Female GFR Interpretation 20-39 yrs >60 mL/min Normal 40-49 yrs >58 mL/min Normal 50-59 yrs >51 mL/min Normal 60-69 yrs >45 mL/min Normal 70-79 yrs >39 mL/min Normal 80 and above >32 mL/min Normal.PROGRESS AND PROCEDURESCourse of Care: pt is a 69 year old male who presents to the ED for evaluation of his shortness of breath.pt states he has been having shortness of breath. he has a hx of lung cancer. he had a ct chest doneseveral days ago. he has a follow up appt with his oncologist this coming week. ekg showed no acutefindings. cxr showed what appears to be fibrotic changes and mild cephalization. trop negative.remainder of labs grossly nl with the exception of elevated bnp. I was concerned that pt may have a pe aswell. I discussed with pt the fact that we would need a CTa to determine this. pt felt better. he statesthat he wanted to leave and he did not want a CT or any further intervention. I discussed the risks of himleaving without certain as to why he was dyspneic which included and permanent disability. ptambulated on RA. his O2 sats dropped to 88% on RA for a very brief period. Once he rested for a briefmoment, he felt better. he stated that this was his baseline and he was no worse. he felt that he coulddiscuss this dyspnea with his oncologist. I discu ssed with pt the open door policy. if he feels worse orchanges his mind and would like to be further evaluated. he should return immediately for furtherevaluation. pt voiced understanding of all instructions. 5 Clinical Report - Physicians/Mid Levels [facility] Emergency Department [address] [place] [address] Phone #: ntc- [phone] 11/23/2020 19:58 Patient: SVITLANA BURNHAM Sex: M : 1950 Age: 69y Patient/family counseled. Disposition: Discharged. Condition: good and stable.CLINICAL IMPRESSION Dyspnea mild fluid overload.INSTRUCTIONS No strenuous activity. (Please follow up with your primary care physician. Keep your oncology appt you have scheduled next week. Take all medications previously instructed. return if worse or any new symptoms.). Warnings: Further evaluation is necessary. GENERAL WARNINGS: Return or contact your physician immediately if your condition worsens or changes unexpectedly, if not improving as expected, or if other problems arise. Follow-up: Follow up with your doctor Wednesday even if well. Call for an appointment. Reason for referral: evaluation. Summary of care provided to patient via paper. Understanding of the discharge instructions verbalized by patient.(Electronically signed by Rony Fernández MD 11/24/2020 00:17) Name Value Range Interpretation Code Description Data [facility](s) Supporting Document(s) ID Date Data Source [id number] 11/23/2020 10:45:00 PM EDT [facility] Name Value Range Interpretation Code Description Data Mirna rce(s) Supporting Document(s) Thyrotropin [Units/volume] in Serum or Plasma by Detec tion limit <= 0.05 mIU/L 4.90 uIU/mL 0.47 - 5.01 [facility] ID Date Data Source [id number] 11/23/2020 10:34:00 PM EDT [facility] Name Value Range Interpretation Code Description Data Mirna rce(s) Supporting Document(s) TROPONIN T 0.03 NG/ML 0.00 - 0.10 [facility] spital TROPONIN T0.1 ng/ml Recommended as the c linical threshold value forTroponin T. ID Date Data Source [id number] 11/23/2020 10:52:00 PM EDT [facility] Name Value Range Interpretation Code Description Data Mirna rce(s) Supporting Document(s) Magnesium [Mass/volume] in Serum or Plasma 1.0 MG/DL 1.7 - 2.2 L [facility] ID Date Data Source [id number] 11/23/2020 10:45:00 PM EDT [facility] Name Value Range Interpretation Code Description Data Mirna rce(s) Supporting Document(s) BNP 8617 PG/ML 0 - 125 H [facility] eduarda ID Date Data Source [id number] 11/23/2020 08:54:00 PM EDT [facility] Name Value Range Interpretation Code Description Data Mirna rce(s) Supporting Document(s) CBC W/AUTOMATED DIFF [facility] COMPLETE BLOOD COUNT Leukocytes [#/volume] in Blood by Automated count 7.1 10^3/uL 4.2 - 1 1.0 [facility] Erythrocytes [#/volume] in Blood by Automated count 3.95 10^6/uL 4. 50 - 6.30 L [facility] Hemoglobin [Mass/volume] in Blood 11.4 g/dL 14.0 - 16.0 L [facility] Hematocrit [Volume Fraction] of Blood by Automated count 33.3 % 4 1.0 - 51.0 L [facility] Erythrocyte mean corpuscular volume [Entitic volume] by Auto mated count 84.3 fL 80.0 - 94.0 [facility] Erythrocyte mean corpuscular hemoglobin [Entitic mass] by Automated count 28.9 pg 27.0 - 34.0 [facility] Erythrocyte mean corpuscular hemoglobin concentration [Mass/volume] by Automated count 34.2 g/dL 31.0 - 36.0 [facility] Erythrocyte distribution width [Ratio] by Automated count 16.2 % 11.5 - 14.8 H [facility] Platelets [#/volume] in Blood by Automated count 270 10^3/uL 150 - 45 0 [facility] Platelet mean volume [Entitic volume] in Blood by Automated count 10.0 fL 7.4 - 10.4 [facility] Neutrophils/100 leukocytes in Blood by Automated count 76.0 % 37. 0 - 80.0 [facility] Lymphocytes/100 leukocytes in Blood by Manual count 7.3 % 25.0 - 40.0 L [facility] Monocytes/100 leukocytes in Blood by Automated count 15.2 % 3.0 - 8.0 H [facility] Eosinophils/100 leukocytes in Blood by Automated count 0.6 % 0.0 - 7.0 [facility] Basophils/100 leukocytes in Blood by Automated count 0.8 % 0.0 - 2.0 [facility] %IG 0.1 % 0.0 - 0.0 [facility] %NRBC 0.0 % 0.0 - 0.0 [facility] al Neutrophils [#/volume] in Blood by Automated count 5.38 10^3/uL 2.00 - 6.90 [facility] Lymphocytes [#/volume] in Blood by Automated count 0.52 10^3/uL 0.60 - 3.40 L [facility] Monocytes [#/volume] in Blood by Automated count 1.08 10^3/uL 0.00 - 0.90 H [facility] Eosinophils [#/volume] in Blood by Automated count 0.04 10^3/uL 0.00 - 0.70 [facility] Basophils [#/volume] in Blood by Automated count 0.06 10^3/uL 0.00 - 0.20 [facility] #IG 0.01 10^3/uL 0.00 - 0.10 [facility] ospital #NRBC 0.00 10^3/uL 0.00 - 0.00 [facility] ospital MANUAL DIFF SEE BELOW [facility]osp ital Segmented neutrophils/100 leukocytes in Blood by Manual count 83 % 37 - 80 H [facility] Hospital %LYMPH 7 % 25 - 40 L [facility] Hospit al %MONO 10 % 3 - 8 H [facility] Hospit al RBC MORPH SEE BELOW [facility] Hospit al { SICKLE CELL (NORMAL: NONE SEEN ) Target cells [Presence] in Blood by Light microscopy 1+ RONY L: NONE SEEN A [facility] COMMENT: ID Date Data Source [id number] 11/23/2020 08:47:00 PM EDT [facility] Name Value Range Interpretation Code Description Data Mirna rce(s) Supporting Document(s) COMPREHENSIVE METABOLIC PANEL [facility] COMPREHENSIVE METABOLIC PANEL Sodium [Moles/volume] in Serum or Plasma 137 mEq/L 134 - 153 [facility] Potassium [Moles/volume] in Serum or Plasma 3.9 mEq/L 3.6 - 5.0 [facility] Chloride [Moles/volume] in Serum or Plasma 99 mEq/L 98 - 107 [facility] Carbon dioxide, total [Moles/volume] in Serum or Plasma 23 MEQ/L 22 - 30 [facility] Glucose [Mass/volume] in Serum or Plasma 107 MG/DL 70 - 99 H [facility] BUN 18 MG/DL 7 - 21 [facility] Creatinine [Mass/volume] in Serum or Plasma 1.9 MG/DL 0.7 - 1.5 H [facility] BUN/CREAT 9 8 - 27 [facility] Protein [Mass/volume] in Serum or Plasma 7.7 G/DL 6.3 - 8.2 [facility] Albumin [Mass/volume] in Serum or Plasma 4.5 G/DL 3.9 - 5.0 [facility] Globulin [Mass/volume] in Serum by calculation 3.2 GM/DL 2.4 - 3.2 [facility] A/G RATIO 1.4 0.8 - 2.0 [facility] Calcium [Mass/volume] in Serum or Plasma 8.3 MG/DL 8.4 - 10.2 L [facility] Bilirubin.total [Mass/volume] in Serum or Plasma <0.7 MG/DL 0.2 - 1.3 [facility] Alkaline phosphatase [Enzymatic activity/volume] in Serum or Plasma 43 U/L 38 - 126 [facility] Aspartate aminotransferase [Enzymatic activity/volume] in Serum or Plasma 25 U/L 5 - 40 [facility] Alanine aminotransferase [Enzymatic activity/volume] in Seru m or Plasma 10 U/L 7 - 56 [facility] Anion gap 3 in Serum or Plasma 15.0 mmol/L 8.0 - 16.0 [facility] AGE 69 yrs [facility] al NON-AA GFR 38 mL/min [facility] AFR AMER GFR 45 mL/min [facility]ital Male GFR In terprentation 20-49 yrs >60 mL/min Normal 50-59 yrs >56 mL/min Normal 60-69 yrs >49 mL/min Normal 70-79yrs >42 mL/min Normal 80 and above >35 mL/min Normal Female GFR Interpretation 20-39 yrs >60 mL/min Normal 40-49 yrs >58 mL/min Normal 50-59 yrs >51 mL/min Normal 60-69 yrs >45 mL/min Normal 70-79 yrs >39 mL/min Normal 80 and above >32 mL/min Normal ID Date Data Source [id number] 10/31/2020 11:44:00 AM EDT [facility] Patient Name: SVITLANA BURNHAM : 0 1950 Sex: M Pt Unit #: [id number] Location:[facility] Provider: Visit Date/Time: 10/31/20 Primary Insurance: [email or web address] Secondary Insurance: Self Pay Intake Vital Signs 10/31/20 11:50 Current Height 5 ft 11 in Current Weight 186 lb 6 oz Weight Measurement Method Standing Scale BMI 25.9 BP 138/70 Blood Pressure Location Lt brachial Position Sitting Respiration 18 Pulse 60 Temp 98.2 F Temp Source Oral Pulse Oximetry (%) 94 Oxygen Delivery Method room air Intake Visit Reasons: Workman's Compensation Nurse Note: Here for Comp Security Nurse Required: No Accompanied by: Self / Same as Patient Is patient in pain?: Yes (lower back and straight down both legs) Pain scale (1-10): 6 Allergies No Known Drug Allergies Allergy (Unverified 07/04/13 11:03) No Known Food Allergies Allergy (Unverified 08/08/20 11:37) Medications - Last Reconciled 10/31/20 by Cuco Caldwell, DO aspirin 81 mg PO DAILY atorvastatin TAKE ONE TABLET BY MOUTH EVERY DAY budesonide-formoterol 80-4.5 mcg/actuation (Symbicort) 2 puffs inhalation BID cholecalciferol (vitamin D3) 2,000 units PO DAILY cranberry extract 200 mg PO DAILY fenofibrate nanocrystallized (Tricor) 1 tab PO DAILY flaxseed 1,000 mg PO BID gabapentin 300 mg PO DIRECTED hydrocodone-acetaminophen 5-325 mg 1 - 2 tabs PO Q6H PRN MDD 6 ipratropium- albuterol 20-100 mcg/actuation (Combivent Respimat) 1 puff inhalation QID lansoprazole 30 mg (2 x 15 mg) PO QDAY lisinopril 20 mg (1/2 x 40 mg) PO QDAY magnesium oxide 400 mg PO BID metoprolol succinate ER TAKE ONE TABLET BY MOUth twice a day multivitamin 1 tab PO DAILY omega 3-far-ugj-fish oil 300-1,000 mg (Fish Oil) 1 cap PO BID ranitidine HCl 150 mg PO DAILY saw palmetto 160 mg PO DAILY tamsulosin TAKE ONE CAPSULE BY MOUTH EVERY DAY HIV Testing Offer - ages 13-64 Requirement for HIV testing offer been met?: Not in age range Coronavirus Screening Screening Are you currently positive or on isolation for COVID ?: No Do you have any NEW signs of one or more of the following?: no symptoms Do you have NEW signs of at least two of the following?: no symptoms HPI Additional HPI HPI Details: 69 YO male for comp LBP. He has been underwent radiation and chemo for lung cancer. He has lost weight. His weight loss really has not helped his back pain. [facility] Medical History (Updated 04/30/20 @ 11:08 by Cuco Caldwell DO) History of pneumothorax Small cell lung cancer Surgical History Angioplasty of vein Carotid endarterectomy [...] Current every day smoker tobacco type: cigarettes alcohol intake: current alcohol intake frequency: holidays/special occasions only substance use type: painkillers Review of Systems Const Denies weight gain and Denies weight loss Card Denies chest pain, Denies irregular heart rhythm and Denies dyspnea on exertion Resp Denies cough and Denies dyspnea on exertion Musc Details: tender lower spine to palpation antalgic gait with cane in R hand Exam Const General: cooperative, healthy appearing and [...] 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 6 tabs Hydrocodone daily. F/u 3 months. #1 In my opinion, the injury of the patient at the work sight is the direct cause of the symptoms involved. #2 The patient's complaints are consistent with the injury. #3 The history of the patient's injury is consistent with the objective findings: physical exam, radiological studies. #4 100% impairment. #5 The patient is not working. Medications: Discontinued amlodipine Discontinued Reason: MD Order TAKE ONE TABLET BY MOUTH EVERY DAY 90 tabs 3RF Coding Level of Care Code 97575 Est Pt Intermediate Comp Diagnoses Work related injury Y99.0 <Electronically signed by Cuco Caldwell DO> 10/31/20 1226 Name Value Range Interpretation Code Description Data Mirna rce(s) Supporting Document(s) ID Date Data Source [id number] 08/08/2020 11:36:00 AM EDT [facility] Patient Name: SVITLANA BURNHAM : 0 1950 Sex: M Pt Unit #: [id number] Location:[facility] Provider: Visit Date/Time: 08/08/20 Primary Insurance: [employer] Secondary Insurance: Self Pay Intake Vital Signs 08/08/20 11:39 Current Height 5 ft 11 in Current Weight 193 lb Weight Measurement Method Standing Scale BMI 26.9 BP 152/88 Blood Pressure Location Lt brachial Position Sitting Respiration 18 Pulse 66 Pulse Source Pulse Oximeter Pulse Oximetry (%) 98 Oxygen Delivery Method room air Intake Visit Reasons: Workman's Compensation Nurse Note: 69 year old male in for workers comp follow up, voices no concerns Security Nurse Required: No Accompanied by: Self / Same as Patient Is patient in pain?: Yes (lower back) Pain scale (1-10): 5 Allergies No Known Drug Allergies Allergy (Unverified 07/04/13 11:03) No Known Food Allergies Allergy (Unverified 08/08/20 11:37) HIV Testing Offer - ages 13-64 Requirement for HIV testing offer been met?: Not in age range Coronavirus Screening Screening Are you currently positive or on isolation for COVID ?: No Do you have any NEW signs of one or more of the following?: no symptoms Do you have NEW signs of at least two of the following?: no symptoms HPI Additional HPI HPI Details: 69 YO male for comp LBP. I last saw him 05/30/20. He is currently getting chemotherapy forsmall cell cancer of the lung and has lost weight. Last seen 211lbs and today 193lbs. He was once 275lbs. He is done with chemo. His back pain is the same regardless of the weight loss. He is done radiation. He is eating better now. He is moving his bowels. [facility] Medical History (Updated 04/30/20 @ 11:08 by Cuco Caldwell DO) History of pneumothorax Small cell lung cancer Surgical History Angioplasty of vein Carotid endarterectomy [...] Current every day smoker tobacco type: cigarettes alcohol intake: current alcohol intake frequency: holidays/special occasions only substance use type: painkillers Exam Const General: cooperative, healthy appearing, comfortable and no acute distress Resp Auscultation: clear to auscultation bilaterally, no rales, no rhonchi and no wheezes Cardio Rate: regular rate (sitting HR 72) Heart Sounds: S1 normal, S2 normal, no gallops, no murmurs and no rubs Musc Other: non-tender base of spine on palpation walks with a cane Assessment Plan Assessment Plan (1) Work related injury: Code(s): Y99.0 - 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 F/u 3 months. #1 In my opinion, the injury of the patient at the work sight is the direct cause of the symptoms involved. #2 The patient's complaints are consistent with the injury. #3 The history of the patient's injury is consistent with the objective findings: physical exam, radiological studies. #4 100% impairment. #5 The patient is not working. Coding Level of Care Code 91360 Est Pt Intermediate Comp Diagnoses Work related injury Y99.0 <Electronically signed by Cuco Caldwell DO> 08/08/20 1222 Name Value Range Interpretation Code Description Data Mirna rce(s) Supporting Document(s) ID Date Data Source [id number] 05/30/2020 03:42:00 PM EDT [facility] Patient Name: SVITLANA BURNHAM : 0 1950 Sex: M Pt Unit #: [id number] Location:[facility] Provider: Visit Date/Time: 05/30/20 Primary Insurance: [employer] Secondary Insurance: Self Pay Intake Vital Signs 05/30/20 15:42 Current Height 5 ft 11 in Current Weight 211 lb Weight Measurement Method Standing Scale BMI 29.4 BP 148/70 Blood Pressure Location Lt brachial Position Sitting Respiration 18 Pulse 75 Pulse Source Pulse Oximeter Pulse Oximetry (%) 98 Oxygen Delivery Method room air Intake Visit Reasons: Medication check Nurse Note: 69 year old male in for medication check, oncology wanted him to take the metoprolol 2 xa day and took him off the amlodipine and cut the lisinopril in half. So there is a question about the metoprolol Security Nurse Required: No Accompanied by: Is patient in pain?: Yes (back) Pain scale (1-10): 5 Allergies No Known Drug Allergies Allergy (Unverified 07/04/13 11:03) HIV Testing Offer - ages 13-64 Requirement for HIV testing offer been met?: Not in age range Coronavirus Screening Screening Are you currently positive or on isolation for COVID ?: No Do you have any NEW signs of one or more of the following?: no symptoms Do you have NEW signs of at least two of the following?: no symptoms HPI Additional HPI HPI Details: 69 YO male with question of BP meds which were changed by Heme/Onc for fast HR. They changed the med and wanted me to prescribe it and then they are giving Metoprolol Succinate BID which made no sense. This is why he is here today. he sees the [facility]/Heme[facility]Onc in [place]. His BP dropped last week. he is doing chemo and radiation. Todoris ay was the second round of chemo. Three days in a row of IV chemo and 18 days off for at least 3 or 4 rounds for lung CA (small cell). He gets the radiation every day for 5 days a week for 30 days ending 06/11/20. Amlodipine 10mg daily stopped. Metoprolol Succinatate 25mg daily to BID, Lisinopril 40mg daily to 1/2 tab daily. [facility] Medical History (Updated 04/30/20 @ 11:08 by Cuco Caldwell DO) History of pneumothorax Small cell lung cancer Surgical History Angioplasty of vein Carotid endarterectomy [...] Current every day smoker tobacco type: cigarettes alcohol intake: current alcohol intake frequency: holidays/special occasions only substance use type: painkillers Review of Systems Const Denies weight gain [...] no gallops, no murmurs and no rubs Other: 138/72 Extrem General: normal to inspection and no edema Assessment Plan Assessment Plan (1) Encounter for medication adjustment: Code(s): Z51.89 - Encounter for other specified aftercare Plan - Cuco Caldwell DO: BP med changes for tachycardia. BP controlled as is tachycardia. Chemo is draining his sodium and therefore depleting his body of magnesium. Take 2 buillion cubes in hot water TID while on chemo only. He is on Mag Ox 400mg BID and he just received three IV bags of Magnesium per patient. He has f/u in July just about when he is done his chemo and radiation for Small Cell Ca ncer. (2) Hypertension: Status: Chronic SNOMED Code(s): 24132868 Category: Medical Medications: Changed: From: metoprolol succinate ER TAKE ONE TABLET BY MOUTH EVERY DAY 90 tabs 3RF To: metoprolol succinate ER TAKE ONE TABLET BY MOUth twice a day 90 tabs 3RF (3) Small cell lung cancer: Status: Acute Code(s): C34.90 - Malignant neoplasm of unspecified part of unspecified bronchus or lung SNOMED Code(s): 168708888 Category: Medical Orders Other Medications: Changed: From: magnesium oxide 400 mg PO DAILY 90 tabs 3RF To: magnesium oxide 400 mg PO BID 90 tabs 3RF Instructions: DASH Eating Plan (GEN) Hypertension (GEN) Coding Level of Care Code 71015 Est Pt Intermediate Comp Exam Detailed Diagnoses Encounter for medication adjustment Z51.89 Hypertension I10 Small cell lung cancer C34.90 <Electronically signed by Cuco Caldwell DO> 05/30/20 1655 Name Value Range Interpretation Code Description Data Mirna rce(s) Supporting Document(s) ID Date Data Source [id number] 04/30/2020 10:37:[address] [facility] Patient Name: SVITLANA BURNHAM : 0 1950 Sex: M Pt Unit #: [id number] Location:[facility] Provider: Visit Date/Time: 04/30/20 Primary Insurance: [employer] Secondary Insurance: Self Pay Intake Vital Signs 04/30/20 10:38 Current Height 5 ft 11 in Current Weight 206 lb Weight Measurement Method Standing Scale BMI 28.7 BP 148/72 Blood Pressure Location Lt brachial Position Sitting Respiration 18 Pulse 65 Pulse Source Pulse Oximeter Pulse Oximetry (%) 96 Oxygen Delivery Method room air Intake Visit Reasons: Workman's Compensation Nurse Note: 69 year old male in for a workmans comp follow up. Voices no concerns Security Nurse Required: No Accompanied by: Self / Same as Patient Is patient in pain?: Yes (lower back) Pain scale (1-10): 5 Allergies No Known Drug Allergies Allergy (Unverified 07/04/13 11:03) Medications - Last Reconciled 04/30/20 by Cuco Caldwell DO amlodipine TAKE ONE TABLET BY MOUTH EVERY DAY aspirin 81 mg PO DAILY atorvastatin 40 mg PO QDAY budesonide-formoterol 80-4.5 mcg/actuation (Symbicort) 2 puffs inhalation BID cholecalciferol (vitamin D3) 2,000 units PO DAILY cranberry extract 200 mg PO DAILY fenofibrate nanocrystallized (Tricor) 1 tab PO DAILY flaxseed 1,000 mg PO BID gabapentin 300 mg PO TID hydrocodone-acetaminophen 5-325 mg 1 - 2 tabs PO Q6H PRN MDD 6 ipratropium-albuterol 20-100 mcg/actuation (Combivent Respimat) 1 puff inhalation QID lansoprazole 30 mg (2 x 15 mg) PO QDAY lisinopril TAKE ONE TABLET BY MOUTH EVERY DAY magnesium oxide 400 mg PO DAILY metoprolol succinate ER TAKE ONE TABLET BY MOUTH EVERY DAY multivitamin 1 tab PO DAILY omega 4-pvk-htn-fish oil 300-1,000 mg (Fish Oil) 1 cap PO BID ranitidine HCl 150 mg PO DAILY saw palmetto 160 mg PO DAILY tamsulosin TAKE ONE CAPSULE BY MOUTH EVERY DAY Fall Risk History of falls: No Ambulatory Aid:: None Ga it/Transferring:: Normal HIV Testing Offer - ages 13-64 Requirement for HIV testing offer been met?: Not in age range SBIRT Annual Questionnaire Are you currently in [...] return to daycare/school/sports/work: No Coronavirus Screening Screening Are you currently positive or on isolation for COVID ?: No Do you have any NEW signs of one or more of the following?: no symptoms Do you have NEW signs of at least two of the following?: no symptoms PFSH Medical History (Updated 04/30/20 @ 11:08 by Cuco Caldwell DO) History of pneumothorax Small cell lung cancer Surgical History Angioplasty of vein Carotid endarterectomy [...] Current every day smoker tobacco type: cigarettes alcohol intake: current alcohol intake frequency: holidays/special occasions only substance use type: painkillers HPI Additional HPI HPI Details: 69 YO male with PMH listed is here for comp LBP. [facility] His back has not been good. He has lung CA. He starts radiation and chemo. He has a port. he hassmall cell cancer. Laying on the table for CT's made his back worse. He had collapsed lung and he was in the hospital with a chest tube. He was at [facility] with the [facility]. Dr. Kirkland is his Heme/Onc and the radiation doctor Dr. Cardenas. He cut his smoking in half. Review of Systems Const Denies weight gain [...] no murmurs and no rubs Musc Other: walks with cane in R hand, slight antalgic gait base of spine non-tender Extrem General: normal to inspection and no edema Assessment Plan Assessment Plan (1) Work related injury: Code(s): Y99.0 - Civilian activity done for income or pay Plan - Cuco Caldwell, DO: LBP comp is slightly worse. Increase Gabapentin to 300mg AM, 300mg afternoon and 600mg in the evening. F/u 3 months. #1 In my opinion, the injury of the patient at the work sight is the direct cause of the symptoms involved. #2 The patient's complaints are consistent with the injury. #3 The history of the patient's injury is consistent with the objective findings: physical exam, radiological studies. #4 100% impairment. #5 The patient is not working. Coding Level of Care Code 92901 Est Pt Intermediate Comp Exam Detailed Diagnoses Work related injury Y99.0 <Electronically signed by Cuco Caldwell DO> 04/30/20 1119 Name Value Range Interpretation Code Description Data Mirna rce(s) Supporting Document(s) ID Date Data Source [id number] 03/26/2020 12:50:00 PM EST [facility] Name Value Range Interpretation Code Description Data Mirna rce(s) Supporting Document(s) SARS coronavirus 2 RNA [Presence] in Res piratory specimen by BERNADINE with probe detection NEGATIVE [facility]SDWV This lab was ordered by [facility] a nd reported by [facility]. ID Date Data Source [id number] 01/15/2020 10:35:00 AM EST [facility] Patient Name: SVITLANA BURNHAM : 0 1950 Sex: M Pt Unit #: [id number] Location:[facility] Provider: Visit Date/Time: 01/15/20 Primary Insurance: [...] up visit. Patient offers no concerns today. Security Nurse Required: No Accompanied by: self Is patient in pain?: Yes (Lower Back, Right leg pain) Pain scale (1-10): 6 Allergies No Known Drug Allergies Allergy (Unverified 07/04/13 11:03) Medications amlodipine 10 mg PO QDAY aspirin 81 mg PO DAILY atorvastatin 40 mg PO QDAY budesonide-formoterol 80-4.5 mcg/actuation (Symbicort) 2 puffs inhalation BID cholecalciferol (vitamin D3) 2,000 units PO DAILY cranberry extract 200 mg PO DAILY fenofibrate nanocrystallized (Tricor) 1 tab PO DAILY flaxseed 1,000 mg PO BID gabapentin 300 mg PO BID hydrocodone-acetaminophen 5- 325 mg 1 - 2 tabs PO Q6H PRN MDD 6 ipratropium-albuterol 20-100 mcg/actuation (Combivent Respimat) 1 puff inhalation QID lansoprazole 30 mg (2 x 15 mg) PO QDAY lisinopril 40 mg PO QDAY magnesium oxide 400 mg PO DAILY metoprolol succinate ER TAKE ONE TABLET BY MOUTH EVERY DAY multivitamin 1 tab PO DAILY omega 0-ihg-ggg-fish oil 300-1,000 mg (Fish Oil) 1 cap [...] Screening Screening Have you traveled outside of [facility] or [employer] in the last 14 days.: No Has [...] Mirna rce(s) Supporting Document(s) Procedure Social History No Information
[2021-01-18] MEDS ORDERED: MORPHINE 4 MG/ML 1ML VIAL/SYRINGE (J2270) IV PRN (20:30)
[2021-01-18] MEDS ORDERED: ONDANSETRON 4MG/2ML VIAL IV ONE (20:30)
[2021-01-18 20:57] LABS: BASO % 0.3 % (0.0-1.0); EOS % 0.4 % (0.0-3.0); HEMATOCRIT 34.6 % (42.0-52.0); HEMOGLOBIN 11.6 g/dl (13.5-17.5); LYMPH # 0.7 10^3/uL (1.5-5.0); LYMPH % 7.9 % (24.0-44.0); MEAN CORPUSCULAR HEMOGLOBIN 28.6 pg (27.0-33.0); MEAN CORPUSCULAR HGB CONC 33.5 g/dl (32.0-36.5); MEAN CORPUSCULAR VOLUME 85.4 fl (80.0-96.0); MONO # 0.8 10^3/uL (0.0-0.8); MONO % 8.9 % (2.0-8.0); NEUTROPHILS # 7.6 10^3/uL (1.5-8.5); NEUTROPHILS % 82.2 % (36.0-66.0); PLATELET COUNT, AUTOMATED 264 10^3/uL (150-450); RED BLOOD COUNT 4.05 10^6/uL (4.30-6.10); WHITE BLOOD COUNT 9.3 10^3/uL (4.0-10.0)
[2021-01-18] MEDS ORDERED: LIDOCAINE 5% (LIDODERM) PATCH TD SCH (21:00)
[2021-01-18 21:01] LABS: ABG BASE EXCESS -3.3 (-2.0-2.0); ABG PARTIAL PRESSURE CO2 30.4 mmHg (35.0-45.0); ABG PARTIAL PRESSURE O2 72.2 mmHg (75.0-100.0); ABG STANDARD HCO3 21.7 MEQ/L (22.0-26.0); ABG TOTAL CO2 20.9 MEQ/L (23.0-31.0); ABG pH (ARTERIAL) 7.435 UNITS (7.350-7.450)
[2021-01-18 21:24] LABS: ALBUMIN 3.6 GM/DL (3.2-5.2); ALT/SGPT 18 U/L (12-78); BILIRUBIN,DIRECT 0.2 MG/DL (0.0-0.2); BILIRUBIN,TOTAL 0.5 MG/DL (0.2-1.0); BLOOD UREA NITROGEN 19 MG/DL (7-18); CALCIUM LEVEL 8.2 MG/DL (8.8-10.2); CARBON DIOXIDE LEVEL 23 MEQ/L (21-32); CHLORIDE LEVEL 105 MEQ/L (98-107); CPK CREATINE PHOSPHOKINASE 202 U/L (39-308); CREATININE FOR GFR 1.64 MG/DL (0.70-1.30); GLOMERULAR FILTRATION RATE 44.4 (>42); GLUCOSE, FASTING 107 MG/DL (70-100); MB/CK RELATIVE INDEX 0.99 (< OR =4); NT-PRO BNP 2625 PG/ML (<125); POTASSIUM SERUM 4.3 MEQ/L (3.5-5.1); SODIUM LEVEL 138 MEQ/L (136-145); TOTAL PROTEIN 7.3 GM/DL (6.4-8.2); TROPONIN I < 0.02 NG/ML (< 0.10)
[2021-01-18 21:35] LABS: RSV AMPLIFICATION NEGATIVE (NEGATIVE)
--- OUTSIDE RECORDS SUMMARY | 2021-01-18 22:46 | CCD ---
Author Author [facility] Organization [facility] Address Unknown Phone Unavailable Care Team Providers Care Iron Miner Name Role Phone Chapo Lawson MD Unavailable Unavailable Chapo Lawson MD Unavailable Unavailable Chapo Lawson MD Unavailable Unavailable Chapo Lawson MD Unavailable Unavailable Chapo Lawson MD Unavailable Unavailable Chapo Lawson MD Unavailable Unavailable Mi, A Marian PA [...] is protected by Article 27-F of the [facility] Public Health law. If you continue you may have access to information: Regarding HIV / AIDS; Provided by facilities licensed or operated by the [facility] Office of Mental Health; or Provided by the [facility] Office for People With Developmental Disabilities. If such information is present, then the following [facility] mandated warning applies: This information [...] law may result in a fine or custodial sentence or both. A general authorization for the release of medical or other information is NOT sufficient authorization for further disc losure. Allergies and Adverse Reactions Type Description Substance Reaction Status Data Source(s ) Food allergy No Known Food Allergies No Known Food Allergies [facility] Family History Family Member Name Family Member Gender Family Member Status Date o f Status Description Data Source(s) Unknown Condition [facility] Unknown Condition [facility] Unknown Condition [facility] Unknown Condition [facility] Unknown Condition [facility] Unknown Condition [facility] Unknown Condition [facility] Unknown Condition [facility] Unknown Condition [facility] Unknown Condition [facility] Unknown Condition [facility] Unknown Condition [facility] Unknown Condition [facility] Unknown Condition [facility] Unknown Condition [facility] Unknown Condition [facility] Unknown Condition [facility] Unknown Condition [facility] Unknown Male Problem MEDENT ([facility] rdiology) Encounters Encounter Providers Location Date Indications Data Source(s ) Emergency Attender: RONY FERNÁNDEZ MDConsultant: Marian VARGHESE 01/18/2021 10:46:00 AM EDT - 01/18/2021 06:29:00 PM EDT [facility] Patient discharged. Emergency Attender: Chapo Lawson MDConsultant: Marian Fountain 01/17/2021 04:40:00 PM EDT - 01/17/2021 07:24:00 PM EDT [facility] Patient discharged. Outpatient Attender: Cuco Caldwell DO 11/25/2020 05:07:[address] [facility] Outpatient Attender: Cuco Caldwell DO 11/25/2020 05:03:[address] [facility] Outpatient Attender: Cuco Vieraer: Cuco Caldwell DO 11/25/2020 01:37:00 PM EDT - 11/25/2020 03:04:00 PM EDT [facility] Emergency Attender: RONY FERNÁNDEZ MDConsultant: Cuco Caldwell DO 11/23/2020 08:04:00 PM EDT - 11/24/2020 12:24:00 AM EDT [facility] Patient discharged. Outpatient Attender: Cuco Young: Cuco Caldwell DO 10/31/2020 11:14:00 AM EDT [facility] Outpatient Attender: Cuco Young: Cuco Caldwell DO 08/08/2020 11:32:00 AM EDT [facility] Outpatient Attender: Cuco Young: Cuco Caldwell DO 05/30/2020 03:35:00 PM EDT - 05/30/2020 04:54:00 PM EDT [facility] Outpatient Attender: Cuco Young: Cuco Caldwell DO 04/30/2020 10:32:00 AM EST - 04/30/2020 11:21:00 AM EST [facility] Outpatient Attender: Cuco Young: Cuco Caldwell DO 01/15/2020 10:33:00 AM EST - 01/15/2020 11:02:00 AM EST [facility] Immunizations Vaccine Date Status Description Data Source(s) COVID-19 Moderna 06/08/2020 12:00:[address] [facility] COVID-19 Moderna 05/11/2020 12:00:[address] [facility] INFLUENZA VIRUS VACCINE QUADRIVAL SPLIT 2020-21(65 YR UP)/PF 01/11/2020 12:00:00 AM EDT completed [facility] IIV3. This is one of two codes replacing CVX 15, which is being retired. 01/09/2020 12:00:[address] [facility] IIV3. This is one of two codes replacing CVX 15, which is being retired. 01/09/2020 12:00:00 AM EDT completed influenza vaccine, inactivated [facility] IIV3. This is one of two codes replacing CVX 15, which is being retired. 01/09/2020 12:00:00 AM EDT completed influenza vaccine, inactivated [facility] IIV3. This is one of two codes replacing CVX 15, which is being retired. 01/09/2020 12:00:00 AM EDT completed influenza vaccine, inactivated [facility] Medications Medication Brand Name Start Date [...] Hydrocodone-Acetaminophen 10/24/2020 12:27:39 PM EDT TAB active [facility] Acetaminophen 325 MG / Hydrocodone Bitartrate [...] Hydrocodone-Acetaminophen 09/26/2020 04:45:33 PM EDT TAB completed [facility] atorvastatin 40 MG Oral Tablet ATORVASTATIN CALCIUM [...] Hydrocodone-Acetaminophen 08/29/2020 09:15:09 AM EDT TAB completed [facility] 50 mg 08/06/2020 12:00:00 AM EDT tablet [...] Hydrocodone-Acetaminophen 07/30/2020 07:08:16 PM EDT TAB completed [facility] Acetaminophen 325 MG / Hydrocodone Aryan trate 5 MG Oral Tablet Hydrocodone-Acetaminophen Hydrocodone-Acetaminophen 07/26/2020 01:46:51 PM EDT TAB completed [facility] Acetaminophen 325 MG / Hydrocodone Aryan trate 5 MG Oral Tablet Hydrocodone-Acetaminophen Hydrocodone-Acetaminophen 07/23/2020 04:50:22 PM EDT TAB completed [facility] Acetaminophen 325 MG / Hydrocodone Aryan trate 5 MG Oral Tablet Hydrocodone-Acetaminophen Hydrocodone-Acetaminophen 07/23/2020 01:08:07 PM EDT TAB completed [facility] Acetaminophen 325 MG / Hydrocodone Bitartrate 5 [...] Atorvastatin 07/18/2020 08:55:58 AM EDT 0 active [facility] 100,000 unit/mL 07/14/2020 12:00:00 AM EDT suspension [...] 06/27/2020 10:49:55 AM EDT [address] [facility] Lidocaine 25 MG/ML / Prilocaine 25 MG/ML [...] Hydrocodone-Acetaminophen 06/24/2020 06:39:18 PM EDT TAB completed [facility] Acetaminophen 325 MG / Hydrocodone Aryan trate 5 MG Oral Tablet Hydrocodone-Acetaminophen Hydrocodone-Acetaminophen 06/24/2020 02:53:56 PM EDT TAB completed [facility] 20 mEq 06/19/2020 12:00:00 AM EDT tablet [...] 04:42 :22 PM EDT 400 MG active [facility] Magnesium Oxide 400 MG Oral Tablet Magnesium Oxide 05/30/2020 04:42 :22 PM EDT 400 MG [facility] 24 HR metoprolol succinate 25 MG Extende d Release Oral Tablet Metoprolol Succinate Metoprolol Succinate 05/30/2020 04:41:41 PM EDT [address] [facility] 24 HR metoprolol succinate 25 MG Extende d Release Oral Tablet Metoprolol Succinate Metoprolol Succinate 05/30/2020 04:41:41 PM EDT [address] [facility] Lisinopril 40 MG Oral Tablet Lisinopril 05/30/2020 08:27:58 AM EDT 20 MG active [facility] Lisinopril 40 MG Oral Tablet Lisinopril 05/30/2020 08:27:58 AM EDT 20 MG active [facility] 5-325 mg 05/20/2020 12:00:00 AM EST [...] Hydrocodone-Acetaminophen 05/17/2020 06:00:13 PM EST TAB completed [facility] Acetaminophen 325 MG / Hydrocodone Aryan trate 5 MG Oral Tablet Hydrocodone-Acetaminophen Hydrocodone-Acetaminophen 05/17/2020 06:00:13 PM EST TAB active [facility] Acetaminophen 325 MG / Hydrocodone Aryan trate 5 MG Oral Tablet Hydrocodone-Acetaminophen Hydrocodone-Acetaminophen 05/17/2020 05:23:41 PM EST TAB completed [facility] Acetaminophen 325 MG / Hydrocodone Aryan trate 5 MG Oral Tablet Hydrocodone-Acetaminophen Hydrocodone-Acetaminophen 05/17/2020 05:23:41 PM EST TAB completed [facility] [id number] 05/13/2020 12:00:00 AM EST Suspension 240 USE 10ML TO SWISH AND SPIT FOUR TIMES A DAY NEEDED FOR ESOPHAGITIS USE 10ML TO SWISH AND SPIT FOUR TIMES A DAY NEEDED FOR ESOPHAGITIS SOLD: 06/06/2020 [facility] [id number] 05/13/2020 12:00:00 AM EST Suspension 240 USE 10ML TO SWISH AND SPIT FOUR TIMES A DAY NEEDED FOR ESOPHAGITIS USE 10ML TO SWISH AND SPIT FOUR TIMES A DAY NEEDED FOR ESOPHAGITIS SOLD: 05/13/2020 [facility] gabapentin 300 MG Oral Capsule Gabapentin Gabapentin 2020 06:49:42 PM EST 300 MG active [facility] gabapentin 300 MG Oral Capsule Gabapentin Gabapentin 2020 06:49:42 PM EST 300 MG active [facility] gabapentin 300 MG Oral Capsule Gabapentin Gabapentin 2020 11:19:50 AM EST [address] [facility] gabapentin 300 MG Oral Capsule Gabapentin Gabapentin 2020 11:19:50 AM EST [address] [facility] gabapentin 300 MG Oral Capsule Gabapentin Gabapentin 2020 11:19:50 AM EST 300 MG active [facility] 8 mg 04/30/2020 12:00:00 AM EST tablet [...] Hydrocodone-Acetaminophen 04/19/2020 10:54:43 AM EST TAB completed [facility] Acetaminophen 325 MG / Hydrocodone Aryan trate 5 MG Oral Tablet Hydrocodone-Acetaminophen Hydrocodone-Acetaminophen 04/19/2020 10:54:43 AM EST TAB completed [facility] Acetaminophen 325 MG / Hydrocodone Aryan trate 5 MG Oral Tablet Hydrocodone-Acetaminophen Hydrocodone-Acetaminophen 04/19/2020 10:54:43 AM EST TAB active [facility] 10 mg 04/03/2020 12:00:00 AM EST tablet [...] Lisinopril 04/02/2020 08:31:54 AM EST 0 active [facility] Lisinopril 40 MG Oral Tablet Lisinopril 04/02/2020 08:31:54 AM EST 0 completed [facility] Lisinopril 40 MG Oral Tablet Lisinopril 04/02/2020 08:31:54 AM EST 0 completed [facility] 5-325 mg 03/23/2020 12:00:00 AM EST tablet 180 TAKE 1-2 TABLETS BY MOUTH EVERY 6 HOURS NEEDED FOR PAIN MAXIMUM DAILY DOSE = 6 TAKE 1-2 TABLETS BY MOUTH EVERY 6 HOURS NEEDED FOR PAIN MAXIMUM DAILY DOSE = 6 SOLD: 03/23/2020 [facility] Prednisone 20 MG Oral Tablet Prednisone 03/22/2020 05:53:14 PM EST 20 MG completed [facility] Prednisone 20 MG Oral Tablet Prednisone 03/22/2020 05:53:14 PM EST 20 MG completed [facility] Prednisone 20 MG Oral Tablet Prednisone 03/22/2020 05:53:14 PM EST 20 MG completed [facility] doxycycline hyclate 100 MG Oral Capsule Doxycycline Hyclate Doxycycline Hyclate 03/22/2020 05:53:02 PM EST [address] [facility] doxycycline hyclate 100 MG Oral Capsule Doxycycline Hyclate Doxycycline Hyclate 03/22/2020 05:53:02 PM EST [address] [facility] doxycycline hyclate 100 MG Oral Capsule Doxycycline Hyclate Doxycycline Hyclate 03/22/2020 05:53:02 PM EST 100 MG [facility] 20 mg 03/22/2020 12:00:00 AM EST [...] Hydrocodone-Acetaminophen 03/21/2020 04:22:04 PM EST TAB completed [facility] Acetaminophen 325 MG / Hydrocodone Aryan trate 5 MG Oral Tablet Hydrocodone-Acetaminophen Hydrocodone-Acetaminophen 03/21/2020 04:22:04 PM EST TAB completed [facility] Acetaminophen 325 MG / Hydrocodone Aryan trate 5 MG Oral Tablet Hydrocodone-Acetaminophen Hydrocodone-Acetaminophen 03/21/2020 04:22:04 PM EST TAB completed [facility] Amlodipine 10 MG Oral Tablet Amlodipine 02/23/2020 05:49:32 PM EST 0 active [facility] Amlodipine 10 MG Oral Tablet Amlodipine 02/23/2020 05:49:32 PM EST 0 active [facility] Amlodipine 10 MG Oral Tablet Amlodipine 02/23/2020 05:49:32 PM EST 0 completed [facility] 5-325 mg 02/23/2020 12:00:00 AM EST tablet 180 TAKE 1-2 TABLETS BY MOUTH EVERY 6 HOURS NEEDED FOR PAIN MAXIMUM DAILY DOSE = 6 TAKE 1-2 TABLETS BY MOUTH EVERY 6 HOURS NEEDED FOR PAIN MAXIMUM DAILY DOSE = 6 SOLD: 02/23/2020 [facility] Acetaminophen 325 MG / Hydrocodone Aryan trate 5 MG Oral Tablet Hydrocodone-Acetaminophen Hydrocodone-Acetaminophen 02/20/2020 06:21:33 PM EST TAB completed [facility] Acetaminophen 325 MG / Hydrocodone Aryan trate 5 MG Oral Tablet Hydrocodone-Acetaminophen Hydrocodone-Acetaminophen 02/20/2020 06:21:33 PM EST TAB completed [facility] Acetaminophen 325 MG / Hydrocodone Aryan trate 5 MG Oral Tablet Hydrocodone-Acetaminophen Hydrocodone-Acetaminophen 02/20/2020 06:21:33 PM EST TAB completed [facility] 5-325 mg 01/24/2020 12:00:00 AM EST tablet 180 TAKE 1-2 TABLETS BY MOUTH EVERY 6 HOURS NEEDED FOR PAIN MAXIMUM DAILY DOSE = 6 TAKE 1-2 TABLETS BY MOUTH EVERY 6 HOURS NEEDED FOR PAIN MAXIMUM DAILY DOSE = 6 SOLD: 01/25/2020 [facility] Acetaminophen 325 MG / Hydrocodone Aryan trate 5 MG Oral Tablet Hydrocodone-Acetaminophen Hydrocodone-Acetaminophen 01/15/2020 01:37:06 PM EST TAB completed [facility] Acetaminophen 325 MG / Hydrocodone Aryan trate 5 MG Oral Tablet Hydrocodone-Acetaminophen Hydrocodone-Acetaminophen 01/15/2020 01:37:06 PM EST TAB completed [facility] Acetaminophen 325 MG / Hydrocodone Aryan trate 5 MG Oral Tablet Hydrocodone-Acetaminophen Hydrocodone-Acetaminophen 01/15/2020 01:37:06 PM EST TAB completed [facility] gabapentin 300 MG Oral Capsule Gabapentin Gabapentin 2019 11:03:22 AM EST [address] [facility] gabapentin 300 MG Oral Capsule Gabapentin Gabapentin 2019 11:03:22 AM EST [address] [facility] gabapentin 300 MG Oral Capsule Gabapentin Gabapentin 2019 11:03:22 AM EST 300 MG [facility] 0.4 mg 01/03/2020 12:00:00 AM EDT [...] Tamsulosin 01/02/2020 01:53:35 PM EDT 0 active [facility] Tamsulosin hydrochloride 0.4 MG Oral Capsule Tamsulosin 01/02/2020 01:53:35 PM EDT 0 active [facility] Tamsulosin hydrochloride 0.4 MG Oral Capsule Tamsulosin 01/02/2020 01:53:35 PM EDT 0 active [facility] Tamsulosin hydrochloride 0.4 MG Oral Capsule Tamsulosin 01/02/2020 01:53:35 PM EDT 0 active [facility] 5-325 mg 12/26/2019 12:00:00 AM EDT [...] Hydrocodone-Acetaminophen 12/25/2019 08:59:59 AM EDT TAB completed [facility] Acetaminophen 325 MG / Hydrocodone Aryan trate 5 MG Oral Tablet Hydrocodone-Acetaminophen Hydrocodone-Acetaminophen 12/25/2019 08:59:59 AM EDT TAB completed [facility] Acetaminophen 325 MG / Hydrocodone Aryan trate 5 MG Oral Tablet Hydrocodone-Acetaminophen Hydrocodone-Acetaminophen 12/25/2019 08:59:59 AM EDT TAB active [facility] Acetaminophen 325 MG / Hydrocodone Aryan trate 5 MG Oral Tablet Hydrocodone-Acetaminophen Hydrocodone-Acetaminophen 12/25/2019 08:59:59 AM EDT TAB completed [facility] 5-325 mg 11/26/2019 12:00:00 AM EDT tablet [...] 11/23/2019 07:46:14 PM EDT TAB completed [facility] Acetaminophen 325 MG / Hydrocodone Aryan trate 5 MG Oral Tablet Hydrocodone-Acetaminophen Hydrocodone-Acetaminophen 11/23/2019 07:46:14 PM EDT TAB completed [facility] Acetaminophen 325 MG / Hydrocodone Aryan trate 5 MG Oral Tablet Hydrocodone-Acetaminophen Hydrocodone-Acetaminophen 11/23/2019 07:46:14 PM EDT TAB completed [facility] Acetaminophen 325 MG / Hydrocodone Aryan trate 5 MG Oral Tablet Hydrocodone-Acetaminophen Hydrocodone-Acetaminophen 11/23/2019 07:46:14 PM EDT TAB completed [facility] Acetaminophen 325 MG / Hydrocodone Aryan trate 5 MG Oral Tablet Hydrocodone-Acetaminophen Hydrocodone-Acetaminophen 11/23/2019 09:45:47 AM EDT TAB completed [facility] Acetaminophen 325 MG / Hydrocodone Aryan trate 5 MG Oral Tablet Hydrocodone-Acetaminophen Hydrocodone-Acetaminophen 11/23/2019 09:45:47 AM EDT TAB completed [facility] Acetaminophen 325 MG / Hydrocodone Aryan trate 5 MG Oral Tablet Hydrocodone-Acetaminophen Hydrocodone-Acetaminophen 11/23/2019 09:45:47 AM EDT TAB completed [facility] Acetaminophen 325 MG / Hydrocodone Aryan trate 5 MG Oral Tablet Hydrocodone-Acetaminophen Hydrocodone-Acetaminophen 11/23/2019 09:45:47 AM EDT TAB completed [facility] Acetaminophen 325 MG / Hydrocodone Aryan trate 5 MG Oral Tablet Hydrocodone-Acetaminophen Hydrocodone-Acetaminophen 10/26/2019 06:52:48 PM EDT TAB completed [facility] Acetaminophen 325 MG / Hydrocodone Aryan trate 5 MG Oral Tablet Hydrocodone-Acetaminophen Hydrocodone-Acetaminophen 10/26/2019 06:52:48 PM EDT TAB completed [facility] Acetaminophen 325 MG / Hydrocodone Aryan trate 5 MG Oral Tablet Hydrocodone-Acetaminophen Hydrocodone-Acetaminophen 10/26/2019 06:52:48 PM EDT TAB completed [facility] Acetaminophen 325 MG / Hydrocodone Aryan trate 5 MG Oral Tablet Hydrocodone-Acetaminophen Hydrocodone-Acetaminophen 10/26/2019 06:52:48 PM EDT TAB completed [facility] 25 mg 10/10/2019 12:00:00 AM EDT tablet [...] Succinate 10/09/2019 11:15:00 AM EDT 0 completed [facility] 24 HR metoprolol succinate 25 MG Extende d Release Oral Tablet Metoprolol Succinate Metoprolol Succinate 10/09/2019 11:15:00 AM EDT 0 completed [facility] atorvastatin 40 MG Oral Tablet Atorvastatin Atorvastatin 10/09/2019 11:14:47 AM EDT 40 MG completed [facility] atorvastatin 40 MG Oral Tablet ATORVASTATIN CALCIUM [...] 2019 01:25:25 PM EDT [address] [facility] gabapentin 300 MG Oral Capsule Gabapentin Gabapentin 2019 01:25:25 PM EDT [address] [facility] gabapentin 300 MG Oral Capsule Gabapentin Gabapentin 2019 01:25:25 PM EDT 300 MG [facility] 15 mg 07/16/2019 12:00:00 AM EDT capsule,delayed release (DR/EC) 180 TAKE TWO CAPSULES BY MOUTH EVERY DAY TAKE TWO CAPSULES BY MOUTH EVERY DAY SOLD: 04/04/2020 [facility] 15 mg 07/16/2019 12:00:00 AM EDT capsule,delayed release (DR/EC) 180 TAKE TWO CAPSULES BY MOUTH EVERY DAY TAKE TWO CAPSULES BY MOUTH EVERY DAY SOLD: 01/10/2020 [facility] lansoprazole 15 MG Delayed Release Oral Capsule Lansoprazole Lansoprazole 07/14/2019 01:22:40 PM EDT [address] [facility] Amlodipine 10 MG Oral Tablet Amlodipine 04/14/2019 08:43:39 AM EST 10 MG completed [facility] Amlodipine 10 MG Oral Tablet Amlodipine 04/14/2019 08:43:39 AM EST 10 MG completed [facility] Amlodipine 10 MG Oral Tablet Amlodipine 04/14/2019 08:43:39 AM EST 10 MG completed [facility] Lisinopril 40 MG Oral Tablet Lisinopril 04/14/2019 08:43:09 AM EST 40 MG completed [facility] Lisinopril 40 MG Oral Tablet Lisinopril 04/14/2019 08:43:09 AM EST 40 MG completed [facility] Lisinopril 40 MG Oral Tablet Lisinopril 04/14/2019 08:43:09 AM EST 40 MG completed [facility] 10 mg 04/14/2019 12:00:00 AM EST [...] 01/17/2019 08:45:27 AM EST 0.4 MG completed [facility] Tamsulosin hydrochloride 0.4 MG Oral Capsule Tamsulosin 01/17/2019 08:45:27 AM EST 0.4 MG completed [facility] Tamsulosin hydrochloride 0.4 MG Oral Capsule Tamsulosin 01/17/2019 08:45:27 AM EST 0.4 MG completed [facility] Tamsulosin hydrochloride 0.4 MG Oral Capsule Tamsulosin 01/17/2019 08:45:27 AM EST 0.4 MG completed [facility] Magnesium Oxide 400 MG Oral Tablet Magnesium Oxide 03/16/2018 07:52 :00 AM EST 400 MG completed [facility] Magnesium Oxide 400 MG Oral Tablet Magnesium Oxide 03/16/2018 07:52 :00 AM EST 400 MG completed [facility] Insurance Providers Payer name Policy type / Coverage type Policy ID Covered alliance party ID Covered alliance party's relationship to vargas Policy [employer] Plan Information WELLCARE [id number] SP [id number] 'S ADMINISTRATION [id number] SP [id number] WELLCARE -O/P [id number] 18 [id number] ADMINSTRATION -O/P [id number] 18 [id number] MEDICARE PART A -O/P [id number] 18 [id number] [place] [place] CC[place] [id number] SP [id number] 'S ADMINISTRATION [id number] SP [id number] [place]UM [place] O [id number] S [id number] WELLCARE [id number] SP [id number] TODAYS OPTIONS [id number] SP [id number] TODAYS OPTIONS [id number] [place] [id number] Medicare [place] Primary [id number] Self 1A [id number] [facility] Medicare Medigap Part B [id number] Self VY [id number] [facility] Medicar Commercial [id number] Self [id number] [facility] MEDICARE -O/P [id number] 18 [id number] [facility] MEDICARE CHOICE [id number] PT [id number] [facility] MEDICARE CHOICE [id number] PT [id number] [facility] MEDICARE CHOICE [id number] PT [id number] [facility] MEDICARE CHOICE [id number] PT [id number] Problems, Conditions, and Diagnoses Code Display Name Description Problem Type Effective Dates Data Source(s) W89319 Personal history of other malignant neop lasm of bronchus and lung Personal history of other malignant neoplasm of bronchus and lung Diagnosis 11/23/2020 08:04:00 PM EDT [place] [id number] Nicotine dependence, cigarettes, uncompl icated Nicotine dependence, cigarettes, uncomplicated Diagnosis 11/23/2020 08:04:00 PM EDT [facility] I10 Essential (primary) hypertension Essential (primary) h ypertension Diagnosis 11/23/2020 08:04:00 PM EDT [facility] E8770 Fluid overload, unspecified Fluid overload, unspecifie d Diagnosis 11/23/2020 08:04:00 PM EDT [facility] R0600 Dyspnea, unspecified Dyspnea, unspecified Diagnosis 11/23/2020 08:04:00 PM EDT [facility] Surgeries/Procedures No Information Results ID Date Data Source [id number] 01/18/2021 12:15:00 PM EDT [facility] [address] [place] [address] PHONE: [phone] FAX: [phone] Name .................. : MONO GALLyle H Acct Number.................. : [id number] ROOM. ................. : VT-06 Number ................... : [id number] Stay type ............. : E/R Discharge Date......... ... : Admit Date ......... : 03/20/20 Admit Phys .................... : COONEYNORM Date of ....... : 1950 Family Phys ................... : MI NASSAR Phone .................. : [phone] Age ................................ : 70 Film# .................. .:[id number] Sex ................................. : M Unsigned transcriptions are preliminary reports and do not represent a medical or legal document CHEST PORTABLE [id number] COMPLETE:01/18/21 11:31 93089 Reason(s): Chest Pain PORTABLE CHEST SINGLE VIEW [...] By Eulogio Batres MD , 01/18/21 12:15, JWS Transcribe Initials: TEZ , Transcribe Date: 01/18/21 11:43, Dictation Date: Copy for: 010 EMERGENCY SRV Copy for: EMERGENCY DEPT via modem Copy for: 710 MED REC Page 1 of 1 Name Value Range Interpretation Code Description Data Mirna rce(s) Supporting Document(s) ID Date Data Source [id number] 01/18/2021 01:33:00 PM EDT [facility] NOT DETECTEDNOT DETECTED{ PROC EDURAL CONTROL [...] rce(s) Supporting Document(s) ID Date Data Source [id number] 01/18/2021 01:53:00 PM EDT [facility] Name Value Range Interpretation Code Description Data Mirna rce(s) Supporting Document(s) Influenza virus A Ag [Presence] in Nasopharynx by Immunoassa y NEGATIVE NORMAL: NEGATIVE [facility] Influenza virus B Ag [Presence] in Nasopharynx by Immunoassa y NEGATIVE NORMAL: NEGATIVE [facility] NEGATIVENEGATIVE PROCEDURAL CO NTROL VALID KIT [...] other patient managementdecisions. ID Date Data Source [id number] 01/18/2021 01:49:00 PM EDT [facility] Name Value Range Interpretation Code Description Data Mirna rce(s) Supporting Document(s) RSV ANTIGEN NEGATIVE NORMAL: NEGATIVE [facility] RSV ANTIGEN REENTER NEGATIVE NORMAL: NEGATIVE [facility] { PROCEDURAL CONTROL VALID ){ KIT LOT # [id number] ){ KIT EXP DATE 06/25/21 ) ID Date Data Source [id number] 01/18/2021 01:56:00 PM EDT [facility] Name Value Range Interpretation Code Description Data Mirna rce(s) Supporting Document(s) Magnesium [Mass/volume] in Serum or Plasma 1.0 MG/DL 1.7 - 2.2 L [facility] ID Date Data Source [id number] 01/18/2021 01:56:00 PM EDT [facility] Name Value Range Interpretation Code Description Data Mirna rce(s) Supporting Document(s) COMPREHENSIVE METABOLIC PANEL [facility] COMPREHENSIVE METABOLIC PANEL Sodium [Moles/volume] in Serum or Plasma 137 mEq/L 134 - 153 [facility] Potassium [Moles/volume] in Serum or Plasma 4.5 mEq/L 3.6 - 5.0 [facility] Chloride [Moles/volume] in Serum or Plasma 101 mEq/L 98 - 107 [facility] Carbon dioxide, total [Moles/volume] in Serum or Plasma 24 MEQ/L 22 - 30 [facility] Glucose [Mass/volume] in Serum or Plasma 100 MG/DL 70 - 99 H [facility] BUN 20 MG/DL 7 - 21 [facility] Creatinine [Mass/volume] in Serum or Plasma 1.9 MG/DL 0.7 - 1.5 H [facility] BUN/CREAT 11 8 - 27 [facility] Protein [Mass/volume] in Serum or Plasma 6.7 G/DL 6.3 - 8.2 [facility] Albumin [Mass/volume] in Serum or Plasma 4.1 G/DL 3.9 - 5.0 [facility] Globulin [Mass/volume] in Serum by calculation 2.6 GM/DL 2.4 - 3.2 [facility] A/G RATIO 1.6 0.8 - 2.0 [facility] Calcium [Mass/volume] in Serum or Plasma 8.2 MG/DL 8.4 - 10.2 L [facility] Bilirubin.total [Mass/volume] in Serum or Plasma <0.7 MG/DL 0.2 - 1.3 [facility] Alkaline phosphatase [Enzymatic activity/volume] in Serum or Plasma 42 U/L 38 - 126 [facility] Aspartate aminotransferase [Enzymatic activity/volume] in Serum or Plasma 21 U/L 5 - 40 [facility] Alanine aminotransferase [Enzymatic activity/volume] in Seru m or Plasma 11 U/L 7 - 56 [facility] Anion gap 3 in Serum or Plasma 12.0 mmol/L 8.0 - 16.0 [facility] AGE 70 [facility] NON-AA GFR 37 mL/min [facility] AMER GFR 45 mL/min [facility] Male GFR In [...] >32 mL/min Normal ID Date Data Source [id number] 01/18/2021 01:56:00 PM EDT [facility] Name Value Range Interpretation Code Description Data Mirna rce(s) Supporting Document(s) BNP 3087 PG/ML 0 - 125 [facility] ID Date Data Source [id number] 01/18/2021 01:56:00 PM EDT [facility] Name Value Range Interpretation Code Description Data Mirna rce(s) Supporting Document(s) TROPONIN T <0.01 NG/ML 0.00 - 0.10 [facility] ospital TROPONIN T0.1 ng/ml Recommended as the c linical threshold value forTroponin T. ID Date Data Source [id number] 01/18/2021 01:15:00 PM EDT [facility] Value Range Interpretation Code Description Data Mirna rce(s) Supporting Document(s) Lactate [Moles/volume] in Serum or Plasma 0.8 MMOL/L 0.2 - 2.2 [facility] ID Date Data Source [id number] 01/18/2021 01:01:00 PM EDT [facility] Value Range Interpretation Code Description Data Mirna rce(s) Supporting Document(s) CBC W/AUTOMATED DIFF [facility] COMPLETE BLOOD COUNT Leukocytes [#/volume] in Blood by Automated count 8.2 10^3/uL 4.2 - 1 1.0 [facility] Erythrocytes [#/volume] in Blood by Automated count 3.70 10^6/uL 4. 50 - 6.30 L [facility] Hemoglobin [Mass/volume] in Blood 10.8 g/dL 14.0 - 16.0 L [facility] Hematocrit [Volume Fraction] of Blood by Automated count 31.6 % 4 1.0 - 51.0 L [facility] Erythrocyte mean corpuscular volume [Entitic volume] by Auto mated count 85.4 fL 80.0 - 94.0 [facility] Erythrocyte mean corpuscular hemoglobin [Entitic mass] by Automated count 29.2 pg 27.0 - 34.0 [facility] Erythrocyte mean corpuscular hemoglobin concentration [Mass/volume] by Automated count 34.2 g/dL 31.0 - 36.0 [facility] Erythrocyte distribution width [Ratio] by Automated count 17.0 % 11.5 - 14.8 H [facility] Platelets [#/volume] in Blood by Automated count 274 10^3/uL 150 - 45 0 [facility] Platelet mean volume [Entitic volume] in Blood by Automated count 9.8 fL 7.4 - 10.4 [facility] Neutrophils/100 leukocytes in Blood by Automated count 77.5 % 37. 0 - 80.0 [facility] Lymphocytes/100 leukocytes in Blood by Manual count 10.3 % 25.0 - 40.0 L [facility] Monocytes/100 leukocytes in Blood by Automated count 11.2 % 3.0 - 8.0 H [facility] Eosinophils/100 leukocytes in Blood by Automated count 0.6 % 0.0 - 7.0 [facility] Basophils/100 leukocytes in Blood by Automated count 0.2 % 0.0 - 2.0 [facility] %IG 0.2 % 0.0 - 0.0 [facility] %NRBC 0.0 % 0.0 - 0.0 [facility] al Neutrophils [#/volume] in Blood by Automated count 6.34 10^3/uL 2.00 - 6.90 [facility] Lymphocytes [#/volume] in Blood by Automated count 0.84 10^3/uL 0.60 - 3.40 [facility] Monocytes [#/volume] in Blood by Automated count 0.92 10^3/uL 0.00 - 0.90 H [facility] Eosinophils [#/volume] in Blood by Automated count 0.05 10^3/uL 0.00 - 0.70 [facility] Basophils [#/volume] in Blood by Automated count 0.02 10^3/uL 0.00 - 0.20 [facility] #IG 0.02 10^3/uL 0.00 - 0.10 [facility] ospital #NRBC 0.00 10^3/uL 0.00 - 0.00 [facility] ospital MANUAL DIFF NOT INDICATED [facility] RBC MORPH NOT INDICATED [facility] spital ID Date Data Source [id number] 01/18/2021 12:13:00 PM EDT [facility] [address] [place] [address] PHONE: [phone] FAX: [phone] Name .................. : TEJ Olivares Acct Number.................. : [id number] ROOM. ................. : VT-35 Number ................... : [id number] Stay type ............. : E/R Discharge Date......... ... : 01/17/21 Admit Date ......... : 01/17/21 Admit Phys .................... : ALICIA Irene Date of ....... : 1950 Family Phys ................... : MI NASSAR Phone .................. : [phone] Age ................................ : 70 Film# .................. .:[id number] Sex ................................. : M Unsigned transcriptions are preliminary reports and do not represent a medical or legal document RIBS UNILAT W/PA CXR RT [id number] COMPLETE:01/17/21 19:07 [facility] [address] Reason(s): Pain PA CHEST AND 4 VIEWS [...] By Eulogio Batres MD , 01/18/21 12:13, JWS Transcribe Initials: TEZ , Transcribe Date: 01/18/21 11:09, Dictation Date: Copy for: [place] [facility] Copy for: [address] [place] [address] PHONE: [phone] FAX: [phone] Name .................. : TEJ Olivares Acct Number.................. : [id number] ROOM. ........... ...... : VT-35 MR Number ................... : [id number] Stay type ............. : E/R Discharge Date......... ... : 01/17/21 Admit Date ......... : 01/17/21 Admit Phys .................... : ALICIA DOVER Maria Victoria Date of ....... : 1950 Family Phys ................... : MI NASSAR Phone .................. : [phone] Age ................................ : 70 Film# .................. .:[id number] Sex ................................. : M Unsigned transcriptions are preliminary reports and do not represent a medical or legal document VIOLETA RG W/ABIMAEL CXR RT [id number] COMPLETE:01/17/21 19:07 [facility] [place] [facility] [address] Reason(s): Pain DISCHARGED Page 2 of 2 Name Value Range Interpretation Code Description Data Mirna rce(s) Supporting Document(s) ID Date Data Source [id number] 01/17/2021 04:40:00 PM EDT [facility] 1 OrderSheet [facility] Emergency Department [address] [place] [address] Phone #: ext- [phone] 01/17/2021 16:39 Patient: SVITLANA BURNHAM Sex: M : 1950 Age: 70yWEIGHT:81.6 kg (S) HEIGHT:71 inches (S) BMI:25.1ALLERGIES: No Known Drug AllergyCHIEF COMPLAINT: backDIAGNOSIS: Contusion, Fracture of ribLAB ORDERSOrder Description Priority Entered Acknowledged InitialedDIAGNOSTIC STUDY ORDERSOrder Description Priority Entered Acknowledged InitialedRibs W/PA CXR STAT 18:16 01/17/2021 18:25 Terright Chapo Lawson ; Mehnaz [place](Oxygen?(No)) Reason for Study: Pain, Trauma/InjuryMEDICATION/IV/DRIP/FLUID ORDERSOrder Description Priority Entered Acknowle dged InitialedGENERAL ORDERSOrder Description Priority Entered Acknowledged Initialed[Electronically signed by Any Moise R.N. (19:24 01/17/2021)][Electronically signed by Chapo Lawson (20:26 01/17/2021)][Electronically locked by Any Moise R.N. (01/17/2021)] Name Value Range Interpretation Code Description Data Mirna rce(s) Supporting Document(s) ID Date Data Source [id number] 01/17/2021 04:40:00 PM EDT [facility] 1 Medication Reconciliation Report [facility] Emergency Department [address] [place] [address] Phone #: ext- [phone] 01/17/2021 16:39 Patient: [...] Medication information:Not obtained. 2 Medication Reconciliation Report [facility] Emergency Department [address] [place] [address] Phone #: ext [phone] 01/17/2021 16:39 Patient: SVITLANA BURNHAM Sex: M : 1950 Age: 70yThe following Medications were given to the patient in the Emergency Department:None.The following Medications were prescribed to the patient:None. Name Value Range Interpretation Code Description Data [facility](s) Supporting Document(s) ID Date Data Source [id number] 01/17/2021 04:40:00 PM EDT [facility] 1 Medication Administration Record [facility] Emergency Department [address] [place] [address] Phone #: ext- [phone] 07/2020 16:39 Patient: SVITLANA BURNHAM Sex: M : 1950 Age: 70yWeight: 81.6 kgHeight/Length: 71 inBMI: 25.1ALLERGIES: No Known Drug AllergyDate/Time Medication Administered Medication Ordered Name Value Range Interpretation Code Description Data Mirna rce(s) Supporting Document(s) ID Date Data Source [id number] 01/17/2021 04:40:00 PM EDT [facility] 1 General Instructions [facility] Emergency Department [address] [place] [address] Phone #: ext- [phone] 01/17/2021 16:39 Patient: [...] by patient.Follow-up with: Marian Stark, , , [facility], , [place], [address] Follow up in three days if not better. Call for an appointment. ADDITIONAL INFORMATIONRib Fracture 2 General Instructions [facility] Emergency Department [address] [place] [address] Phone #: ext- [phone] 01/17/2021 16:39 ------ Patient: SVITLANA BURNHAM Sex: [...] of pain and swelling. You may use llhz-ixy-iozdyib pain medicine to control pain, unless another pain medicine 3 General Instructions [facility] Emergency Department [address] [place] [address] Phone #: [phone]- [phone] 01/17/2021 16:39 Patient: SVITLANA BURNHAM Sex: M [...] new findings that may affect your care.Call 911Call 911 if you have: Dizziness, weakness or [...] healthcare provider Congested cough, nausea, or vomiting [phone] [employer]. [address] [place] [address]. All rights reserved. This information is not intended as asubstitute for professional [facility] care. Always follow your healthcare professional's instructions.Soft Tissue Bruise (Contusion)You have a bruise (contusion). There is swelling and some bleeding under the skin. Thisinjury generally takes a few days to a few weeks to heal. During that time, the bruise will typicallychange in color from reddish, to purple-blue, to greenish-yellow, then to yellow-brown. 4 General Instructions [facility] Emergency Department [address] [place] [address] Phone #: ext- [phone] 01/17/2021 16:39 Patient: [...] or eye Frequent bruising for unknown reasons [phone] [employer]. [address] [place] [address]. All rights reserved. This information is not intended as asubstitute for professional medical care. Always follow your healthcare professional's instructions. You have been given the following additional information: Rib Fracture Soft Tissue Contusion No strenuous activity. 5 General Instructions [facility] Emergency Department [address] [place] [address] Phone #: ext- [phone] 01/17/2021 16:39 Patient: SVITLANA BURNHAM Sex: M : 1950 Age: 70y(Electronically signed by Chapo Lawson 01/17/2021 20:26) Name Value Range Interpretation Code Description Data Mirna rce(s) Supporting Document(s) ID Date Data Source [id number] 01/17/2021 04:40:00 PM EDT [facility] 1 Clinical Report - Nurses [facility] Emergency Department [address] [place] [address] Phone #: [phone]- [phone] 01/17/2021 16:39 Patient: SVITLANA BURNHAM Sex: M : 1950 Age: 70yTRIAGEArrived by private vehicle. Historian: patient. Accompanied by family. ( pt reports rolling [facility]V in [facility] at approx 1530 today, reports striking [...] John Ferrer. 2 Clinical Report - Nurses [facility] Emergency Department [address] [place] [address] Phone #: ext- [phone] 01/17/2021 16:39 Patient: SVITLANA BURNHAM Sex: M : 1950 Age: 70yAllergiesNo Known [...] integrity risk 3 Clinical Report - Nurses [facility] Emergency Department [address] [place] [address] Phone #: ext- [phone] 01/17/2021 16:39 Patient: SVITLANA BURNHAM Sex: M : 1950 Age: 70y identified. --16:56 01/17/21 John Ferrer. FAMILY HX: (non-contributory). --19:11 01/17/21 Chapo Lawson. Assessment The patient states feels the same. [...] on. Patient ready for evaluation. --17:4901/17/21 Mirtha Phillips, RPatrick 18:11 01/17/21. BP: 136/89. HR: 98. RR: 18. O2 saturation: 99%. 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 ([id number]). --18:26 01/17/21 Nam Darby RN 18:56 01/17/21. BP: 129/80. HR: 73. RR: 20. O2 saturation: 94%. --18:57 01/17/21 [facility] TECHTamera.DISPOSITION / DISCHARGE Condition at departure: stable. No learning barriers present. Discharge instructions provided and reviewed with the patient. Activity restrictions reviewed (No strenuous activity). Patient verbalized understanding. Written instructions provided in Montenegrin. The patient was discharged by the physician. He was discharged home and accompanied by spouse. He left ambulatory and via private vehicle. Spouse driving. --19:23 01/17/21 Any Moise R.N. 19:22 01/17/21. Pain level now: 10/22. --19:23 01/17/21 Any Moise R.N. Departure time: 19:23 01/17/2021. --19:23 01/17/21 Any Moise R.N. 4 Clinical Report - Nurses [facility] Emergency Department [address] [place] [address] Phone #: [phone]- [phone] 01/17/2021 16:39 Patient: SVITLANA BURNHAM Sex: M : 1950 Age: 70yLocked/Released at 01/17/2021 19:24 by Any Moise R.N. Name Value Range Interpretation Code Description Data Mirna rce(s) Supporting Document(s) ID Date Data Source [id number] 01/17/2021 04:40:00 PM EDT [facility] 1 Clinical Report - Physicians/Mid Levels [facility] Emergency Department [address] [place] [address] Phone #: ext- [phone] 01/17/2021 16:39 Patient: [...] right side. No LOC or head injury). (boudreaux). Fell: The patient complains of moderate pain. [...] daily. 2 Clinical Report - Physicians/Mid Levels [facility] Emergency Department [address] [place] [address] Phone #: ext- [phone] 01/17/2021 16:39 ---- Patient: SVITLANA BURNHAM Sex: [...] series. 3 Clinical Report - Physicians/Mid Levels [facility] Emergency Department [address] [place] [address] Phone #: ext- [phone] 01/17/2021 16:39 [id number] Sex: M : 1950 Age: 70y Sternum [...] patient. Follow-up with: Marian Stark, , , [facility], , [place], [address] Follow up in three days if not better. Call for an appointment. 4 Clinical Report - Physicians/Mid Levels [facility] Emergency Department [address] [place] [address] Phone #: ext- [phone] 01/17/2021 16:39 Patient: SVITLANA BURNHAM Sex: M : 1950 Age: 70y(Electronically signed by Chapo Lawson 01/17/2021 20:26) Name Value Range Interpretation Code Description Data Mirna e(s) Supporting Document(s) ID Date Data Source [id number] 11/25/2020 05:51:[address] [facility] NORMAL RESULT IS "Not Detected"Cepheid S ARS-CoV-2,FLU/RSV is Multiplex real time RT-PCRNegative results do not preclude SARS-COV-2, influenza orRSV infection and should not be used as the sole basis fortreatment or other patient management decisions.False negative results may occur if virus is present atlevels below the analytical limit of detection.This test has been authorized by FDA under an EUA for use byauthorized laboratoriesSARS-rel CoV RNA Resp Ql BERNADINE+probeFLUAV RNA Resp Ql BERNADINE+probeFLUBV RNA Resp Ql BERNADINE+probeRSV RNA Resp Ql BERNADINE+probe Name Value Range Interpretation Code Description Data Mirna rce(s) Supporting Document(s) ID Date Data Source [id number] 11/25/2020 03:30:00 [facility] Name Value Range Interpretation Code Description Data Mirna [facility](s) Supporting Document(s) Influenza virus A and B and SARS-CoV-2 ( COVID-19) and Respiratory syncytial virus RNA panel - Respir SARS-COV-2 NOT DETECTED [facility] This lab was ordered by [facility] and reported by [facility]. ID Date Data Source [id number] 11/25/2020 05:39:[address] [facility] Normal result is "BinaxNow Covid-19 Ag n egative"BinaxNow Covid-19 Ag is a rapid lateral flowimmunochromatographic immunoassayThis test detects both viable(live) and non-viable, SARS-COVand SARS-COV-2.Positive test results do not differentiate between SARS-COVand [id number] results , from patients with symptom onset beyondseven days, should be treated as presumptive andconfirmation with a molecular assay, if necessary, forpatient managementIf the differentiation of specific SARS viruses and strainsis needed, additional testing, in consultation with stateand local public health departments, is required.SARS-CoV-2 Ag Resp Ql IA.rapid Name Value Range Interpretation Code Description Data Mirna rce(s) Supporting Document(s) ID Date Data Source [id number] 11/25/2020 03:20:00 PM EDT [facility] Name Value Range Interpretation Code Description Data Mirna rce(s) Supporting Document(s) SARS-CoV-2 (COVID-19) Ag [Presence] in R espiratory specimen by Rapid immunoassay BinaxNow Covid -19 Ag Negative [facility] This lab was ordered by [facility] and reported by [facility]. ID Date Data Source [id number] 11/25/2020 02:07:[address] 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 His pulse ox was in the 80's at home. H lung cancer recently. He was sent home. [...] no nausea. He can taste his food. [facility] Medical History (Updated 04/30/20 @ 11:08 by [...] Exam Const General: comfortable and ill appearing [facility] Head: normal to inspection Ears: TM's normal [...] of breath Coding Level of Care Code 75403 Est Pt Intermediate Comp Diagnoses Hospital discharge follow-up Z09 Additional Codes Intake - Is patient in pain?: Yes (1125F) <Electronically signed by Cuco Caldwell DO> 11/25/20 1511 Name Value Range Interpretation Code Description Data Mirna rce(s) Supporting Document(s) ID Date Data Source [id number] 11/24/2020 06:57:00 [place] [address] RESPIRATORY CARE REPORT ==== ---------NAME------- NUMBER SEX AGE ADMIT DISC. XRAY# F/C IRMALEVISara VILLAFANALyle Elise [id number] M 69 11/23/20 11/24/20 [id number] MB8 E/R DATE OF : 1950 M/R# [id number] #: [id number] TR-03 LOCATION: EMERGENCY DEPT EKG 68170 COMP LETE:11/24/20 02:40 AJP 95536 PHYSICIAN: APRIL FERNÁNDEZ NOR Name Value Range Interpretation Code Description Data Mirna rce(s) Supporting Document(s) ID Date Data Source [id number] 11/24/2020 12:28:00 PM EDT [facility] [address] [place] [address] PHONE: [phone] FAX: [phone] Name .................. : MONO GALLyle Olivares Acct Number.................. : [id number] ROOM. ................. : TR-03 Number ................... : [id number] Stay type ............. : E/R Discharge Date......... ... : 11/24/20 Admit Date ......... : 11/23/20 Admit Phys .................... : COONEYNORM Date of ....... : 1950 Family Phys ................... : PAULETTE GUDINO Phone .................. : [phone] Age ................................ : 69 Film# .................. .:[id number] Sex ................................. : M Unsigned transcriptions are preliminary reports and do not represent a medical or legal document CHEST PORTABLE [id number] COMPLETE:11/23/20 23:40 AML 35272 Reason(s): Shortness of Breath PORTABLE CHEST SINGLE [...] MD , 11/24/20 12:28, SCB Transcribe Initials: DZ , Transcribe Date: 11/24/20 10:09, Dictation Date: Copy for: EMERGENCY DEPT via modem Copy for: 710 MED REC DISCHARGED Page 1 of 1 Name Value Range Interpretation Code Description Data Mirna rce(s) Supporting Document(s) ID Date Data Source [id number] 11/23/2020 08:04:00 PM EDT [facility] 1 OrderSheet [facility] Emergency Department [address] [place] [address] Phone #: ext- [phone] 11/23/2020 19:58 Patient: SVITLANA BURNHAM Sex: M : 1950 Age: 69yWEIGHT:84.3 kg (S) HEIGHT:71 inches (S) BMI:25.9ALLERGIES: No Known Drug AllergyCHIEF COMPLAINT: dyspneaDIAGNOSIS: DyspneaLAB ORDERSOrder Description Priority Entered Acknowledged InitialedCB w Diff STAT 20:12 11/23/2020 20:12 Gina Fuentes Laura Laura R.N. R.N.; Per protocol; Rony Fernández MDCMP STAT 20:12 11/23/2020 20:12 Gina Fuentes Laura Laura R.N. R.N.; Per protocol; Rony Fernández MDTroponin-T STAT 21:48 [...] hx of lung caMEDICATION/IV/DRIP/FLUID ORDERS 2 OrderSheet [facility] Emergency Department [address] [place] [address] Phone #: ext- [phone] 11/23/2020 19:58 Patient: SVITLANA BURNHAM Sex: M [...] rce(s) Supporting Document(s) ID Date Data Source [id number] 11/23/2020 08:04:00 PM EDT [facility] 1 Medication Reconciliation Report [facility] Emergency Department [address] [place] [address] Phone #: ext- [phone] 11/23/2020 19:58 Patient: [...] rce(s) Supporting Document(s) ID Date Data Source [id number] 11/23/2020 08:04:00 PM EDT [facility] 1 Medication Administration Record [facility] Emergency Department [address] [place] [address] Phone #: ext- [phone] 01/2021 19:58 Patient: SVITLANA BURNHAM Sex: M : 1950 Age: 69yWeight: 84.3 kgHeight/Length: 71 inBMI: 25.9ALLERGIES: No Known Drug AllergyDate/Time Medication Administered Medication Ordered Name Value Range Interpretation Code Description Data Mirna rce(s) Supporting Document(s) ID Date Data Source [id number] 11/23/2020 08:04:00 PM EDT [facility] 1 General Instructions [facility] Emergency Department [address] [place] [address] Phone #: ext- [phone] 11/23/2020 19:58 Patient: [...] smoke, or certain medicines 2 General Instructions [facility] Emergency Department [address] [place] [address] Phone #: ext- [phone] 11/23/2020 19:58 Patient: SVITLANA BURNHAM Sex: M [...] Followup with your healthcare provider as d irected.Home careFollow these tips to take care of [...] breath or trouble breathing, 3 General Instructions [facility] Emergency Department [address] [place] [address] Phone #: ext- [phone] 11/23/2020 19:58 Patient: [...] as directed by your healthcare provider [employer]. [address] [place] [address]. All rights reserved. This information is not intended as asubstitute for professional medical care. Always follow your healthcare professional's instructions. You have been given the following additional information: Shortness of Breath (Dyspnea) No strenuous activity.(Electronically signed by Rony Fernández MD 11/24/2020 00:17) Name Value Range Interpretation Code Description Data Mirna rce(s) Supporting Document(s) ID Date Data Source [id number] 11/23/2020 08:04:00 PM EDT [facility] 1 Clinical Report - Nurses [facility] Emergency Department [address] [place] [address] Phone #: ext- [phone] 11/23/2020 19:58 Patient: [...] Temp: 97.9 F(oral). --20:05 11/23/20 Nathaly Hunter R.N.00:21 11/24/20. Pain level now: 0/10. --00:22 11/24/20 [...] surgery.Neck Surgery. 2 Clinical Report - Nurses [facility] Emergency Department [address] [place] [address] Phone #: ext- [phone] 11/23/2020 19:58 Patient: [...] on patient. To treatment room. --20:05 11/23/20 Wilt, Nathaly, R.N.PHYSICAL [id number] 11/23/20. Ambulatory to room.GENERAL / NEURO / [...] Hunter R.N. 3 Clinical Report - Nurses [facility] Emergency Department [address] [place] [address] Phone #: ext- [phone] 11/23/2020 19:58 Patient: SVITLANA BURNHAM Sex: M : 1950 Age: 69yNURSING PROGRESS NOTES20:07 11/23/2020 Site #1 started via IV in the right antecubital space with an 20g angiocath, with aseptictechnique and good blood return; one attempt. Blood drawn: rainbow set. Labeled in the presence of thepatient and held. Saline lock flushed with 10 mL saline (Started by Kimberly WELLINGTONmanager landscape). --20: Nathaly Hunter R.N. Oxygen administered by [...] he had CT of his chest at [facility] a week ago and does not wish to have another scan. Dr Fernández updated. Eitan Fruit Preserver going to attempt to obtain records from [facility]. Pt states he is no longer going [...] Spo2 dropped to 89% on RA. Dr Fenrández notified.). --23:30 11/23/20 Nathaly Hunter R.N. Reassessment [...] --00:17 11/24/20 Kavitha Parrish RN.DISPOSITION / DISCHARGE [place] Coma Scale. (15). Departure time: 23:55 11/23/2020. Discharge instructions provided and reviewed with the patient. Reviewed warnings (to return prn). Reviewed medication(s) (continue routine medications). Reviewed diet (regular). Reviewed need to stop smoking. He has no activity restrictions. 4 Clinical Report - Nurses [facility] Emergency Department [address] [place] [address] Phone #: ext- [phone] 11/23/2020 19:58 Patient: SVITLANA BURNHAM Sex: M : 1950 Age: 69y Patient verbalized understanding. No note given. Written instructions not provided in Montenegrin. The patient was discharged by the physician. [...] rce(s) Supporting Document(s) ID Date Data Source [id number] 11/23/2020 08:04:00 PM EDT [facility] 1 Clinical Report - Physicians/Mid Levels [facility] Emergency Department [address] [place] [address] Phone #: ext- [phone] 11/23/2020 19:58 Patient: SVITLANA BURNHAM Sex: M [...] Allergies: 2 Clinical Report - Physicians/Mid Levels [facility] Emergency Department [address] [place] [address] Phone #: ext- [phone] 11/23/2020 19:58 Patient: SVITLANA BURNHAM Sex: M [...] dyspnea, hypoxia, hx of lung ca TRANSPORTATION: IV? IV?(Yes) O2? Oxygen?(No) Ro Troponin-T: (KAMALA: 11/23/2020 20:15) ( [facility] 11/23/2020 22:34) Final results Test Result Flag Units (Reference) TROPONIN T 0.03 NG/ML (0.00 - 0.10) TROPONIN T0.1 ng/ml Recommended as the clinical threshold value forTroponin T. TSH: (KAMALA: 11/23/2020 20:15) ( [facility] 11/23/2020 22:45) Final results 3 Clinical Report - Physicians/Mid Levels [facility] Emergency Department [address] [place] [address] Phone #: ext- [phone] 11/23/2020 19:58 Patient: SVITLANA BURNHAM Sex: M : [birth year] Age: 69y Test Result Flag Units (Reference) TSH 4.90 uIU/mL (0.47 - 5.01)BNP: (KAMALA: 11/23/2020 20:15) ( [facility] 11/23/2020 22:45) Final results Test Result Flag Units (Reference) BNP 8617 H PG/ML (0 - 125)Chest Portable 1 View: (KAMALA: 11/23/2020 21:48) ( [facility] 11/23/2020 23:40) In ProgressCHEST PORTABLEReason(s): Shortness of BreathTRANSPORTATION: P IV? O2? Oxygen?(Yes) Room: [facility]: (KAMALA: 11/23/2020 20:15) ( [facility] 11/23/2020 22:52) Final results Test Result Flag [...] (NORMAL: NONE COMMENT: 4 Clinical Report - Physicians/[facility] Emergency Department [address] [place] [address] Phone #: ext- [phone] 11/23/2020 19:58 Patient: [...] instructions. 5 Clinical Report - Physicians/Mid Levels [facility] Emergency Department [address] [place] [address] Phone #: [phone] 11/23/2020 19:58 Patient: SVITLANA BURNHAM Sex: M [...] rce(s) Supporting Document(s) ID Date Data Source [id number] 11/23/2020 10:45:00 PM EDT [facility] Name Value Range Interpretation Code Description Data Mirna rce(s) Supporting Document(s) Thyrotropin [Units/volume] in Serum or Plasma by Detec tion limit <= 0.05 mIU/L 4.90 uIU/mL 0.47 - 5.01 [facility] ID Date Data Source [id number] 11/23/2020 10:34:00 PM EDT [facility] Value Range Interpretation Code Description Data Mirna rce(s) Supporting Document(s) TROPONIN T 0.03 NG/ML 0.00 - 0.10 [facility] TROPONIN T0.1 ng/ml Recommended as the c linical threshold value forTroponin T. ID Date Data Source [id number] 11/23/2020 10:52:00 PM EDT [facility] Value Range Interpretation Code Description Data Mirna rce(s) Supporting Document(s) Magnesium [Mass/volume] in Serum or Plasma 1.0 MG/DL 1.7 - 2.2 L [facility] ID Date Data Source [id number] 11/23/2020 10:45:00 PM EDT [facility] Value Range Interpretation Code Description Data Mirna rce(s) Supporting Document(s) BNP 8617 PG/ML 0 - 125 H [facility] eduarda ID Date Data Source [id number] 11/23/2020 08:54:00 PM EDT [facility] Value Range Interpretation Code Description Data Mirna rce(s) Supporting Document(s) CBC W/AUTOMATED DIFF [facility] COMPLETE BLOOD COUNT Leukocytes [#/volume] in Blood by Automated count 7.1 10^3/uL 4.2 - 1 1.0 [facility] Erythrocytes [#/volume] in Blood by Automated count 3.95 10^6/uL 4. 50 - 6.30 L [facility] Hemoglobin [Mass/volume] in Blood 11.4 g/dL 14.0 - 16.0 L [facility] Hematocrit [Volume Fraction] of Blood by Automated count 33.3 % 4 1.0 - 51.0 L [facility] Erythrocyte mean corpuscular volume [Entitic volume] by Auto mated count 84.3 fL 80.0 - 94.0 [facility] Erythrocyte mean corpuscular hemoglobin [Entitic mass] by Automated count 28.9 pg 27.0 - 34.0 [facility] Erythrocyte mean corpuscular hemoglobin concentration [Mass/volume] by Automated count 34.2 g/dL 31.0 - 36.0 [facility] Erythrocyte distribution width [Ratio] by Automated count 16.2 % 11.5 - 14.8 H [facility] Platelets [#/volume] in Blood by Automated count 270 10^3/uL 150 - 45 0 [facility] Platelet mean volume [Entitic volume] in Blood by Automated count 10.0 fL 7.4 - 10.4 [facility] Neutrophils/100 leukocytes in Blood by Automated count 76.0 % 37. 0 - 80.0 [facility] Lymphocytes/100 leukocytes in Blood by Manual count 7.3 % 25.0 - 40.0 L [facility] Monocytes/100 leukocytes in Blood by Automated count 15.2 % 3.0 - 8.0 H [facility] Eosinophils/100 leukocytes in Blood by Automated count 0.6 % 0.0 - 7.0 [facility] Basophils/100 leukocytes in Blood by Automated count 0.8 % 0.0 - 2.0 [facility] %IG 0.1 % 0.0 - 0.0 [facility] %NRBC 0.0 % 0.0 - 0.0 [facility] al Neutrophils [#/volume] in Blood by Automated count 5.38 10^3/uL 2.00 - 6.90 [facility] Lymphocytes [#/volume] in Blood by Automated count 0.52 10^3/uL 0.60 - 3.40 L [facility] Monocytes [#/volume] in Blood by Automated count 1.08 10^3/uL 0.00 - 0.90 H [facility] Eosinophils [#/volume] in Blood by Automated count 0.04 10^3/uL 0.00 - 0.70 [facility] Basophils [#/volume] in Blood by Automated count 0.06 10^3/uL 0.00 - 0.20 [facility] #IG 0.01 10^3/uL 0.00 - 0.10 [facility] #NRBC 0.00 10^3/uL 0.00 - 0.00 [facility] MANUAL DIFF SEE BELOW [facility] Segmented neutrophils/100 leukocytes in Blood by Manual count 83 % 37 - 80 H [facility] Hospital %LYMPH 7 % 25 - 40 L [facility] al %MONO 10 % 3 - 8 H [facility] al RBC MORPH SEE BELOW [facility] { SICKLE CELL (NORMAL: NONE SEEN ) Target cells [Presence] in Blood by Light microscopy 1+ RONY L: NONE SEEN A [facility] COMMENT: ID Date Data Source [id number] 11/23/2020 08:47:00 PM EDT [facility] Name Value Range Interpretation Code Description Data Mirna rce(s) Supporting Document(s) COMPREHENSIVE METABOLIC PANEL [facility] COMPREHENSIVE METABOLIC PANEL Sodium [Moles/volume] in Serum or Plasma 137 mEq/L 134 - 153 [facility] Potassium [Moles/volume] in Serum or Plasma 3.9 mEq/L 3.6 - 5.0 [facility] Chloride [Moles/volume] in Serum or Plasma 99 mEq/L 98 - 107 [facility] Carbon dioxide, total [Moles/volume] in Serum or Plasma 23 MEQ/L 22 - 30 [facility] Glucose [Mass/volume] in Serum or Plasma 107 MG/DL 70 - 99 H [facility] BUN 18 MG/DL 7 - 21 [facility] Creatinine [Mass/volume] in Serum or Plasma 1.9 MG/DL 0.7 - 1.5 H [facility] BUN/CREAT 9 8 - 27 [facility] Protein [Mass/volume] in Serum or Plasma 7.7 G/DL 6.3 - 8.2 [facility] Albumin [Mass/volume] in Serum or Plasma 4.5 G/DL 3.9 - 5.0 [facility] Globulin [Mass/volume] in Serum by calculation 3.2 GM/DL 2.4 - 3.2 [facility] A/G RATIO 1.4 0.8 - 2.0 [facility] Calcium [Mass/volume] in Serum or Plasma 8.3 MG/DL 8.4 - 10.2 L [facility] Bilirubin.total [Mass/volume] in Serum or Plasma <0.7 MG/DL 0.2 - 1.3 [facility] Alkaline phosphatase [Enzymatic activity/volume] in Serum or Plasma 43 U/L 38 - 126 [facility] Aspartate aminotransferase [Enzymatic activity/volume] in Serum or Plasma 25 U/L 5 - 40 [facility] Alanine aminotransferase [Enzymatic activity/volume] in Seru m or Plasma 10 U/L 7 - 56 [facility] Anion gap 3 in Serum or Plasma 15.0 mmol/L 8.0 - 16.0 [facility] AGE 69 yrs [facility] al NON-AA GFR 38 mL/min [facility] AFR AMER GFR 45 mL/min [facility] Male GFR In [...] >32 mL/min Normal ID Date Data Source [id number] 10/31/2020 11:44:[address] [facility] Patient Name: SVITLANA BURNHAM : 0 1950 Sex: M Pt Unit #: [id number] Location:[facility] Provider: Visit Date/Time: 10/31/20 Primary Insurance: [employer] Secondary Insurance: Self [...] Workman's Compensation Nurse Note: Here for Comp Commercial Management Accountant Required: No Accompanied by: Self / Same as Patient Is patient in pain?: Yes (lower back and straight down both legs) Pain scale (1-10): 6 Allergies No Known Drug Allergies Allergy (Unverified 07/04/13 11:03) No Known Food Allergies Allergy (Unverified 08/08/20 11:37) Medications - Last Reconciled 10/31/20 by Cuco Caldwell, aspirin 81 mg PO DAILY atorvastatin TAKE [...] day multivitamin 1 tab PO DAILY omega 6-vtl-mgj-fish oil 300-1,000 mg (Fish Oil) 1 cap [...] really has not helped his back pain. [facility] Medical History (Updated 04/30/20 @ 11:08 by [...] tabs 3RF Coding Level of Care Code 78807 Est Pt Intermediate Comp Diagnoses Work related injury Y99.0 <Electronically signed by Cuco Caldwell DO> 10/31/20 1226 Name Value Range Interpretation Code Description Data Mirna rce(s) Supporting Document(s) ID Date Data Source [id number] 08/08/2020 11:36:[address] [facility] Patient Name: SVITLANA BURNHAM : 0 1950 Sex: M Pt Unit #: [id number] Location:[facility] Provider: Visit Date/Time: 08/08/20 Primary Insurance: [employer]ARE [...] workers comp follow up, voices no concerns Commercial Management Accountant Required: No Accompanied by: Self / Same [...] better now. He is moving his bowels. [facility] Medical History (Updated 04/30/20 @ 11:08 by [...] not working. Coding Level of Care Code 10455 Est Pt Intermediate Comp Diagnoses Work related injury Y99.0 <Electronically signed by Cuco Caldwell DO> 08/08/20 1222 Name Value Range Interpretation Code Description Data Mirna rce(s) Supporting Document(s) ID Date Data Source [id number] 05/30/2020 03:42:[address] [facility] Patient Name: SVITLANA BURNHAM : 0 1950 Sex: M Pt Unit #: [id number] Location:[facility] Provider: Visit Date/Time: 05/30/20 Primary Insurance: WELLCARE [...] there is a question about the metoprolol Commercial Management Accountant Required: No Accompanied by: Is patient in [...] he is here today. he sees the [facility]Onc in [place]. His BP dropped last week. he is doing chemo and radiation. Todoris gilman was the second round of chemo. Three days in a row of IV chemo and 18 days off for at least 3 or 4 rounds for lung CA (small cell). He gets the radiation every day for 5 days a week for 30 days ending 06/11/20. Amlodipine 10mg daily stopped. Metoprolol Succinatate 25mg daily to BID, Lisinopril 40mg daily to 1/2 tab daily. [facility] Medical History (Updated 04/30/20 @ 11:08 by [...] ncer. (2) Hypertension: Status: Chronic SNOMED Code(s): 72873182 Category: Medical Medications: Changed: From: metoprolol succinate ER TAKE ONE TABLET BY MOUTH EVERY DAY 90 tabs 3RF To: metoprolol succinate ER TAKE ONE TABLET BY MOUth twice a day 90 tabs 3RF (3) Small cell lung cancer: Status: Acute Code(s): C34.90 - Malignant neoplasm of unspecified part of unspecified bronchus or lung SNOMED Code(s): 526851670 Category: Medical Orders Other Medications: Changed: From: magnesium oxide 400 mg PO DAILY 90 tabs 3RF To: magnesium oxide 400 mg PO BID 90 tabs 3RF Instructions: DASH Eating Plan (GEN) Hypertension (GEN) Coding Level of Care Code 82560 Est Pt Intermediate Comp Exam Detailed Diagnoses Encounter for medication adjustment Z51.89 Hypertension I10 Small cell lung cancer C34.90 <Electronically signed by Cuco Caldwell DO> 05/30/20 1655 Name Value Range Interpretation Code Description Data Mirna rce(s) Supporting Document(s) ID Date Data Source [id number] 04/30/2020 10:37:00 AM [facility] Patient Name: SVITLANA BURNHAM : 0 1950 Sex: M Pt Unit #: [id number] Location:[facility] Provider: Visit Date/Time: 04/30/20 Primary Insurance: [employer] [...] workmans comp follow up. Voices no concerns Commercial Management Accountant Required: No Accompanied by: Self / Same [...] DAY multivitamin 1 tab PO DAILY omega 6-ful-yke-fish oil 300-1,000 mg (Fish Oil) 1 cap [...] least two of the following?: no symptoms [facility] Medical History (Updated 04/30/20 @ 11:08 by [...] with a chest tube. He was at [facility] with [facility]. Dr. Kirkland [...] not working. Coding Level of Care Code 92079 Est Pt Intermediate Comp Exam Detailed Diagnoses Work related injury Y99.0 <Electronically signed by Cuco Caldwell DO> 04/30/20 1119 Name Value Range Interpretation Code Description Data Mirna rce(s) Supporting Document(s) ID Date Data Source [id number] 03/26/2020 12:50:00 PM EST [facility] Name Value Range Interpretation Code Description Data [facility] rce(s) Supporting Document(s) SARS coronavirus 2 RNA [Presence] in Res piratory specimen by BERNADINE with probe detection NEGATIVE [place] This lab was ordered by [facility] a nd reported by [facility]. ID Date Data Source [id number] 01/15/2020 10:35:00 AM [facility] Patient Name: SVITLANA BURNHAM : 0 1950 Sex: M Pt Unit #: [id number] Location:[facility] Provider: Visit Date/Time: 01/15/20 Primary Insurance: WELLCARE [...] up visit. Patient offers no concerns today. Commercial Management Accountant Required: No Accompanied by: self Is patient [...] DAY multivitamin 1 tab PO DAILY omega 0-kak-gnm-fish oil 300-1,000 mg (Fish Oil) 1 cap [...] Screening Screening Have you traveled outside of [facility] or [facility] in the last 14 days.: [...]
--- NOTE | 2021-01-18 23:03 | REPVR ---
PROCEDURE INFORMATION: Exam: XR Chest Exam date and time: 01/18/2021 8:47 PM Age: 70 years old Clinical indication: Cough; Additional info: Dyspnea TECHNIQUE: Imaging protocol: XR of the chest. Views: 1 view. COMPARISON: 1. CT Chest with contrast 11/20/2020 10:58 AM 2. CR CHEST 2 VIEWS 04/22/2020 9:37:[address] Chest without contrast 01/18/2021 9:58:40 PM FINDINGS: Tubes, catheters and devices: There is a right internal jugular MediPort terminating in the superior vena cava. Lungs: There are chronic interstitial opacities in both lungs, emphysematous changes, and bibasilar atelectasis. Pleural spaces: There is a trace right pleural effusion, which is better visualized in the CT chest on 01/18/2021. No pneumothorax. Heart/Mediastinum: Unremarkable. No cardiomegaly. Bones/joints: Unremarkable. IMPRESSION: 1. Chronic interstitial opacities in both lungs, emphysematous changes, and bibasilar atelectasis. 2. Trace right pleural effusion. Electronically signed by: Dionisio Cronin On 01/18/2021 23:03:13 PM
--- NOTE | 2021-01-18 23:04 | REPVR ---
PROCEDURE INFORMATION: Exam: CT Chest Without Contrast; Diagnostic Exam date and time: 01/18/2021 10:00 PM Age: 70 years old Clinical indication: Condition or disease; Rib fractures TECHNIQUE: Imaging protocol: Diagnostic computed tomography of the chest without contrast. 3D rendering (Not supervised by radiologist): MIP and/or 3D reconstructed images were created by the technologist. Radiation optimization: All CT scans at this facility use at least one of these dose optimization techniques: automated exposure control; mA and/or kV adjustment per patient size (includes targeted exams where dose is matched to clinical indication); or iterative reconstruction. COMPARISON: CT Chest with contrast 11/20/2020 10:58 AM FINDINGS: Tubes, catheters and devices: There is a right internal jugular MediPort terminating in the superior vena cava. Trachea: Normal. Bronchial tree: There is mucous plugging in the lower lobe bronchi bilaterally. Lungs: There is atelectasis in both lower lobes. There are extensive centrilobular emphysematous changes with an upper lobe predominance, which are similar in appearance compared to the CT chest on 11/20/2020. There is interlobular septal thickening and honeycombing that is stable compared to the CT chest on 11/20/2020. Pleural spaces: There is a trace right pleural effusion. No pneumothorax. No calcified pleural plaques. Heart: No cardiomegaly. There is a small pericardial effusion that measures water density. There are coronary artery calcifications. Pulmonary arteries: The pulmonary artery trunk is dilated and measures 3.4 cm in diameter, which is stable compared to the CT chest on 11/20/2020 and can be seen with pulmonary artery hypertension. Aorta: No thoracic aortic aneurysm or intramural hematoma is noted. There are mild atherosclerotic calcifications. Lymph nodes: No enlarged lymph nodes. Spleen: Unremarkable. No splenomegaly is noted. Incidental note is made of a small accessory spleen. Adrenal glands: Normal. No adrenal mass is noted. Bones/joints: There is no acute fracture or dislocation. There are chronic mild anterior wedge compression deformities of T7 and T8, which are stable compared to the CT chest on 11/20/2020. The sternum and ribs are intact. Soft tissues: Unremarkable. No soft tissue fluid collection. IMPRESSION: 1. Intact ribs. 2. Mucous plugging in both lower lobe bronchi and atelectasis in both lower lobes. 3. Trace right pleural effusion. 4. Extensive centrilobular emphysematous changes and evidence for a chronic interstitial lung disease with a usual interstitial pneumonia pattern, which are stable compared to the CT chest on 11/20/2020. 5. Dilation of the pulmonary artery trunk, which may indicate pulmonary artery hypertension. 6. Small transudative pericardial effusion. Electronically signed by: Dionisio Cronin On 01/18/2021 23:03:27 PM
[2021-01-18] MEDS ORDERED: ACETAMINOPHEN TAB 650MG DOSE (2X325MG) PO PRN (23:55)
[2021-01-19] VITALS (7 sets, daily range): BP systolic 93–146; BP diastolic 50–87; O2SAT 89–94
--- OUTSIDE RECORDS SUMMARY | 2021-01-19 | CCD ---
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 Public Health law. If you continue you may have access to information: Regarding HIV / AIDS; Provided by facilities licensed or operated by the [facility] Office of Mental Health; or Provided by the [facility] Office for People With Developmental Disabilities. If such information is present, then the following [facility] mandated warning applies: This information has [...] law may result in a fine or fpc sentence or both. A general authorization for the release of medical or other information is NOT sufficient authorization for further disc losure. Allergies and Adverse Reactions Type Description Substance Reaction Status Data Source(s ) Food allergy No Known Food Allergies No Known Food Allergies [facility] Family History Family Member Name Family Member Gender Family Member Status Date o f Status Description Data Source(s) Unknown Condition [facility] Unknown Condition [facility] Unknown Condition [facility] Unknown Condition [facility] Unknown Condition [facility] Unknown Condition [facility] Unknown Condition [facility] Unknown Condition [facility] Unknown Condition [facility] Unknown Condition [facility] Unknown Condition [facility] Unknown Condition [facility] Unknown Condition [facility] Unknown Condition [facility] Unknown Condition [facility] Unknown Condition [facility] Unknown Condition [facility] Unknown Condition [facility] Unknown Male Problem MEDENT ([facility]) Encounters Encounter Providers Location Date Indications Data Source(s ) Emergency Attender: RONY FERNÁNDEZ MDConsultant: Marian VARGHESE 01/18/2021 10:46:00 AM EDT - 01/18/2021 06:29:[address] [facility] Patient discharged. Emergency Attender: Chapo Lawson MDConsultant: Marian Fountain 01/17/2021 04:40:00 PM EDT - 01/17/2021 07:24:[address] [facility] Patient discharged. Outpatient Attender: Cuco Caldwell DO 11/25/2020 05:07:00 PM EDT [facility] Outpatient Attender: Cuco Caldwell DO 11/25/2020 05:03:00 PM EDT [facility] Outpatient Attender: Cuco Vieraer: Cuco Caldwell DO 11/25/2020 01:37:00 PM EDT - 11/25/2020 03:04:00 PM EDT [facility] Emergency Attender: RONY FERNÁNDEZ MDConsultant: Cuco Caldwell DO 11/23/2020 08:04:00 PM EDT - 11/24/2020 12:24:[address] [facility] Patient discharged. Outpatient Attender: Cuco Young: Cuco Caldwell DO 10/31/2020 11:14:00 AM EDT [facility] Outpatient Attender: Cuco Young: Cuco Caldwell DO 08/08/2020 11:32:00 AM EDT [facility] Outpatient Attender: Cuco Young: Cuco Caldwell DO 05/30/2020 03:35:00 PM EDT - 05/30/2020 04:54:00 PM EDT [facility] Outpatient Attender: Cuco Young: Cuco Caldwell DO 04/30/2020 10:32:00 AM EST - 04/30/2020 11:21:00 AM EST [facility] Outpatient Attender: Cuco Young: Cuco Caldwell DO 01/15/2020 10:33:00 AM EST - 01/15/2020 11:02:00 AM EST [facility] Immunizations Vaccine Date Status Description Data Source(s) COVID-19 Moderna 06/08/2020 12:00:00 AM EDT completed [facility] COVID-19 Moderna 05/11/2020 12:00:00 AM EST completed [facility] INFLUENZA VIRUS VACCINE QUADRIVAL SPLIT 2020-21(65 YR UP)/PF 01/11/2020 12:00:00 AM EDT completed [facility] IIV3. This is one of two codes replacing CVX 15, which is being retired. 01/09/2020 12:00:00 AM EDT completed [facility] IIV3. This is one of two codes replacing CVX 15, which is being retired. 01/09/2020 12:00:00 AM EDT completed influenza vaccine, inactivated [facility] IIV3. This is one of two codes replacing CVX 15, which is being retired. 01/09/2020 12:00:00 AM EDT completed influenza vaccine, inactivated [facility] IIV3. This is one of two codes replacing CVX 15, which is being retired. 01/09/2020 12:00:00 AM EDT completed influenza vaccine, inactivated [facility] Medications Medication Brand Name Start [...] Hydrocodone-Acetaminophen 10/24/2020 12:27:39 PM EDT TAB active [facility] Acetaminophen 325 MG / Hydrocodone Bitartrate [...] Hydrocodone-Acetaminophen 09/26/2020 04:45:33 PM EDT TAB completed [facility] atorvastatin 40 MG Oral Tablet ATORVASTATIN [...] Hydrocodone-Acetaminophen 08/29/2020 09:15:09 AM EDT TAB completed [facility] 50 mg 08/06/2020 12:00:00 AM EDT [...] Hydrocodone-Acetaminophen 07/30/2020 07:08:16 PM EDT TAB completed [facility] Acetaminophen 325 MG / Hydrocodone Aryan trate 5 MG Oral Tablet Hydrocodone-Acetaminophen Hydrocodone-Acetaminophen 07/26/2020 01:46:51 PM EDT TAB completed [facility] Acetaminophen 325 MG / Hydrocodone Aryan trate 5 MG Oral Tablet Hydrocodone-Acetaminophen Hydrocodone-Acetaminophen 07/23/2020 04:50:22 PM EDT TAB completed [facility] Acetaminophen 325 MG / Hydrocodone Aryan trate 5 MG Oral Tablet Hydrocodone-Acetaminophen Hydrocodone-Acetaminophen 07/23/2020 01:08:07 PM EDT TAB completed [facility] Acetaminophen 325 MG / Hydrocodone Bitartrate [...] Atorvastatin 07/18/2020 08:55:58 AM EDT 0 active [facility] 100,000 unit/mL 07/14/2020 12:00:00 AM EDT suspension [...] 06/27/2020 10:49:55 AM EDT 30 MG active [facility] Lidocaine 25 MG/ML / Prilocaine 25 [...] Hydrocodone-Acetaminophen 06/24/2020 06:39:18 PM EDT TAB completed [facility] Acetaminophen 325 MG / Hydrocodone Aryan trate 5 MG Oral Tablet Hydrocodone-Acetaminophen Hydrocodone-Acetaminophen 06/24/2020 02:53:56 PM EDT TAB completed [facility] 20 mEq 06/19/2020 12:00:00 AM EDT [...] 04:42 :22 PM EDT 400 MG active [facility] Magnesium Oxide 400 MG Oral Tablet Magnesium Oxide 05/30/2020 04:42 :22 PM [address]T [address] [facility] 24 HR metoprolol succinate 25 MG Extende d Release Oral Tablet Metoprolol Succinate Metoprolol Succinate 05/30/2020 04:41:41 PM EDT 0 active [facility] 24 HR metoprolol succinate 25 MG Extende d Release Oral Tablet Metoprolol Succinate Metoprolol Succinate 05/30/2020 04:41:41 PM EDT 0 active [facility] Lisinopril 40 MG Oral Tablet Lisinopril 05/30/2020 08:27:58 AM EDT 20 MG active [facility] Lisinopril 40 MG Oral Tablet Lisinopril 05/30/2020 08:27:58 AM EDT 20 MG active [facility] 5-325 mg 05/20/2020 12:00:00 AM EST [...] Hydrocodone-Acetaminophen 05/17/2020 06:00:13 PM EST TAB completed [facility] Acetaminophen 325 MG / Hydrocodone Aryan trate 5 MG Oral Tablet Hydrocodone-Acetaminophen Hydrocodone-Acetaminophen 05/17/2020 06:00:13 PM EST TAB active [facility] Acetaminophen 325 MG / Hydrocodone Aryan trate 5 MG Oral Tablet Hydrocodone-Acetaminophen Hydrocodone-Acetaminophen 05/17/2020 05:23:41 PM EST TAB completed [facility] Acetaminophen 325 MG / Hydrocodone Aryan trate 5 MG Oral Tablet Hydrocodone-Acetaminophen Hydrocodone-Acetaminophen 05/17/2020 05:23:41 PM EST TAB completed [facility] [id number] 05/13/2020 12:00:00 AM EST Suspension 240 USE 10ML TO SWISH AND SPIT FOUR TIMES A DAY NEEDED FOR ESOPHAGITIS USE 10ML TO SWISH AND SPIT FOUR TIMES A DAY NEEDED FOR ESOPHAGITIS SOLD: 06/06/2020 [facility] [id number] 05/13/2020 12:00:00 AM EST Suspension 240 USE 10ML TO SWISH AND SPIT FOUR TIMES A DAY NEEDED FOR ESOPHAGITIS USE 10ML TO SWISH AND SPIT FOUR TIMES A DAY NEEDED FOR ESOPHAGITIS SOLD: 05/13/2020 [facility] gabapentin 300 MG Oral Capsule Gabapentin Gabapentin 2020 06:49:42 PM EST 300 MG active [facility] gabapentin 300 MG Oral Capsule Gabapentin Gabapentin 2020 06:49:42 PM EST 300 MG active [facility] gabapentin 300 MG Oral Capsule Gabapentin Gabapentin 2020 11:19:50 AM EST 300 MG completed [facility] gabapentin 300 MG Oral Capsule Gabapentin Gabapentin 2020 11:19:50 AM EST 300 MG completed [facility] gabapentin 300 MG Oral Capsule Gabapentin Gabapentin 2020 11:19:50 AM EST 300 MG active [facility] 8 mg 04/30/2020 12:00:00 AM EST [...] Hydrocodone-Acetaminophen 04/19/2020 10:54:43 AM EST TAB completed [facility] Acetaminophen 325 MG / Hydrocodone Aryan trate 5 MG Oral Tablet Hydrocodone-Acetaminophen Hydrocodone-Acetaminophen 04/19/2020 10:54:43 AM EST TAB completed [facility] Acetaminophen 325 MG / Hydrocodone Aryan trate 5 MG Oral Tablet Hydrocodone-Acetaminophen Hydrocodone-Acetaminophen 04/19/2020 10:54:43 AM EST TAB active [facility] 10 mg 04/03/2020 12:00:00 AM EST [...] Lisinopril 04/02/2020 08:31:54 AM EST 0 active [facility] Lisinopril 40 MG Oral Tablet Lisinopril 04/02/2020 08:31:54 AM EST 0 completed [facility] Lisinopril 40 MG Oral Tablet Lisinopril 04/02/2020 08:31:54 AM EST 0 completed [facility] 5-325 mg 03/23/2020 12:00:00 AM EST tablet 180 TAKE 1-2 TABLETS BY MOUTH EVERY 6 HOURS NEEDED FOR PAIN MAXIMUM DAILY DOSE = 6 TAKE 1-2 TABLETS BY MOUTH EVERY 6 HOURS NEEDED FOR PAIN MAXIMUM DAILY DOSE = 6 SOLD: 03/23/2020 [facility] Prednisone 20 MG Oral Tablet Prednisone 03/22/2020 05:53:14 PM EST 20 MG completed [facility] Prednisone 20 MG Oral Tablet Prednisone 03/22/2020 05:53:14 PM EST 20 MG completed [facility] Prednisone 20 MG Oral Tablet Prednisone 03/22/2020 05:53:14 PM EST 20 MG completed [facility] doxycycline hyclate 100 MG Oral Capsule Doxycycline Hyclate Doxycycline Hyclate 03/22/2020 05:53:02 PM EST 100 MG completed [facility] doxycycline hyclate 100 MG Oral Capsule Doxycycline Hyclate Doxycycline Hyclate 03/22/2020 05:53:02 PM EST 100 MG completed [facility] doxycycline hyclate 100 MG Oral Capsule Doxycycline Hyclate Doxycycline Hyclate 03/22/2020 05:53:02 PM EST 100 MG [facility] 20 mg 03/22/2020 12:00:00 AM EST [...] Hydrocodone-Acetaminophen 03/21/2020 04:22:04 PM EST TAB completed [facility] Acetaminophen 325 MG / Hydrocodone Aryan trate 5 MG Oral Tablet Hydrocodone-Acetaminophen Hydrocodone-Acetaminophen 03/21/2020 04:22:04 PM EST TAB completed [facility] Acetaminophen 325 MG / Hydrocodone Aryan trate 5 MG Oral Tablet Hydrocodone-Acetaminophen Hydrocodone-Acetaminophen 03/21/2020 04:22:04 PM EST TAB completed [facility] Amlodipine 10 MG Oral Tablet Amlodipine 02/23/2020 05:49:32 PM EST 0 active [facility] Amlodipine 10 MG Oral Tablet Amlodipine 02/23/2020 05:49:32 PM EST 0 active [facility] Amlodipine 10 MG Oral Tablet Amlodipine 02/23/2020 05:49:32 PM EST 0 completed [facility] 5-325 mg 02/23/2020 12:00:00 AM [...] Hydrocodone-Acetaminophen 02/20/2020 06:21:33 PM EST TAB completed [facility] Acetaminophen 325 MG / Hydrocodone Aryan trate 5 MG Oral Tablet Hydrocodone-Acetaminophen Hydrocodone-Acetaminophen 02/20/2020 06:21:33 PM EST TAB completed [facility] Acetaminophen 325 MG / Hydrocodone Aryan trate 5 MG Oral Tablet Hydrocodone-Acetaminophen Hydrocodone-Acetaminophen 02/20/2020 06:21:33 PM EST TAB completed [facility] 5-325 mg 01/24/2020 12:00:00 AM EST [...] Hydrocodone-Acetaminophen 01/15/2020 01:37:06 PM EST TAB completed [facility] Acetaminophen 325 MG / Hydrocodone Aryan trate 5 MG Oral Tablet Hydrocodone-Acetaminophen Hydrocodone-Acetaminophen 01/15/2020 01:37:06 PM EST TAB completed [facility] Acetaminophen 325 MG / Hydrocodone Aryan trate 5 MG Oral Tablet Hydrocodone-Acetaminophen Hydrocodone-Acetaminophen 01/15/2020 01:37:06 PM EST TAB completed [facility] gabapentin 300 MG Oral Capsule Gabapentin Gabapentin 2019 11:03:22 AM EST 300 MG completed [facility] gabapentin 300 MG Oral Capsule Gabapentin Gabapentin 2019 11:03:22 AM EST 300 MG completed [facility] gabapentin 300 MG Oral Capsule Gabapentin Gabapentin 2019 11:03:22 AM EST 300 MG [facility] 0.4 mg 01/03/2020 12:00:00 AM EDT [...] Tamsulosin 01/02/2020 01:53:35 PM EDT 0 active [facility] Tamsulosin hydrochloride 0.4 MG Oral Capsule Tamsulosin 01/02/2020 01:53:35 PM EDT 0 active [facility] Tamsulosin hydrochloride 0.4 MG Oral Capsule Tamsulosin 01/02/2020 01:53:35 PM EDT 0 active [facility] Tamsulosin hydrochloride 0.4 MG Oral Capsule Tamsulosin 01/02/2020 01:53:35 PM EDT 0 active [facility] 5-325 mg 12/26/2019 12:00:00 AM EDT [...] Hydrocodone-Acetaminophen 12/25/2019 08:59:59 AM EDT TAB completed [facility] Acetaminophen 325 MG / Hydrocodone Aryan trate 5 MG Oral Tablet Hydrocodone-Acetaminophen Hydrocodone-Acetaminophen 12/25/2019 08:59:59 AM EDT TAB completed [facility] Acetaminophen 325 MG / Hydrocodone Aryan trate 5 MG Oral Tablet Hydrocodone-Acetaminophen Hydrocodone-Acetaminophen 12/25/2019 08:59:59 AM EDT TAB active [facility] Acetaminophen 325 MG / Hydrocodone Aryan trate 5 MG Oral Tablet Hydrocodone-Acetaminophen Hydrocodone-Acetaminophen 12/25/2019 08:59:59 AM EDT TAB completed [facility] 5-325 mg 11/26/2019 12:00:00 AM EDT [...] Hydrocodone-Acetaminophen 11/23/2019 07:46:14 PM EDT TAB completed [facility] Acetaminophen 325 MG / Hydrocodone Aryan trate 5 MG Oral Tablet Hydrocodone-Acetaminophen Hydrocodone-Acetaminophen 11/23/2019 07:46:14 PM EDT TAB completed [facility] Acetaminophen 325 MG / Hydrocodone Aryan trate 5 MG Oral Tablet Hydrocodone-Acetaminophen Hydrocodone-Acetaminophen 11/23/2019 07:46:14 PM EDT TAB completed [facility] Acetaminophen 325 MG / Hydrocodone Aryan trate 5 MG Oral Tablet Hydrocodone-Acetaminophen Hydrocodone-Acetaminophen 11/23/2019 07:46:14 PM EDT TAB completed [facility] Acetaminophen 325 MG / Hydrocodone Aryan trate 5 MG Oral Tablet Hydrocodone-Acetaminophen Hydrocodone-Acetaminophen 11/23/2019 09:45:47 AM EDT TAB completed [facility] Acetaminophen 325 MG / Hydrocodone Aryan trate 5 MG Oral Tablet Hydrocodone-Acetaminophen Hydrocodone-Acetaminophen 11/23/2019 09:45:47 AM EDT TAB completed [facility] Acetaminophen 325 MG / Hydrocodone Aryan trate 5 MG Oral Tablet Hydrocodone-Acetaminophen Hydrocodone-Acetaminophen 11/23/2019 09:45:47 AM EDT TAB completed [facility] Acetaminophen 325 MG / Hydrocodone Aryan trate 5 MG Oral Tablet Hydrocodone-Acetaminophen Hydrocodone-Acetaminophen 11/23/2019 09:45:47 AM EDT TAB completed [facility] Acetaminophen 325 MG / Hydrocodone Aryan trate 5 MG Oral Tablet Hydrocodone-Acetaminophen Hydrocodone-Acetaminophen 10/26/2019 06:52:48 PM EDT TAB completed [facility] Acetaminophen 325 MG / Hydrocodone Aryan trate 5 MG Oral Tablet Hydrocodone-Acetaminophen Hydrocodone-Acetaminophen 10/26/2019 06:52:48 PM EDT TAB completed [facility] Acetaminophen 325 MG / Hydrocodone Aryan trate 5 MG Oral Tablet Hydrocodone-Acetaminophen Hydrocodone-Acetaminophen 10/26/2019 06:52:48 PM EDT TAB completed [facility] Acetaminophen 325 MG / Hydrocodone Aryan trate 5 MG Oral Tablet Hydrocodone-Acetaminophen Hydrocodone-Acetaminophen 10/26/2019 06:52:48 PM EDT TAB completed [facility] 25 mg 10/10/2019 12:00:00 AM EDT [...] Succinate 10/09/2019 11:15:00 AM EDT 0 completed [facility] 24 HR metoprolol succinate 25 MG Extende d Release Oral Tablet Metoprolol Succinate Metoprolol Succinate 10/09/2019 11:15:00 AM EDT 0 completed [facility] atorvastatin 40 MG Oral Tablet Atorvastatin Atorvastatin 10/09/2019 11:14:47 AM EDT 40 MG completed [facility] atorvastatin 40 MG Oral Tablet ATORVASTATIN [...] 2019 01:25:25 PM EDT 300 MG completed [facility] gabapentin 300 MG Oral Capsule Gabapentin Gabapentin 2019 01:25:25 PM EDT 300 MG completed [facility] gabapentin 300 MG Oral Capsule Gabapentin Gabapentin 2019 01:25:25 PM EDT 300 MG [facility] 15 mg 07/16/2019 12:00:00 AM EDT capsule,delayed release (DR/EC) 180 TAKE TWO CAPSULES BY MOUTH EVERY DAY TAKE TWO CAPSULES BY MOUTH EVERY DAY SOLD: 04/04/2020 [facility] 15 mg 07/16/2019 12:00:00 AM EDT capsule,delayed release (DR/EC) 180 TAKE TWO CAPSULES BY MOUTH EVERY DAY TAKE TWO CAPSULES BY MOUTH EVERY DAY SOLD: 01/10/2020 [facility] lansoprazole 15 MG Delayed Release Oral Capsule Lansoprazole Lansoprazole 07/14/2019 01:22:40 PM EDT 30 MG completed [facility] Amlodipine 10 MG Oral Tablet Amlodipine 04/14/2019 08:43:39 AM EST 10 MG completed [facility] Amlodipine 10 MG Oral Tablet Amlodipine 04/14/2019 08:43:39 AM EST 10 MG completed [facility] Amlodipine 10 MG Oral Tablet Amlodipine 04/14/2019 08:43:39 AM EST 10 MG completed [facility] Lisinopril 40 MG Oral Tablet Lisinopril 04/14/2019 08:43:09 AM EST 40 MG completed [facility] Lisinopril 40 MG Oral Tablet Lisinopril 04/14/2019 08:43:09 AM EST 40 MG completed [facility] Lisinopril 40 MG Oral Tablet Lisinopril 04/14/2019 08:43:09 AM EST 40 MG completed [facility] 10 mg 04/14/2019 12:00:00 AM EST [...] 01/17/2019 08:45:27 AM EST 0.4 MG completed [facility] Tamsulosin hydrochloride 0.4 MG Oral Capsule Tamsulosin 01/17/2019 08:45:27 AM EST 0.4 MG completed [facility] Tamsulosin hydrochloride 0.4 MG Oral Capsule Tamsulosin 01/17/2019 08:45:27 AM EST 0.4 MG completed [facility] Tamsulosin hydrochloride 0.4 MG Oral Capsule Tamsulosin 01/17/2019 08:45:27 AM EST 0.4 MG completed [facility] Magnesium Oxide 400 MG Oral Tablet Magnesium Oxide 03/16/2018 07:52 :00 AM EST 400 MG completed [facility] Magnesium Oxide 400 MG Oral Tablet Magnesium Oxide 03/16/2018 07:52 :00 AM EST 400 MG completed [facility] Insurance Providers Payer name Policy type / Coverage type Policy ID Covered constitution party ID Covered constitution party's relationship to vargas Policy [employer] Plan Information WELLCARE [id number] SP [id number] '[id number] ADMINISTRATION [id number] SP [id number] WELLCARE -O/P [id number] 18 [id number] ADMINSTRATION -O/P [id number] 18 [id number] MEDICARE PART A -O/P [id number] 18 [id number] [place]UM [place] CCN [id number] SP [id number] 'S ADMINISTRATION [id number] SP [id number] OPTUM [place] O [id number] S [id number] WELLCARE [id number] SP [id number] TODAYS OPTIONS [id number] SP [id number] TODAYS OPTIONS [id number] SP [id number] Medicare [place] Primary [id number] Self 1A [id number] [facility] Medicare Medigap Part B [id number] Self [id number] [id number] [facility] Medicar Commercial [id number] Self [id number] [facility] MEDICARE -O/P [id number] 18 [id number] [facility] MEDICARE CHOICE [id number] PT [id number] [facility] MEDICARE CHOICE [id number] PT [id number] [facility] MEDICARE CHOICE [id number] PT [id number] [facility] MEDICARE CHOICE [id number] PT [id number] Problems, Conditions, and Diagnoses Code Display Name Description Problem Type Effective Dates Data Source(s) G53098 Personal history of other malignant neop lasm of bronchus and lung Personal history of other malignant neoplasm of bronchus and lung Diagnosis 11/23/2020 08:04:00 PM EDT [place] [id number] Nicotine dependence, cigarettes, uncompl icated Nicotine dependence, cigarettes, uncomplicated Diagnosis 11/23/2020 08:04:00 PM EDT [facility] I10 Essential (primary) hypertension Essential (primary) h ypertension Diagnosis 11/23/2020 08:04:[address] [facility] E8770 Fluid overload, unspecified Fluid overload, unspecifie d Diagnosis 11/23/2020 08:04:[address] [facility] R0600 Dyspnea, unspecified Dyspnea, unspecified Diagnosis 11/23/2020 08:04:[address] [facility] Surgeries/Procedures No Information Results ID Date Data Source [id number] 01/18/2021 12:15:00 PM EDT [facility] [address] [place] [address] PHONE: [phone] FAX: [phone] Name .................. : MONO GALLyle H Acct Number.................. : [id number] ROOM. ................. : VT-06 Number ................... : [id number] Stay type ............. : E/R Discharge Date......... ... : Admit Date ......... : 03/20/20 Admit Phys .................... : COONEYNORM Date of ....... : 1950 Family Phys ................... : MI NASSAR Phone .................. : [phone] Age ................................ : 70 Film# .................. .:[id number] Sex ................................. : M Unsigned transcriptions are preliminary reports and do not represent a medical or legal document CHEST PORTABLE [id number] COMPLETE:01/18/21 11:31 42476 Reason(s): Chest Pain PORTABLE CHEST SINGLE VIEW [...] rce(s) Supporting Document(s) ID Date Data Source [id number] 01/18/2021 01:33:[address] [facility] NOT DETECTEDNOT DETECTED{ PROC EDURAL CONTROL [...] rce(s) Supporting Document(s) ID Date Data Source [id number] 01/18/2021 01:53:[address] [facility] Name Value Range Interpretation Code Description Data Mirna rce(s) Supporting Document(s) Influenza virus A Ag [Presence] in Nasopharynx by Immunoassa y NEGATIVE NORMAL: NEGATIVE [facility] Influenza virus B Ag [Presence] in Nasopharynx by Immunoassa y NEGATIVE NORMAL: NEGATIVE [facility] NEGATIVENEGATIVE PROCEDURAL CO NTROL VALID KIT [...] other patient managementdecisions. ID Date Data Source [id number] 01/18/2021 01:49:[address] [facility] Name Value Range Interpretation Code Description Data Mirna rce(s) Supporting Document(s) RSV ANTIGEN NEGATIVE NORMAL: NEGATIVE [facility] RSV ANTIGEN REENTER NEGATIVE NORMAL: NEGATIVE [facility] { PROCEDURAL CONTROL VALID ){ KIT LOT # [id number] ){ KIT EXP DATE 06/25/21 ) ID Date Data Source [id number] 01/18/2021 01:56:[address] [facility] Name Value Range Interpretation Code Description Data Mirna rce(s) Supporting Document(s) Magnesium [Mass/volume] in Serum or Plasma 1.0 MG/DL 1.7 - 2.[address] [facility] ID Date Data Source [id number] 01/18/2021 01:56:[address] [facility] Name Value Range Interpretation Code Description Data Mirna rce(s) Supporting Document(s) COMPREHENSIVE METABOLIC PANEL [facility] COMPREHENSIVE METABOLIC PANEL Sodium [Moles/volume] in Serum or Plasma 137 mEq/L 134 - 153 [facility] Potassium [Moles/volume] in Serum or Plasma 4.5 mEq/L 3.6 - 5.0 [facility] Chloride [Moles/volume] in Serum or Plasma 101 mEq/L 98 - 107 [facility] Carbon dioxide, total [Moles/volume] in Serum or Plasma 24 MEQ/L 22 - 30 [facility] Glucose [Mass/volume] in Serum or Plasma 100 MG/DL 70 - [address] [facility] BUN 20 MG/DL 7 - 21 [facility] Creatinine [Mass/volume] in Serum or Plasma 1.9 MG/DL 0.7 - 1.[address] [facility] [facility] BUN/CREAT 11 8 - 27 [facility] Protein [Mass/volume] in Serum or Plasma 6.7 G/DL 6.3 - 8.2 [facility] Albumin [Mass/volume] in Serum or Plasma 4.1 G/DL 3.9 - 5.0 [facility] Globulin [Mass/volume] in Serum by calculation 2.6 GM/DL 2.4 - 3.2 [facility] A/G RATIO 1.6 0.8 - 2.0 [facility] Calcium [Mass/volume] in Serum or Plasma 8.2 MG/DL 8.4 - 10.[address] [facility] Bilirubin.total [Mass/volume] in Serum or Plasma <0.7 MG/DL 0.2 - 1.3 [facility] Alkaline phosphatase [Enzymatic activity/volume] in Serum or Plasma 42 U/L 38 - 126 [facility] Aspartate aminotransferase [Enzymatic activity/volume] in Serum or Plasma 21 U/L 5 - 40 [facility] Alanine aminotransferase [Enzymatic activity/volume] in Seru m or Plasma 11 U/L 7 - 56 [facility] Anion gap 3 in Serum or Plasma 12.0 mmol/L 8.0 - 16.0 [facility] AGE 70 yrs [facility] NON-AA GFR 37 mL/min [facility] AFR AMER GFR 45 mL/min [facility] Male GFR In terprentation 20-49 [...] >32 mL/min Normal ID Date Data Source [id number] 01/18/2021 01:56:[address] [facility] Name Value Range Interpretation Code Description Data Mirna rce(s) Supporting Document(s) BNP 3087 PG/ML 0 - 125 [facility] ID Date Data Source [id number] 01/18/2021 01:56:[address] [facility] Name Value Range Interpretation Code Description Data Mirna rce(s) Supporting Document(s) TROPONIN T <0.01 NG/ML 0.00 - 0.10 [facility] ospital TROPONIN T0.1 ng/ml Recommended as the c linical threshold value forTroponin T. ID Date Data Source [id number] 01/18/2021 01:15:00 PM EDT [facility] Value Range Interpretation Code Description Data Mirna rce(s) Supporting Document(s) Lactate [Moles/volume] in Serum or Plasma 0.8 MMOL/L 0.2 - 2.2 [facility] ID Date Data Source [id number] 01/18/2021 01:01:00 PM EDT [facility] Value Range Interpretation Code Description Data Mirna rce(s) Supporting Document(s) CBC W/AUTOMATED DIFF [facility] COMPLETE BLOOD COUNT Leukocytes [#/volume] in Blood by Automated count 8.2 10^3/uL 4.2 - [address] [facility] Erythrocytes [#/volume] in Blood by Automated count 3.70 10^6/uL 4. 50 - 6.[address] [facility] Hemoglobin [Mass/volume] in Blood 10.8 g/dL 14.0 - 16.[address] [facility] Hematocrit [Volume Fraction] of Blood by Automated count 31.6 % 4 1.0 - 51.[address] [facility] Erythrocyte mean corpuscular volume [Entitic volume] by Auto mated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 Serum or Plasma 3.9 mEq/L 3.6 - 5.0 [facility] Chloride [Moles/volume] in Serum or Plasma 99 mEq/L 98 - 107 [facility] Carbon dioxide, total [Moles/volume] in Serum or Plasma 23 MEQ/L 22 - 30 [facility] Glucose [Mass/volume] in Serum or Plasma 107 MG/DL 70 - [address] [facility] BUN 18 MG/DL 7 - 21 [facility] Creatinine [Mass/volume] in Serum or Plasma 1.9 MG/DL 0.7 - 1.[address] [facility] BUN/CREAT 9 8 - 27 [facility] Protein [Mass/volume] in Serum or Plasma 7.7 G/DL 6.3 - 8.2 [facility] Albumin [Mass/volume] in Serum or Plasma 4.5 G/DL 3.9 - 5.0 [facility] Globulin [Mass/volume] in Serum by calculation 3.2 GM/DL 2.4 - 3.2 [facility] A/G RATIO 1.4 0.8 - 2.0 [facility] Calcium [Mass/volume] in Serum or Plasma 8.3 MG/DL 8.4 - 10.[address] [facility] Bilirubin.total [Mass/volume] in Serum or Plasma <0.7 MG/DL 0.2 - 1.3 [facility] Alkaline phosphatase [Enzymatic activity/volume] in Serum or Plasma 43 U/L 38 - 126 [facility] Aspartate aminotransferase [Enzymatic activity/volume] in Serum or Plasma 25 U/L 5 - 40 [facility] Alanine aminotransferase [Enzymatic activity/volume] in Seru m or Plasma 10 U/L 7 - 56 [facility] Anion gap 3 in Serum or Plasma 15.0 mmol/L 8.0 - 16.0 [facility] AGE 69 yrs [facility] al NON-AA GFR 38 mL/min [facility] AFR AMER GFR 45 mL/min [facility] Male GFR In terprentation 20-49 [...] >32 mL/min Normal ID Date Data Source [id number] 10/31/2020 11:44:00 AM EDT [facility] Patient Name: SVITLANA BURNHAM : 0 1950 Sex: M Pt Unit #: [id number] Location:[facility] Provider: Visit Date/Time: 10/31/20 Primary Insurance: [employer] [...] Workman's Compensation Nurse Note: Here for Comp Heel Scorer Required: No Accompanied by: Self / Same [...] day multivitamin 1 tab PO DAILY omega 4-hfd-mlp-fish oil 300-1,000 mg (Fish Oil) 1 cap [...] really has not helped his back pain. [facility] Medical History (Updated 04/30/20 @ 11:08 by [...] tabs 3RF Coding Level of Care Code 16539 Est Pt Intermediate Comp Diagnoses Work related injury Y99.0 <Electronically signed by Cuco Caldwell DO> 10/31/20 1226 Name Value Range Interpretation Code Description Data Mirna rce(s) Supporting Document(s) ID Date Data Source [id number] 08/08/2020 11:36:00 AM EDT [facility] Patient Name: SVITLANA BURNHAM : 0 1950 Sex: M Pt Unit #: [id number] Location:[facility] Provider: Visit Date/Time: 08/08/20 Primary Insurance: [...] workers comp follow up, voices no concerns Heel Scorer Required: No Accompanied by: Self / Same [...] better now. He is moving his bowels. [facility] Medical History (Updated 04/30/20 @ 11:08 by [...] not working. Coding Level of Care Code 35594 Est Pt Intermediate Comp Diagnoses Work related injury Y99.0 <Electronically signed by Cuco Caldwell DO> 08/08/20 1222 Name Value Range Interpretation Code Description Data Mirna rce(s) Supporting Document(s) ID Date Data Source [id number] 05/30/2020 03:42:00 PM EDT [facility] Patient Name: SVITLANA BURNHAM : 0 1950 Sex: M Pt Unit #: [id number] Location:[facility] Provider: Visit Date/Time: 05/30/20 Primary Insurance: [...] there is a question about the metoprolol Heel Scorer Required: No Accompanied by: Is patient in [...] he is here today. he sees the [facility]Onc in [place]. His BP dropped last week. he is [...] Lisinopril 40mg daily to 1/2 tab daily. [facility] Medical History (Updated 04/30/20 @ 11:08 by [...] ncer. (2) Hypertension: Status: Chronic SNOMED Code(s): 94482458 Category: Medical Medications: Changed: From: metoprolol succinate ER TAKE ONE TABLET BY MOUTH EVERY DAY 90 tabs 3RF To: metoprolol succinate ER TAKE ONE TABLET BY MOUth twice a day 90 tabs 3RF (3) Small cell lung cancer: Status: Acute Code(s): C34.90 - Malignant neoplasm of unspecified part of unspecified bronchus or lung SNOMED Code(s): 765761585 Category: Medical Orders Other Medications: Changed: From: magnesium oxide 400 mg PO DAILY 90 tabs 3RF To: magnesium oxide 400 mg PO BID 90 tabs 3RF Instructions: DASH Eating Plan (GEN) Hypertension (GEN) Coding Level of Care Code 13448 Est Pt Intermediate Comp Exam Detailed Diagnoses Encounter for medication adjustment Z51.89 Hypertension I10 Small cell lung cancer C34.90 <Electronically signed by Cuco Caldwell DO> 05/30/20 1655 Name Value Range Interpretation Code Description Data Mirna rce(s) Supporting Document(s) ID Date Data Source [id number] 04/30/2020 10:37:00 AM [facility] Patient Name: SVITLANA BURNHAM : 0 1950 Sex: M Pt Unit #: [id number] Location:[facility] Provider: Visit Date/Time: 04/30/20 Primary Insurance: [...] workmans comp follow up. Voices no concerns Heel Scorer Required: No Accompanied by: Self / Same [...] DAY multivitamin 1 tab PO DAILY omega 8-amw-hxu-fish oil 300-1,000 mg (Fish Oil) 1 cap [...] least two of the following?: no symptoms [facility] Medical History (Updated 04/30/20 @ 11:08 by [...] with a chest tube. He was at [facility] with [facility]. Dr. Kirkland [...] not working. Coding Level of Care Code 23825 Est Pt Intermediate Comp Exam Detailed Diagnoses Work related injury Y99.0 <Electronically signed by Cuco Caldwell DO> 04/30/20 1119 Name Value Range Interpretation Code Description Data Imrna rce(s) Supporting Document(s) ID Date Data Source [id number] 03/26/2020 12:50:00 PM EST [facility] Name Value Range Interpretation Code Description Data [facility] rce(s) Supporting Document(s) SARS coronavirus 2 RNA [Presence] in Res piratory specimen by BERNADINE with probe detection NEGATIVE [facility] This lab was ordered by [facility] a nd reported by [facility]. ID Date Data Source [id number] 01/15/2020 10:35:00 AM [facility] Patient Name: SVITLANA BURNHAM : 0 1950 Sex: M Pt Unit #: [id number] Location:[facility] Provider: Visit Date/Time: 01/15/20 Primary [...] up visit. Patient offers no concerns today. Heel Scorer Required: No Accompanied by: self Is patient [...] DAY multivitamin 1 tab PO DAILY omega 3-xic-csf-fish oil 300-1,000 mg (Fish Oil) 1 cap [...] Screening Screening Have you traveled outside of [facility] or [facility] in the last 14 days.: No [...]
[2021-01-19] MEDS ORDERED: ASPI325T57 PO (00:12)
[2021-01-19] MEDS ORDERED: TRAZ-252 PO (00:13)
[2021-01-19] MEDS ORDERED: HYDR-3713 PO (00:15)
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
[2021-01-19] MEDS ORDERED: HOME MED LIST COMPLETE! XX SCH (00:20)
[2021-01-19] MEDS: GABAPENTIN 300 MG CAP PO SCH ×4 (01:35→22:07)
[2021-01-19] MEDS: traZODone 50 MG TAB PO SCH ×2 (01:35→22:07)
[2021-01-19] MEDS: guaiFENesin ER 600 MG TAB PO SCH ×3 (01:35→22:07)
[2021-01-19] MEDS: METOPROLOL SUCC *XL* 25MG TAB (TopROL *XL*) PO SCH ×3 (01:36→22:08)
[2021-01-19] MEDS: DICLOFENAC EPOLAMINE 1.3 % PATCH TOP SCH ×3 (01:36→22:08)
[2021-01-19] MEDS: VITAMIN D 1,000 INTERNATIONAL UNITS TABLET PO SCH ×2 (01:36→22:08)
[2021-01-19] MEDS: SYMBICORT 80/4.5MCG INHALER 6GM INH SCH ×3 (01:37→19:37)
[2021-01-19] MEDS: predniSONE 20 MG TAB PO SCH ×2 (01:37→08:15)
[2021-01-19] MEDS: MORPHINE 2 MG/ML 1ML VIAL (J2270) IV PRN ×4 (01:38→22:10)
[2021-01-19] MEDS: IPRATROPIUM 0.5MG/ALBUTEROL 2.5MG INH SOL UD 3ML (DUONEB) NEB SCH ×4 (01:42→19:37)
[2021-01-19] MEDS: NICOTINE 21MG/24HR 1 EA TRANSDERMAL TD SCH ×2 (01:53→22:08)
[2021-01-19] MEDS: HEPARIN SOD (PORCINE) 5000UNITS/ML 1ML VIAL/SYRINGE SQ SCH ×3 (05:46→22:08)
--- NOTE | 2021-01-19 05:51 | ECGEPIP ---
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
[2021-01-19 06:00] LABS: BASO % 0.3 % (0.0-1.0); EOS % 0.1 % (0.0-3.0); HEMATOCRIT 32.8 % (42.0-52.0); HEMOGLOBIN 11.1 g/dl (13.5-17.5); LYMPH # 0.4 10^3/uL (1.5-5.0); LYMPH % 3.6 % (24.0-44.0); MEAN CORPUSCULAR HEMOGLOBIN 29.1 pg (27.0-33.0); MEAN CORPUSCULAR HGB CONC 33.8 g/dl (32.0-36.5); MEAN CORPUSCULAR VOLUME 86.1 fl (80.0-96.0); MONO # 0.3 10^3/uL (0.0-0.8); MONO % 2.7 % (2.0-8.0); NEUTROPHILS # 9.5 10^3/uL (1.5-8.5); NEUTROPHILS % 92.9 % (36.0-66.0); PLATELET COUNT, AUTOMATED 252 10^3/uL (150-450); RED BLOOD COUNT 3.81 10^6/uL (4.30-6.10); WHITE BLOOD COUNT 10.3 10^3/uL (4.0-10.0)
[2021-01-19 06:22] LABS: CALCIUM LEVEL 8.4 MG/DL (8.8-10.2); CREATININE FOR GFR 1.37 MG/DL (0.70-1.30); GLOMERULAR FILTRATION RATE 54.7 (>42); POTASSIUM SERUM 4.5 MEQ/L (3.5-5.1)
[2021-01-19] MEDS: PANTOPRAZOLE 40MG VIAL (C9113 PER 1) IV SCH (08:12)
[2021-01-19] MEDS: AZITHROMYCIN 250MG TABLET PO SCH (08:13)
[2021-01-19] MEDS: FENOFIBRATE 145MG TABLET (TRICOR) PO SCH (08:13)
[2021-01-19] MEDS: ASPIRIN 325 MG TAB PO SCH (08:13)
[2021-01-19] MEDS: MULTIVITAMINS/MINERALS THERAP 1 TAB PO SCH (08:13)
[2021-01-19] MEDS: LACTOBACILLUS ACIDOPHILUS CAP (BACID) PO SCH (08:13)
[2021-01-19] MEDS: ATORVASTATIN 20 MG TAB PO SCH (08:15)
[2021-01-19] MEDS: TAMSULOSIN 0.4 MG CAP PO SCH (08:15)
[2021-01-19] MEDS: NORCO, ANEXSIA 5/325MG TABLET (HYDROcodone/ACETAMINOPHEN) PO PRN (08:26)
[2021-01-19] MEDS ORDERED: **NOTE PATIENT COMMENT** MISC XX SCH (09:00)
[2021-01-19] MEDS ORDERED: NS 1,000 ML IV SCH (15:15)
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
[2021-01-19] MEDS ORDERED: NS 500 ML IV ONE (16:00)
[2021-01-20] VITALS (7 sets, daily range): BP systolic 126–153; BP diastolic 68–88; O2SAT 92–97
[2021-01-20] MEDS: IPRATROPIUM 0.5MG/ALBUTEROL 2.5MG INH SOL UD 3ML (DUONEB) NEB SCH ×4 (02:56→19:39)
[2021-01-20] MEDS: MORPHINE 2 MG/ML 1ML VIAL (J2270) IV PRN ×4 (03:19→18:55)
[2021-01-20] MEDS: NORCO, ANEXSIA 5/325MG TABLET (HYDROcodone/ACETAMINOPHEN) PO PRN ×2 (03:45→21:41)
[2021-01-20] MEDS: HEPARIN SOD (PORCINE) 5000UNITS/ML 1ML VIAL/SYRINGE SQ SCH ×3 (05:08→21:20)
[2021-01-20 06:14] LABS: BASO % 0.1 % (0.0-1.0); HEMATOCRIT 29.7 % (42.0-52.0); HEMOGLOBIN 10.1 g/dl (13.5-17.5); LYMPH # 1.1 10^3/uL (1.5-5.0); LYMPH % 9.3 % (24.0-44.0); MEAN CORPUSCULAR VOLUME 85.3 fl (80.0-96.0); MONO % 8.8 % (2.0-8.0); NEUTROPHILS # 9.6 10^3/uL (1.5-8.5); NEUTROPHILS % 81.4 % (36.0-66.0); PLATELET COUNT, AUTOMATED 267 10^3/uL (150-450); RED BLOOD COUNT 3.48 10^6/uL (4.30-6.10); WHITE BLOOD COUNT 11.8 10^3/uL (4.0-10.0)
[2021-01-20 06:34] LABS: CALCIUM LEVEL 8.3 MG/DL (8.8-10.2); CREATININE FOR GFR 1.43 MG/DL (0.70-1.30); POTASSIUM SERUM 4.2 MEQ/L (3.5-5.1)
[2021-01-20] MEDS: SYMBICORT 80/4.5MCG INHALER 6GM INH SCH ×2 (07:21→19:39)
[2021-01-20] MEDS: PANTOPRAZOLE 40MG VIAL (C9113 PER 1) IV SCH (08:28)
[2021-01-20] MEDS: MULTIVITAMINS/MINERALS THERAP 1 TAB PO SCH (08:31)
[2021-01-20] MEDS: DICLOFENAC EPOLAMINE 1.3 % PATCH TOP SCH ×2 (08:31→21:22)
[2021-01-20] MEDS: LIDOCAINE 5% (LIDODERM) PATCH TD SCH (08:31)
[2021-01-20] MEDS: TAMSULOSIN 0.4 MG CAP PO SCH (08:32)
[2021-01-20] MEDS: predniSONE 20 MG TAB PO SCH (08:32)
[2021-01-20] MEDS: guaiFENesin ER 600 MG TAB PO SCH ×2 (08:32→21:20)
[2021-01-20] MEDS: METOPROLOL SUCC *XL* 25MG TAB (TopROL *XL*) PO SCH ×2 (08:33→21:22)
[2021-01-20] MEDS: FENOFIBRATE 145MG TABLET (TRICOR) PO SCH (08:33)
[2021-01-20] MEDS: ASPIRIN 325 MG TAB PO SCH (08:33)
[2021-01-20] MEDS: AZITHROMYCIN 250MG TABLET PO SCH (08:34)
[2021-01-20] MEDS: ATORVASTATIN 20 MG TAB PO SCH (08:34)
[2021-01-20] MEDS: GABAPENTIN 300 MG CAP PO SCH ×3 (08:34→21:20)
[2021-01-20] MEDS: LACTOBACILLUS ACIDOPHILUS CAP (BACID) PO SCH (08:34)
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
[2021-01-20] MEDS ORDERED: **NOTE PATIENT COMMENT** MISC XX SCH (21:00)
[2021-01-20] MEDS: traZODone 50 MG TAB PO SCH (21:20)
[2021-01-20] MEDS: VITAMIN D 1,000 INTERNATIONAL UNITS TABLET PO SCH (21:20)
[2021-01-20] MEDS: NICOTINE 21MG/24HR 1 EA TRANSDERMAL TD SCH (21:57)
[2021-01-21] VITALS (7 sets, daily range): BP systolic 148–160; BP diastolic 74–88; O2SAT 88–96
[2021-01-21] MEDS: IPRATROPIUM 0.5MG/ALBUTEROL 2.5MG INH SOL UD 3ML (DUONEB) NEB SCH ×3 (01:23→13:19)
[2021-01-21] MEDS: MORPHINE 2 MG/ML 1ML VIAL (J2270) IV PRN ×2 (02:57→07:54)
[2021-01-21] MEDS: HEPARIN SOD (PORCINE) 5000UNITS/ML 1ML VIAL/SYRINGE SQ SCH ×2 (06:27→14:00)
[2021-01-21 06:52] LABS: BASO % 0.3 % (0.0-1.0); EOS % 0.1 % (0.0-3.0); HEMATOCRIT 30.5 % (42.0-52.0); HEMOGLOBIN 10.5 g/dl (13.5-17.5); LYMPH # 1.6 10^3/uL (1.5-5.0); LYMPH % 14.2 % (24.0-44.0); MEAN CORPUSCULAR HGB CONC 34.4 g/dl (32.0-36.5); MEAN CORPUSCULAR VOLUME 84.3 fl (80.0-96.0); MONO # 1.1 10^3/uL (0.0-0.8); MONO % 10.2 % (2.0-8.0); NEUTROPHILS # 8.3 10^3/uL (1.5-8.5); NEUTROPHILS % 74.8 % (36.0-66.0); PLATELET COUNT, AUTOMATED 295 10^3/uL (150-450); RED BLOOD COUNT 3.62 10^6/uL (4.30-6.10); WHITE BLOOD COUNT 11.1 10^3/uL (4.0-10.0)
[2021-01-21 06:59] LABS: CALCIUM LEVEL 8.3 MG/DL (8.8-10.2); CREATININE FOR GFR 1.3 MG/DL (0.70-1.30); GLOMERULAR FILTRATION RATE 58.1 (>42); POTASSIUM SERUM 4.3 MEQ/L (3.5-5.1)
[2021-01-21] MEDS: SYMBICORT 80/4.5MCG INHALER 6GM INH SCH (07:57)
[2021-01-21] MEDS ORDERED: TRAZ-252 PO (08:12)
[2021-01-21] MEDS: LACTOBACILLUS ACIDOPHILUS CAP (BACID) PO SCH (09:41)
[2021-01-21] MEDS: PANTOPRAZOLE 40MG VIAL (C9113 PER 1) IV SCH (09:41)
[2021-01-21] MEDS: DICLOFENAC EPOLAMINE 1.3 % PATCH TOP SCH (09:41)
[2021-01-21] MEDS: FENOFIBRATE 145MG TABLET (TRICOR) PO SCH (09:41)
[2021-01-21] MEDS: LIDOCAINE 5% (LIDODERM) PATCH TD SCH (09:41)
[2021-01-21] MEDS: guaiFENesin ER 600 MG TAB PO SCH (09:42)
[2021-01-21] MEDS: MULTIVITAMINS/MINERALS THERAP 1 TAB PO SCH (09:42)
[2021-01-21] MEDS: predniSONE 20 MG TAB PO SCH (09:43)
[2021-01-21] MEDS: ASPIRIN 325 MG TAB PO SCH (09:43)
[2021-01-21] MEDS: METOPROLOL SUCC *XL* 25MG TAB (TopROL *XL*) PO SCH (09:43)
[2021-01-21] MEDS: AZITHROMYCIN 250MG TABLET PO SCH (09:43)
[2021-01-21] MEDS: ATORVASTATIN 20 MG TAB PO SCH (09:44)
[2021-01-21] MEDS: TAMSULOSIN 0.4 MG CAP PO SCH (09:44)
[2021-01-21] MEDS: GABAPENTIN 300 MG CAP PO SCH ×2 (09:44→15:11)
[2021-01-21] MEDS: NORCO, ANEXSIA 5/325MG TABLET (HYDROcodone/ACETAMINOPHEN) PO PRN (10:27)
[2021-01-21] MEDS ORDERED: PRED20TA PO (11:04)
[2021-01-21] MEDS ORDERED: AZIT-12 PO (11:04)
[2021-01-21] MEDS ORDERED: OXYC1TAB23 PO (16:00)
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
[2021-01-22] MEDS ORDERED: TRAZ-252 PO (18:16)
== END 2021-01-21 17:40 | disposition home health service (06) | DRG 183 ==
LOC: M ED 19:16 → M ED INP 19:17 → ENRESERVDT 01-19 00:52 → ENRESERVTM 01-19 00:52 → M MSPAV 01-19 01:40 → OBSVTOIN 01-19 08:38 → UNDODISOB 01-21 17:40
PROVIDERS: ADMIT Family Medicine; ATTEND Family Medicine
DX: S22.41XA Multiple fractures of ribs, right side, initial encounter for closed fracture (principal); J96.21 Acute and chronic respiratory failure with hypoxia; J44.1 Chronic obstructive pulmonary disease with (acute) exacerbation; J98.11 Atelectasis; V86.55XA Driver of 3- or 4- wheeled all-terrain vehicle (ATV) injured in nontraffic accident, initial encounter; Y92.89 Other specified places as the place of occurrence of the external cause; Y93.9 Activity, unspecified; N18.30 Chronic kidney disease, stage 3 unspecified; I12.9 Hypertensive chronic kidney disease with stage 1 through stage 4 chronic kidney disease, or unspecified chronic kidney disease; E78.5 Hyperlipidemia, unspecified; F17.218 Nicotine dependence, cigarettes, with other nicotine-induced disorders; N40.0 Benign prostatic hyperplasia without lower urinary tract symptoms; K21.9 Gastro-esophageal reflux disease without esophagitis; Z79.82 Long term (current) use of aspirin; Z79.899 Other long term (current) drug therapy; Z85.118 Personal history of other malignant neoplasm of bronchus and lung; Z92.3 Personal history of irradiation; Z92.21 Personal history of antineoplastic chemotherapy; K22.70 Barrett's esophagus without dysplasia

== ENCOUNTER → 2021-02-20 | Outpatient (CLI) | payer OTHER ==
[~2021-02-20] MED LIST changes: +ASPI325T57 PO; +AZIT-12 PO; +OXYC1TAB23 PO; +PROHANCE 279.3MG/ML 5ML VIAL As Ordered ONE
--- NOTE | 2021-02-21 12:31 | REPVR ---
PROCEDURE INFORMATION: Exam: MR Head Without and With Contrast Exam date and time: 02/20/2021 4:09 PM Age: 70 years old Clinical indication: Condition or disease; History of cancer (specify primary cancer site): ; Primary cancer: Lung; Additional info: Lung CA TECHNIQUE: Imaging protocol: MR of the head without and with intravenous contrast. Contrast material: PROHANCE; Contrast volume: 8 ml; Contrast route: INTRAVENOUS (IV); COMPARISON: MRI-Brain W/O FOLL BY WITH 11/06/2020 1:29 PM FINDINGS: Brain: There is mild patchy increased T2 signal intensity within the bilateral cerebral periventricular white matter, consistent with chronic microvascular ischemic changes. There are multiple small focal areas of chronic ischemia in bilateral frontal, parietal and periatrial white matter. There is no abnormal diffusion weighted signal intensity to suggest an acute ischemic event. There is mild diffuse cerebral atrophy present, consistent with this patient's age. Cerebral ventricles: The ventricular system demonstrates mild diffuse compensatory enlargement. Bones/joints: Unremarkable. Paranasal sinuses: Normal as visualized. No acute sinusitis. Mastoid air cells: Normal as visualized. No mastoid effusion. Orbital cavity: Unremarkable. Soft tissues: Unremarkable. IMPRESSION: 1. No acute infarction, masses or hemorrhage is seen. No acute intracranial abnormality is identified. 2. Diffuse age-related cerebral atrophy and mild chronic microvascular white matter ischemic changes, without evidence of an acute intracranial abnormality. 3. No abnormal contrast enhancement is seen. 4. There has been no adverse interval change since the previous study. Electronically signed by: Delta Fajardo On 02/21/2021 12:31:03 PM
== END ==
LOC: M RAD 14:45
PROVIDERS: ATTEND General Practice
DX: C34.31 Malignant neoplasm of lower lobe, right bronchus or lung (principal); R90.82 White matter disease, unspecified; G31.9 Degenerative disease of nervous system, unspecified
CPT/HCPCS: 70553; A9576

== ENCOUNTER → 2021-02-27 | Outpatient (CLI) | payer OTHER ==
[~2021-02-27] MED LIST changes: +MAGN400T2 PO; +ONDA-84 PO; -ONDA8TAB10 PO; +OXYC-517 PO; -PROC10TA4 PO; +PROC10TA5 PO; -PROHANCE 279.3MG/ML 5ML VIAL As Ordered ONE; +RA S160C PO; -SM S160C PO
== END ==
LOC: M ONCR 10:01
PROVIDERS: ATTEND General Practice
DX: C34.31 Malignant neoplasm of lower lobe, right bronchus or lung (principal); F17.210 Nicotine dependence, cigarettes, uncomplicated; J44.9 Chronic obstructive pulmonary disease, unspecified; Z92.3 Personal history of irradiation; Z92.21 Personal history of antineoplastic chemotherapy; Z79.891 Long term (current) use of opiate analgesic; Z79.899 Other long term (current) drug therapy

== ENCOUNTER → 2021-04-17 | Outpatient (CLI) | payer OTHER ==
[~2021-04-17] MED LIST changes: -MAGN400T2 PO
== END ==
LOC: M RAD 12:39
PROVIDERS: ATTEND Specialist
DX: C34.90 Malignant neoplasm of unspecified part of unspecified bronchus or lung (principal); J43.9 Emphysema, unspecified; I25.10 Atherosclerotic heart disease of native coronary artery without angina pectoris

== ENCOUNTER → 2021-07-16 | Outpatient (CLI) | payer OTHER ==
[~2021-07-16] MED LIST changes: -D31000TA2 PO; +MAGN400T2 PO; +PROHANCE 279.3MG/ML 15ML VIAL As Ordered ONE; +VITA100093 PO
== END ==
LOC: M RAD 10:30
PROVIDERS: ATTEND General Practice
DX: C34.31 Malignant neoplasm of lower lobe, right bronchus or lung (principal); R90.82 White matter disease, unspecified; G31.9 Degenerative disease of nervous system, unspecified

== ENCOUNTER → 2021-07-29 | Outpatient (CLI) | payer OTHER ==
[~2021-07-29] MED LIST changes: -PROHANCE 279.3MG/ML 15ML VIAL As Ordered ONE
== END ==
LOC: M RAD 12:45
PROVIDERS: ATTEND Specialist
DX: C34.90 Malignant neoplasm of unspecified part of unspecified bronchus or lung (principal)

== ENCOUNTER → 2021-08-05 | Outpatient (CLI) | payer OTHER | LOC: M ONCR 15:01 | PROVIDERS: ATTEND General Practice | DX: C34.31 Malignant neoplasm of lower lobe, right bronchus or lung (principal); J44.9 Chronic obstructive pulmonary disease, unspecified; F17.210 Nicotine dependence, cigarettes, uncomplicated; Z79.82 Long term (current) use of aspirin; Z79.899 Other long term (current) drug therapy; Z92.21 Personal history of antineoplastic chemotherapy; Z92.3 Personal history of irradiation ==

== ENCOUNTER → 2021-10-30 | Outpatient (CLI) | payer MEDICARE, OTHER ==
[~2021-10-30] MED LIST changes: +FISH1CAP26 PO; +LORA1TAB4 PO; +LOSA50TA28 PO; +MORP15TA2 PO; +PANT40TA29 PO
[2021-10-30 12:40] LABS: BASO # 0.1 10^3/uL (0.0-0.2); EOS # 0.2 10^3/uL (0.0-0.5); EOS % 2.2 % (0.0-3.0); HEMATOCRIT 33.9 % (42.0-52.0); HEMOGLOBIN 11.3 g/dl (13.5-17.5); LYMPH # 0.9 10^3/uL (1.5-5.0); LYMPH % 11.3 % (24.0-44.0); MEAN CORPUSCULAR HEMOGLOBIN 29.2 pg (27.0-33.0); MEAN CORPUSCULAR HGB CONC 33.3 g/dl (32.0-36.5); MEAN CORPUSCULAR VOLUME 87.6 fl (80.0-96.0); MONO # 0.7 10^3/uL (0.0-0.8); MONO % 8.6 % (2.0-8.0); NEUTROPHILS # 6.1 10^3/uL (1.5-8.5); NEUTROPHILS % 76.3 % (36.0-66.0); PLATELET COUNT, AUTOMATED 295 10^3/uL (150-450); RED BLOOD COUNT 3.87 10^6/uL (4.30-6.10)
[2021-10-30 12:53] LABS: HEMOGLOBIN A1c 5.6 %
[2021-10-30 13:22] LABS: CALCIUM LEVEL 9.5 MG/DL (8.8-10.2); CREATININE FOR GFR 2.01 MG/DL (0.70-1.30); GLOMERULAR FILTRATION RATE 35.1 (>42); POTASSIUM SERUM 5.7 MEQ/L (3.5-5.1)
[2021-10-30 13:23] LABS: BILIRUBIN,TOTAL 0.3 MG/DL (0.2-1.0); CHOLESTEROL RISK RATIO 2.75 (<5); TOTAL PROTEIN 7.4 GM/DL (6.4-8.2)
[2021-10-30 14:02] LABS: TOTAL 25(OH) VITAMIN D 62.4 NG/ML (30.0-100.0)
[2021-10-30 14:09] LABS: MALB URINE SIEMENS 9.2 MG/L; MAU/CREAT RATIO 3.1 MCG/MG (0.0-30.0)
== END ==
LOC: M LAB 10:51
PROVIDERS: ATTEND Nurse Practitioner Family
DX: M54.16 Radiculopathy, lumbar region (principal); I10 Essential (primary) hypertension; G89.29 Other chronic pain; E55.9 Vitamin D deficiency, unspecified; R73.03 Prediabetes; Z79.899 Other long term (current) drug therapy

== ENCOUNTER → 2021-10-30 | Outpatient (CLI) | payer OTHER ==
[~2021-10-30] MED LIST changes: -FISH1CAP26 PO; -LORA1TAB4 PO; -LOSA50TA28 PO; -MORP15TA2 PO; -PANT40TA29 PO
[2021-10-30 12:41] LABS: BASO # 0.1 10^3/uL (0.0-0.2); BASO % 0.9 % (0.0-1.0); EOS # 0.2 10^3/uL (0.0-0.5); EOS % 2.4 % (0.0-3.0); HEMATOCRIT 32.7 % (42.0-52.0); LYMPH % 12.4 % (24.0-44.0); MEAN CORPUSCULAR HEMOGLOBIN 29.6 pg (27.0-33.0); MEAN CORPUSCULAR HGB CONC 33.6 g/dl (32.0-36.5); MEAN CORPUSCULAR VOLUME 88.1 fl (80.0-96.0); MONO # 0.6 10^3/uL (0.0-0.8); MONO % 7.4 % (2.0-8.0); NEUTROPHILS # 6.1 10^3/uL (1.5-8.5); NEUTROPHILS % 76.5 % (36.0-66.0); PLATELET COUNT, AUTOMATED 289 10^3/uL (150-450); RED BLOOD COUNT 3.71 10^6/uL (4.30-6.10)
[2021-10-30 13:24] LABS: ALBUMIN 3.8 GM/DL (3.2-5.2); BILIRUBIN,TOTAL 0.3 MG/DL (0.2-1.0); CALCIUM LEVEL 9.3 MG/DL (8.8-10.2); CREATININE FOR GFR 2.01 MG/DL (0.70-1.30); GLOMERULAR FILTRATION RATE 35.1 (>42); POTASSIUM SERUM 5.7 MEQ/L (3.5-5.1); TOTAL PROTEIN 7.5 GM/DL (6.4-8.2)
== END ==
LOC: M RAD 10:27
PROVIDERS: ATTEND Specialist
DX: C34.90 Malignant neoplasm of unspecified part of unspecified bronchus or lung (principal)

== ENCOUNTER → 2021-12-05 | Outpatient (CLI) | payer OTHER ==
[~2021-12-05] MED LIST changes: +LORA1TAB4 PO; +MORP15TA2 PO; +PROHANCE 279.3MG/ML 5ML VIAL As Ordered ONE
== END ==
LOC: M RAD 10:47
PROVIDERS: ATTEND General Practice
DX: C34.31 Malignant neoplasm of lower lobe, right bronchus or lung (principal); R93.0 Abnormal findings on diagnostic imaging of skull and head, not elsewhere classified
CPT/HCPCS: 70553; A9576

== ENCOUNTER → 2021-12-30 | Outpatient (CLI) | payer OTHER ==
[~2021-12-30] MED LIST changes: -PROHANCE 279.3MG/ML 5ML VIAL As Ordered ONE
== END ==
LOC: M ONCR 11:21
PROVIDERS: ATTEND General Practice
DX: C34.31 Malignant neoplasm of lower lobe, right bronchus or lung (principal); C38.3 Malignant neoplasm of mediastinum, part unspecified; J44.9 Chronic obstructive pulmonary disease, unspecified; F17.210 Nicotine dependence, cigarettes, uncomplicated; R53.83 Other fatigue; R06.02 Shortness of breath; R05.9 Cough, unspecified; R63.4 Abnormal weight loss; R07.81 Pleurodynia; Z99.81 Dependence on supplemental oxygen; Z79.891 Long term (current) use of opiate analgesic; Z79.899 Other long term (current) drug therapy; Z79.51 Long term (current) use of inhaled steroids; Z92.21 Personal history of antineoplastic chemotherapy; Z92.3 Personal history of irradiation

== ENCOUNTER 2022-01-05 14:37 | Inpatient (IN) | payer OTHER ==
[~2022-01-05] VITALS: Ht 180.3 cm; Wt 73.6 kg
[2022-01-05] MEDS ORDERED: dexameTHASONE 20MG/5ML VIAL (J1100 PER 1MG) IV ONE (15:10)
[2022-01-05] MEDS ORDERED: cefTRIAXone SOD 2 GM in D5W MINI-BAG PLUS 50 ML IV ONE (15:15)
[2022-01-05] MEDS ORDERED: NS 2,210 ML in IV 1 EA IV ONE (15:15)
[2022-01-05] MEDS: COMBIVENT RESPIMAT 100-20MCG INHALER 4GM INH SCH ×3 (15:16→16:17)
[2022-01-05 15:20] LABS: VENOUS BASE EXCESS -1.1 (-2.0-2.0); VENOUS HCO3 25.2 MEQ/L (23.0-27.0); VENOUS O2 SATURATION 41.4 % (60.0-80.0); VENOUS PARTIAL PRESSURE CO2 48.1 mmHg (38.0-50.0); VENOUS PARTIAL PRESSURE O2 25.4 mmHg (30.0-50.0); VENOUS PH 7.337 UNITS (7.330-7.430); VENOUS STANDARD HCO3 22.3 MEQ/L; VENOUS TOTAL CO2 26.7 MEQ/L (24.0-28.0)
[2022-01-05 15:23] LABS: BASO # 0.1 10^3/uL (0.0-0.2); BASO % 0.2 % (0.0-1.0); HEMOGLOBIN 12.2 g/dl (13.5-17.5); LYMPH # 1.3 10^3/uL (1.5-5.0); LYMPH % 5.7 % (24.0-44.0); MEAN CORPUSCULAR HEMOGLOBIN 28.9 pg (27.0-33.0); MEAN CORPUSCULAR HGB CONC 33.9 g/dl (32.0-36.5); MEAN CORPUSCULAR VOLUME 85.3 fl (80.0-96.0); NEUTROPHILS # 19.5 10^3/uL (1.5-8.5); NEUTROPHILS % 85.8 % (36.0-66.0); PLATELET COUNT, AUTOMATED 263 10^3/uL (150-450); RED BLOOD COUNT 4.22 10^6/uL (4.30-6.10); WHITE BLOOD COUNT 22.7 10^3/uL (4.0-10.0)
[2022-01-05 15:35] LABS: INR 1.11; PROTHROMBIN TIME 14.5 SECONDS (12.5-14.5)
[2022-01-05 15:41] LABS: MONO # 1.7 10^3/uL (0.0-0.8); MONO % 7.5 % (2.0-8.0)
[2022-01-05 15:47] LABS: ABG HCO3 22.5 MEQ/L (22.0-26.0); ABG O2 SATURATION 90.5 % (95.0-99.0); ABG STANDARD HCO3 24.4 MEQ/L (22.0-26.0); ABG TOTAL CO2 23.4 MEQ/L (23.0-31.0); ABG pH (ARTERIAL) 7.492 UNITS (7.350-7.450)
[2022-01-05 16:13] LABS: CK-MB VALUE MASS 2.3 NG/ML (<3.6); MB/CK RELATIVE INDEX 1.07 (< OR =4)
[2022-01-05 16:14] LABS: ALBUMIN 3.6 GM/DL (3.2-5.2); BILIRUBIN,DIRECT 0.3 MG/DL (0.0-0.2); BILIRUBIN,TOTAL 0.7 MG/DL (0.2-1.0); CALCIUM LEVEL 9.2 MG/DL (8.8-10.2); CREATININE FOR GFR 2.43 MG/DL (0.70-1.30); GLOMERULAR FILTRATION RATE 28.1 (>42); POTASSIUM SERUM 4.8 MEQ/L (3.5-5.1); THYROID STIMULATING HORMONE 3.2 uIU/ML (0.358-3.740); TOTAL PROTEIN 7.7 GM/DL (6.4-8.2)
[2022-01-05 18:30] LABS: CK-MB VALUE MASS 2.3 NG/ML (<3.6); MB/CK RELATIVE INDEX 0.9 (< OR =4)
[2022-01-05] MEDS ORDERED: NORCO, ANEXSIA 5/325MG TABLET (HYDROcodone/ACETAMINOPHEN) PO ONE (18:35)
[2022-01-05] MEDS ORDERED: DIGOXIN INJ 0.5 MG/2 ML AMP (J1160) IV STA (19:00)
[2022-01-05] MEDS ORDERED: ACETAMINOPHEN TAB 650MG DOSE (2X325MG) PO PRN (19:00)
[2022-01-05] MEDS ORDERED: PANT40TA29 PO (19:57)
[2022-01-05] MEDS ORDERED: FISH1CAP26 PO (19:57)
[2022-01-05] MEDS ORDERED: TRAZ-252 PO (19:57)
[2022-01-05] MEDS ORDERED: LOSA50TA28 PO (19:57)
[2022-01-05] MEDS ORDERED: HOME MED LIST COMPLETE! XX SCH (20:00)
[2022-01-05 20:09] LABS: CK-MB VALUE MASS 2.4 NG/ML (<3.6); MB/CK RELATIVE INDEX 0.79 (< OR =4)
[2022-01-05] MEDS ORDERED: NORCO, ANEXSIA 5/325MG TABLET (HYDROcodone/ACETAMINOPHEN) PO PRN (20:10)
[2022-01-05] MEDS ORDERED: MORPHINE 2 MG/ML 1ML VIAL IV PRN (20:10)
[2022-01-05] MEDS ORDERED: traZODone 50 MG TAB PO PRN (20:10)
[2022-01-05] MEDS ORDERED: HEPARIN SOD (PORCINE) 5000UNITS/ML 1ML VIAL/SYRINGE IV PRN (20:20)
[2022-01-05] MEDS ORDERED: HEPARIN DRIP 25,000 UNITS in IV 1 EA IV SCH (20:20)
[2022-01-05] MEDS ORDERED: guaiFENesin ER 600 MG TAB PO PRN (20:25)
[2022-01-05 21:07] VITALS: BP 104/57
[2022-01-05] MEDS: METOPROLOL SUCC *XL* 25MG TAB (TopROL *XL*) PO SCH (21:07)
[2022-01-05] MEDS: VITAMIN D 1,000 INTERNATIONAL UNITS TABLET PO SCH (21:07)
[2022-01-05] MEDS: DOXYCYCLINE HYCLATE 100MG TABLET PO SCH (21:07)
[2022-01-05] MEDS: methylPREDNISolone 40MG 1ML VIAL IV SCH (21:10)
[2022-01-05] MEDS: IPRATROPIUM 0.5MG/ALBUTEROL 2.5MG INH SOL UD 3ML (DUONEB) INH SCH (21:38)
[2022-01-05] MEDS: OMEGA-3 1000MG CAPSULE PO SCH (21:40)
[2022-01-05] MEDS: DICLOFENAC EPOLAMINE 1.3 % PATCH TOP SCH (21:41)
[2022-01-05] MEDS ORDERED: HEPARIN SOD (PORCINE) 5000UNITS/ML 1ML VIAL/SYRINGE SC SCH (22:00)
[2022-01-05 23:07] LABS: HEMATOCRIT 30.3 % (42.0-52.0); HEMOGLOBIN 10.4 g/dl (13.5-17.5); MEAN CORPUSCULAR HEMOGLOBIN 29.5 pg (27.0-33.0); MEAN CORPUSCULAR HGB CONC 34.3 g/dl (32.0-36.5); MEAN CORPUSCULAR VOLUME 86.1 fl (80.0-96.0); PLATELET COUNT, AUTOMATED 230 10^3/uL (150-450); RED BLOOD COUNT 3.52 10^6/uL (4.30-6.10); WHITE BLOOD COUNT 18.1 10^3/uL (4.0-10.0)
[2022-01-05] MEDS ORDERED: NS 1,000 ML IV SCH (23:10)
[2022-01-05 23:13] LABS: MAGNESIUM LEVEL 1.4 MG/DL (1.8-2.4)
[2022-01-06] MEDS ORDERED: MAGNESIUM OXIDE 400MG TAB (MAG-OX) PO ONE (01:30)
[2022-01-06] MEDS: IPRATROPIUM 0.5MG/ALBUTEROL 2.5MG INH SOL UD 3ML (DUONEB) INH SCH ×4 (02:00→20:20)
[2022-01-06 07:05] LABS: VENOUS BASE EXCESS -2.5 (-2.0-2.0); VENOUS HCO3 22.8 MEQ/L (23.0-27.0); VENOUS O2 SATURATION 80.6 % (60.0-80.0); VENOUS PARTIAL PRESSURE CO2 41.3 mmHg (38.0-50.0); VENOUS PARTIAL PRESSURE O2 49.6 mmHg (30.0-50.0); VENOUS STANDARD HCO3 22.1 MEQ/L; VENOUS TOTAL CO2 24.1 MEQ/L (24.0-28.0)
[2022-01-06 07:10] LABS: HEMATOCRIT 31.3 % (42.0-52.0); HEMOGLOBIN 10.6 g/dl (13.5-17.5); MEAN CORPUSCULAR HGB CONC 33.9 g/dl (32.0-36.5); MEAN CORPUSCULAR VOLUME 85.8 fl (80.0-96.0); PLATELET COUNT, AUTOMATED 251 10^3/uL (150-450); RED BLOOD COUNT 3.65 10^6/uL (4.30-6.10); WHITE BLOOD COUNT 15.1 10^3/uL (4.0-10.0)
[2022-01-06 07:49] LABS: CALCIUM LEVEL 8.3 MG/DL (8.8-10.2); CHOLESTEROL RISK RATIO 2.612 (<5); CREATININE FOR GFR 1.95 MG/DL (0.70-1.30); GLOMERULAR FILTRATION RATE 36.3 (>42); MAGNESIUM LEVEL 1.2 MG/DL (1.8-2.4); POTASSIUM SERUM 4.4 MEQ/L (3.5-5.1)
[2022-01-06] MEDS: FENOFIBRATE 145MG TABLET (TRICOR) PO SCH (09:00)
[2022-01-06] MEDS: DICLOFENAC EPOLAMINE 1.3 % PATCH TOP SCH ×2 (09:00→20:31)
[2022-01-06] MEDS: DOXYCYCLINE HYCLATE 100MG TABLET PO SCH ×2 (09:07→20:32)
[2022-01-06] MEDS: ASPIRIN 325 MG TAB PO SCH (09:07)
[2022-01-06] MEDS: ATORVASTATIN 20 MG TAB PO SCH (09:07)
[2022-01-06] MEDS: PANTOPRAZOLE 40MG TAB (PROTONIX) PO SCH (09:07)
[2022-01-06] MEDS: methylPREDNISolone 40MG 1ML VIAL IV SCH ×2 (09:07→20:31)
[2022-01-06] MEDS: METOPROLOL SUCC *XL* 25MG TAB (TopROL *XL*) PO SCH ×2 (09:07→20:32)
[2022-01-06] MEDS: TAMSULOSIN 0.4 MG CAP PO SCH (09:07)
[2022-01-06] MEDS ORDERED: APIXABAN 5 MG TAB (ELIQUIS) PO ONE (12:30)
[2022-01-06 12:46] VITALS: BP 132/70
[2022-01-06] MEDS: MAG SULF 1GM/100ML (MAG RUN) 1 GM in IV 1 EA IV SCH ×2 (12:53→14:15)
[2022-01-06] MEDS ORDERED: NICOTINE 21MG/24HR 1 EA TRANSDERMAL TD SCH (13:15)
[2022-01-06] MEDS ORDERED: SODIUM CHLORIDE NASAL 0.65% SPRAY BTL (OCEAN) PRN (14:05)
[2022-01-06] MEDS: NICOTINE 21MG/24HR 1 EA TRANSDERMAL TD SCH (14:14)
[2022-01-06] MEDS: NORCO, ANEXSIA 5/325MG TABLET (HYDROcodone/ACETAMINOPHEN) PO PRN ×2 (15:03→20:35)
[2022-01-06 16:00] VITALS: BP 129/78
[2022-01-06] MEDS ORDERED: cefTRIAXone SOD 1 GM in D5W MINI-BAG PLUS 50 ML IV SCH (16:00)
[2022-01-06] MEDS: GABAPENTIN 300 MG CAP PO SCH ×2 (16:15→20:32)
[2022-01-06 20:00] VITALS: BP 134/78
[2022-01-06] MEDS: VITAMIN D 1,000 INTERNATIONAL UNITS TABLET PO SCH (20:32)
[2022-01-06] MEDS: APIXABAN 5 MG TAB (ELIQUIS) PO SCH (20:32)
[2022-01-06] MEDS: OMEGA-3 1000MG CAPSULE PO SCH (20:32)
[2022-01-06] MEDS ORDERED: FLUTICASONE PROP 0.05% NASAL SPRAY 16 GM (FLONASE) NARES SCH (21:00)
[2022-01-07] VITALS: BP 136/81
[2022-01-07] MEDS: NORCO, ANEXSIA 5/325MG TABLET (HYDROcodone/ACETAMINOPHEN) PO PRN ×4 (00:32→13:18)
[2022-01-07 01:00] LABS: APPEARANCE, URINE MANUAL CLEAR (CLEAR); COLOR, URINE MANUAL YELLOW (YELLOW)
[2022-01-07 01:02] LABS: BILIRUBIN, URINE MANUAL NEGATIVE (NEGATIVE); BLOOD URINE MANUAL NEGATIVE (NEGATIVE); GLUCOSE, URINE (UA) MANUAL NEGATIVE (NEGATIVE); KETONE, URINE MANUAL NEGATIVE (NEGATIVE); LEUKOCYTE ESTERASE, URINE MAN NEGATIVE (NEGATIVE); NITRITE, URINE MANUAL NEGATIVE (NEGATIVE); PROTEIN, URINE MANUAL NEGATIVE (NEGATIVE); UROBILINOGEN, URINE MANUAL NORMAL (NORMAL)
[2022-01-07] MEDS: IPRATROPIUM 0.5MG/ALBUTEROL 2.5MG INH SOL UD 3ML (DUONEB) INH SCH ×2 (01:49→08:06)
[2022-01-07 04:00] VITALS: BP 130/70
[2022-01-07 05:49] LABS: BASO % 0.1 % (0.0-1.0); HEMATOCRIT 29.4 % (42.0-52.0); LYMPH # 0.6 10^3/uL (1.5-5.0); LYMPH % 3.8 % (24.0-44.0); MEAN CORPUSCULAR HEMOGLOBIN 28.9 pg (27.0-33.0); MONO # 0.5 10^3/uL (0.0-0.8); MONO % 3.4 % (2.0-8.0); NEUTROPHILS % 92.1 % (36.0-66.0); PLATELET COUNT, AUTOMATED 256 10^3/uL (150-450); RED BLOOD COUNT 3.46 10^6/uL (4.30-6.10); WHITE BLOOD COUNT 15.2 10^3/uL (4.0-10.0)
[2022-01-07 06:26] LABS: ALBUMIN 2.9 GM/DL (3.2-5.2); BILIRUBIN,TOTAL 0.3 MG/DL (0.2-1.0); CALCIUM LEVEL 8.7 MG/DL (8.8-10.2); CREATININE FOR GFR 1.6 MG/DL (0.70-1.30); GLOMERULAR FILTRATION RATE 45.6 (>42); MAGNESIUM LEVEL 1.5 MG/DL (1.8-2.4); POTASSIUM SERUM 4.4 MEQ/L (3.5-5.1); TOTAL PROTEIN 6.9 GM/DL (6.4-8.2)
[2022-01-07] MEDS ORDERED: MAG SULF 1GM/100ML (MAG RUN) 1 GM in IV 1 EA IV ONE ×2 (07:00→07:25)
[2022-01-07 08:00] VITALS: BP 138/74
[2022-01-07] MEDS ORDERED: CEFDINIR 300 MG CAP (OMNICEF) PO SCH (09:00)
[2022-01-07] MEDS ORDERED: predniSONE 20 MG TAB PO SCH (09:00)
[2022-01-07] MEDS: NICOTINE 21MG/24HR 1 EA TRANSDERMAL TD SCH (09:19)
[2022-01-07] MEDS: DICLOFENAC EPOLAMINE 1.3 % PATCH TOP SCH (09:19)
[2022-01-07 09:21] VITALS: BP 138/74
[2022-01-07] MEDS: PANTOPRAZOLE 40MG TAB (PROTONIX) PO SCH (09:21)
[2022-01-07] MEDS: GABAPENTIN 300 MG CAP PO SCH ×2 (09:21→13:17)
[2022-01-07] MEDS: ATORVASTATIN 20 MG TAB PO SCH (09:21)
[2022-01-07] MEDS: TAMSULOSIN 0.4 MG CAP PO SCH (09:22)
[2022-01-07] MEDS: ASPIRIN 325 MG TAB PO SCH (09:22)
[2022-01-07] MEDS: METOPROLOL SUCC *XL* 25MG TAB (TopROL *XL*) PO SCH (09:22)
[2022-01-07] MEDS: DOXYCYCLINE HYCLATE 100MG TABLET PO SCH (09:22)
[2022-01-07] MEDS: APIXABAN 5 MG TAB (ELIQUIS) PO SCH (09:22)
[2022-01-07] MEDS ORDERED: NICO21PAT TD (12:56)
[2022-01-07] MEDS ORDERED: BACI1CAP PO (12:56)
[2022-01-07] MEDS ORDERED: PULM90IN INH (12:56)
[2022-01-07] MEDS ORDERED: ALBU6.7H6 INH (12:56)
[2022-01-07] MEDS ORDERED: DOXY100T PO (12:56)
[2022-01-07] MEDS ORDERED: PRED10TA2 PO (12:56)
[2022-01-07] MEDS ORDERED: CEFD300CAP PO (12:56)
[2022-01-07] MEDS ORDERED: SPIR1CAP INH (12:56)
[2022-01-07] MEDS: FENOFIBRATE 145MG TABLET (TRICOR) PO SCH (13:17)
[2022-01-07] MEDS ORDERED: FLUBLOK(EGG FREE)(QUAD)INFLUENZA VACC 0.5ML SYRINGE 18YRS & OLDER IM.IMMUN ONE (13:30)
[2022-01-07] MEDS ORDERED: ELIQ5TAB PO (19:10)
[2022-01-13] MEDS ORDERED: APIXABAN 5 MG TAB (ELIQUIS) PO SCH (09:00)
== END 2022-01-07 15:05 | disposition home or self-care (01) | DRG 871 ==
LOC: M ED 14:37 → M ED INP 18:56 → ENRESERV 01-06 08:53 → M ICU 01-06 12:35
PROVIDERS: ADMIT Internal Medicine; ATTEND Internal Medicine
PROC: B246ZZZ Ultrasonography of Right and Left Heart (ICD-10-PCS; principal; 2022-01-06)
DX: A41.9 Sepsis, unspecified organism (principal); J96.00 Acute respiratory failure, unspecified whether with hypoxia or hypercapnia; J12.89 Other viral pneumonia; I21.4 Non-ST elevation (NSTEMI) myocardial infarction; J44.1 Chronic obstructive pulmonary disease with (acute) exacerbation; J44.0 Chronic obstructive pulmonary disease with (acute) lower respiratory infection; E87.3 Alkalosis; N17.9 Acute kidney failure, unspecified; J96.11 Chronic respiratory failure with hypoxia; K21.9 Gastro-esophageal reflux disease without esophagitis; Z85.118 Personal history of other malignant neoplasm of bronchus and lung; K22.70 Barrett's esophagus without dysplasia; N40.0 Benign prostatic hyperplasia without lower urinary tract symptoms; M19.90 Unspecified osteoarthritis, unspecified site; M54.9 Dorsalgia, unspecified; F17.210 Nicotine dependence, cigarettes, uncomplicated; Z99.81 Dependence on supplemental oxygen; D72.829 Elevated white blood cell count, unspecified; B34.8 Other viral infections of unspecified site; I48.91 Unspecified atrial fibrillation; N18.9 Chronic kidney disease, unspecified; D63.8 Anemia in other chronic diseases classified elsewhere; I12.9 Hypertensive chronic kidney disease with stage 1 through stage 4 chronic kidney disease, or unspecified chronic kidney disease; E78.5 Hyperlipidemia, unspecified; M40.209 Unspecified kyphosis, site unspecified; S22.41XS Multiple fractures of ribs, right side, sequela; Z79.84 Long term (current) use of oral hypoglycemic drugs; Z79.899 Other long term (current) drug therapy

== ENCOUNTER → 2022-03-31 | Outpatient (REF) | payer OTHER ==
[~2022-03-31] MED LIST changes: +ALBU6.7H6 INH; +BACI1CAP PO; +CEFD300CAP PO; +DOXY100T PO; +ELIQ5TAB PO; +FISH1CAP26 PO; +LOSA50TA28 PO; +NICO21PAT TD; +NYST-38 PO; -NYST50SS PO; +PANT40TA29 PO; +PRED10TA2 PO; +PULM90IN INH; +SPIR1CAP INH
== END ==
LOC: M LAB REF 16:45
PROVIDERS: ATTEND Internal Medicine Nephrology
DX: D50.9 Iron deficiency anemia, unspecified (principal)

== ENCOUNTER → 2022-04-01 | Outpatient (CLI) | payer OTHER | LOC: M RAD 10:04 | PROVIDERS: ATTEND Specialist | DX: C34.90 Malignant neoplasm of unspecified part of unspecified bronchus or lung (principal); J44.9 Chronic obstructive pulmonary disease, unspecified; R91.1 Solitary pulmonary nodule; I51.7 Cardiomegaly; R18.8 Other ascites ==